=== PATIENT | female | born 1955 | race Caucasian/White ===

== ENCOUNTER 2019-04-28 10:36 | Inpatient (IN) | payer MEDICARE, OTHER, SELFPAY ==
--- NOTE | 2019-04-26 09:24 | ECG_ITS ---
Measurements Intervals [place] Rate: 65 P: 63 CT: 142 QRS: 46 QRSD: 86 T: 62 QT: 387 QTc: 404 SINUS RHYTHM No previous ECG available for comparison Electronically Signed On 04-26-2019 19:32:37 BRANCH SALES MANAGER by Edy Coronel M.D. [email or web address]
--- NOTE | 2019-04-26 10:04 | ANES.PREANES ---
Pre-Anesthetic Assessment Pre-Anesthetic Assessment: Height/Weight: Height 1.52 m Weight 52.617 kg Preop Diagnosis: Righ upper lobe pulmonary nodule Proposed Procedure: Operation Date: 04/28/19 07:00 Proposed Procedures p Lobectomy(Right) - Brendon Iverson MD Social: Packs per day: 5-6 cigs/d for2 weeks Comment: .>40 pack years Airway: Dentition: False and Partials Pulmonary: Pulmonary: COPD CV/HEM: CV/HEM: HTN Comments: rx'd x 10 years stress years 5y negative GI: GI: GERD and PUD Musc/skel: Musc/skel: Lower Back Pain Comments: right >left radiculopathy Anesthetic Plan: ASA status: III Anesthesia: General Other: Epidural for postop pain control PFSH Anesthesia PFSH: Medical History (Updated 04/21/19 @ 09:41 by Meng Coulter MD) Arthropathy of cervical facet joint (Acute) Cellulitis of right anterior lower leg (Acute) Cervical radiculopathy due to degenerative joint disease of spine (Acute) COPD (chronic obstructive pulmonary disease) (Acute) Gout, arthritis (Acute) Inflammatory arthritis (Acute) Intervertebral disc disorder with radiculopathy of lumbar region (Acute) Intervertebral disc disorder with radiculopathy of lumbosacral region (Acute) Low back pain radiating down leg (Acute) Lumbar stenosis with neurogenic claudication (Acute) Lung nodule, solitary (Acute) Mixed stress and urge urinary incontinence (Acute) Neck pain (Acute) Osteoporosis (Acute) Pain and swelling of right knee (Acute) Primary Sjogren's syndrome (Acute) Seronegative rheumatoid arthritis (Acute) Spondylolisthesis at L4-L5 level (Acute) Spondylolisthesis at L5-S1 level (Acute) Spondylolisthesis, cervical region (Acute) Spondylolisthesis, lumbar region (Acute) Thoracic disc disease (Acute) Vaginal atrophy (Acute) Surgical History History of D&C (Acute) 4x History of decompression of ulnar nerve (Acute) Right History of ear surgery (Acute 04/17/17) Right History of hysterectomy (Acute 10/29/16) with Vaginal Repair, Total S/P insertion of spinal cord stimulator (Acute) Social History Smoking and tobacco status: current every day smoker Alcohol intake: never Substance/Drug Use: never Lives independently: Yes Household members: spouse Marital status: Current occupational status: disabled History of recent travel: No Data Anesthesia Cardiac Studies: No Data to Display
[2019-04-26 10:42] LABS: Basophils # 0.1 10^3/uL (0.0-0.1); Basophils % 0.9 %; Eosinophils # 0.6 10^3/uL (0.0-0.8); Hematocrit 42.9 % (37.0-47.0); Hemoglobin 14.2 g/dL (11.5-15.3); Lymphocytes # 2.2 10^3/uL (0.8-4.8); Mean Corpuscular HGB Conc 33.1 g/dL (30.0-36.0); Mean Corpuscular Hemoglobin 31.3 pg (28.0-34.0); Mean Corpuscular Volume 94.7 fL (81-99); Mean Platelet Volume 11.5 fL (7.4-10.4); Monocytes # 0.7 10^3/uL (0.2-0.9); Monocytes % 7.2 %; Neutrophils % 62.7 %; Nucleated Red Blood Cells % 0 %; Platelet Count 267 10^3/cmm (130-400); Red Blood Count 4.53 10^6/uL (4.1-5.3); Red Cell Distribution Width 12.1 % (12.1-15.1); White Blood Count 9.5 10^3/uL (4.0-10.0)
[2019-04-26 10:43] LABS: INR 1.01 (0.8-1.2)
[2019-04-26 11:01] LABS: Anion Gap 14.8 (5-19); Blood Urea Nitrogen 18 mg/dL (8-23); Calcium 9.7 mg/Dl (8.8-10.2); Carbon Dioxide 25 mmol/L (22-29); Chloride 96 mmol/L (98-107); Glucose 90 mg/dL (74-106); Potassium 3.8 mmol/L (3.5-5.1); Sodium 132 mmol/L (136-145)
[2019-04-26 12:36] LABS: Add Urine Microscopic? NO
[2019-04-26 13:35] LABS: Bilirubin Urine Neg (NEGATIVE); Blood Urine Neg (Negative); Glucose Urine UA Norm (Normal); Ketones Urine Negative (Negative); Leukocyte Esterase Urine Negative (Negative); Nitrate Urine Negative (Negative); Protein Urine Neg (Negative); Specific Gravity, Urine 1.005 (1.005-1.030); Urine Appearance Clear (CLEAR); Urine Color Straw (Yellow); Urobilinogen Urine Norm (Negative)
[2019-04-28] VITALS (41 sets, daily range): BP systolic 44–172; BP diastolic 21–98; PULSE 54–84; RESP 11–25; TEMP 36.2–36.9; O2SAT 87–100
[2019-04-28] MEDS: sodium chloride 0.9% 1,000 ML 30 ML IV (06:06)
--- NOTE | 2019-04-28 06:27 | PM.HPUD ---
H&P update H&P Update: DATE OF SURGERY/PROCEDURE: 04/28/19 DATE H&P PERFORMED: 04/28/19 H&P UPDATE INFORMATION: H&P completed within last 30 days and No changes to prior documentation PREOP DIAGNOSIS: PET +2 cm right upper lobe lung lesion PRIMARY INDICATION FOR PROCEDURE: PET positive right upper lobe lung lesion concerning for malignancy PLANNED PROCEDURE: Operation Date: 04/28/19 07:00 Proposed Procedures p Lobectomy(Right) - Brendon Iverson MD Full H&P Medications/Allergies: Current Medications: Current Medications Generic Name Dose Route Start Last Admin Trade Name Freq PRN Reason Stop Dose Admin Sodium Chloride 1,000 mls @ 30 ml s/hr 04/28/19 05:45 04/28/19 06:06 Sodium Chloride 0.9% IV 04/29/19 05:44 30 mls/hr .Q24H YEHUDA Administration Perinent History: Medical/Surgical History: Medical History (Updated 04/21/19 @ 09:41 by Meng Coulter MD) Arthropathy of cervical facet joint (Acute) Cellulitis of right anterior lower leg (Acute) Cervical radiculopathy due to degenerative joint disease of spine (Acute) COPD (chronic obstructive pulmonary disease) (Acute) Gout, arthritis (Acute) Inflammatory arthritis (Acute) Intervertebral disc disorder with radiculopathy of lumbar region (Acute) Intervertebral disc disorder with radiculopathy of lumbosacral region (Acute) Low back pain radiating down leg (Acute) Lumbar stenosis with neurogenic claudication (Acute) Lung nodule, solitary (Acute) Mixed stress and urge urinary incontinence (Acute) Neck pain (Acute) Osteoporosis (Acute) Pain and swelling of right knee (Acute) Primary Sjogren's syndrome (Acute) Seronegative rheumatoid arthritis (Acute) Spondylolisthesis at L4-L5 level (Acute) Spondylolisthesis at L5-S1 level (Acute) Spondylolisthesis, cervical region (Acute) Spondylolisthesis, lumbar region (Acute) Thoracic disc disease (Acute) Vaginal atrophy (Acute) Family History: Family History (Updated 03/19/19 @ 12:26 by YAEL Smith) Mother Hypertension Diabetes Stroke Cancer Uterine Grandmother Diabetes Maternal Heart disease Father Heart disease Grandfather Heart disease Sister Cancer Uterine Social History: Social History Smoking and tobacco status: current every day smoker cigarettes Second hand smoke exposure: No Smoking risk assessment/counseling performed?: Yes Alcohol intake: former Lives independently: Yes Household members: spouse Marital status: Current occupational status: disabled History of recent travel: No Pertinent Exam Findings: OTHER PERTINENT EXAM FINDINGS: Lungs are clear. Cardiovascular labs unremarkable. I have again counseled with the patient and her concerning recommendation for right upper lobectomy and indication for. Details the risk of surgery again carefully reviewed. All questions answered. She and family wish to proceed with plans for surgery. A&P Assessment and plan (1) Lung nodule, solitary: PET positive right upper lobe lung lesion in this 64 year-old female with a 40-year history of tobacco use. We have recommended resection secondary to the concerns for malignancy. Status: Acute Code(s): R91.1 - Solitary pulmonary nodule
[2019-04-28] MEDS: ceFAZolin 1,000 mg SDV 3000 MG IRRIGATION (08:26)
--- NOTE | 2019-04-28 08:27 | ANES.PROC ---
Anesthesia Procedures Procedure/Date: 04/28/19 Procedure Narrative: R&B's of thoracic epidural disc'd. Verbal and written consent obtained. Sedated in the OR. LLD position. Heavily calcified spine. Attempt at T-45 and T67 without success. Placed T78 without difficulty. 10cm at skin Arterial Line: Time Out Performed: Yes Consent: requested by attending/covering physician, risks and benefits reviewed and patient agrees to proceed Size (Gauge): 16 Intubation: Time Out Performed: Yes Epidural: Time Out Performed: Yes Consents Signed: Procedure Consent and NPO Consent Consent: requested by attending/covering physician, from patient, risks and benefits reviewed and patient agrees to proceed Thoracic Level: other Epidural position: laying on side Epidural procedure: sterile prep of area, 1% lidocaine to numb the area, negative for paresthesia passed, neg for paresthesia, test dose given and 1.5% xylocaine 1:200k epi
--- NOTE | 2019-04-28 08:30 | SUR.OPER ---
6856 PT WAS POSITIONED ON HER SIDE FOR THE EPIDURAL PLACEMENT AND IT WAS NOTICED THAT ON HER LOWER BACK THERE WAS SOME SKIN DISCOLORATION, BROWN, MOTTLED MARKINGS ALONG HER LOWER BACK. PT STATED IT WAS NOT PAINFUL AND IT WAS FROM HER USE OF HEATING PADS ON HER LOWER BACK. 0720 FAMILY (EMILIE) NOTIFIED OF SURGERY START AND PT CONDITION.
--- NOTE | 2019-04-28 08:54 | SUR.OPER ---
0854 SURGICEL USED ON PT BY DR SANTOS, REF 1951, LOT [id number], EXP
--- NOTE | 2019-04-28 09:45 | P.OP_ITS ---
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 No evidence for metastatic disease. I recommended surgical resection. Details the risk of the procedure were carefully and frankly discussed. Proper consents have been reviewed and signed. Procedure: Thoracic epidural catheter was placed prior to entering the surgical suite. Patient underwent general endotracheal anesthesia with double-lumen endotracheal tube placed. Appropriate invasive lines were placed. She was placed in the left lateral decubitus position over axillary roll and protective padding. Her entire right chest was sterilely prepped and draped. A muscle- sparing limited right thoracotomy incision was made with cautery used to control bleeding. Latissimus muscle was divided. The anterior serratus muscle was retracted but not divided. The fifth intercostal space was entered. Moist laparotomy pads and the Finochietto retractor were placed. The chest was carefully opened. Right apical upper lobe mass could be easily palpated. There were minimal adhesions which were easily taken down. After careful inspection, due to the most apical location of this lesion and his limited size, and given her 40-year pack history of smoking, I felt that segmentectomy was appropriate. After careful isolation, utilizing endoscopic stapler, multiple firings were obtained, additionally laterally to medially and then superiorly to inferiorly. The resected segment was then removed and sent to pathology, where Dr. Lee has reported that this is a non-small cell carcinoma. I then performed dissection of a mediastinal lymph node and this was sent to pathology for permanent analysis. As there was isolated disease and no evidence for pathology elsewhere through visualization and palpation, we did not feel that further resection was required. The entire chest was then irrigated with large amounts of antibiotic solution. The right lung was then reinflated, without evidence for substantial air leak. No substantial air leaks were identified. 28 Austrian drain was placed over the diaphragm and out to the apex. This was connected to Pleur-evac suction. Retractor and sponges were removed. Sponge and needle count was correct. Chest wall was reapproximated with interrupted #1 Vicryl suture. The fascia was closed with running 0 Vicryl suture. The subcutaneous layer was cl osed with 2-0 Vicryl suture. Skin was reapproximated in a subcuticular manner with 3-0 Monocryl suture. Sterile dressing was applied. Patient was returned to the supine position and awakened from anesthesia. Ms. Barnes was extubated without difficulty. She was then transferred to PACU, awaiting bed availability in the ICU. Family was counseled. Chest x-ray is pending.
--- NOTE | 2019-04-28 09:55 | XR_ITS ---
WS: [id number] PORTABLE CHEST HISTORY: LOBECTOMY COMPARISON: 04/04/2015 Status post RIGHT upper lobectomy. There is an area of increased opacification and consolidation over the medial RIGHT upper lung field measuring 4.1 x 3.7 cm. Probably postoperative changes and a small amount of bleeding. Single right-sided chest tube. Tip of the tube is directed medially and inferiorly. Small amount of s ubcutaneous air over the RIGHT lateral thorax. Cardiac size: Normal. Mediastinum/Aorta: Normal mediastinum. No osseous abnormality seen. XR/XR chest 1V portable [id number] IMPRESSION: 1. Status post RIGHT upper lobectomy. Increased opacification in the medial RI GHT upper lung is probably postsurgical changes in associated bleeding. Recomme nd follow-up chest radiographs to demonstrate stability of the postoperative ch anges in the medial RIGHT upper lung field. 2. Single RIGHT chest tube with tip directed medially and inferiorly. No pneum othorax.
--- NOTE | 2019-04-28 10:02 | SUR.PHASEI ---
0950 PATIENT TO PACU AT THIS TIME FROM OR. PATIENT PLACED ON SIMPLE MASK AT 8L, SPO2 100%. CHEST TUBE IN PLACE, PLACED TO WALL SUCTION. EPIDURAL IN PLACE. DRESSING TO RIGHT BACK, CDI. PATIENT RESPONSIVE TO VERBAL STIMULI.
--- NOTE | 2019-04-28 10:45 | PC.NURSE ---
Hemostats available on the unit in a central location. Several patients with chest tubes.
--- NOTE | 2019-04-28 11:02 | SUR.PHASEI ---
1042 PATIENT TO ICU AT THIS TIME VIA GURNEY. A/OX3. RR EVEN AND UNLABORED. DRESSING TO RIGHT BACK, CDI. CHEST TUBE IN PLACE. SPO2 97% ON RA. YANCEY IN PLACE, DRAINING CLEAR YELLOW URINE. EPIDURAL TO THORACIC BACK, BLOOD NOTED UNDER CLEAR DRESSING. CARE ASSUMED BY JAMAR CORRIGAN ICU.
[2019-04-28] MEDS: phenylephrine inj 25 MG in sodium chloride 0.9% 250 ML 36.4 MG IV (11:40)
[2019-04-28] MEDS: HYDROcodone-acetaminophen 5-325 mg Tablet 1 TAB PO ×3 (11:53→22:07)
[2019-04-28] MEDS: lactated ringers 1,000 ML 100 ML IV ×2 (12:05→22:02)
[2019-04-28] MEDS: morphine 4 mg/mL SDV 1 mL 2 MG IVP ×3 (12:48→19:53)
--- NOTE | 2019-04-28 13:52 | PC.CHAP ---
Pastoral Care Encounter/Spiritual Assessment Type of Contact [] Declined recreation therapist visit [] Patient/Family/Request visit [] Outpatient visit [] Follow-up visit [] Physician referral [] Code/Alert [x] Routine visit [] Staff referral [] Actively dying [] Patient sleeping [] Family support [] [] Out of room [] Palliative care [] [] Receiving care in room [] Pre-surgical visit [] Trauma [] Long length of stay [x] ICU visit [] Other: Relational/Emotional Strength [x] Patient feels connected with others/family/visitors/staff [] Distress [] Loneliness/isolation [] Abandonment Spirituality of Patient [x] Person of Amanda [] Attends Denominational of their Amanda [x] Believes in Prayer [] Reads Bible or Tenriism materials [] There are Spiritual issues to be addressed Instrument Maker And Repairer Interventions [x] Prayer [x] Active listening [x] Non-anxious presence [x] Spiritual/emotional support [] Crisis/trauma care [] Spiritual counseling [] Bereavement support [] Provided bereavement packet [] Provided Bible/devotional materials [] Provided toy/stuffed animal, coloring book to patient or family member [x] Completed spiritual assessment [] Provided Communion [] Anointing/[place] [] Salvation [] Other: Impact on Illness or Injury [] Angry [] Fearful [] Anxious [] Often cries [] Exhaustion [] Unable to work [] Unable to attend buddhist [] Unable to walk/stand [] Unable to read [] Unable to drive [] Unable to eat/drink [] Unable to sleep [] Unable to be with family [x] Other: post surgery pain Summary THE patient and family wre very appreciative of the Instrument Maker And Repairer visit and the Instrument Maker And Repairer praying for the patient. Time spent with patient 12 mins.
[2019-04-28] MEDS: gabapentin 100 mg Capsule PO ×2 (15:27→21:36)
[2019-04-28] MEDS: hydroxychloroquine 200 mg Tablet PO (18:03)
[2019-04-28] MEDS: lamoTRIgine 100 mg Tablet 50 MG PO (18:03)
[2019-04-28] MEDS: phenylephrine inj 25 MG in sodium chloride 0.9% 250 ML 24.2 MG IV (20:08)
--- NOTE | 2019-04-28 22:23 | PC.NURSE ---
Right radial arterial line discontinued at this time. Verbal orders received from Dr. De Leon, catheter intact. Pressure held for 10 minutes with no s/s of hematoma formation.
[2019-04-29] VITALS (85 sets, daily range): BP systolic 74–167; BP diastolic 38–92; PULSE 59–87; RESP 14–34; TEMP 36.9–37.5; O2SAT 76–100
[2019-04-29] MEDS: morphine 4 mg/mL SDV 1 mL 2 MG IVP ×2 (02:03→05:06)
[2019-04-29] MEDS: phenylephrine inj 25 MG in sodium chloride 0.9% 250 ML 48.5 MG IV (03:31)
[2019-04-29 04:57] LABS: Basophils # 0.1 10^3/uL (0.0-0.1); Basophils % 0.6 %; Eosinophils # 0.4 10^3/uL (0.0-0.8); Eosinophils % 3.3 %; Hematocrit 38.5 % (37.0-47.0); Hemoglobin 12.6 g/dL (11.5-15.3); Lymphocytes # 1.6 10^3/uL (0.8-4.8); Lymphocytes % 14.1 %; Mean Corpuscular HGB Conc 32.7 g/dL (30.0-36.0); Mean Corpuscular Hemoglobin 32.8 pg (28.0-34.0); Mean Corpuscular Volume 100.3 fL (81-99); Mean Platelet Volume 11.4 fL (7.4-10.4); Monocytes # 0.8 10^3/uL (0.2-0.9); Monocytes % 7.7 %; Neutrophils # 8.1 10^3/uL (1.8-7.7); Neutrophils % 73.8 %; Nucleated Red Blood Cells % 0 %; Platelet Count 196 10^3/cmm (130-400); Red Blood Count 3.84 10^6/uL (4.1-5.3); Red Cell Distribution Width 12.6 % (12.1-15.1)
[2019-04-29] MEDS: HYDROcodone-acetaminophen 5-325 mg Tablet 1 TAB PO ×2 (05:14→21:00)
--- NOTE | 2019-04-29 05:25 | PC.NURSE ---
NATIONAL SALES MANAGER demand doses given 60/ demand doses attempted 109
--- NOTE | 2019-04-29 06:00 | XR_ITS ---
WS: [id number] Portable AP upright chest, 04/29/2019 Clinical Data: s/p RUL segmentectomy Comparison: Portable chest, 04/28/2019 Findings: The right upper lobe density in the medial aspect remains unchanged The pulmonary vasculari ty is not increased. The right chest tube remains in the same position ending in the superior aspect of the right thoracic space. Left lung is clear. The heart is normal. Monitor leads on the chest wall . No pneumothorax is seen. XR/XR chest 1V portable [id number] Impression: 1. Status post right upper lobectomy with no change in ossification in the medi al aspect of the right upper lung. 2. No change in right chest tube.
[2019-04-29] MEDS: ketorolac 30 mg/mL INJ IVP ×3 (06:28→18:39)
--- NOTE | 2019-04-29 07:15 | NUR.SHIFT ---
Pt alert and oreinted this am. Still on the Louis gtt. Dr Iverson at bedside. Basal rate on Epidural decreased by Dr. Zaman. Adalberto doing attemtps and given cleared to better evaluate new pain meds, Toradol and Ultram effectiveness.
--- NOTE | 2019-04-29 07:24 | ANE.PACU ---
 Inpatient post-anesthesia follow up: Airway intact: Yes Vital signs: Temperature 99.5 F Pulse Rate [Bilate ral Dorsalis 80 Pedis] Pulse Rate [Monito r Apical] 64 Pulse Rate [Bilate ral Radial] 67 Pulse Rate [Left] 68 Pulse Rate 71 Respiratory Rate 18 Blood Pressure [Ri ght Radial 71/55 Artery] Blood Pressure [Le ft Arm] 114/92 Pulse Oximetry 98 Oxygen Delivery Me thod Room Air Oxygen Flow Rate 8 Fraction of Inspir ed Oxygen Hydration adequate: Yes Nausea and vomiting: No Pain level: 3 Pain level: Pain well controlled. Pt sitting up talking to Dr. Iverson & I. Dr. Iverson no Mental status: Baseline Additional Comments: pain well controlled, BP soft. Asked to decrease epidural infustion from 6 to 3 ml/hr
[2019-04-29] MEDS: TRAMadol 50 mg Tablet PO ×2 (09:15→15:13)
[2019-04-29] MEDS: hydroxychloroquine 200 mg Tablet PO ×2 (09:15→20:57)
[2019-04-29] MEDS: allopurinol 100 mg Tablet 200 MG PO (09:16)
[2019-04-29] MEDS: lamoTRIgine 100 mg Tablet 50 MG PO ×2 (09:16→18:39)
[2019-04-29] MEDS: gabapentin 100 mg Capsule PO ×3 (09:16→20:57)
[2019-04-29] MEDS: venlafaxine 75 mg Tablet PO (09:21)
[2019-04-29] MEDS: pantoprazole DR 40 mg Tablet PO (09:21)
--- NOTE | 2019-04-29 09:26 | PM.PN ---
Subjective Subjective: Interval history: Postop day 1 status post apical segmentectomy of the right upper lobe for non-small cell carcinoma. Patient doing well. No air leak. Pain is under better control with the use of tramadol and Toradol. Low chest tube output. Tolerating diet well. Vitals/I&O/Wt Last Vital Signs Temp 99.5 F 04/29/19 04:00 Pulse 67 04/29/19 08:07 Resp 18 04/29/19 08:07 BP 114/92 04/29/19 05:47 Pulse Ox 98 04/29/19 08:07 04/28/19 04/29/19 04/29/19 22:59 06:59 14:59 Intake Total 3180.004 / 4015.870 2967.665 / 6983.535 450 / 450 Output Total 3400 / 4350 4285 / 8635 Balance -219.996 / -334.130 -1317.335 / -1651.465 450 / 450 Physical Exam Resp: COMMON NORMALS: normal respiratory effort, no use of accessory muscles and clear to auscultation bilaterally AUSCULTATION: clear to auscultation bilaterally Urinary Catheter Management^: Briceño Latex: Cath Placed During This Visit: no A&P Assessment and plan (1) Non-small cell carcinoma of right lung: Postop day 1 status post apical segmentectomy right upper lobe for non-small cell carcinoma We will DC Briceño Epidural catheter dosing has been decreased Will Hep-Lock IV Will plan to transfer to [facility] Chest x-ray in a.m. Status: Acute Code(s): C34.91 - Malignant neoplasm of unspecified part of right bronchus or lung Attestations Medical Necessity Statement*: Postop day #1 status post apical segmentectomy of right upper lobe for non-small cell lung carcinoma Procedures Arterial Line Size (Gauge): 16 Coding Level of Care Code Acute Creative Services Manager for [facility] Fwd Diagnoses Non-small cell carcinoma of right lung C34.91
[2019-04-29] MEDS: phenylephrine inj 25 MG in sodium chloride 0.9% 250 ML 24.2 MG IV (14:07)
--- NOTE | 2019-04-29 19:15 | PC.NURSE ---
Bedside report given to Ivet Ricketts. Pt much improved today She is off Louis gtt after 2 attempts. IV fluids stopped by Dr Iverson. There are transfer ordered that where waiting for the Louis gtt to be discontinued. Dressing changed on incision and chest tube today, no air leaks. Basal rate on epidural decreased to 3ml/hr. The Toradol and Ultram are working well for her pain control, she has more epidural demoand doses given per attempts. She has ambulated around the unit two and half times t kathleen. Briceño out this am, She started urinating at 1400.
[2019-04-30] VITALS (10 sets, daily range): BP systolic 106–124; BP diastolic 60–68; PULSE 63–77; RESP 13–23; TEMP 37–37.2; O2SAT 93–100
[2019-04-30] MEDS: HYDROcodone-acetaminophen 5-325 mg Tablet 1 TAB PO ×5 (01:42→20:09)
--- NOTE | 2019-04-30 01:54 | PC.NURSE ---
New bag of Ropivacaine hung. 20 mLwasted from old bag with Otis Vaca RN. Battery almost so pump had to be reprogrammed.
--- NOTE | 2019-04-30 06:00 | XR_ITS ---
WS: [id number] CHEST XRAY TECHNIQUE: Portable chest. CLINICAL INFORMATION: Status post apical segmentectomy of right upper lobe for non-small cell carcino ma COMPARISON: FINDINGS: Heart: Normal cardiac silhouette. Lungs: Right chest tube. Stable postoperative changes right upper lobectomy. This is unchanged since yesterday. Lungs are well aerated. No acute pulmonary infiltrates. Small amount of subcutaneous emphy sema right lateral chest wall Bones: Normal visualized bony structures. XR/XR chest 1V portable [id number] IMPRESSION: 1. Right chest tube in place with tip near the mediastinum. 2. Postoperative right upper lobectomy is unchanged 3. Opacity in the right upper lobe medially has improved.
[2019-04-30] MEDS: TRAMadol 50 mg Tablet PO ×3 (07:39→22:23)
--- NOTE | 2019-04-30 08:14 | ANE.PACU ---
 Inpatient post-anesthesia follow up: Airway intact: Yes Vital signs: Temperature 99 F Pulse Rate [Bilate ral Dorsalis 80 Pedis] Pulse Rate [Monito r Apical] 64 Pulse Rate [Bilate ral Radial] 67 Pulse Rate [Left] 68 Pulse Rate 70 Respiratory Rate 14 Blood Pressure [Ri ght Radial 71/55 Artery] Blood Pressure [Le ft Arm] 114/92 Blood Pressure 112/68 Pulse Oximetry 93 Oxygen Delivery Me thod Room Air Oxygen Flow Rate 8 Fraction of Inspir ed Oxygen Hydration adequate: Yes Nausea and vomiting: No Pain level: 6 Mental status: Baseline Additional Comments: Epidural intact and in place, reinforced dressing. Encouraged use of button, patient states it seems to be working less well this morning. No sign of erythema or infection. no tenderness to palpation.
[2019-04-30] MEDS: ketorolac 30 mg/mL INJ IVP ×3 (08:16→23:29)
[2019-04-30] MEDS: venlafaxine 75 mg Tablet PO (08:20)
[2019-04-30] MEDS: pantoprazole DR 40 mg Tablet PO (08:20)
[2019-04-30] MEDS: allopurinol 100 mg Tablet 200 MG PO (08:20)
[2019-04-30] MEDS: hydroCHLOROthiazide 25 mg Tablet 12.5 MG PO (08:20)
[2019-04-30] MEDS: gabapentin 100 mg Capsule PO ×3 (08:20→20:09)
[2019-04-30] MEDS: lamoTRIgine 100 mg Tablet 50 MG PO ×2 (08:21→17:08)
[2019-04-30] MEDS: hydroxychloroquine 200 mg Tablet PO ×2 (08:21→17:08)
[2019-04-30] MEDS: cyclobenzaprine 10 mg Tablet PO ×2 (12:47→20:09)
--- NOTE | 2019-04-30 12:56 | PM.PN ---
Subjective Subjective: Interval history: Moderate amount of thoracotomy discomfort today, which is actually worsened as compared to yesterday. She has been ambulating the hallways and does remain in good spirits. Pathology is returned consistent with probable adenocarcinoma with clear margins. Lymph nodes were negative. Appears to be a stage I There is noted to still still be a small air leak. I will leave the chest tube to suction for now. It is only being removed from suction when she is ambulating. Vitals/I&O/Wt Last Vital Signs Temp 99.0 F 04/30/19 10:33 Pulse 71 04/30/19 10:33 Resp 17 04/30/19 10:33 BP 124/67 04/30/19 10:33 Pulse Ox 97 04/30/19 10:33 04/29/19 04/30/19 04/30/19 22:59 06:59 14:59 Intake Total 800 / 2402.043 220 / 2622.043 300 / 300 Output Total 560 / 1535 1300 / 2835 1000 / 1000 Balance 240 / 867.043 -1080 / -212.957 -700 / -700 Physical Exam Chest: COMMONS NORMALS: inspection of chest normal OTHER: Thoracotomy incision is clean and dry. Chest tube site is clean. The dressing had been displaced and therefore I replaced it. Resp: COMMON NORMALS: no retractions and clear to auscultation bilaterally AUSCULTATION: clear to auscultation bilaterally Urinary Catheter Management^: Briceño Latex: Cath Placed During This Visit: no Data : 04/29/19 04:10 04/26/19 09:45 A&P Assessment and plan (1) Non-small cell carcinoma of right lung: Postop day #2 status post apical segmentectomy of the right upper lobe for non-small cell carcinoma with clear margins. Small air leak remains. Plan: We will leave chest tube to suction and obtain a chest x-ray in the morning. Status: Acute Code(s): C34.91 - Malignant neoplasm of unspecified part of right bronchus or lung Attestations Medical Necessity Statement*: Status post segmentectomy for non-small cell carcinoma the right upper lobe postop day #2 Time Spent in Patient Care: 16 - 35 minutes Procedures Arterial Line Size (Gauge): 16 Coding Level of Care Code Acute Drop Board Man for [facility] Fwd Diagnoses Non-small cell carcinoma of right lung C34.91
[2019-04-30] MEDS: lactulose oral liq 20 gm/30 mL UDC 30 GM PO (15:46)
[2019-04-30] MEDS: metoprolol tartrate 25 mg Tablet PO (17:08)
[2019-05-01] VITALS (8 sets, daily range): BP systolic 78–140; BP diastolic 50–80; PULSE 65–82; RESP 16–25; TEMP 36.7–37; O2SAT 92–99
--- NOTE | 2019-05-01 06:00 | XRR_ITS ---
PROCEDURE INFORMATION: Exam: XR Chest, 1 View Exam date and time: 05/01/2019 5:20 AM Age: 64 years old Clinical indication: Device placement; Chest tube; Prior surgery; Surgery date: 3-7 days post-operative; Additional info: Pod#3 S/P segmentectomy. . . Small airleak persists. . On suction TECHNIQUE: Imaging protocol: XR of the chest Views: 1 view. COMPARISON: CR XR chest 1V portable [id number] 04/30/2019 5:32 AM FINDINGS: Tubes, catheters and devices: Interval straightening of the right chest tube and more superior positioning of its end with its tip now adjacent to the spine in the right apex. Lungs: Continued focal haziness in the medial right upper lung with small surgical clips in this area. No interval consolidation in the lungs. Continued prominent lung volumes. Pleural space: Only questionable minimal residual right apical pneumothorax. Heart/Mediastinum: Still no cardiomegaly. Bones/joints: Continued subtle evidence of a probable old right rib fracture. Soft tissues: Interval increase in the soft tissue emphysema in the right lateral chest wall. XR/XR chest 1V portable [id number] IMPRESSION: Interval change in positioning of the right chest tube and clearance of all or most of the right apical pneumothorax. Interval increase in the soft tissue emphysema in the right chest wall. No significant change elsewhere.
[2019-05-01] MEDS: hydroxychloroquine 200 mg Tablet PO ×2 (08:23→17:30)
[2019-05-01] MEDS: lisinopril 20 mg Tablet PO (08:23)
[2019-05-01] MEDS: venlafaxine 75 mg Tablet PO (08:23)
[2019-05-01] MEDS: gabapentin 100 mg Capsule PO ×3 (08:24→20:40)
[2019-05-01] MEDS: hydroCHLOROthiazide 25 mg Tablet 12.5 MG PO (08:24)
[2019-05-01] MEDS: allopurinol 100 mg Tablet 200 MG PO (08:24)
[2019-05-01] MEDS: pantoprazole DR 40 mg Tablet PO (08:24)
[2019-05-01] MEDS: lamoTRIgine 100 mg Tablet 50 MG PO ×2 (08:24→17:30)
[2019-05-01] MEDS: metoprolol tartrate 25 mg Tablet PO (08:25)
--- NOTE | 2019-05-01 11:17 | PM.PN ---
Subjective Subjective: Interval history: Postop day #3 status post apical segmentectomy right upper lobe for an adenocarcinoma with clear margins and negative nodes. This morning's chest x-ray reveals that the right upper lobe has now fully expanded with positioning of the right chest tube now up to the apex. Residual pneumothorax has resolved. She was placed back on suction yesterday. On rounds this morning there is no air leak noted. Still with some fairly substantial chest wall discomfort though appears to be slowly improving. Vitals/I&O/Wt Last Vital Signs Temp 98.6 F 05/01/19 08:00 Pulse 80 05/01/19 08:00 Resp 18 05/01/19 08:00 BP 90/54 05/01/19 08:00 Pulse Ox 98 05/01/19 08:00 04/30/19 05/01/19 05/01/19 22:59 06:59 14:59 Intake Total 120 / 520 160 / 680 Output Total 110 / 1110 530 / 1640 100 / 100 Balance 10 / -590 -370 / -960 -100 / -100 Physical Exam Chest: COMMONS NORMALS: inspection of chest normal (Thoracotomy incision clean and dry. Dressings were changed. Minimal subcutaneous emphysema. Chest wall is stable.) Resp: COMMON NORMALS: normal respiratory effort and clear to auscultation bilaterally EFFORT & INSPECTION: Yes able to speak in complete sentences AUSCULTATION: clear to auscultation bilaterally Urinary Catheter Management^: Briceño Latex: Cath Placed During This Visit: no Data : 04/29/19 04:10 04/26/19 09:45 A&P Assessment and plan (1) Non-small cell carcinoma of right lung: Postop day #3 status post right apical segmentectomy for adenocarcinoma. Pneumothorax has resolved. Air leak has resolved. Continue chest tube to suction throughout the day and placed on waterseal tonight with a follow-up chest x-ray in the morning. If there is no air leak tomorrow and lung remains fully expanded will plan to discontinue chest tube at that time. Status: Acute Code(s): C34.91 - Malignant neoplasm of unspecified part of right bronchus or lung Attestations Medical Necessity Statement*: Status post segmentectomy for adenocarcinoma the right upper lobe. Time Spent in Patient Care: 16 - 35 minutes Procedures Arterial Line Size (Gauge): 16 Coding Level of Care Code Acute Music Director for Chg Fwd Diagnoses Non-small cell carcinoma of right lung C34.91
--- NOTE | 2019-05-01 12:13 | PC.SOCIAL ---
Pg 2 IMM Explained to pt & Pg 2 IMM. verbally understands & signed. Provided him a copy. Signed, dated, & timed, then placed in chart.
[2019-05-01] MEDS: ketorolac 30 mg/mL INJ IVP (13:24)
[2019-05-01] MEDS: bisacodyl 5 mg Tablet 10 MG PO ×2 (13:24→19:37)
[2019-05-01] MEDS: HYDROcodone-acetaminophen 5-325 mg Tablet 1 TAB PO ×2 (13:24→19:33)
--- NOTE | 2019-05-01 18:50 | PC.NURSE ---
ENGINEERING ADMINISTRATOR Earlier this afternoon I went into pt room and pts was holding the ENGINEERING ADMINISTRATOR clicker/demand button and he stated he had been giving her some so that she wouldnt be in pain. I explained to him that it was important that the pt push the button that way she would not get over sedated or even drop her vital signs. stated her understood.
--- NOTE | 2019-05-01 20:03 | PC.NURSE ---
Order received to d/c chest tube from pleura-vac suction. pt and family educated on reportable S/S such as SOB, chest tightness, etc. will continue to monitor.
[2019-05-02] VITALS (12 sets, daily range): BP systolic 82–145; BP diastolic 50–74; PULSE 66–84; RESP 16–22; TEMP 36.6–37.1; O2SAT 92–98
[2019-05-02] MEDS: ketorolac 30 mg/mL INJ IVP ×3 (00:22→18:25)
--- NOTE | 2019-05-02 00:39 | PC.NURSE ---
pt is resting in bed, pt states that she is in pain. pt's BP recorded low. attempted to contact Dr. Iverson with no answer. will continue to monitor and hold pain narcotic until further notice
--- NOTE | 2019-05-02 06:00 | XRR_ITS ---
PROCEDURE INFORMATION: Exam: XR Chest, 1 View Exam date and time: 05/02/2019 6:29 AM Age: 64 years old Clinical indication: Device placement; Chest tube; Additional info: Pod #4 status post segmentectomy: Chest tube to waterseal TECHNIQUE: Imaging protocol: XR of the chest Views: 1 view. COMPARISON: CR XR chest 1V portable [id number] 05/01/2019 5:07 AM FINDINGS: Lungs: Emphysematous change and interstitial prominence. Postoperative change in poorly defined density in demonstrated overlying the medial aspect of the right upper lung field. Pleural space: Stable blunting of left costophrenic angle. Stable position a right thoracostomy tube with small residual pneumothorax. Heart/Mediastinum: Normal configuration of the heart. Bones/joints: Osteopenia and degenerative change. Soft tissues: Prominent right-sided subcutaneous emphysema. XR/XR chest 1V portable [id number] IMPRESSION: 1. Stable position of right thoracostomy tube with small residual pneumothorax. 2. Additional findings as described above.
[2019-05-02] MEDS: HYDROcodone-acetaminophen 5-325 mg Tablet 1 TAB PO ×2 (06:05→10:32)
[2019-05-02 06:40] LABS: Glucose Point of Care 94 mg/dL (70-110)
[2019-05-02] MEDS: hydroxychloroquine 200 mg Tablet PO ×2 (09:13→20:22)
[2019-05-02] MEDS: allopurinol 100 mg Tablet 200 MG PO (09:13)
[2019-05-02] MEDS: pantoprazole DR 40 mg Tablet PO (09:13)
[2019-05-02] MEDS: hydroCHLOROthiazide 25 mg Tablet 12.5 MG PO (09:14)
[2019-05-02] MEDS: lisinopril 20 mg Tablet PO (09:14)
[2019-05-02] MEDS: metoprolol tartrate 25 mg Tablet PO ×2 (09:14→18:25)
[2019-05-02] MEDS: gabapentin 100 mg Capsule PO ×3 (09:15→20:59)
[2019-05-02] MEDS: lamoTRIgine 100 mg Tablet 50 MG PO ×2 (09:27→18:25)
[2019-05-02] MEDS: venlafaxine ER (24HR) 75 mg Capsule PO (09:38)
--- NOTE | 2019-05-02 10:36 | P.PN_ITS ---
Subjective Subjective: Interval history: Postop day #4 status post apical segmentectomy. Thoracotomy discomfort is under much better control. She is in very good spirits this morning. No air leak noted on Pleur-evac which is been on waterseal. Chest x-ray reveals a small apical pneumothorax which is stable. Lungs are otherwise clear. Right pleural tube remains in good position at the apex. Vitals/I&O/Wt Last Vital Signs Temp 98.6 F 05/02/19 08:00 Pulse 84 05/02/19 10:17 Resp 16 05/02/19 10:17 BP 101/63 05/02/19 08:00 Pulse Ox 92 05/02/19 10:17 05/01/19 05/02/19 05/02/19 22:59 06:59 14:59 Intake Total 600 / 720 580 / 1300 240 / 240 Output Total 50 / 325 500 / 825 50 / 50 Balance 550 / 395 80 / 475 190 / 190 Physical Exam Chest: COMMONS NORMALS: inspection of chest normal (Thoracotomy incision and chest tube site are clean and intact.) Resp: COMMON NORMALS: normal respiratory effort (Pulling 1500 cc on incentive spirometry.) and clear to auscultation bilaterally AUSCULTATION: clear to auscultation bilaterally Back/Pelvis: OTHER: Epidural catheter removed. Site is clean and dry. Distal tip of the catheter was intact. Sterile dressing was applied. Urinary Catheter Management^: Briceño Latex: Cath Placed During This Visit: no Data : 04/29/19 04:10 04/26/19 09:45 A&P Assessment and plan (1) Non-small cell carcinoma of right lung: Postop day #4 status post segmentectomy for adenocarcinoma right upper lobe Chest tube is been discontinued. We will obtain a chest x-ray in a.m. If status is unchanged, will plan to discharge to home. I also remove the epidural catheter today. Distal tip is intact. Status: Acute Code(s): C34.91 - Malignant neoplasm of unspecified part of right bronchus or lung Attestations Medical Necessity Statement*: Status post apical segmentectomy for adenocarcinoma Time Spent in Patient Care: 16 - 35 minutes Procedures Arterial Line Size (Gauge): 16 Coding Level of Care Code Acute Mri Technologist for [facility] Fwd Diagnoses Non-small cell carcinoma of right lung C34.91
[2019-05-02] MEDS: TRAMadol 50 mg Tablet PO ×2 (13:23→20:59)
[2019-05-02] MEDS: morphine 4 mg/mL SDV 1 mL 2 MG IVP (15:25)
[2019-05-02] MEDS: oxyCODONE-APAP 10-325 mg Tablet PO ×2 (15:29→22:51)
--- NOTE | 2019-05-02 15:37 | PC.NURSE ---
Patient with severe pain right upper chest. Patient is crying. Pain is rated 10. Given IV PRN and oral pain medication for this. Patient states only reaction to oxycodone is nausea.
[2019-05-03] VITALS: BP 104/63; PULSE 69; RESP 18; TEMP 36.9; O2SAT 96
[2019-05-03] MEDS: ketorolac 30 mg/mL INJ IVP (00:28)
[2019-05-03] MEDS: TRAMadol 50 mg Tablet PO (02:59)
[2019-05-03 03:41] VITALS: BP 100/58; PULSE 68; RESP 20; TEMP 36.7; O2SAT 93
--- NOTE | 2019-05-03 06:00 | XR_ITS ---
WS: [id number] CHEST XRAY TECHNIQUE: Portable chest. CLINICAL INFORMATION: Status post segmentectomy. Chest tube removed COMPARISON: FINDINGS: Interval removal of right chest tube. Postoperative changes right upper lobe. Small right upper pneum othorax. Subcutaneous emphysema right upper neck and lateral chest wall. Small right pleural effusion . XR/XR chest 1V portable [id number] IMPRESSION: 1. Interval removal of right chest tube. 2. Postoperative changes right upper lobe with small right apical pneumothorax . 3. Subcutaneous emphysema right lateral chest wall and lower neck. 4. Small right pleural effusion.
--- NOTE | 2019-05-03 06:50 | P.DS_ITS ---
Discharge Providers Date of Admission: 04/28/19 10:36 Date of Discharge: 05/03/19 Attending Provider at Admission: Brendon Iverson Attending Provider at Discharge: Brendon Iverson Primary Care Provider: Dilshad Ng MD Diagnoses at Discharge Discharge Diagnosis (1) Non-small cell carcinoma of right lung: Status: Acute Reason for Visit Reason for Visit: Reason For Visit: Lobectomy Hospital Course Hospital Course: 64-year-old female electively admitted for planned lung resection for a lesion of the right upper lobe with increased activity on PET scan which was radiographically concerning for malignancy. She has a prior history of tobacco use. On the day of admission she underwent elective resection. Discharge Summary: Ms. Barnes underwent a right apical segmentectomy on the day of admission. She initially convalesced in the ICU with a small air leak. Pain was under good control with use of epidural catheter along with oral and IV narcotics. Pathology has returned and adenocarcinoma with clear margins and neg ative nodes. She subsequently was transitioned to the kruger which continued to do well. Her air leak slowly resolved. She had good use of incentive spirometry. With stable chest x-ray anteriorly, chest tube was removed. Chest x-ray this morning reveals we right lung to remain fully inflated. No infiltrates. Pain is under good control. Good use of incentive spirometry up to 1500 cc. Incision is clean and dry. She will be discharged home today in stable condition. Physical Exam Chest: COMMONS NORMALS: inspection of chest normal (Thoracotomy incision and chest tube site are healing well without evidence for infection) Resp: COMMON NORMALS: normal respiratory effort and clear to auscultation bilaterally AUSCULTATION: clear to auscultation bilaterally Urinary Catheter Management^: Briceño Latex: Cath Placed During This Visit: no Discharge Data Data Completed and Pending: Completed Studies During Hospitalization Category Date Time Status XR chest 1V jake ble [id number] Routine Exams 04/29/19 06:00 Completed XR chest 1V jake ble [id number] Routine Exams 04/30/19 06:00 Completed XR chest 1V jake ble [id number] Routine Exams 05/01/19 06:00 Completed XR chest 1V jake ble [id number] Routine Exams 05/02/19 06:00 Completed XR chest 1V jake ble [id number] Stat Exams 04/28/19 09:55 Completed Pathology: Frozen Section [PTH] Sta t Pth 04/28/19 08:47 Completed Pending at discharge Category Date Time Status XR chest 1V jake ble [id number] Routine Exams 05/03/19 06:00 Taken Miscellaneous Concepcion t Routine Lab 04/28/19 10:47 Received Vitals: Last Vital Signs Temp 98.1 F 05/03/19 03:41 Pulse 68 05/03/19 03:41 Resp 20 H 05/03/19 03:41 BP 100/58 05/03/19 03:41 Pulse Ox 93 05/03/19 03:41 Discharge Plan Discharge Patient Disposition: Home Health Service Condition: Stable Prescriptions: New oxycodone-acetaminophen 10-325 mg Tablet 1 tab PO Q6H PRN (Reason: Moderate To Severe Pain) Qty: 21 RF: 0 Continued metoprolol tartrate 25 mg tablet 25 mg PO BID RF: 0 lisinopril-hydrochlorothiazide 20-12.5 mg tablet 1 tab PO DAILY RF: 0 mometasone 50 mcg/actuation spray,non-aerosol 2 spray INTRANASAL DAILY RF: 0 Systane Ultra 0.4-0.3 % drops 1 drop ophthalmic (eye) ONCE PRN (Reason: Dry Eye(S)) RF: 0 Anoro Ellipta 62.5-25 mcg/actuation blister with device 1 inh INHALATION Q24H RF: 0 Actemra ACTPen 162 mg/0.9 mL pen injector 162 mg SUBCUT ONCE RF: 0 allopurinol 100 mg tablet 200 mg PO ONCE RF: 0 Restasis MultiDose 0.05 % drops 1 drop ophthalmic (eye) Q12H RF: 0 gabapentin 100 mg capsule 100 mg PO TID RF: 0 vortioxetine 20 mg tablet 20 mg PO DAILY RF: 0 hyoscyamine sulfate 0.375 mg tablet extended release 12 hr 0.375 mg PO Q12H RF: 0 lamotrigine 100 mg tablet 50 mg PO BID RF: 0 albuterol sulfate 90 mcg/actuation HFA aerosol inhaler 1 inh INHALATION ONCE RF: 0 naproxen 500 mg tablet 500 mg PO BID RF: 0 venlafaxine 75 mg tablet 75 mg PO DAILY RF: 0 cyclobenzaprine 10 mg tablet 10 mg PO ONCE PRN (Reason: MUSCLE SPASMS) RF: 0 hydrocodone-acetaminophen [Council] 5-325 mg tablet 1 tab PO Q6H PRN (Reason: Pain, Moderate) RF: 0 omeprazole 20 mg capsule,delayed release(DR/EC) 20 mg PO BID RF: 0 Plaquenil 200 mg Tablet 200 mg PO BID RF: 0 Discharge Orders: Discharge Order (Routine); Ordered 05/03/19 Ordered By: Brendon Iverson Other Ambulatory Orders: XR chest 1V portable [id number] (Routine) Timeframe: 1 Week Facility: [facility] - Location: [facility] Ordered By: Brendon Iverson Referrals: Brendon Iverson MD [Physician] - 1 week (with single view CXR) Discharge Diet: Usual diet Discharge Activity: Resume usual activity Activity Restrictions/Additional Instructions: No swimming or tub baths x2 weeks May begin showers tomorrow, with drying of incision completely afterwards. No heavy lifting or pulling x2 weeks Report any increased redness, swelling, drainage. Report any increased shortness of breath, fever, chills, or night sweats. Will follow-up in our clinic in 1 week Discharge Attestations Time Spent in Discharge Care*: less than 30 min Specific Discharge Activities: Specific discharge activities: educating patient Status at Discharge: Cognitive status at discharge: cognitively intact , Behavioral status at discharge: cooperative , Functional status at discharge: independent ambulation Quality Metrics Clinical Quality Measures During this hospital stay, did patient experience: None Coding Level of Care Code Acute Rubber Turner for g Fwd Diagnoses Non-small cell carcinoma of right lung C34.91
[2019-05-03 07:11] VITALS: RESP 16
[2019-05-03] MEDS: oxyCODONE-APAP 10-325 mg Tablet PO (07:11)
[2019-05-03 08:00] VITALS: BP 151/77; PULSE 68; RESP 16; TEMP 36.7; O2SAT 97
[2019-05-03 08:34] VITALS: PULSE 70; RESP 16; O2SAT 96
--- NOTE | 2019-05-03 08:48 | PC.SOCIAL ---
IMM Updated Page 2 of IMM updated and given to patient. Initialed, dated, and timed and placed back in chart.
[2019-05-03] MEDS: lisinopril 20 mg Tablet PO (08:56)
[2019-05-03] MEDS: metoprolol tartrate 25 mg Tablet PO (08:56)
[2019-05-03] MEDS: hydroxychloroquine 200 mg Tablet PO (08:56)
[2019-05-03] MEDS: lamoTRIgine 100 mg Tablet 50 MG PO (08:57)
[2019-05-03] MEDS: venlafaxine ER (24HR) 75 mg Capsule PO (08:57)
[2019-05-03] MEDS: gabapentin 100 mg Capsule PO (08:57)
[2019-05-03] MEDS: allopurinol 100 mg Tablet 200 MG PO (08:57)
[2019-05-03] MEDS: hydroCHLOROthiazide 25 mg Tablet 12.5 MG PO (08:57)
[2019-05-03] MEDS: pantoprazole DR 40 mg Tablet PO (09:07)
[2019-05-03 09:28] VITALS: PULSE 70; RESP 16; O2SAT 96
[2019-05-07 10:11] LABS: Miscellaneous Test See Scanned Lab Rpt
== END 2019-05-03 09:29 | disposition home health service (06) | DRG 164 ==
LOC: ICU 10:37 → MEDSURG 04-30 03:12
PROVIDERS: Admitting Provider Thoracic Surgery (Cardiothoracic Vascular Surgery); Family Provider Family Medicine; PCP Family Medicine; Visit Provider Thoracic Surgery (Cardiothoracic Vascular Surgery)
PROC: 0BTC0ZZ Resection of Right Upper Lung Lobe, Open Approach (ICD-10-PCS; CPT 32480; principal; 2019-04-28 07:00)
DX: C34.11 Malignant neoplasm of upper lobe, right bronchus or lung (principal); J95.811 Postprocedural pneumothorax; J44.9 Chronic obstructive pulmonary disease, unspecified; M81.0 Age-related osteoporosis without current pathological fracture; M06.9 Rheumatoid arthritis, unspecified; N39.46 Mixed incontinence; F17.210 Nicotine dependence, cigarettes, uncomplicated; M10.9 Gout, unspecified; Y83.6 Removal of other organ (partial) (total) as the cause of abnormal reaction of the patient, or of later complication, without mention of misadventure at the time of the procedure
CPT/HCPCS: 12345; 36415; 36416; 71045; 80048; 81003; 82962; 85025; 85610; 86850; 86900; 88305; 88307; 88341; 88342; 93005; 96365; 96375; J0131; J0690; J1885; J2250; J2270; J2370; J2405; J2704; J2710; J2795; J3010; J3490; J7030; J7050

== ENCOUNTER 2019-05-06 11:12 | Outpatient (CLI) | payer MEDICARE, OTHER, SELFPAY ==
--- NOTE | 2019-05-06 08:30 | XRR_ITS ---
PROCEDURE INFORMATION: Exam: XR Chest, 1 View Exam date and time: 05/06/2019 11:36 AM Age: 64 years old Clinical indication: Condition or disease; Lung condition and disease; Cancer of the lung; Right; Lobe, upper; Prior surgery; Surgery date: <1 month; Surgery type: Lobectomy; Patient HX: Adenocarconoma; Additional info: S/P right upper lobe segmentectomy TECHNIQUE: Imaging protocol: XR of the chest Views: 1 view. COMPARISON: CR XR chest 1V portable [id number] 05/03/2019 6:14 AM FINDINGS: Lungs: The medial aspect of the right upper lobe shows in the indistinct density with metallic surgical clips present. This finding was present on prior examination and may reflect postoperative deformity No consolidation. The lungs are otherwise clear Pleural space: Unremarkable. No pleural effusion. No pneumothorax. Heart/Mediastinum: Unremarkable. No cardiomegaly. Bones/joints: Unremarkable. Subcutaneous emphysema is seen in the lateral aspect of the right lung this finding was present on prior examination XR/XR chest 1V portable [id number] IMPRESSION: No acute findings. Stable Subcutaneous emphysema right lateral chest wall. Indistinct density medial aspect of the right upper lobe probable postoperative deformity
== END 2019-05-06 11:13 | disposition home or self-care (01) ==
LOC: RAD 11:17
PROVIDERS: Family Provider Family Medicine; PCP Family Medicine; Visit Provider Thoracic Surgery (Cardiothoracic Vascular Surgery)
DX: Z98.890 Other specified postprocedural states (principal); J43.9 Emphysema, unspecified
CPT/HCPCS: 71045

== ENCOUNTER → 2019-05-19 14:14 | Outpatient (BNVA) | payer MEDICARE, OTHER, SELFPAY | PROVIDERS: Family Provider Family Medicine; PCP Family Medicine; Referring Provider Family Medicine; Visit Provider Internal Medicine Rheumatology | DX: M35.00 Sjogren syndrome, unspecified (principal); M10.9 Gout, unspecified; M06.00 Rheumatoid arthritis without rheumatoid factor, unspecified site; Z79.899 Other long term (current) drug therapy; J44.9 Chronic obstructive pulmonary disease, unspecified; F17.210 Nicotine dependence, cigarettes, uncomplicated | CPT/HCPCS: 99214 ==

== ENCOUNTER 2019-06-03 08:05 | Outpatient (CLI) | payer MEDICARE, OTHER, SELFPAY ==
--- NOTE | 2019-06-03 13:59 | ONC CON_ITS ---
Dr. Waterman New Patient Note Patient: Lisa Barnes Unit #: [id number]: [id number] Dicatated By: Maddi Waterman M.D.Date of Visit: Jun 03, 2019 Onc MED New Patient/Consult Referring Physician: Dr. JULIET IVERSON M.D. History of Present Illness: Mrs. Lsia Barnes, is a 64-year-old female with history of abnormal chest x-ray which showed right upper lobe nodule underwent CT PET scan on 03/13/2019 which showed 2.3 x 1.2 cm right lung apex nodule with SUV of 8.4 and no other findings suggestive of metastatic disease. Patient was referred to Dr. 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 Moderately differentiated no visceral pleural invasion seen, lymphovascular invasion present, venous. Surgical margins clear.pT1b One regional lymph node and 1 mediastinal lymph node was examined showed no evidence of metastatic disease. pN0 Patient tolerated procedure very well Patient has history of COPD, gout/arthritis, inflammatory arthritis, 11-[id number]-dygg history of smoking and still active. Next Patient denies any fever or chills, denies any nausea or vomiting denies any shortness of breath denies any headaches blurred vision double vision denies any hemoptysis or hematemesis. Weight is stable. Past Medical History: Ms. Willetts medical history consists of anxiety, cervical radiculopathy, chronic obstructive pulmonary disease, depression, gout, inflammatory arthritis, lumbar radiculopathy, osteoporosis, rheumatoid arthritis, Sjogren's syndrome, and spondylolisthesis. Past Surgical History: Ms. Barnes's surgical/procedural history consists of decompression of ulnar nerve, hysterectomy/bilateral salpingectomy-oophorectomy, insertion of spinal cord stimulator, right ear surgery, and right upper lung segmentectomy. Medications: Albuterol Sulfate 2 Puff(s) (of 108 (90 base) mcg/act) Aerosol Powder, Breath Activated Inhalation four times a day, Allopurinol 1 Tablet (of 300 mg) Oral daily, Anoro Ellipta 1 Puff(s) (of 62.5-25 mcg/inh) Aerosol Powder, Breath Activated Inhalation daily, Gabapentin 1 Capsule (of 300 mg) Oral t.i.d., hctz/lisinopril 1 Tablet (of 20 mg) Oral daily, HYDROcodone-Acetaminophen 1 Tablet (of 5-325 mg) Oral t.i.d., Hydroxychloroquine Sulfate 1 Tablet (of 200 mg) Oral b.i.d., Hyoscyamine Sulfate ER 1 Tablet (of 0.375 mg) Tablet SR 12 HR Oral b.i.d., LaMICtal 0.5 Tablet (of 100 mg) Oral b.i.d., Metoprolol Tartrate 1 Tablet (of 25 mg) Oral b.i.d., Mometasone Furoate 2 Montara(s) (of 50 mcg/act) Suspension Nasal daily, Naproxen 1 Tablet (of 500 mg) Oral b.i.d., Omeprazole 1 Capsule (of 20 mg) Capsule Delayed Release Oral b.i.d., Restasis 1 Drop(s) (of 0.05 %) Emulsion Ophthalmic b.i.d., Systane 1 Solution Ophthalmic PRN, Tocilizumab 1 (162 ) Subcutaneous q 7 days, Venlafaxine HCl ER 1 Capsule (of 75 mg) Capsule SR 24 HR Oral daily, Vortioxetine HBr 1 Capsule (of 20 mg) Tablet Oral daily Allergies: No Known Allergies. Social History: Ms. Barnes is . She is a daily smoker who has smoked 0.5 packs/day for 40 years. She is a former drinker. She has indicated exposure to the following products: cigarettes. Ms. Barnes reports the following support systems: lives with spouse, significant other, family, or friends. Family History: Ms. Barnes's mother at age 86: hypertension, and stroke, and type II diabetes, and uterine cancer. Ms. Barnes's father at age 74: heart disease. Ms. Barnes has 2 brothers: 2 . Ms. Barnes's first brother's suicide. Another brother's suicide. Review Of Symptoms: Constitutional - Appetite is good and weight is stable. No fever, chills, or night sweats. Positive for hot flashes. Energy level is poor, ENMT - Positive for sinus congestion/drainage. No mouth sores. No sore throat or difficulty swallowing, Hematologic/Lymphatic - Positive for easy bruising, Respiratory - Positive for shortness of breath and cough. No pleuritic pain or hemoptysis, Cardiovascular - No angina pain. No palpitations, Gastrointestinal - No nausea or vomiting. Positive for heartburn, no acid reflux. No diarrhea or constipation. No blood in the stool or black stools, Genitourinary (F) - No dysuria or hematuria. Positive for urinary frequency. No urgency or incontinence, Musculoskeletal - Positive for joint pain, Neurologic - No headache. Positive for occasional dizziness. No numbness/paresthesias or other focal neurologic symptoms, Psychiatric - Positive for anxiety and occasional insomnia. Vital Signs: Most recent vitals are not available for this patient. Performance Status: 0 - Fully active, able to carry on all predisease activities without restrictions. (ECOG) Physical Examination: ENMT - No oral exudates, ulcers, masses, thrush or mucositis. Oropharynx clear. Tongue normal, Respiratory - Lungs are clear to auscultation without rhonchi or wheezing, Cardiovascular - Regular rate and rhythm of heart, Abdomen - Non-tender, non-disteted Good bowel sounds. No guarding or rebound tenderness. No pulsatile masses, Extremities - no edema. Lab/Imaging: Most recent lab results are not available for this patient. Impression: Adenocarcinoma involving right upper lobe status post right upper lobe apical segmentectomy on 04/28/2019 next Final pathology report showed adenocarcinoma, Acinar predominant, invasive tumor 1.6 cm, moderately differentiated, no visceropleural invasion, lymphovascular invasion seen, venous Clear surgical margins,pT1b 1 intraparenchymal lymph node and 1 mediastinal lymph node was examined showed no evidence of metastatic disease pN0 Stage IA2 (pT1b,pN0,Mx) 40 pack years history of smoking still active COPD Arthritis Plan: Discussed with patient regarding her disease status and treatment options , patient has early-stage adenocarcinoma involving the right upper lung status post right apical segmentectomy with clear surgical margins, 1.6 cm invasive adenocarcinoma e.g. T1b lesion, with lymphovascular invasion seen, one of regional and 1 mediastinal lymph nodes showed no evidence of metastatic disease, as per N CCN guidelines, in patient with stage IA2, there is no role of adjuvant therapy rather observation alone with 6 monthly follow-up with low contrast CT scan of chest and physical exam is recommended for 2-3 years followed by yearly Patient return to clinic in 6 months with CBC CMP and low contrast CT scan of chest. Signed By: Maddi Waterman M.D. <<Signature on File>>
== END 2019-06-03 08:06 | disposition home or self-care (01) ==
LOC: ONCMED 08:15
PROVIDERS: PCP Family Medicine; Referring Provider Thoracic Surgery (Cardiothoracic Vascular Surgery); Visit Provider Internal Medicine Hematology & Oncology
DX: C34.11 Malignant neoplasm of upper lobe, right bronchus or lung (principal); J44.9 Chronic obstructive pulmonary disease, unspecified; F17.210 Nicotine dependence, cigarettes, uncomplicated; F41.9 Anxiety disorder, unspecified; M54.12 Radiculopathy, cervical region; M81.0 Age-related osteoporosis without current pathological fracture; M06.9 Rheumatoid arthritis, unspecified; M35.00 Sjogren syndrome, unspecified; M43.10 Spondylolisthesis, site unspecified; Z79.51 Long term (current) use of inhaled steroids; Z79.891 Long term (current) use of opiate analgesic; Z79.899 Other long term (current) drug therapy; Z90.2 Acquired absence of lung [part of]
CPT/HCPCS: 99203

== ENCOUNTER 2019-06-17 09:10 | Observation (INO) | payer MEDICARE, OTHER, SELFPAY ==
[2019-06-16 13:54] VITALS: BMI 23.4
--- NOTE | 2019-06-16 14:33 | ANES.PREANE2 ---
Pre-Anesthetic Assessment Pre-Anesthetic Assessment: Height/Weight: Height 1.52 m Weight 54.431 kg Preop Diagnosis: PET positive right upper lobe lung mass Proposed Procedure: Operation Date: 06/17/19 09:20 Proposed Procedures p Dorsal Column Stimulator Insertion [id number] M51.16(Not Applicable) - Meng Coulter MD Familial anesthetic complications: PONV Social: Social History: Tobacco and No alcohol Packs per day: 0.5 ppd Exam: Pre-Anes Outpt Exam: alert, oriented x 3, clear to auscultation bilaterally and regular rate & rhythm Airway: Cervical ROM: WNL (painful) MP: 2 Dentition: False Pulmonary: Comments: R upper lung cancer s/p lobectomy CV/HEM: CV/HEM: HTN : : None reported Hepatic: Hepatic: None reported GI: GI: GERD Comments: severe - takes omeprazole, sleeps in reclining position Metabolic: Metabolic: None reported Musc/skel: Musc/skel: Lower Back Pain, OA/DJD and RA Comments: sjogren's Neuropsych: Neuropsych: None reported Anesthetic Plan: ASA status: 3 Anesthesia: MAC Risk of > 500 ml blood loss (7ml/kg in children): No PFSH Anesthesia PFSH: Social History (System 06/03/19 @ 14:49 by Vicki Bravo) Smoking and tobacco status: current every day smoker cigarettes Years cigarettes smoked: 40 Quit status (tobacco): has tried quititng Smoking risk assessment/counseling performed?: Yes Alcohol intake: former Lives independently: Yes Household members: spouse Marital status: Current occupational status: disabled History of recent travel: No Current gender identity: Female Data Anesthesia Cardiac Studies: No Data to Display
[2019-06-17] VITALS (12 sets, daily range): BP systolic 110–151; BP diastolic 52–83; PULSE 67–77; RESP 12–20; TEMP 36.4–37.2; O2SAT 93–100
--- NOTE | 2019-06-17 | XR_ITS ---
WS: [id number] XR thoracic spine 1Vport [id number] REASON FOR EXAM: DORSAL COLUMN STIMULATOR FINDINGS: 1 image of the thoracic spine with portable to evaluate dorsal column stimulator. The dorsa l column stimulator seen in good position in the mid spine areas. The fluoroscopy time was 14 seconds dose of 5.09 mGy. XR/XR thoracic spine 1Vport [id number] IMPRESSION: Dorsal column stimulator satisfactory place.
--- NOTE | 2019-06-17 | SCC_ITS ---
Procedure Done: 1. Thoracic laminotomy with placement of intraspinal, epidural paddle electrode arrays. 2. Placement of subcutaneous programmable pulse generator. 21.2 seconds of fluoroscopic guidance, for a cumulative dose of 5.09 mGy, was provided to Dr. Coulter by the radiology department. C-arm images of the thoracic spine were saved for the patient's permanent record. [facility]
[2019-06-17] MEDS: sodium chloride 0.9% 500 ML 999 ML IV (06:28)
--- NOTE | 2019-06-17 06:36 | P.ANESUD_ITS ---
Pre-Anesthetic Update Pre-Anesthetic Assessment: Date of Surgery/Procedure: 06/17/19 Preop Janina gnosis: Intervertebral disc disorder with radiculopathy, lumbar region Proposed Procedure: Operation Date: 06/17/19 07:00 Proposed Procedures p Dorsal Column Stimulator Insertion 13581 M51.16(Not Applicable) - Meng Coulter MD Last Intake: Intake Last Liquid Date 06/17/19 Last Liquid Time 03:00 Last Solid Date 06/16/19 Last Solid Time 20:30 Vitals: Temperature 99.0 F 06/17/19 05:58 Temperature Source Temporal Artery S can 06/17/19 05:58 Pulse Rate 72 06/17/19 05:58 Respiratory Rate 16 06/17/19 05:58 Blood Pressure 143/52 06/17/19 05:58 Blood Pressure Arelis n 82 06/17/19 05:58 Pulse Oximetry 98 06/17/19 05:58 Oxygen Delivery Me thod 06/17/19 05:58 Exam: Pre-Anes Outpt Exam: alert, oriented x 3, clear to auscultation bilaterally and No regular rate & rhythm Cardiac Studies: No Data to Display
[2019-06-17] MEDS: vancomycin 1,000 MG in sodium chloride 0.9% 250 ML 250 MG IV (06:51)
--- NOTE | 2019-06-17 06:52 | W.PM.OPSUD ---
Surgery/Procedure H&P Update DATE OF PROCEDURE: June 17, 2019 DATE H&P PERFORMED: 06/02/19 H&P UPDATE INFORMATION: I have reviewed H&P completed within last 30 days, No changes to prior documentation and H&P to be scanned into chart PREOP DIAGNOSIS: Intervertebral disc disorder with radiculopathy, lumbar region PRIMARY INDICATION FOR PROCEDURE: Pain PLANNED PROCEDURE: Operation Date: 06/17/19 07:00 Proposed Procedures Dorsal Column Stimulator placement via laminotomy 77213 M51.16(Not Applicable) - Meng Coulter MD
--- NOTE | 2019-06-17 07:07 | P.OP_ITS ---
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
[2019-06-17] MEDS: thrombin 5,000 unit SDV 5000 UNIT XX (07:46)
--- NOTE | 2019-06-17 07:56 | SUR.OPER ---
Family Notified Of Patient's Status Via Phone.
[2019-06-17] MEDS: docusate sodium 100 mg Capsule PO (10:11)
[2019-06-17] MEDS: hydroxychloroquine 200 mg Tablet PO (10:11)
[2019-06-17] MEDS: lamoTRIgine 100 mg Tablet 50 MG PO (10:11)
[2019-06-17] MEDS: allopurinol 100 mg Tablet 200 MG PO (10:11)
[2019-06-17] MEDS: gabapentin 100 mg Capsule PO ×2 (10:11→14:20)
[2019-06-17] MEDS: venlafaxine 75 mg Tablet PO (10:11)
[2019-06-17] MEDS: lactated ringers 1,000 ML 90 ML IV (10:12)
[2019-06-17] MEDS: HYDROcodone-acetaminophen 5-325 mg Tablet PO ×2 (10:18→14:21)
[2019-06-17] MEDS: ketorolac 30 mg/mL INJ IVP (11:15)
--- NOTE | 2019-06-17 12:27 | PM.OP ---
Operative Report Date of procedure: June 17, 2019 Pre-op Diagnosis: Intervertebral disc disorder with radiculopathy, lumbar region Post-op diagnosis: same Procedure Done: 1. Thoracic laminotomy with placement of intraspinal, epidural paddle electrode arrays. 2. Placement of subcutaneous programmable pulse generator. Implants: [employer] CoverEdge 32 director medical surgical. SunnyBump WaveWriter pulse generator. CLIK anchors. FIXATE suture devices. Pathology: none sent Surgeon: Meng Coulter Anesthesia: MAC Estimated blood loss (mL): 50 IV fluids (mL): 500 Complications: None Condition: stable Disposition: PACU Brief History: The patient is a 64-year-old female with chronic pain. She complained of low back and bilateral lower extremity pain that was not adequately controlled with conservative management. Her workup included thoracic and lumbar spine imaging. She obtained marked relief of chronic low back and lower extremity pain during a percutaneous trial of thoracic spinal cord stimulation. After review of the diagnostic and treatment options with the risks/potential benefits/rationale for each, the patient requested to proceed with placement of epidural paddle electrode arrays and a subcutaneous programmable pulse generator for chronic spinal cord stimulation therapy. Procedure: After routine preoperative evaluation and informed consent were obtained, the patient was taken to the Operating Room and positioned prone on the operating table. Chest and pelvic bolsters were positioned to ensure the abdomen was decompressed. All pressure points were padded. The patient reported the position to be comfortable. She was maintained under varying levels of intravenous sedation by Anesthesia personnel. The planned left flank pulse generator placement incision was marked with a skin marker. A planned midline posterior thoracic incision was likewise marked, after intraoperative localization with fluoroscopy. The patient's lead location during the successful percutaneous trial was utilized to guide placement for the permanent implant. The posterior thorax and flank areas were scrubbed with Betadine and prepped with DuraPrep. Sterile towels and drapes were applied, and an [place] surgical barrier was placed. The proposed midline thoracic incision was infiltrated with 1% Xylocaine with epinephrine. A skin incision was made and carried down into the subcutaneous tissues. The deep fascial plane was identified and divided in the midline. A left-sided subperiosteal dissection was carried down along the lamina at what appeared by intraoperative fluoroscopy to be T9. Deep self-retaining retractors were placed to maximize the operative exposure. A laminotomy was fashioned with Kerrison rongeurs. Ligamentum flavum was resected at the base of the laminotomy site. The hockey-stick dural separator was advanced into the dorsal epidural space without resistance, and then removed. The [employer] CoverEdge 32, 70 cm, 4 x 8 director medical surgical was then advanced into the dorsal epidural space. Intraoperative fluoroscopy suggested a near midline position with the cephalad extent of the lead crossing the T7/T8 interspace. Anesthesia personnel diminished the patient's sedation until she was awake and conversant. The lead tails were connected to extension cables, and intraoperative spinal cord stimulation was performed. The patient reported good paresthesia coverage of her chronic low back and lower extremity pain sites. Lead impedances were good. The patient's sedation was deepened. The wound was copiously irrigated with sterile saline and antibiotic irrigation. The fascia was closed utilizing 2-0 Vicryl Plus in a simple interrupted fashion. CLIK lead anchors were placed over 2 of the 4 lead tails, and secured at the fascial entry point with Fixate suture devices. The lead - anchor - fascial interfaces were manipulated and found to be secure. Intraoperative fluoroscopy suggested a lead position slightly left of midline, with the cephalad extent of the lead crossing the T7-T8 interspace. Strain relief loops of the lead tails were fashioned within the subcutaneous space at the thoracic incision site. The left flank incision site was prepared by infiltration with 1% Xylocaine with epinephrine. An incision was then made, and a subcutaneous pocket was created of adequate size to accommodate the pulse generator. The subcutaneous tunneling tool was utilized to create a subcutaneous passage between the thoracic and left flank incisions. Lead tails were advanced through the subcutaneous tunnel utilizing the tunneling tool. The lead tails were advanced into the appropriate ports on the SunnyBump WaveWriter pulse generator. An impedance check demonstrated no lead faults. The connection sites were secured with set screws and the torque wrench. The connection sites were manipulated and found to be secure. The pulse generator was again interrogated, with acceptable impedances and no evidence of device malfunction. The left flank subcutaneous pocket and the thoracic incision site were again copiously irrigated with antibiotic irrigation. Hemostasis was ensured. The pulse generator was placed within the left flank subcutaneous pocket with excess lead coiled deep/adjacent to the device. The pulse generator was anchored to the superficial fascia with a single Silk suture. The site was again irrigated with antibiotic irrigation. Wound closure was performed in multiple layers with 2-0 Vicryl Plus simple interrupted closure of the dermis. Intraoperative fluoroscopy was again utilized to verify a stable lead position. Final skin closure was performed at both incision sites with 3-0 Vicryl Plus in a running subcuticular pattern. Steri-Strips were applied, and sterile dressings were placed. The patient was then rotated onto the Recovery Room cart in the supine position. She tolerated the procedure well. All sponge, needle and instrument counts were correct at the completion of the procedure.
--- NOTE | 2019-06-17 15:35 | PM.DCS ---
Discharge Providers Date of Admission: 06/17/19 09:10 Date of Discharge: June 17, 2019 Attending Provider at Admission: Meng Coulter MD Attending Provider at Discharge: Meng Coulter MD Primary Care Provider: Dilshad Ng MD Diagnoses at Discharge Discharge Diagnosis (1) Intervertebral disc disorder with radiculopathy of lumbar region: Status: Acute Reason for Visit Reason for Visit: Reason For Visit: Intervertebral Disc Disorder with Radiculopathy of Brief History: The patient is a 64-year-old female with chronic pain. She complained of low back and bilateral lower extremity pain that was not adequately controlled with conservative management. Her workup included thoracic and lumbar spine imaging. She obtained marked relief of chronic low back and lower extremity pain during a percutaneous trial of thoracic spinal cord stimulation. After review of the diagnostic and treatment options with the risks/potential benefits/rationale for each, the patient requested to proceed with placement of epidural paddle electrode arrays and a subcutaneous programmable pulse generator for chronic spinal cord stimulation therapy. Hospital Course Hospital Course: The patient underwent a thoracic laminotomy with placement of intraspinal, epidural paddle electrode arrays and placement of a subcutaneous programmable pulse generator on 06/17/2019. She tolerated procedure well. She completed preoperative and postoperative intravenous antibiotic doses. She was ambulatory, voiding, and tolerating regular diet prior to requested discharge home on the afternoon of the date of surgery. Physical Exam Const: COMMON NORMALS: no apparent distress GENERAL APPEARANCE: cooperative and comfortable NUTRITIONAL APPEARANCE: thin Neck/C-Spine: COMMON NORMALS: supple and no JVD Resp: COMMON NORMALS: normal respiratory effort EFFORT & INSPECTION: Yes able to speak in complete sentences, No tachypneic, No respiratory distress and No stridor Cardio: COMMON NORMALS: no JVD Back/Pelvis: BACK IMAGE (FEMALE): 1. Surgical incision site 2. Surgical incision site Neuro: COMMON NORMALS: moves all extremities GAIT: Yes other (Ambulates unassisted) Psych: COMMON NORMALS: mental status grossly normal, thought process normal and speech normal APPEARANCE: Yes grossly normal ATTITUDE: Yes calm and Yes engaged ACTIVITY/MOTOR BEHAVIOR: Yes appropriate eye contact SPEECH: Yes normal speech MOOD & AFFECT: Yes euthymic mood THOUGHT PROCESS: normal thought process INSIGHT: insight good JUDGEMENT: judgment good Skin: WOUNDS: Yes surgical site (Surgical site dressings clean/dry/intact. Incisions without erythema or active drainage.) Discharge Data Data Completed and Pending: Completed Studies During Hospitalization Category Date Time Status XR thoracic spine 1Vport 60776 Rout ine Exams 06/17/19 Completed Pending at discharge Category Date Time Status C-arm Fluoroscopy 22907 Routine Exams 06/17/19 05:43 Taken Imaging^: Other Imaging: Attestation: I personally reviewed and interpreted this imaging study as follows: (Intraoperative fluoroscopy: Spinal cord stimulation paddle lead crosses the T7-T8 interspace in its cephalad extent in a slightly left of midline position.) Radiologist's impression: IMPRESSION: Dorsal column stimulator satisfactory place. Procedures Performed: Thoracic laminotomy with placement of intraspinal, epidural paddle electrode arrays ([employer] CoverEdge 32 instructor adjunct surgical technician). Placement of subcutaneous programmable pulse generator (bTendo WaveWriter). Intravenous antibiotics. Vitals: Last Vital Signs Temp 98.9 F 06/17/19 15:19 Pulse 68 06/17/19 15:19 Resp 20 H 06/17/19 15:19 BP 151/80 06/17/19 15:19 Pulse Ox 95 06/17/19 15:19 Discharge Plan Discharge Patient Disposition: Home, Self-Care Condition: Stable Prescriptions: New [place] 10-325 mg tablet 1 tab PO Q4H MDD 5 tabs PRN (Reason: pain) Qty: 25 RF: 0 Continued Anoro Ellipta 62.5-25 mcg/actuation blister with device 1 inh INHALATION Q24H 60 Days Qty: 60 RF: 2 metoprolol tartrate 25 mg tablet 25 mg PO BID RF: 0 lisinopril-hydrochlorothiazide 20-12.5 mg tablet 1 tab PO DAILY RF: 0 mometasone 50 mcg/actuation spray,non-aerosol 2 spray INTRANASAL DAILY RF: 0 Systane Ultra 0.4-0.3 % drops 1 drop ophthalmic (eye) ONCE PRN (Reason: Dry Eye(S)) RF: 0 Plaquenil 200 mg tablet 200 mg PO BID Qty: 180 RF: 1 Restasis MultiDose 0.05 % drops 1 drop ophthalmic (eye) Q12H Qty: 16.5 RF: 1 Actemra ACTPen 162 mg/0.9 mL pen injector 162 mg SUBCUT ONCE RF: 0 gabapentin 100 mg capsule 100 mg PO TID RF: 0 vortioxetine 20 mg tablet 20 mg PO DAILY RF: 0 hyoscyamine sulfate 0.375 mg tablet extended release 12 hr 0.375 mg PO Q12H RF: 0 lamotrigine 100 mg tablet 50 mg PO BID RF: 0 albuterol sulfate 90 mcg/actuation HFA aerosol inhaler 1 inh INHALATION BID PRN (Reason: Shortness Of Breath) RF: 0 naproxen 500 mg tablet 500 mg PO BID RF: 0 venlafaxine 75 mg tablet 75 mg PO DAILY RF: 0 cyclobenzaprine 10 mg tablet 10 mg PO ONCE PRN (Reason: MUSCLE SPASMS) RF: 0 omeprazole 20 mg capsule,delayed release(DR/EC) 20 mg PO BID RF: 0 Actemra ACTPen 162 mg/0.9 mL pen injector 162 mg SUBCUT .weekly Qty: 4 RF: 2 allopurinol 100 mg tablet 200 mg PO DAILY RF: 0 Held hydrocodone-acetaminophen [[place]] 5-325 mg tablet 1 tab PO Q6H PRN (Reason: Pain, Moderate) RF: 0 Hold Instructions: Resume on 06/22/19. Hold while taking [place] 10/325 Discharge Orders: Discharge Order (Routine); Ordered 06/17/19 Ordered By: Meng Coulter Referrals: Meng Coulter MD [Physician] - 2 weeks Discharge Diet: Regular Discharge Activity: Limit activity as instructed Patient Instructions: Hydrocodone/Acetaminophen (By mouth), Spinal Cord Stimulator Placement (DC) Activity Restrictions/Additional Instructions: Activity - No driving until office followup visit - No lifting/pushing/pulling over 10 pounds - Avoid twisting or bending - Walking is encouraged - Home exercise per physical therapist - You may engage in sexual intercourse at any time as long as it is comfortable for you - Check with your doctor before returning to work. Notify your doctor if you develop: - temperature of 101.5 degrees F. or higher - redness or swelling of the incision - Foul drainage - increasing pain - increasing numbness or tingling in the arms or legs - New or increasing problems with vision, balance, memory, speaking, nausea or vomiting Hygiene: - Showering is okay - No tub baths or soaking Other: Remove outer bandage 3 days after surgery. If you have paper strips, leave in place until they fall off on their own. If you have stitches, keep your incision dry until the stitches are removed. Your doctor's office is available to answer any questions from 7 AM to 5:00 PM, Friday through at [phone]. After hours, go to the emergency room at [facility] or call 911 for assistance. Discharge Attestations Time Spent in Discharge Care*: other (Postop global) Status at Discharge: Cognitive status at discharge: cognitively intact, Behavioral status at discharge: cooperative, Quality Metrics Clinical Quality Measures During this hospital stay, did patient experience: None Coding Level of Care Code Acute Incinerator Operator for Dimple Fwd Exam Detailed Diagnoses Intervertebral disc disorder with radiculopathy of lumbar region M51.16 Comment Postop global
== END 2019-06-17 15:53 | disposition home or self-care (01) ==
LOC: MEDSURG 09:12
PROVIDERS: Admitting Provider Specialist; Family Provider Family Medicine; PCP Family Medicine; Visit Provider Specialist
PROC: (CPT 63655; principal; 2019-06-17 07:00)
DX: M51.16 Intervertebral disc disorders with radiculopathy, lumbar region (principal); F17.210 Nicotine dependence, cigarettes, uncomplicated; I10 Essential (primary) hypertension; M19.90 Unspecified osteoarthritis, unspecified site
CPT/HCPCS: 63655; 63685; 12345; 72020; 76000; 96360; 96365; 96375; C1778; C1820; C1883; G0378; J0690; J1885; J2001; J2250; J2704; J3010; J3370; J3490; J7040; J7050

== ENCOUNTER → 2019-07-19 09:17 | Outpatient (BNVA) | payer MEDICARE, OTHER, SELFPAY | PROVIDERS: Family Provider Family Medicine; PCP Family Medicine; Visit Provider Internal Medicine Rheumatology | DX: Z79.899 Other long term (current) drug therapy (principal); M35.00 Sjogren syndrome, unspecified; M10.9 Gout, unspecified; M06.00 Rheumatoid arthritis without rheumatoid factor, unspecified site; C34.91 Malignant neoplasm of unspecified part of right bronchus or lung; F17.210 Nicotine dependence, cigarettes, uncomplicated; Z11.59 Encounter for screening for other viral diseases; Z72.89 Other problems related to lifestyle; D89.9 Disorder involving the immune mechanism, unspecified | CPT/HCPCS: 36415; 80076; 82565; 84550; 85025; 85651; 86140; 86704; 86803; 87340; 99214 ==

== ENCOUNTER → 2019-07-19 09:21 | Outpatient (BNVA) | payer MEDICARE, OTHER, SELFPAY | PROVIDERS: Family Provider Family Medicine; PCP Family Medicine; Visit Provider Internal Medicine Rheumatology | DX: Z51.81 Encounter for therapeutic drug level monitoring (principal); M35.00 Sjogren syndrome, unspecified; M10.9 Gout, unspecified; M06.00 Rheumatoid arthritis without rheumatoid factor, unspecified site; D89.9 Disorder involving the immune mechanism, unspecified | CPT/HCPCS: 85025 ==

== ENCOUNTER 2019-08-30 08:02 | Outpatient (CLI) | payer MEDICARE, OTHER, SELFPAY ==
--- NOTE | 2019-08-30 08:07 | MM_ITS ---
WS: [id number] BILATERAL DIGITAL SCREENING MAMMOGRAPHY WITH CAD CLINICAL INFORMATION: SCREEN HISTORY: Screening mammogram. Soreness behind right breast ribs COMPARISON: 05/25 2018 TECHNIQUE: Bilateral CC and MLO views. FINDINGS: Scattered fibroglandular densities bilaterally. No suspicious focal mass, asymmetry, calcifications, or architectural distortion. No evidence of malignancy. MM/[place] [id number] IMPRESSION: BI-RADS: 2-Benign FOLLOW UP: 1 Year Follow-up Recommend return to annual screening mammography.
== END 2019-08-30 08:03 | disposition home or self-care (01) ==
LOC: RADSHAW 08:03
PROVIDERS: PCP Family Medicine; Visit Provider Family Medicine
DX: Z12.31 Encounter for screening mammogram for malignant neoplasm of breast (principal)
CPT/HCPCS: 77067

== ENCOUNTER 2019-09-27 10:28 | Outpatient (RCR) | payer MEDICARE, OTHER, SELFPAY | END 2019-10-12 23:59 | disposition home or self-care (01) | LOC: SPT 10:28 | PROVIDERS: PCP Family Medicine; Visit Provider Family Medicine | DX: M62.838 Other muscle spasm (principal) | CPT/HCPCS: 97110; 97140; 97162 ==

== ENCOUNTER 2019-10-13 06:00 | Outpatient (RCR) | payer MEDICARE, OTHER, SELFPAY | END 2019-11-12 23:59 | disposition home or self-care (01) | LOC: SPT 06:00 | PROVIDERS: PCP Family Medicine; Visit Provider Family Medicine | DX: M62.838 Other muscle spasm (principal) | CPT/HCPCS: 97110; 97140 ==

== ENCOUNTER 2019-11-12 09:42 | Outpatient (CLI) | payer MEDICARE, OTHER, SELFPAY ==
--- NOTE | 2019-11-12 09:45 | CT_ITS ---
WS: [id number] CT CHEST TECHNIQUE: Contrast enhanced CT of the chest with coronal and sagittal reformatted images. CLINICAL INFORMATION: LUNG CANCER COMPARISON: CT and PET/CT DLP: 321.[address] scans at [facility] use at least one of these dose optimization techniques: automat ed exposure control; mA and/or kV adjustment per patient size (includes targeted exams where dose is matched to clinical indication); or iterative reconstruction. FINDINGS: Postoperative changes right upper lobe with resection of the previously described spiculated nodule. Associated Parenchymal fibrosis. No evidence of residual or recurrent disease. Moderate chronic emphy sematous changes. No suspicious intraparenchymal pulmonary opacities. Normal thyroid gland. No medias tinal or hilar lymphadenopathy. Aortic calcification. Coronary calcification. No axillary lymphadenop athy. Adrenal glands are normal. Fatty atrophy of the pancreas. CT/CT chest w con* [id number] IMPRESSION: 1. Postoperative changes right upper lobe resection the previously described s piculated nodule. 2. No evidence of residual or recurrent disease. Parenchymal fibrosis upper lo be. 3. No mediastinal or hilar lymphadenopathy. 4. No suspicious pulmonary opacities. 5. Dorsal spinal stimulator.
[2019-11-12 10:18] LABS: Basophils # 0.1 10^3/uL (0.0-0.1); Basophils % 1.1 %; Eosinophils # 0.5 10^3/uL (0.0-0.8); Eosinophils % 7.3 %; Hematocrit 40.1 % (37.0-47.0); Hemoglobin 12.9 g/dL (11.5-15.3); Lymphocytes % 31.1 %; Mean Corpuscular HGB Conc 32.2 g/dL (30.0-36.0); Mean Corpuscular Hemoglobin 31.6 pg (28.0-34.0); Mean Corpuscular Volume 98.3 fL (81-99); Mean Platelet Volume 9.5 fL (7.4-10.4); Monocytes # 0.7 10^3/uL (0.2-0.9); Monocytes % 10.4 %; Neutrophils # 3.27 10^3/uL (1.8-7.7); Neutrophils % 49.9 %; Nucleated Red Blood Cells % 0 %; Platelet Count 285 10^3/cmm (130-400); Red Blood Count 4.08 10^6/uL (4.1-5.3); Red Cell Distribution Width 12.8 % (12.1-15.1); White Blood Count 6.6 10^3/uL (4.0-10.0)
[2019-11-12 10:31] LABS: Alanine Aminotransferase 19 U/L (0-33); Albumin Level 4.2 g/dL (3.5-5.2); Alkaline Phosphatase 49 IU/L (35-105); Anion Gap 12.4 (5-19); Aspartate Amino Transferase 29 U/L (0-32); Blood Urea Nitrogen 21 mg/dL (8-23); Calcium 8.7 mg/dL (8.5-10.5); Carbon Dioxide 26 mmol/L (22-29); Chloride 94 mmol/L (98-107); Glucose 86 mg/dL (65-115); Osmolality Calculated 262 mOsm/kg (285-295); Potassium 4.4 mmol/L (3.5-5.1); Sodium 128 mmol/L (136-145); Total Bilirubin 0.2 mg/dL (0.15-1.2); Total Protein 6.2 g/dL (6.6-8.7)
[2019-11-12] MEDS: iohexol 300 mg/mL 100 mL Btl IV (11:02)
== END 2019-11-12 09:43 | disposition home or self-care (01) ==
LOC: CT 09:43
PROVIDERS: PCP Family Medicine; Visit Provider Internal Medicine Hematology & Oncology
DX: C34.11 Malignant neoplasm of upper lobe, right bronchus or lung (principal)
CPT/HCPCS: 36415; 71260; 80053; 85025

== ENCOUNTER 2019-11-16 15:41 | Outpatient (CLI) | payer MEDICARE, OTHER, SELFPAY ==
--- NOTE | 2019-11-16 16:02 | ONC FU_ITS ---
Dr. Waterman follow up note Patient: Lisa Barnes Unit #: [id number]: [id number] Dicatated By: Maddi Waterman M.D.Date of Visit:Nov 16, 2019 Onc Med Follow-up/Prog Note History of Present Illness: Mrs. Lisa Barnes, is a 64-year-old female with history of abnormal chest x-ray which showed right upper lobe nodule underwent CT PET scan on 03/13/2019 which showed 2.3 x 1.2 cm right lung apex nodule with SUV of 8.4 and no other findings suggestive of metastatic disease. Patient was referred to Dr. 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 Moderately differentiated no visceral pleural invasion seen, lymphovascular invasion present, venous. Surgical margins clear.pT1b One regional lymph node and 1 mediastinal lymph node was examined showed no evidence of metastatic disease. pN0 Patient tolerated procedure very well Patient has history of COPD, gout/arthritis, inflammatory arthritis,Dry mouth due to Sjogren's disease, [id number] history of smoking and still active. Follow-up CT scan of chest done on November 12, 2019 shows postoperative changes right upper lobe resection. No evidence of residual or recurrence of disease. Parenchymal fibrosis upper lobe. No mediastinal or hilar lymphadenopathy. Dorsal spinal stimulator. Came for follow-up, denies any specific complaints except dry mouth because of connective tissue disorder/Sjogren's disease as per patient she has to drink water all the time. Otherwise no hemoptysis or hematemesis, no headaches no nausea or vomiting, no new bony pains, appetite is good. No fever or chills, no nausea or vomiting, no diarrhea or constipation.Still smoking about pack a day. Medications: Actemra ACTPen (162 ) Subcutaneous q 7 days, Albuterol Sulfate 2 Puff(s) (of 108 (90 base) mcg/act) Aerosol Powder, Breath Activated Inhalation four times a day, Allopurinol 1 Tablet (of 300 mg) Oral daily, Anoro Ellipta 1 Puff(s) (of 62.5-25 mcg/inh) Aerosol Powder, Breath Activated Inhalation daily, Gabapentin 1 Capsule (of 300 mg) Oral t.i.d., hctz/lisinopril 1 Tablet (of 20 mg) Oral daily, HYDROcodone-Acetaminophen 1 Tablet (of 5-325 mg) Oral t.i.d., Hydroxychloroquine Sulfate 1 Tablet (of 200 mg) Oral b.i.d., Hyoscyamine Sulfate ER 1 Tablet (of 0.375 mg) Tablet SR 12 HR Oral b.i.d., LaMICtal 0.5 Tablet (of 100 mg) Oral b.i.d., Metoprolol Tartrate 1 Tablet (of 25 mg) Oral b.i.d., Mometasone Furoate 2 [place](s) (of 50 mcg/act) Suspension Nasal daily, Naproxen 1 Tablet (of 500 mg) Oral b.i.d., Omeprazole 1 Capsule (of 20 mg) Capsule Delayed Release Oral b.i.d., Restasis 1 Drop(s) (of 0.05 %) Emulsion Ophthalmic b.i.d., Systane 1 Solution Ophthalmic PRN, tiZANidine HCl 1 Tablet (of 2 mg) Oral four times a day, Tocilizumab 1 (162 ) Subcutaneous q 7 days, Venlafaxine HCl ER 1 Capsule (of 75 mg) Capsule SR 24 HR Oral daily, Vortioxetine HBr 1 Capsule (of 20 mg) Tablet Oral daily Allergies: No Known Allergies. Review of Systems: Review of Systems is not available for this patient. Vital Signs: Performed on Nov 16, 2019 13:41 Height - 60.00 in Weight - 114.0 lbs (HIGH) BSA - 1.47 sq.m BMI - 22.26 Temperature - 98.6 F Pulse - 80 /min Respiration - 20 /min BP - 119/63 mm(hg) O2 Sat - 96 % Pain - 0 Performance Status: 0 - Fully active, able to carry on all predisease activities without restrictions. (ECOG) Physical Examination: ENMT - No mouth sores, no thrush, no jaundice, Respiratory - Lungs are clear, Cardiovascular - Regular rate and rhythm of heart, Abdomen - Soft, bowel sounds present, Extremities - No visible edema or rash. Lab/Imaging: Test performed on Nov 12, 2019 10:13 Glucose 86 mg/dL BUN 21 mg/dL Creatinine 0.7 mg/dL Cr Clearance (Est) 65.4100 mL/min (Preliminary) Sodium 128 mmol/L Potassium 4.4 mmol/L Chloride 94 mmol/L CO2 26 mmol/L Calcium 8.7 mg/dL Protein, Total 6.2 g/dL Albumin 4.2 g/dL Globulin 2.0 g/dL Bilirubin, Total 0.2 mg/dL Alkaline Phosphatase 49 IU/L AST (SGOT) 29 IU/L ALT (SGPT) 19 IU/L WBC 6.6 10^9/L RBC 4.08 10^12/L HGB 12.9 g/dL HCT 40.1 % MCV 98.3 fl MCH 31.6 pg MCHC 32.2 g/dL RDW 12.8 % Platelet Count 285 10^9/L MPV 9.5 fL Neutrophils (Gran) 3.27 10^9/L Lymphocytes 2.0 10^9/L Monocytes 0.7 10^9/L Eosinophils 0.5 10^9/L Basophils 0.1 10^9/L Manual Lymphocytes 31.1 % Manual Monocytes 10.4 % Manual Eosinophils 7.3 % Manual Basophils 1.1 % Impression: Adenocarcinoma involving right upper lobe status post right upper lobe apical segmentectomy on 04/28/2019 next Final pathology report showed adenocarcinoma, Acinar predominant, invasive tumor 1.6 cm, moderately differentiated, no visceropleural invasion, lymphovascular invasion seen, venous Clear surgical margins,pT1b 1 intraparenchymal lymph node and 1 mediastinal lymph node was examined showed no evidence of metastatic disease pN0 Stage IA2 (pT1b,pN0,Mx) 40 pack years history of smoking still active COPD Arthritis Plan: Discussed with patient regarding her labs white blood count 6.6 hemoglobin 12.9 hematocrit 40.1 platelets 285,000 CMP within normal limit except sodium [address] scan of chest done on November 12, 2019 Clinically, patient is doing well with no signs symptom suggestive of recurrence of disease and follow-up CT scan of chest done recently showed postoperative changes but no evidence of recurrence or residual disease. Her lab work-up is also within normal limit except mild/moderate hyponatremia probably due to excessive free water intake for chronic xerostomia. Patient was advised to reduce free water intake and for dry mouth, she can talk to her lining brusher and can try artificial saliva, may be helpful. She will return to clinic in 6 months with CMP and follow-up CT scan of the chest. Patient was advised to quit smoking, she was offered any assistance she may need. Signed By: Maddi Waterman M.D. <<Signature on File>>
== END 2019-11-16 15:42 | disposition home or self-care (01) ==
LOC: ONCMED 15:45
PROVIDERS: PCP Family Medicine; Visit Provider Internal Medicine Hematology & Oncology
DX: Z08 Encounter for follow-up examination after completed treatment for malignant neoplasm (principal); Z85.118 Personal history of other malignant neoplasm of bronchus and lung; E87.1 Hypo-osmolality and hyponatremia; K11.7 Disturbances of salivary secretion; M35.00 Sjogren syndrome, unspecified; Z90.2 Acquired absence of lung [part of]; J44.9 Chronic obstructive pulmonary disease, unspecified; F17.210 Nicotine dependence, cigarettes, uncomplicated; M19.90 Unspecified osteoarthritis, unspecified site
CPT/HCPCS: G0463

== ENCOUNTER → 2019-11-23 12:49 | Outpatient (BNVA) | payer MEDICARE, OTHER, SELFPAY | PROVIDERS: PCP Family Medicine; Visit Provider Internal Medicine Rheumatology | DX: M35.00 Sjogren syndrome, unspecified (principal); M06.00 Rheumatoid arthritis without rheumatoid factor, unspecified site; Z79.899 Other long term (current) drug therapy; C34.91 Malignant neoplasm of unspecified part of right bronchus or lung; F17.210 Nicotine dependence, cigarettes, uncomplicated; M10.9 Gout, unspecified; M47.812 Spondylosis without myelopathy or radiculopathy, cervical region | CPT/HCPCS: 99214 ==

== ENCOUNTER → 2019-12-28 08:50 | Outpatient (BNVA) | payer MEDICARE, OTHER, SELFPAY | PROVIDERS: PCP Family Medicine; Visit Provider Internal Medicine Rheumatology | DX: Z79.899 Other long term (current) drug therapy (principal) | CPT/HCPCS: 36415; 80076; 82565; 84550; 85025; 85651; 86140 ==

== ENCOUNTER → 2020-03-06 10:17 | Outpatient (BNVA) | payer MEDICARE, OTHER, SELFPAY | PROVIDERS: PCP Family Medicine; Visit Provider Internal Medicine Rheumatology | DX: Z79.899 Other long term (current) drug therapy (principal) | CPT/HCPCS: 36415; 80076; 82565; 85025; 85651; 86140 ==

== ENCOUNTER → 2020-03-29 09:11 | Outpatient (BNVA) | payer MEDICARE, OTHER, SELFPAY | PROVIDERS: PCP Family Medicine; Visit Provider Internal Medicine Rheumatology | DX: M06.00 Rheumatoid arthritis without rheumatoid factor, unspecified site (principal); M35.00 Sjogren syndrome, unspecified; M10.9 Gout, unspecified; M19.90 Unspecified osteoarthritis, unspecified site; M65.88 Other synovitis and tenosynovitis, other site; Z90.2 Acquired absence of lung [part of]; F17.210 Nicotine dependence, cigarettes, uncomplicated; Z79.899 Other long term (current) drug therapy | CPT/HCPCS: 99214 ==

== ENCOUNTER 2020-05-01 12:57 | Outpatient (CLI) | payer MEDICARE, OTHER, SELFPAY ==
--- NOTE | 2020-05-01 13:08 | XR_ITS ---
WS: [id number] HIP WITH PELVIS LEFT TECHNIQUE: 3 views of the left hip with pelvis CLINICAL INFORMATION: PAIN IN LEFT HIP COMPARISON: None. FINDINGS: Osteopenia. Moderate degenerative arthritis. No acute fractures. Normal pubic rami. Vascular calcific ation. XR/XR hip LT 2-3V wo/w pel* [id number] IMPRESSION: Moderate degenerative arthritis left hip. No acute fractures.
== END 2020-05-01 12:58 | disposition home or self-care (01) ==
PROVIDERS: PCP Family Medicine; Visit Provider Anesthesiology Pain Medicine
DX: M16.12 Unilateral primary osteoarthritis, left hip (principal)
CPT/HCPCS: 73502

== ENCOUNTER 2020-05-17 12:03 | Outpatient (CLI) | payer MEDICARE, OTHER, SELFPAY ==
--- NOTE | 2020-05-17 12:56 | CT_ITS ---
WS: [id number] CT CHEST WITH INTRAVENOUS CONTRAST HISTORY: LUNG CANCER TECHNIQUE: Contiguous 5 mm axial imaging performed on the thorax. Coronal and sagittal reformats are submitted. All CT scans at [facility] use at least one of these dose optimization techniq ues: automated exposure control; mA and/or kV adjustment per patient size (includes targeted exams wh ere dose is matched to clinical indication); or iterative reconstruction. CONTRAST: Omnipaque 300; 95 mL IV. DLP: 340.75 mGy.cm COMPARISON: 11/12/2019 and 03/04/2019. PET CT 03/13/2019 Lungs and central airway: Status post partial resection RIGHT apex. Postsurgical changes are noted at the RIGHT apex with tethering. The soft tissue component in the stranding in the medial RIGHT upper lung have improved. There is no new or increasing soft tissue nodule or mass. Chronic emphysema. No p neumonia. Pleura: Normal. No pleural effusion. Heart and pericardium: Normal size heart with no pericardial effusion. Mediastinum and aruna: No mediastinum or hilar adenopathy. Vessels: Mild atherosclerosis aorta. Scattered coronary artery calcifications. Normal size pulmonary artery. Chest wall and lower neck: No soft tissue masses. Upper abdomen: Visualized liver is negative. No adrenal mass. Osseous structures: Dorsal column stimulator electrodes are noted over the mid thoracic region. CT/CT chest w con* [id number] IMPRESSION: 1. Status post partial resection of the RIGHT upper lobe with no recurrent mas s at the resection site. 2. No mediastinal or hilar adenopathy. 3. Chronic emphysema.
[2020-05-17 13:17] LABS: Alanine Aminotransferase 17 U/L (0-33); Albumin Level 4.3 g/dL (3.5-5.2); Alkaline Phosphatase 52 IU/L (35-105); Anion Gap 12.6 (5-19); Aspartate Amino Transferase 25 U/L (0-32); Blood Urea Nitrogen 12 mg/dL (8-23); Calcium 9.6 mg/dL (8.5-10.5); Carbon Dioxide 29 mmol/L (22-29); Chloride 97 mmol/L (98-107); Globulin 2.5 g/dL (1.3-4.6); Glomerular Filtration Rate 123.4 mL/min (90-130); Glucose 70 mg/dL (65-115); Osmolality Calculated 278 mOsm/kg (285-295); Potassium 3.6 mmol/L (3.5-5.1); Sodium 135 mmol/L (136-145); Total Bilirubin 0.2 mg/dL (0.15-1.2); Total Protein 6.8 g/dL (6.6-8.7)
== END 2020-05-17 12:04 | disposition home or self-care (01) ==
PROVIDERS: PCP Family Medicine; Visit Provider Internal Medicine Hematology & Oncology
DX: C34.11 Malignant neoplasm of upper lobe, right bronchus or lung (principal)
CPT/HCPCS: 71260; 80053; Q9967

== ENCOUNTER 2020-05-19 05:44 | Outpatient (CLI) | payer MEDICARE, OTHER, SELFPAY ==
--- NOTE | 2020-05-19 11:42 | ONC FU_ITS ---
Dr. Waterman follow up note Patient: Lisa Barnes Unit #: [id number]: 1955 Dicatated By: Maddi Waterman M.D.Date of Visit:May 19, 2020 Onc Med Follow-up/Prog Note History of Present Illness: Mrs. Lisa Barnes, is a 65-year-old female with history of abnormal chest x-ray which showed right upper lobe nodule underwent CT PET scan on 03/13/2019 which showed 2.3 x 1.2 cm right lung apex nodule with SUV of 8.4 and no other findings suggestive of metastatic disease. Patient was referred to Dr. 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 Moderately differentiated no visceral pleural invasion seen, lymphovascular invasion present, venous. Surgical margins clear.pT1b One regional lymph node and 1 mediastinal lymph node was examined showed no evidence of metastatic disease. pN0 Patient tolerated procedure very well Patient has history of COPD, gout/arthritis, inflammatory arthritis,Dry mouth due to Sjogren's disease, [id number] history of smoking and still active. Follow-up CT scan of chest done on November 12, 2019 shows postoperative changes right upper lobe resection. No evidence of residual or recurrence of disease. Parenchymal fibrosis upper lobe. No mediastinal or hilar lymphadenopathy. Dorsal spinal stimulator. Follow-up CT scan of chest done on May 17, 2020 showed status post partial resection of right upper lobe with no recurrent mass at the resection site, no mediastinal or hilar lymphadenopathy, chronic emphysema Came for follow-up, denies any specific complaints, no fever chills, no nausea or vomiting, no diarrhea constipation, no hemoptysis or hematemesis, no new bony pains, appetite is good. Still smoking about half pack a day Medications: Actemra ACTPen (162 ) Subcutaneous q 7 days, Albuterol Sulfate 2 Puff(s) (of 108 (90 base) mcg/act) Aerosol Powder, Breath Activated Inhalation four times a day, Allopurinol 1 Tablet (of 300 mg) Oral daily, Anoro Ellipta 1 Puff(s) (of 62.5-25 mcg/inh) Aerosol Powder, Breath Activated Inhalation daily, Gabapentin 1 Capsule (of 300 mg) Oral t.i.d., hctz/lisinopril 1 Tablet (of 20 mg) Oral daily, HYDROcodone-Acetaminophen 1 Tablet (of 5-325 mg) Oral t.i.d., Hydroxychloroquine Sulfate 1 Tablet (of 200 mg) Oral b.i.d., Hyoscyamine Sulfate ER 1 Tablet (of 0.375 mg) Tablet SR 12 HR Oral b.i.d., LaMICtal 0.5 Tablet (of 100 mg) Oral b.i.d., Metoprolol Tartrate 1 Tablet (of 25 mg) Oral b.i.d., Mometasone Furoate 2 [place](s) (of 50 mcg/act) Suspension Nasal daily, Naproxen 1 Tablet (of 500 mg) Oral b.i.d., Omeprazole 1 Capsule (of 20 mg) Capsule Delayed Release Oral b.i.d., Restasis 1 Drop(s) (of 0.05 %) Emulsion Ophthalmic b.i.d., Systane 1 Solution Ophthalmic PRN, tiZANidine HCl 1 Tablet (of 2 mg) Oral four times a day, Tocilizumab 1 (162 ) Subcutaneous q 7 days, Venlafaxine HCl ER 1 Capsule (of 75 mg) Capsule SR 24 HR Oral daily, Vortioxetine HBr 1 Capsule (of 20 mg) Tablet Oral daily Allergies: No Known Allergies. Review of Systems: Review of Systems is not available for this patient. Vital Signs: Performed on May 19, 2020 10:02 Height - 60.00 in Weight - 113.2 lbs (LOW) BSA - 1.47 sq.m BMI - 22.11 Temperature - 97.8 F (LOW) Pulse - 81 /min Respiration - 16 /min BP - 141/67 mm(hg) (HIGH) O2 Sat - 98 % Pain - 6 Performance Status: 0 - Fully active, able to carry on all predisease activities without restrictions. (ECOG) Physical Examination: ENMT - No mouth sores, no thrush, no jaundice, Respiratory - Poor air entry otherwise clear, Cardiovascular - Regular rate and rhythm of heart, Abdomen - Soft, bowel sounds present, Extremities - No visible edema. Lab/Imaging: Most recent lab results are not available for this patient. Impression: Adenocarcinoma involving right upper lobe status post right upper lobe apical segmentectomy on 04/28/2019 next Final pathology report showed adenocarcinoma, Acinar predominant, invasive tumor 1.6 cm, moderately differentiated, no visceropleural invasion, lymphovascular invasion seen, venous Clear surgical margins,pT1b 1 intraparenchymal lymph node and 1 mediastinal lymph node was examined showed no evidence of metastatic disease pN0 Stage IA2 (pT1b,pN0,Mx) 40 pack years history of smoking still active COPD Arthritis Plan: Discussed with patient regarding her labs CMP within normal limit except sodium 135 compared to 128 on November 12, 2019, rest of CMP within normal limits and CT scan of chest done on May 17, 2020 which showed no evidence of recurrence of disease Clinically, patient is doing well with no signs symptoms history of recurrence of disease and her follow-up CT scan of chest showed no evidence of recurrence and her lab work-up shows near resolution of mild hyponatremia. We will continue to monitor and she will return to clinic in 6 months with follow-up CT scan of chest and CBC CMP Patient was advised to quit smoking and was offered any assistance she may need Signed By: Maddi Waterman M.D. <<Signature on File>>
== END 2020-05-19 05:45 | disposition home or self-care (01) ==
LOC: ONCMED 05:47
PROVIDERS: PCP Family Medicine; Visit Provider Internal Medicine Hematology & Oncology
DX: C34.11 Malignant neoplasm of upper lobe, right bronchus or lung (principal); J44.9 Chronic obstructive pulmonary disease, unspecified; F17.210 Nicotine dependence, cigarettes, uncomplicated
CPT/HCPCS: G0463

== ENCOUNTER → 2020-05-26 08:38 | Outpatient (BNVA) | payer MEDICARE, OTHER, SELFPAY | PROVIDERS: PCP Family Medicine; Visit Provider Internal Medicine Critical Care Medicine | DX: Z01.812 Encounter for preprocedural laboratory examination (principal) | CPT/HCPCS: 87635 ==

== ENCOUNTER 2020-05-30 09:18 | Outpatient (CLI) | payer MEDICARE, OTHER, SELFPAY ==
--- NOTE | 2020-05-30 10:09 | PFTS_ITS ---
Date of Study:05/30/20 Date of Dictation: 05/31/2020 MECHANICS: Forced vital capacity (FVC) is normal. Forced expiratory volume in one second (FEV1) is normal. FEV1/FVC is reduced. No significant response to bronchodilators. FLOW VOLUME LOOP: Scooping of end expiratory limb suggestive of obstructive airways . LUNG VOLUMES: Total lung capacity (TLC) is mildly increased. Residual volume (RV) is mildly increased suggestive of air trapping. DIFFUSING CAPACITY FOR CARBON MONOXIDE: Normal . INTERPRETATION: The pulmonary function tests are consistent with obstructive ventilatory defect. Normal gas transfer. Lung volumes showing mild air trapping. Please correlate clinically MTDD
== END 2020-05-30 09:19 | disposition home or self-care (01) ==
LOC: RT 09:22
PROVIDERS: PCP Family Medicine; Visit Provider Internal Medicine Critical Care Medicine
DX: F17.200 Nicotine dependence, unspecified, uncomplicated (principal)
CPT/HCPCS: 94060; 94726; 94729; J7611

== ENCOUNTER → 2020-07-26 09:42 | Outpatient (BNVA) | payer MEDICARE, OTHER, SELFPAY | PROVIDERS: PCP Family Medicine; Visit Provider Internal Medicine Rheumatology | DX: M06.00 Rheumatoid arthritis without rheumatoid factor, unspecified site (principal); Z79.899 Other long term (current) drug therapy | CPT/HCPCS: 36415; 80076; 82565; 85025; 86140 ==

== ENCOUNTER → 2020-08-01 11:11 | Outpatient (BNVA) | payer MEDICARE, OTHER, SELFPAY | PROVIDERS: PCP Family Medicine; Visit Provider Internal Medicine Rheumatology | DX: M06.00 Rheumatoid arthritis without rheumatoid factor, unspecified site (principal); M35.00 Sjogren syndrome, unspecified; Z79.899 Other long term (current) drug therapy; M10.9 Gout, unspecified; M17.11 Unilateral primary osteoarthritis, right knee; M47.892 Other spondylosis, cervical region; C34.91 Malignant neoplasm of unspecified part of right bronchus or lung; Z90.2 Acquired absence of lung [part of]; F17.210 Nicotine dependence, cigarettes, uncomplicated | CPT/HCPCS: 99214 ==

== ENCOUNTER 2020-08-31 14:51 | Outpatient (CLI) | payer MEDICARE, OTHER, SELFPAY ==
--- NOTE | 2020-08-31 14:54 | MM_ITS ---
WS: [id number] BILATERAL DIGITAL SCREENING MAMMOGRAPHY WITH CAD CLINICAL INFORMATION: SCREENING HISTORY: Screening mammogram. Right breast soreness COMPARISON: August 30, 2019 TECHNIQUE: Bilateral CC and MLO views. FINDINGS: Scattered fibroglandular densities bilaterally. No suspicious focal mass, asymmetry, calcifications, or architectural distortion. No evidence of malignancy. Vascular calcification. MM/[place] [id number] IMPRESSION: BI-RADS: 2-Benign FOLLOW UP: 1 Year Follow-up Recommend return to annual screening mammography.
== END 2020-08-31 14:52 | disposition home or self-care (01) ==
LOC: RADSHAW 14:53
PROVIDERS: PCP Family Medicine; Visit Provider Family Medicine
DX: Z12.31 Encounter for screening mammogram for malignant neoplasm of breast (principal)
CPT/HCPCS: 77067

== ENCOUNTER → 2020-11-06 09:01 | Outpatient (BNVA) | payer MEDICARE, OTHER, SELFPAY | PROVIDERS: PCP Family Medicine; Visit Provider Internal Medicine Rheumatology | DX: M06.00 Rheumatoid arthritis without rheumatoid factor, unspecified site (principal); M35.00 Sjogren syndrome, unspecified; Z51.81 Encounter for therapeutic drug level monitoring; Z71.89 Other specified counseling; Z79.899 Other long term (current) drug therapy | CPT/HCPCS: 36415; 80076; 82565; 85025; 86140 ==

== ENCOUNTER 2020-12-05 09:22 | Outpatient (CLI) | payer MEDICARE, OTHER, SELFPAY ==
--- NOTE | 2020-12-05 10:23 | CT_ITS ---
WS: [id number] CT CHEST TECHNIQUE: Contrast enhanced CT of the chest with coronal and sagittal reformatted images. CLINICAL INFORMATION: RESTAGING EVAL/LUNG CANCER COMPARISON: CT May 17, 2020 and November 12, 2019 DLP: 328.[address] scans at [facility] use at least one of these dose optimization techniques: automat ed exposure control; mA and/or kV adjustment per patient size (includes targeted exams where dose is matched to clinical indication); or iterative reconstruction. FINDINGS: Postoperative changes right upper lobe with resection of the previously described spiculated lesion. Postoperative parenchymal fibrosis unchanged from previous. No evidence of residual or recurrent dise ase. Moderate chronic emphysematous changes. Normal caliber thoracic aorta. Mild aortic calcification. Normal GE junction. No acute pulmonary infi ltrates. No suspicious intraparenchymal pulmonary opacities. Normal thyroid gland. No mediastinal or hilar lymphadenopathy. Aortic calcification. Coronary calcification. No axillary lymphadenopathy. Adr enal glands are normal. Fatty atrophy of the pancreas. Dorsal spinal stimulator. CT/CT chest w con* [id number] IMPRESSION: 1. Postoperative changes right upper lobe resection of the previously described spiculated lesion. 2. No evidence of residual or recurrent disease. 3. Stable parenchymal fibrosis right upper lobe. 4. No mediastinal or hilar lymphadenopathy
[2020-12-05 10:40] LABS: Alanine Aminotransferase 29 U/L (0-33); Albumin Level 4.7 g/dL (3.5-5.2); Alkaline Phosphatase 44 IU/L (35-105); Aspartate Amino Transferase 49 U/L (0-32); Blood Urea Nitrogen 7 mg/dL (8-23); Calcium 9.1 mg/dL (8.5-10.5); Carbon Dioxide 27 mmol/L (22-29); Chloride 95 mmol/L (98-107); Globulin 2.5 g/dL (1.3-4.6); Glomerular Filtration Rate 159.7 mL/min (90-130); Glucose 80 mg/dL (65-115); Osmolality Calculated 273 mOsm/kg (285-295); Sodium 133 mmol/L (136-145); Total Bilirubin 0.5 mg/dL (0.15-1.2); Total Protein 7.2 g/dL (6.6-8.7)
[2020-12-05 10:47] LABS: Anion Gap 14.7 (5-19); Potassium 3.7 mmol/L (3.5-5.1)
[2020-12-05] MEDS: iohexol 300 mg/mL 100 mL Btl IV (11:14)
== END 2020-12-05 09:23 | disposition home or self-care (01) ==
PROVIDERS: PCP Family Medicine; Visit Provider Internal Medicine Hematology & Oncology
DX: C34.11 Malignant neoplasm of upper lobe, right bronchus or lung (principal); J84.10 Pulmonary fibrosis, unspecified; Z79.899 Other long term (current) drug therapy
CPT/HCPCS: 36415; 71260; 80053; Q9967

== ENCOUNTER 2020-12-07 05:48 | Outpatient (CLI) | payer MEDICARE, OTHER, SELFPAY ==
--- NOTE | 2020-12-10 19:15 | ONC FU_ITS ---
Dr. Waterman follow up note Patient: Lisa Barnes Unit #: [id number]: 1955 Dicatated By: aMddi Waterman M.D.Date of Visit:Dec 07, 2020 Onc Med Follow-up/Prog Note History of Present Illness: Mrs. Lisa Barnes, is a 65-year-old female with history of abnormal chest x-ray which showed right upper lobe nodule underwent CT PET scan on 03/13/2019 which showed 2.3 x 1.2 cm right lung apex nodule with SUV of 8.4 and no other findings suggestive of metastatic disease. Patient was referred to Dr. 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 Moderately differentiated no visceral pleural invasion seen, lymphovascular invasion present, venous. Surgical margins clear.pT1b One regional lymph node and 1 mediastinal lymph node was examined showed no evidence of metastatic disease. pN0 Patient tolerated procedure very well Patient has history of COPD, gout/arthritis, inflammatory arthritis,Dry mouth due to Sjogren's disease, [id number] history of smoking and still active. Follow-up CT scan of chest done on November 12, 2019 shows postoperative changes right upper lobe resection. No evidence of residual or recurrence of disease. Parenchymal fibrosis upper lobe. No mediastinal or hilar lymphadenopathy. Dorsal spinal stimulator. Follow-up CT scan of chest done on May 17, 2020 showed status post partial resection of right upper lobe with no recurrent mass at the resection site, no mediastinal or hilar lymphadenopathy, chronic emphysema Follow-up CT scan done on December 05, 2020 shows postoperative changes right upper lobe resection of previously described spiculated lesion, no evidence of residual or recurrent disease Came for follow-up, denies any specific complaints, no fever chills, no nausea or vomiting, no diarrhea constipation,, no hemoptysis or hematemesis, no jaundice Medications: Actemra ACTPen (162 ) Subcutaneous q 7 days, Albuterol Sulfate 2 Puff(s) (of 108 (90 base) mcg/act) Aerosol Powder, Breath Activated Inhalation four times a day, Allopurinol 1 Tablet (of 300 mg) Oral daily, Anoro Ellipta 1 Puff(s) (of 62.5-25 mcg/inh) Aerosol Powder, Breath Activated Inhalation daily, Gabapentin 1 Capsule (of 300 mg) Oral t.i.d., hctz/lisinopril 1 Tablet (of 20 mg) Oral daily, HYDROcodone-Acetaminophen 1 Tablet (of 5-325 mg) Oral t.i.d., Hydroxychloroquine Sulfate 1 Tablet (of 200 mg) Oral b.i.d., Hyoscyamine Sulfate ER 1 Tablet (of 0.375 mg) Tablet SR 12 HR Oral b.i.d., LaMICtal 0.5 Tablet (of 100 mg) Oral b.i.d., Metoprolol Tartrate 1 Tablet (of 25 mg) Oral b.i.d., Mometasone Furoate 2 [place](s) (of 50 mcg/act) Suspension Nasal daily, Naproxen 1 Tablet (of 500 mg) Oral b.i.d., Omeprazole 1 Capsule (of 20 mg) Capsule Delayed Release Oral b.i.d., Restasis 1 Drop(s) (of 0.05 %) Emulsion Ophthalmic b.i.d., Systane 1 Solution Ophthalmic PRN, tiZANidine HCl 1 Tablet (of 2 mg) Oral four times a day, Tocilizumab 1 (162 ) Subcutaneous q 7 days, Upadacitinib ER 15 (15 mg) Tablet SR 24 HR Oral daily, Venlafaxine HCl ER 1 Capsule (of 75 mg) Capsule SR 24 HR Oral daily, Vortioxetine HBr 1 Capsule (of 20 mg) Tablet Oral daily Allergies: No Known Allergies. Review of Systems: Review of Systems is not available for this patient. Vital Signs: Performed on Dec 07, 2020 15:29 Height - 60.00 in Weight - 110.2 lbs (LOW) BSA - 1.45 sq.m BMI - 21.52 Temperature - 97.6 F (LOW) Pulse - 90 /min Respiration - 18 /min BP - 138/74 mm(hg) O2 Sat - 95 % (LOW) Pain - 6 Fatigue - 6 Performance Status: 0 - Fully active, able to carry on all predisease activities without restrictions. (ECOG) Physical Examination: ENMT - No mouth sores, no thrush, no jaundice, Respiratory - Lungs are clear to auscultation, Cardiovascular - Regular rate and rhythm of heart, Abdomen - Soft, bowel sounds present, Extremities - No visible edema. Lab/Imaging: Most recent lab results are not available for this patient. Impression: Adenocarcinoma involving right upper lobe status post right upper lobe apical segmentectomy on 04/28/2019 next Final pathology report showed adenocarcinoma, Acinar predominant, invasive tumor 1.6 cm, moderately differentiated, no visceropleural invasion, lymphovascular invasion seen, venous Clear surgical margins,pT1b 1 intraparenchymal lymph node and 1 mediastinal lymph node was examined showed no evidence of metastatic disease pN0 Stage IA2 (pT1b,pN0,Mx) 40 pack years history of smoking still active COPD Arthritis Follow-up CT scan of chest done on December 05, 2020 shows postoperative changes right upper lobe resection, no evidence of residual or recurrent disease Plan: Discussed with patient regarding her labs CMP is within normal range except ALT 29 AST 49 otherwise unremarkable and follow-up CT scan of the chest shows no evidence of residual or recurrence of disease postoperative changes status post right upper lobe resection Clinically, patient is doing well with no new signs symptoms history of recurrence of disease her follow-up CT scan chest shows no evidence of recurrence of disease her lab work-up is within normal range except mildly elevated transaminases etiology unclear, will monitor, she will return to clinic in 6 months with CBC CMP and follow-up CT scan of chest Signed By: Maddi Waterman M.D. <<Signature on File>>
== END 2020-12-07 05:49 | disposition home or self-care (01) ==
LOC: ONCMED 05:48
PROVIDERS: PCP Family Medicine; Visit Provider Internal Medicine Hematology & Oncology
DX: Z08 Encounter for follow-up examination after completed treatment for malignant neoplasm (principal); Z85.118 Personal history of other malignant neoplasm of bronchus and lung; J44.9 Chronic obstructive pulmonary disease, unspecified; F17.210 Nicotine dependence, cigarettes, uncomplicated
CPT/HCPCS: 99214

== ENCOUNTER → 2020-12-14 10:05 | Outpatient (BNVA) | payer MEDICARE, OTHER, SELFPAY | PROVIDERS: PCP Family Medicine; Visit Provider Internal Medicine Rheumatology | DX: M06.00 Rheumatoid arthritis without rheumatoid factor, unspecified site (principal); R79.89 Other specified abnormal findings of blood chemistry; Z79.899 Other long term (current) drug therapy | CPT/HCPCS: 36415; 80076 ==

== ENCOUNTER → 2021-03-05 11:10 | Outpatient (BNVA) | payer MEDICARE, OTHER, SELFPAY | PROVIDERS: PCP Family Medicine; Visit Provider Internal Medicine Rheumatology | DX: D89.9 Disorder involving the immune mechanism, unspecified (principal); M06.00 Rheumatoid arthritis without rheumatoid factor, unspecified site; M10.9 Gout, unspecified; M35.00 Sjogren syndrome, unspecified; Z51.81 Encounter for therapeutic drug level monitoring; Z79.899 Other long term (current) drug therapy; Z71.89 Other specified counseling | CPT/HCPCS: 36415; 80076; 82565; 84550; 85025; 86140 ==

== ENCOUNTER → 2021-06-05 10:09 | Outpatient (BNVA) | payer MEDICARE, OTHER, SELFPAY | PROVIDERS: PCP Family Medicine; Visit Provider Internal Medicine Rheumatology | DX: M06.00 Rheumatoid arthritis without rheumatoid factor, unspecified site (principal); M35.00 Sjogren syndrome, unspecified; Z79.899 Other long term (current) drug therapy; M17.11 Unilateral primary osteoarthritis, right knee; M47.892 Other spondylosis, cervical region; Z71.89 Other specified counseling; M10.9 Gout, unspecified | CPT/HCPCS: 36415; 80076; 82565; 84550; 85025; 86140; 99214 ==

== ENCOUNTER 2021-06-05 11:34 | Outpatient (CLI) | payer MEDICARE, OTHER, SELFPAY ==
[2021-06-05 12:01] LABS: Basophils % 0.7 %; Eosinophils % 0.4 %; Hematocrit 45.7 % (37.0-47.0); Hemoglobin 15.2 g/dL (11.5-15.3); Lymphocytes # 1.3 10^3/uL (0.8-4.8); Lymphocytes % 27.6 %; Mean Corpuscular HGB Conc 33.3 g/dL (30.0-36.0); Mean Corpuscular Hemoglobin 33.9 pg (28.0-34.0); Mean Platelet Volume 8.6 fL (7.4-10.4); Monocytes # 0.6 10^3/uL (0.2-0.9); Monocytes % 12.3 %; Neutrophils # 2.66 10^3/uL (1.8-7.7); Neutrophils % 58.3 %; Nucleated Red Blood Cells % 0 %; Platelet Count 298 10^3/cmm (130-400); Red Blood Count 4.48 10^6/uL (4.1-5.3); Red Cell Distribution Width 12.4 % (12.1-15.1); White Blood Count 4.6 10^3/uL (4.0-10.0)
[2021-06-05 12:21] LABS: Alanine Aminotransferase 129 U/L (0-33); Albumin Level 4.8 g/dL (3.5-5.2); Alkaline Phosphatase 63 IU/L (35-105); Aspartate Amino Transferase 104 U/L (0-32); Globulin 3.1 g/dL (1.3-4.6); Glomerular Filtration Rate 159.2 mL/min (90-130); Total Bilirubin 0.3 mg/dL (0.15-1.2); Total Protein 7.9 g/dL (6.6-8.7)
== END 2021-06-05 11:35 | disposition home or self-care (01) ==
LOC: LAB 11:40
PROVIDERS: PCP Family Medicine; Visit Provider Internal Medicine Rheumatology
DX: M06.00 Rheumatoid arthritis without rheumatoid factor, unspecified site (principal); M10.9 Gout, unspecified; Z79.899 Other long term (current) drug therapy
CPT/HCPCS: 36415; 80076; 82565; 84550; 85025; 86140

== ENCOUNTER 2021-06-20 14:58 | Outpatient (CLI) | payer MEDICARE, OTHER, SELFPAY ==
--- NOTE | 2021-06-20 15:02 | CT_ITS ---
WS: [id number] CT CHEST WITH INTRAVENOUS CONTRAST HISTORY: MALIGNANT NEOPLASM OF UPPER LOBE; R BRONCHUS OR LUNG TECHNIQUE: Contiguous 5 mm axial imaging performed on the thorax. Coronal and sagittal reformats are submitted. All CT scans at [facility] use at least one of these dose optimization techniques: automated exposure control; mA and/or kV adjustment per patient size (includes targeted exams where dose is matched to clinical indication); or iterative reconstruction. CONTRAST: Omnipaque 300; 95 mL IV. DLP: 520.38 mGy.cm COMPARISON: 12/05/2020 and 05/17/2020 Lungs and central airway: Partial lobectomy RIGHT upper lobe. Postoperative changes towards the RIGHT apex. Very slight volume loss in the RIGHT upper lobe. Postoperative scarring and fibrosis at the ap ex. No recurrent mass or nodule at the resection site. Small amount of pleural thickening adjacent to the superior LEFT major fissure. New mild pleural thickening along the RIGHT minor and major fissure . New pleural-based 4 mm nodule RIGHT lower lobe. Pleura: No pleural effusions. Heart and pericardium: Mild enlargement the RIGHT heart chambers similar to prior studies. No effusio n. Mediastinum and aruna: No adenopathy. Vessels: Mild atherosclerosis aorta. No aneurysm. Normal size pulmonary artery. Chest wall and lower neck: No soft tissue masses. Upper abdomen: No significant hiatal hernia. Diffuse low attenuation throughout the liver from hepati c steatosis. Normal visualized portal vein. No adrenal mass. Suprarenal mild atherosclerotic plaque. Osseous structures: No osteoblastic or osteolytic bone disease. There is a dorsal column stimulator a t the midthoracic level. Partial rib resection with postoperative changes in the lateral mid RIGHT th orax. CT/CT chest w con* [id number] IMPRESSION: 1. Status post partial resection RIGHT upper lobe with no recurrent mass or ne oplasm. 2. New 4 mm pleural nodule in the RIGHT lower lobe. Differential includes foca l area of minimal atelectasis or early metastatic site. Recommend follow-up [facility] CT in 3-4 months with IV contrast to evaluate for progression. 3. No adenopathy. 4. Diffuse hepatic steatosis.
[2021-06-20] MEDS: iohexol 300 mg/mL 100 mL Btl IV (15:08)
== END 2021-06-20 14:59 | disposition home or self-care (01) ==
LOC: RAD 14:58
PROVIDERS: PCP Family Medicine; Visit Provider Internal Medicine Hematology & Oncology
DX: C34.11 Malignant neoplasm of upper lobe, right bronchus or lung (principal); Z98.890 Other specified postprocedural states; R91.1 Solitary pulmonary nodule; K76.0 Fatty (change of) liver, not elsewhere classified
CPT/HCPCS: 71260

== ENCOUNTER 2021-06-22 08:53 | Outpatient (CLI) | payer MEDICARE, OTHER, SELFPAY ==
[2021-06-22 09:42] LABS: Alanine Aminotransferase 141 U/L (0-33); Albumin Level 4.7 g/dL (3.5-5.2); Alkaline Phosphatase 55 IU/L (35-105); Anion Gap 17.8 (5-19); Aspartate Amino Transferase 151 U/L (0-32); Blood Urea Nitrogen 14 mg/dL (8-23); Calcium 9.7 mg/dL (8.5-10.5); Carbon Dioxide 27 mmol/L (22-29); Chloride 93 mmol/L (98-107); Globulin 2.9 g/dL (1.3-4.6); Glomerular Filtration Rate 123.1 mL/min (90-130); Glucose 91 mg/dL (65-115); Osmolality Calculated 278 mOsm/kg (285-295); Potassium 3.8 mmol/L (3.5-5.1); Sodium 134 mmol/L (136-145); Total Bilirubin 0.5 mg/dL (0.15-1.2); Total Protein 7.6 g/dL (6.6-8.7)
[2021-06-22 10:08] LABS: Basophils % 0.7 %; Eosinophils # 0.1 10^3/uL (0.0-0.8); Eosinophils % 1.3 %; Hematocrit 45.9 % (37.0-47.0); Hemoglobin 15.6 g/dL (11.5-15.3); Lymphocytes # 1.9 10^3/uL (0.8-4.8); Lymphocytes % 34.7 %; Mean Corpuscular Hemoglobin 34.4 pg (28.0-34.0); Mean Corpuscular Volume 101.3 fl (81-99); Mean Platelet Volume 9.4 fL (7.4-10.4); Monocytes # 0.5 10^3/uL (0.2-0.9); Monocytes % 8.4 %; Neutrophils # 2.99 10^3/uL (1.8-7.7); Neutrophils % 54.5 %; Nucleated Red Blood Cells % 0 %; Platelet Count 356 10^3/cmm (130-400); Red Blood Count 4.53 10^6/uL (4.1-5.3); Red Cell Distribution Width 12.7 % (12.1-15.1); White Blood Count 5.5 10^3/uL (4.0-10.0)
--- NOTE | 2021-06-22 10:51 | ONC FU_ITS ---
Dr. Waterman follow up note Patient: Lisa Barnes Unit #: [id number]: 1955 Dicatated By: Maddi Waterman M.D.Date of Visit:Jun 22, 2021 Onc Med Follow-up/Prog Note History of Present Illness: Mrs. Lisa Barnes, is a 65-year-old female with history of abnormal chest x-ray which showed right upper lobe nodule underwent CT PET scan on 03/13/2019 which showed 2.3 x 1.2 cm right lung apex nodule with SUV of 8.4 and no other findings suggestive of metastatic disease. Patient was referred to Dr. 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 Moderately differentiated no visceral pleural invasion seen, lymphovascular invasion present, venous. Surgical margins clear.pT1b One regional lymph node and 1 mediastinal lymph node was examined showed no evidence of metastatic disease. pN0 Patient tolerated procedure very well Patient has history of COPD, gout/arthritis, inflammatory arthritis,Dry mouth due to Sjogren's disease, [id number] history of smoking and still active. Follow-up CT scan of chest done on November 12, 2019 shows postoperative changes right upper lobe resection. No evidence of residual or recurrence of disease. Parenchymal fibrosis upper lobe. No mediastinal or hilar lymphadenopathy. Dorsal spinal stimulator. Follow-up CT scan of chest done on May 17, 2020 showed status post partial resection of right upper lobe with no recurrent mass at the resection site, no mediastinal or hilar lymphadenopathy, chronic emphysema Follow-up CT scan done on December 05, 2020 shows postoperative changes right upper lobe resection of previously described spiculated lesion, no evidence of residual or recurrent disease Follow-up CT scan of chest done on June 20, 2021 showed status post right partial dissection right upper lobe with no recurrent mass or neoplasm. New 4 mm pleural nodule in the right lower lobe. Differential could be minimal atelectasis or early metastatic disease. No lymphadenopathy. Diffuse hepatic steatosis Came for follow-up, denies any specific complaints, no fever chills, no nausea or vomiting, no diarrhea or constipation, no hemoptysis or hematemesis, appetite is good, no weight loss, patient still smoke about a pack a day Medications: Actemra ACTPen (162 ) Subcutaneous q 7 days, Albuterol Sulfate 2 Puff(s) (of 108 (90 base) mcg/act) Aerosol Powder, Breath Activated Inhalation four times a day, Allopurinol 1 Tablet (of 300 mg) Oral daily, Anoro Ellipta 1 Puff(s) (of 62.5-25 mcg/inh) Aerosol Powder, Breath Activated Inhalation daily, Gabapentin 1 Capsule (of 300 mg) Oral t.i.d., hctz/lisinopril 1 Tablet (of 20 mg) Oral daily, HYDROcodone-Acetaminophen 1 Tablet (of 5-325 mg) Oral t.i.d., Hydroxychloroquine Sulfate 1 Tablet (of 200 mg) Oral b.i.d., Hyoscyamine Sulfate ER 1 Tablet (of 0.375 mg) Tablet SR 12 HR Oral b.i.d., LaMICtal 0.5 Tablet (of 100 mg) Oral b.i.d., Metoprolol Tartrate 1 Tablet (of 25 mg) Oral b.i.d., Mometasone Furoate 2 [place](s) (of 50 mcg/act) Suspension Nasal daily, Naproxen 1 Tablet (of 500 mg) Oral b.i.d., Omeprazole 1 Capsule (of 20 mg) Capsule Delayed Release Oral b.i.d., Restasis 1 Drop(s) (of 0.05 %) Emulsion Ophthalmic b.i.d., Systane 1 Solution Ophthalmic PRN, tiZANidine HCl 1 Tablet (of 2 mg) Oral four times a day, Tocilizumab 1 (162 ) Subcutaneous q 7 days, Upadacitinib ER 15 (15 mg) Tablet SR 24 HR Oral daily, Venlafaxine HCl ER 1 Capsule (of 75 mg) Capsule SR 24 HR Oral daily, Vortioxetine HBr 1 Capsule (of 20 mg) Tablet Oral daily Allergies: No Known Allergies. Review of Systems: Review of Systems is not available for this patient. Vital Signs: Performed on Jun 22, 2021 10:06 Height - 60.00 in Weight - 111.8 lbs (HIGH) BSA - 1.46 sq.m BMI - 21.83 Temperature - 97.4 F (LOW) Pulse - 90 /min Respiration - 16 /min BP - 168/77 mm(hg) (HIGH) O2 Sat - 96 % Pain - 6 Fatigue - 4 Performance Status: 0 - Fully active, able to carry on all predisease activities without restrictions. (ECOG) Physical Examination: ENMT - No mouth sores, no thrush, no jaundice, Respiratory - Poor air entry, mild wheezing otherwise clear, Cardiovascular - Regular rate and rhythm of heart, Abdomen - Soft, bowel sounds present, Extremities - No visible edema. Lab/Imaging: Most recent lab results are not available for this patient. Impression: Adenocarcinoma involving right upper lobe status post right upper lobe apical segmentectomy on 04/28/2019 next Final pathology report showed adenocarcinoma, Acinar predominant, invasive tumor 1.6 cm, moderately differentiated, no visceropleural invasion, lymphovascular invasion seen, venous Clear surgical margins,pT1b 1 intraparenchymal lymph node and 1 mediastinal lymph node was examined showed no evidence of metastatic disease pN0 Stage IA2 (pT1b,pN0,Mx) 40 pack years history of smoking still active COPD Arthritis Follow-up CT scan of chest done on December 05, 2020 shows postoperative changes right upper lobe resection, no evidence of residual or recurrent disease follow-up CT scan of chest done on June 20, 2021 showed no evidence of recurrence of disease no lymphadenopathy, a new 4 mm pleural nodule in the right lower lobe could be focal area of minimal atelectasis or early metastatic disease. Plan: Discussed with patient regarding her labs white blood count 5.5 hemoglobin 15.6 hematocrit 45.9 platelets 356,000 CMP within normal limits except ALT 141 compared to 129 in November 2020 and AST 151 compared to 49 in November 2020 and follow-up CT scan of chest done on June 20, 2021 showed no evidence of recurrence of disease no lymphadenopathy, a new 4 mm pleural nodule in the right lower lobe could be focal area of minimal atelectasis or early metastatic disease. Clinically, patient doing well with no new signs symptom suggestive of recurrence of disease her follow-up CT scan shows post surgical changes in the right upper lobe, no recurrence of disease, new 4 mm pleural nodule in the right lower lobe, could be minimal atelectasis or early metastatic disease, follow-up CT scan with contrast was recommended in 3 to 4 months, Patient will return to clinic in 3 months with CMP and follow-up CT scan of chest with special attention to right lower lobe nodule. As far as elevated transaminases is concerned could be due to hepatic steatosis or medication or inflammation, patient is scheduled to see her PMD, Dr. Ng in 2 weeks, we will request Dr. Ng to follow-up and consider further work-up if needed. Patient was given copy of her labs as well as CT scan of chest report. Patient was advised to quit smoking and was offered any assistance she may need. As mentioned above, return to clinic in 3 months with CMP and follow-up CT scan of chest with and without contrast Signed By: Maddi Waterman M.D. <<Signature on File>>
== END 2021-06-22 08:54 | disposition home or self-care (01) ==
PROVIDERS: PCP Family Medicine; Visit Provider Internal Medicine Hematology & Oncology
DX: C34.11 Malignant neoplasm of upper lobe, right bronchus or lung (principal); J44.9 Chronic obstructive pulmonary disease, unspecified; R91.1 Solitary pulmonary nodule; M19.90 Unspecified osteoarthritis, unspecified site; R74.01 Elevation of levels of liver transaminase levels; Z79.899 Other long term (current) drug therapy; F17.200 Nicotine dependence, unspecified, uncomplicated
CPT/HCPCS: 36415; 80053; 85025; 99213; 99214

== ENCOUNTER → 2021-09-12 08:00 | Outpatient (BNVA) | payer MEDICARE, OTHER, SELFPAY | PROVIDERS: PCP Family Medicine; Referring Provider Family Medicine; Visit Provider Orthopaedic Surgery | DX: M25.551 Pain in right hip (principal); M25.552 Pain in left hip | CPT/HCPCS: 73522; 99203 ==

== ENCOUNTER → 2021-09-20 13:51 | Outpatient (BNVA) | payer MEDICARE, OTHER, SELFPAY | PROVIDERS: PCP Family Medicine; Visit Provider Orthopaedic Surgery | DX: M99.11 Subluxation complex (vertebral) of cervical region (principal); M47.812 Spondylosis without myelopathy or radiculopathy, cervical region | CPT/HCPCS: 72050; 72110; 99204 ==

== ENCOUNTER 2021-09-21 06:52 | Outpatient (CLI) | payer MEDICARE, OTHER, SELFPAY ==
--- NOTE | 2021-09-21 07:16 | MM_ITS ---
WS: [id number] VIEWS: MLO and CC views both breasts. 3D digital tomosynthesis is also included in this exam. Comparison made with prior exam of 04/24/2015, 04/25/2016, 05/14/2017, 05/25/2018, 08/31/2020,. Findings: There was no sign of mass, architectural distortion or suspicious calcification in either breast. Sc attered fibroglandular densities MM/[place] [id number] Impression: BI-RADS: 2-Benign FOLLOW-UP: 1 Year Follow-up This mammogram was also analyzed by the Computer Aided Detection System R2 [employer].
== END 2021-09-21 06:53 | disposition home or self-care (01) ==
PROVIDERS: PCP Family Medicine; Visit Provider Family Medicine
DX: Z12.31 Encounter for screening mammogram for malignant neoplasm of breast (principal)
CPT/HCPCS: 77063; 77067

== ENCOUNTER 2021-10-05 07:47 | Outpatient (CLI) | payer MEDICARE, OTHER, SELFPAY ==
--- NOTE | 2021-10-05 08:30 | CT_ITS ---
WS: [id number] CT CERVICAL MYELOGRAM HISTORY: pain Technique: All CT scans at [facility] use at least one of these dose optimization techniques: automated exposure control; mA and/or kV adjustment per patient size (includes targeted exams where dose is matched to clinical indication); or iterative reconstruction. DLP: 149.87 mGy.cm COMPARISON: 07/17/2016 Good opacification of the central cervical canal with contrast. C4 anterolisthesis by 5 mm. Less than 2 mm anterolisthesis of C3. Reversal of the mass effect and deviation of the cervical cord at the C4 -5 level. Normal cervical lordosis centered at C5-6. No fractures are identified. The craniocervical junction is normally aligned. C1-C2: Normal alignment. C2-C3: No stenosis. Mild facet arthritis. C3-C4: Mild annular disc bulge. Small central disc protrusion. Marked bilateral facet joint arthritis . No significant stenosis. C4-C5: Marked deformity the ventral thecal sac due to the retrolisthesis of C5 in the anterolisthesis of C4. Near complete effacement of CSF. Marked facet joint arthritis. Moderate to severe central wit h moderate foraminal stenosis. C5-C6: Mild annular disc bulge with a small bilateral disc protrusions, RIGHT greater than LEFT. Effa cement of ventral CSF with mild central and bilateral foraminal stenosis. C6-C7: Diffuse osteophytic ridging. Facet joint arthritis resulting in mild bilateral foraminal steno sis. Mild widening of the facet joints. C7-T1: Increased soft tissue in the RIGHT foramen. Suspicious for disc protrusion or broad-based asym metric disc bulging. This would likely be contacting the CT nerve root. CT/CT cervical spine wo/w [id number] IMPRESSION: 1. Moderate to severe central with moderate bilateral foraminal stenosis at C4 -5. Marked anterolisthesis of C4 by 5 mm. Cervical cord is being deformed by th e anterolisthesis and degenerative changes. 2. Small bilateral paracentral disc protrusions at C5-6, RIGHT greater than LE FT. Mild central and bilateral foraminal stenosis. 3. Increased soft tissue in the RIGHT foramen of C7-T1. Suspect asymmetric dis c bulge or focal disc protrusion. This would likely be contacting the C8 nerve root. 4. Mild foraminal stenosis at C6-7.
== END 2021-10-05 07:48 | disposition home or self-care (01) ==
LOC: RAD 07:47
PROVIDERS: PCP Family Medicine; Visit Provider Orthopaedic Surgery
DX: M48.02 Spinal stenosis, cervical region (principal); M50.222 Other cervical disc displacement at C5-C6 level; R52 Pain, unspecified; M50.30 Other cervical disc degeneration, unspecified cervical region; M99.11 Subluxation complex (vertebral) of cervical region; M43.12 Spondylolisthesis, cervical region
CPT/HCPCS: 62302; 72040; 72125; 72127

== ENCOUNTER 2021-10-05 07:47 | Outpatient (CLI) | payer MEDICARE, OTHER, SELFPAY ==
--- NOTE | 2021-10-05 08:30 | IR_ITS ---
WS: [id number] CERVICAL MYELOGRAM HISTORY: pain COMPARISON: None available. FLUOROSCOPY TIME: 2min [id number] # of spot films: 1 Procedure, risks and complications were explained to the patient. Risks including bleeding, infection , headaches, allergic reaction and seizures. Consent has been obtained. With the patient in prone position the skin over the lumbar region is cleansed with ChloraPrep and an esthetized with lidocaine. 22-gauge spinal needle is inserted into the thecal sac at the appropriate level determined by fluoroscopy. Omnipaque 240; 12 ml is injected slowly under fluoroscopy with no co mplications. Needle bevel is perpendicular to the longitudinal fibers of the dura. Stylet is reinsert ed prior to removal of the needle. Patient tolerated the procedure well. Patient will proceed to CT f or further evaluation. Good injection of the thecal sac with the contrast. Bones are osteopenic. C4 anterolisthesis by 8.6 m m on neutral positioning. During flexion 8.2 mm and extension 7.4 mm. 3 mm anterolisthesis of C3 with out significant change during flexion or extension. Minimal anterolisthesis of C5 without significant change during flexion or extension. Marked increase in the upper cervical lordosis with straightening of the lower cervical spine. Mild L EFT curvature cervical spine. Severe disc space narrowing and osteophytic ridging at C6-7. No prevert ebral soft tissue swelling. After injection of contrast there is an abrupt change in coarse of the co ntrast at the superior C5 vertebral body level. This will be better seen on the following CT examinat ion. IR/IR myelogram sp cervical [id number] IMPRESSION: 1. Uncomplicated cervical myelogram. 2. Tutu anterolisthesis of C4 without significant instability during flexion o r extension. 3. Marked disc space narrowing at C4-5 with the C4 vertebral body contacting t he mid C5 endplate. 4. Slight anterolisthesis of C3 and C5 with no instability. 5. Deviation of the contrast column at the C5 level due to the C4 anterolisthe sis.
[2021-10-05] MEDS: iohexol 240 mg/mL 50 mL Btl INTRATHECA (09:42)
== END 2021-10-05 07:48 | disposition home or self-care (01) ==
LOC: RAD 07:47
PROVIDERS: PCP Family Medicine; Visit Provider Orthopaedic Surgery
DX: M99.11 Subluxation complex (vertebral) of cervical region (principal); R52 Pain, unspecified; M43.12 Spondylolisthesis, cervical region; M48.02 Spinal stenosis, cervical region
CPT/HCPCS: 62302; 72040

== ENCOUNTER → 2021-10-09 07:59 | Outpatient (BNVA) | payer MEDICARE, OTHER, SELFPAY | PROVIDERS: PCP Family Medicine; Visit Provider Orthopaedic Surgery | DX: M47.12 Other spondylosis with myelopathy, cervical region (principal) | CPT/HCPCS: 99214 ==

== ENCOUNTER 2021-10-22 13:00 | Oncology outpatient (recurring) (ONCR) | payer MEDICARE, OTHER, SELFPAY ==
--- NOTE | 2021-10-19 12:40 | CT_ITS ---
WS: [id number] CT CHEST WITH INTRAVENOUS CONTRAST HISTORY: LUNG CANCER TECHNIQUE: Contiguous 5 mm axial imaging performed on the thorax. Coronal and sagittal reformats are submitted. All CT scans at [facility] use at least one of these dose optimization techniques: automated exposure control; mA and/or kV adjustment per patient size (includes targeted exams where dose is matched to clinical indication); or iterative reconstruction. CONTRAST: Omnipaque 350; 50 mL IV. DLP: 543.83 mGy.cm COMPARISON: 06/20/2021, 12/05/2020 Lungs and central airway: Partial resection RIGHT upper lobe. Postsurgical sutures and postoperative changes with scarring and fibrosis in the RIGHT upper lobe and the pleura. Recently described pleural -based 4 mm nodule in the RIGHT lower lobe has not changed. On today's examination this appears more scarlike than nodular. Pleura: Normal. No pleural effusion. Heart and pericardium: Normal size heart with no pericardial effusion. Mediastinum and aruna: No new or enlarging mediastinal or hilar lymph nodes. Vessels: Very mild atherosclerosis aorta. Normal size pulmonary artery. Chest wall and lower neck: No soft tissue masses. Upper abdomen: Hepatic steatosis. Visualized portal vein is normally enhancing. No adrenal mass. Osseous structures: No osteoblastic or osteolytic lesions. Deformity along the RIGHT lateral chest wa ll from prior surgery. CT/CT chest w con* [id number] IMPRESSION: 1. No increase in size of the 4 mm pleural-based nodule RIGHT lower lobe as se en on 06/20/2021. 2. Partial resection RIGHT upper lobe. No recurrent neoplasm. 3. No mediastinal or hilar adenopathy. 4. No adrenal mass. 5. Hepatic steatosis.
[2021-10-19 13:23] LABS: Blood Urea Nitrogen 9 mg/dL (8-23); Glomerular Filtration Rate 221.9 mL/min (90-130)
[2021-10-19] MEDS: iohexol 350 mg/mL 100 mL Btl IV (13:27)
[2021-10-22 14:21] LABS: Alanine Aminotransferase 118 U/L (0-33); Albumin Level 4.3 g/dL (3.5-5.2); Alkaline Phosphatase 58 IU/L (35-105); Blood Urea Nitrogen 12 mg/dL (8-23); Calcium 9.5 mg/dL (8.5-10.5); Carbon Dioxide 26 mmol/L (22-29); Chloride 97 mmol/L (98-107); Globulin 2.9 g/dL (1.3-4.6); Glomerular Filtration Rate 159.2 mL/min (90-130); Glucose 97 mg/dL (65-115); Osmolality Calculated 282 mOsm/kg (285-295); Sodium 136 mmol/L (136-145); Total Bilirubin 0.2 mg/dL (0.15-1.2); Total Protein 7.2 g/dL (6.6-8.7)
[2021-10-22 14:22] LABS: Anion Gap 16.6 (5-19); Potassium 3.6 mmol/L (3.5-5.1)
[2021-10-22 14:23] LABS: Aspartate Amino Transferase 154 U/L (0-32)
== END 2021-11-11 23:59 | disposition home or self-care (01) ==
LOC: ONCMED 13:11
PROVIDERS: Internal Medicine Gastroenterology; PCP Family Medicine; Visit Provider Internal Medicine Hematology & Oncology
DX: Z53.9 Procedure and treatment not carried out, unspecified reason (principal); C34.11 Malignant neoplasm of upper lobe, right bronchus or lung; F17.210 Nicotine dependence, cigarettes, uncomplicated
CPT/HCPCS: 71260; 80053; 82565; 84520; 99214

== ENCOUNTER 2021-10-29 09:11 | Inpatient (IN) | payer MEDICARE, OTHER, SELFPAY ==
[2021-10-26 08:05] VITALS: BMI 21.9
--- NOTE | 2021-10-26 08:11 | ECG_ITS ---
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 Measurements Intervals [place] Rate: 67 P: 0 W[place]: 339 QRS: 36 QRSD: 86 T: 55 QT: 365 QTc: 386 Interpretive Statements Possible sinus rhythm. Heavy electrical artifact. Defective EKG. Needs to repeat Electronically Signed On 10-26-2021 17:17:40 CDT by Edy Coronel M.D. [id number]
[2021-10-26 09:07] LABS: Basophils % 0.6 %; Eosinophils % 0.8 %; Hematocrit 43.2 % (37.0-47.0); Hemoglobin 14.7 g/dL (11.5-15.3); Lymphocytes # 0.8 10^3/uL (0.8-4.8); Lymphocytes % 22.6 %; Mean Corpuscular Hemoglobin 34.7 pg (28.0-34.0); Mean Corpuscular Volume 101.9 fl (81-99); Mean Platelet Volume 9.1 fL (7.4-10.4); Monocytes # 0.5 10^3/uL (0.2-0.9); Monocytes % 13.3 %; Neutrophils # 2.21 10^3/uL (1.8-7.7); Neutrophils % 62.4 %; Nucleated Red Blood Cells % 0 %; Platelet Count 238 10^3/cmm (130-400); Red Blood Count 4.24 10^6/uL (4.1-5.3); Red Cell Distribution Width 13.2 % (12.1-15.1); White Blood Count 3.5 10^3/uL (4.0-10.0)
[2021-10-26 09:24] LABS: Anion Gap 13.6 (5-19); Blood Urea Nitrogen 9 mg/dL (8-23); Calcium 9.3 mg/dL (8.5-10.5); Carbon Dioxide 32 mmol/L (22-29); Chloride 90 mmol/L (98-107); Glomerular Filtration Rate 159.2 mL/min (90-130); Glucose 90 mg/dL (65-115); Osmolality Calculated 272 mOsm/kg (285-295); Potassium 3.6 mmol/L (3.5-5.1); Sodium 132 mmol/L (136-145)
--- NOTE | 2021-10-26 15:46 | P.ANESASSM_ITS ---
Pre-Anesthetic Assessment Height/Weight: Height 1.52 m Weight 50.802 kg Preop Diagnosis: Intervertebral disc disorder with radiculopathy, lumbar region Operation Date: 10/29/21 07:00 Proposed Procedures p Anterior Cervical Discectomy & Fusion C4-5 C5-6 [id number]/[id number]/36579/ M47.12(Not Applicable) - Edmond Peacock DO s Spinal Fusion Posterior Spinal Fusion C2-T2 [id number]/[id number]/[id number] 2610X2/M47.12(Not Applicable) - Edmond Peacock DO s Cervical Decompression C3-C6 45666X2/M47.12(Not Applicable) - Edmond Pecaock DO Familial anesthetic complications: PONV Was Beta Leda taken within 24 hours: Yes Was Clonidine taken within 24 hours: N/A Social Tobacco and No alcohol Exam alert, oriented x 3, clear to auscultation bilaterally and regular rate & rhythm Airway Submandibular: within normal limits Cervical ROM: Other (Limited extension and flexion ) Mallampati: Class II Dentition: false Comments: Comments: Missing teeth Pulmonary Chronic Obstructive Pulmonary Disease (Recurrent bronchitis ), Cough and Sleep Apnea (Does not use CPAP) Right lung adenocarcinoma CV/HEM Hypertension Able to go up 3 floors of stairs w/ CP. No SOB w/ 1 floor of stairs vaginal atrophy Hepatic None reported GI Gastroesophageal Reflux Disease (with reflux, poorly controlled ) Metabolic Denies use of steroids currently including prednisone Musc/skel Lower Back Pain, Osteoarthritis/DJD and Rheumatoid Arthritis Sjogrens syndrome Cervical radiculopathy Facet arthritis Osteoporosis Denies steroid use Neuropsych Neuropathy Anesthetic Plan ASA status: 3 Anesthesia: Anesthesia Evaluation and General Other: We discussed risk and benefits of general anesthesia including PONV, sore throat (sometimes severe), corneal abrasion, positioning and peripheral nerve injuries, life threatening allergic reaction, post operative ICU admission requiring prolonged intubation, aspiration, stroke, heart attack, , and rare incidences of recall. Patient consents to proceed with general anesthesia. Plan GETA, 2 PIV, arterial line Risk of > 500 ml blood loss (7ml/kg in children): Yes, adequate IV access and fluids planned Medications/Allergies Home Medications Medication Instructions Recorded Confirmed Last Taken Type albuterol sulfate 90 mcg/actuation 1 inh INHALATION BID PRN 04/12/19 10/26/2104/27/20 History aerosol inhaler hydrocodone 5 mg-acetaminophen 325 1 tab PO Q6H PRN 04/12/19 10/26/21 06/17/19 02:00 History mg tablet ([place]) lamotrigine 100 mg tablet 50 mg PO BID tab 04/12/19 10/26/21 04/27/19 History naproxen 500 mg tablet 500 mg PO BID 04/12/19 10/26/21 06/16/19 08:00 History venlafaxine 75 mg tablet 75 mg PO DAILY tab 04/12/19 10/26/21 04/27/19 History vortioxetine 20 mg tablet 20 mg PO DAILY 04/12/19 10/26/21 04/27/19 History lisinopril 20 1 tab PO DAILY tab 04/16/19 10/26/21 06/17/19 03:00 History mg-hydrochlorothiazide 12.5 mg tablet metoprolol tartrate 25 mg tablet 25 mg PO BID 04/16/19 10/26/21 06/17/19 03:00 History mometasone 50 mcg/actuation nasal 2 spray INTRANASAL DAILY gm 04/16/19 10/26/21 04/27/19 History spray peg 400-propylene glycol 0.4 %-0.3 1 drop OPHTHALMIC (EYE) ONCE PRN 04/16/19 10/26/21 04/27/19 History % eye drops (Systane Ultra) tizanidine 4 mg capsule 4 mg PO TID PRN 11/23/19 10/26/21 Unknown History gabapentin 100 mg capsule 100 mg PO QID cap 05/15/20 10/26/21 Unknown History umeclidinium 62.5 mcg-vilanterol 1 inh INHALATION Q24H 60 Days #60 05/15/20 10/26/21 Unknown Rx 25 mcg/actuation powdr for each inhalation (Anoro Ellipta) prednisone 10 mg tablet See Rx Instructions PO .COMPLEX 03/29/21 10/26/21 Unknown Rx #60 tab cyclosporine 0.05 % eye drops 1 drp OPHTHALMIC (EYE) Q12H #16.5 06/05/21 10/26/21 Unknown Rx (Restasis MultiDose) ml upadacitinib 15 mg tablet,extended 15 mg PO DAILY #90 tab 06/05/21 10/26/21 Unknown Rx release 24 hr (Rinvoq) allopurinol 100 mg tablet 200 mg PO DAILY #180 tab 07/10/21 10/26/21 Unknown Rx omeprazole 40 mg capsule,delayed 40 mg PO DAILY #90 cap 07/10/21 10/26/21 Unknown Rx release Allergies Allergy/AdvReac Type Severity Reaction Status Date / Time No Known Drug Allergies Allergy Unknown Verified 10/22/21 14:37 [facility] Anesthesia Medical History Adenocarcinoma of right lung, stage 1 Arthropathy of cervical facet joint Cellulitis of right anterior lower leg Cervical radiculopathy due to degenerative joint disease of spine COPD (chronic obstructive pulmonary disease) Gout, arthritis High risk medication use Immunization counseling Immunosuppression Inflammatory arthritis Intervertebral disc disorder with radiculopathy of lumbar region Intervertebral disc disorder with radiculopathy of lumbosacral region Low back pain radiating down leg Lumbar stenosis with neurogenic claudication Lung nodule, solitary Mixed stress and urge urinary incontinence Neck pain Osteoporosis Pain and swelling of right knee Primary Sjogren's syndrome Seronegative rheumatoid arthritis Seronegative rheumatoid arthritis Sjogrens syndrome Spondylolisthesis at L4-L5 level Spondylolisthesis at L5-S1 level Spondylolisthesis, cervical region Spondylolisthesis, lumbar region Thoracic disc disease Vaginal atrophy Surgical History History of D&C 4x History of decompression of ulnar nerve Right History of ear surgery (04/17/17) Right History of hysterectomy (10/29/16) with Vaginal Repair, Total S/P insertion of spinal cord stimulator Thoracic spinal cord stimulator implantation via laminotomy (E[employer]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/[employer] WaveWriter pulse generator), 06/17/2019, [facility] [place] Family History Mother Hypertension Diabetes Stroke Cancer Uterine Grandmother Diabetes Maternal Heart disease Father Heart disease Grandfather Heart disease Sister Cancer Uterine Social History Smoking and tobacco status: current every day smoker (1/2 ppd) cigarettes Packs smoked per day: 1 Years cigarettes smoked: 41 [ Other cigarette details: Hx of of 1PPD x 41 Years] Quit status (tobacco): considering quitting Second hand smoke exposure: Yes Smoking risk assessment/counseling performed?: Yes Alcohol intake: former Counseling given: No Counseling given: No Lives independently: Yes Household members: spouse Marital status: Current occupational status: disabled History of recent travel: No Current gender identity: Female Data Anesthesia : 10/26/21 08:50 10/26/21 08:50 Short CBC 10/26/21 Range/Units 08:50 WBC 3.5 L (4.0-10.0) 10^3/uL Hgb 14.7 (11.5-15.3) g/dL Hct 43.2 (37.0-47.0) % MCV 101.9 H (81-99) fl Plt Count 238 (130-400) 10^3/cmm Neut % (Auto) 62.4 % Neut # (Auto) 2.21 (1.8-7.7) 10^3/uL BMP 10/26/21 08:50 Sodium 132 L Potassium 3.6 Chloride 90 L Carbon Dioxide 32 H BUN 9 Creatinine 0.4 L Glucose 90 Calcium 9.3 Blood Bank 10/26/21 08:50 Blood Type A Positive Rho(D) Type Positive Antibody Screen Negative Cardiac Studies: No Data to Display
[2021-10-29] VITALS (21 sets, daily range): BP systolic 149–187; BP diastolic 79–111; PULSE 63–102; RESP 13–20; TEMP 36.1–36.8; O2SAT 94–100
--- NOTE | 2021-10-29 | XR_ITS ---
WS: [id number] XR cervical spine 3V* [id number] REASON FOR EXAM: acdf/psf decompression FINDINGS: Posterior pedicle screws and rods with fixation of the cervical spine from C2 to T2. Anterior plate and screw fixation with interbody fusion devices at C4-C6. Surgical appliances appear in proper position and alignment. XR/XR cervical spine 3V* [id number] IMPRESSION: Postoperative cervical spine with no abnormality as above.
--- NOTE | 2021-10-29 | SCC_ITS ---
Procedure done: 1. Anterior diskectomy C4/5 2. Anterior discectomy C5/6 3. Insertion of cage C4/5 4. Insertion of Cage C5/6 5. Instrumentation with anterior plate from C4-C6 6. Use of allograft anterior 7. C2- T2 PSF 8. C2-T2 instrumentation 9. C3/4 laminectomy with partial facetectomies 10. C4/5 laminectomies with partial facetectomies 11. C5/6 laminectomies with partial facetectomies 12. Reduction of C4/5 spondylolisthesis 13. use of autograft posterior 14. Use of allograft posterior 90.0 seconds of fluoroscopic guidance, for a cumulative dose of 10.44 mGy, was provided to Dr. Peacock by the radiology department. C-arm images of the cervical spine were saved for the patient's permanent record. [facility]
[2021-10-29] MEDS: scopolamine 1.5 Patch 1 PATCH TRANSDERMA (06:12)
[2021-10-29] MEDS: famotidine 20 mg/2 mL INJ IVP (06:12)
[2021-10-29] MEDS: sodium chloride 0.9% 1,000 ML 30 ML IV (06:29)
--- NOTE | 2021-10-29 06:33 | P.ANESUD_ITS ---
Pre-Anesthetic Update Pre-Anesthetic Assessment: Date of Surgery/Procedure: 10/29/21 Preop Janina gnosis: Cervical spondylolisthesis C3-4, C4-5, cervical spondylosis with myelopathy Proposed Procedure: Operation Date: 10/29/21 07:00 Proposed Procedures p Anterior Cervical Discectomy & Fusion C4-5 C5-6 [id number]/84845/ M47.12(Not Applicable) - Edmond Peacock, DO s Spinal Fusion Posterior Spinal Fusion C2-T2 77233/[id number]/[id number]/M47.12(Not Applicable) - Edmond Peacock, DO s Cervical Decompression C3-C6 43198A3/M47.12(Not Applicable) - Edmond Peacock, DO Any changes to Pre-Anesthetic Assessment?: No Last Intake: Intake Last Liquid Date 10/28/21 Last Liquid Time 22:00 Last Solid Date 10/28/21 Last Solid Time 22:00 Vitals: Temperature 98.2 F 10/29/21 06:15 Temperature Source Temporal Artery S can 10/29/21 06:15 Pulse Rate 74 10/29/21 06:15 Respiratory Rate 18 10/29/21 06:15 Blood Pressure 158/105 10/29/21 06:15 Blood Pressure Arelis n 122 10/29/21 06:15 Pulse Oximetry 94 10/29/21 06:15 Oxygen Delivery Me thod 10/29/21 06:17 Exam: Pre-Anes Outpt Exam: alert, oriented x 3, clear to auscultation bilaterally and regular rate & rhythm Additional Exam Findings (including area of procedure): diminished throughout Cardiac Studies: No Data to Display
--- NOTE | 2021-10-29 06:52 | W.PM.OPSUD ---
Surgery/Procedure H&P Update DATE OF PROCEDURE: October 29, 2021 DATE H&P PERFORMED: 10/09/21 H&P UPDATE INFORMATION: I have reviewed H&P completed within last 30 days, I have examined patient prior to procedure and No changes to prior documentation PREOP DIAGNOSIS: Cervical spondylolisthesis C3-4, C4-5, cervical spondylosis with myelopathy PLANNED PROCEDURE: Operation Date: 10/29/21 07:00 Proposed Procedures p Anterior Cervical Discectomy & Fusion C4-5 C5-6 23209/[id number]/[id number]/45583/83712/27818/ M47.12(Not Applicable) - Edmond Peacock, s Spinal Fusion Posterior Spinal Fusion C2-T2 69508/34435/[id number]/43942C1/M47.12(Not Applicable) - Edmond Peacock DO s Cervical Decompression C3-C6 86004R9/M47.12(Not Applicable) - Edmond Peacock DO
[2021-10-29] MEDS: ceFAZolin 2,000 MG in sodium chloride 0.9% (plus) 50 ML 100 MG IV ×3 (07:05→22:27)
--- NOTE | 2021-10-29 08:00 | PC.NURSE ---
CALLED AND NOTIFIED OF PROCEDURE START TIME. STATED THAT HER VS WERE STABLE. RECONFIRMED THAT I WOULD BE CALLING EVERY HOUR TO GIVE HIM AN UPDATE ON PROCEDURE PROGRESS.
--- NOTE | 2021-10-29 09:25 | PC.NURSE ---
CALLED AND UPDATED ON PROCEDURE PROGRESS.
--- NOTE | 2021-10-29 10:30 | PC.NURSE ---
CALLED AND UPDATED ON PROCEDURE PROGRESS.
[2021-10-29] MEDS: vancomycin 1,000 MG SDV 1000 MG XX (11:29)
--- NOTE | 2021-10-29 11:34 | PC.NURSE ---
CALLED AND UPDATED ON PROCEDURE PROGRESS.
--- NOTE | 2021-10-29 12:24 | PC.NURSE ---
CALLED TO UPDATE ON PROCEDURE STATUS.
--- NOTE | 2021-10-29 12:38 | PC.NURSE ---
CALLED TO UPDATE THAT WE WERE CLOSING ON THE PROCEDURE AND THAT THE SURGEON WOULD BE OUT TO SPEAK WITH HIM SHORTLY.
--- NOTE | 2021-10-29 13:14 | P.OP_ITS ---
Operative Report Date of procedure: October 29, 2021 Pre-op diagnosis: Preop Diagnosis Cervical spondylolisthesis C3-4, C4-5, cervical spondylosis with myelopathy Post-op diagnosis: same Procedure done: 1. Anterior diskectomy C4/5 2. Anterior discectomy C5/6 3. Insertion of cage C4/5 4. Insertion of Cage C5/6 5. Instrumentation with anterior plate from C4-C6 6. Use of allograft anterior 7. C2- T2 PSF 8. C2-T2 instrumentation 9. C3/4 laminectomy with partial facetectomies 10. C4/5 laminectomies with partial facetectomies 11. C5/6 laminectomies with partial facetectomies 12. Reduction of C4/5 spondylolisthesis 13. use of autograft posterior 14. Use of allograft posterior This procedure has 3 phases. Phase 1: The patient was taken to the operating room, where he underwent general en dotracheal anesthesia without complications. He was then positioned supine on the operating table, and all areas of impingement were well padded. The arms were carefully padded and tucked at his sides. A roll was placed between the shoulder blades.. An x-ray was done to determine the appropriate level for the skin incision. The entire neck was then sterilely prepped and draped in the usual fashion. Neuromonitoring was attached prior to prepping. A transverse skin incision was made and carried down to the platysma muscle. This was then split in line with its fibers. Blunt dissection was carried down medial to the carotid sheath and lateral to the trachea and esophagus until the anterior cervical spine was visualized. A needle was placed into a disc and an x-ray was done to determine its location. The longus colli muscles were then elevated bilaterally with the electrocautery unit. Self-retaining retractors were placed deep to the longus colli muscle. Attention was brought to the C4/5 level that was confirmed on x-ray. A caspar pin was placed into the C4 vertebrae and the C5 vertebrae. The disk space was then distracted. The microscope was then brought in. A radical anterior dis cectomies were performed at C4/5. This included complete removal of the anterior annulus, nucleus, and posterior annulus. The posterior longitudinal ligament was removed as were the posterior osteophytes. Foraminotomies were then accomplished bilaterally. This was done using a high speed leanne, kerrison rongeurs and curretes Once all of this was accomplished, the curved currette was used to check for any residual compression. The central canal was wide open as were the foramen. A high-speed bur was used to remove the cartilaginous endplates above and below the interspace. Bleeding cancellous bone was exposed. Attention was brought to the C5/6 level that was confirmed on x-ray. A caspar pin was placed into the C5 vertebrae and the C6 vertebrae. The disk space was then distracted. The microscope was then brought in. A radical anterior discectomies were performed at C5/6. This included complete removal of the anterior annulus, nucleus, and posterior annulus. The posterior longitudinal ligament was removed as were the posterior osteophytes. Foraminotomies were then accomplished bilaterally. This was done using a high speed leanne, kerrison rongeurs and curretes Once all of this was accomplished, the curved currette was used to check for any residual compression. The central canal was wide open as were the foramen. A high-speed bur was used to remove the cartilaginous endplates above and below the interspace. Bleeding cancellous bone was exposed. Syringe was brought in to see with a reduction in the C4-5 disc base had a did have some however I felt like I would get better going posteriorly. Wounds were then irrigated and the platysma's and skin were whipstitched closed with the plans of going back to the front after going posteriorly. Sterile dressing was applied. Phase 2: Patient was then flipped prone on the [place] table. Attention was brought to the posterior cervical spine. The posterior cervical spine was prepped and draped in normal sterile fashion. All areas impingement were well-padded. A skin incision was made from C2 down to T2. Subperiosteal dissection was made from the lamina out to the lateral masses of C2 down to T2. Retractors were placed. Next attention was brought to placing the pedicle screws into C2. This was done using a high-speed bur followed by the pedicle probe followed by placing the screw. This was done bilaterally. Next attention was brought to the C3 level. Screws placed at C3 bilaterally. Using the same technique. This was done using the high-speed bur followed by the drill followed by pedicle probe followed by placing the screw. I was unable to get screws in C4 bilaterally. And is unable to get screws and at C5 on the right side. I did place lateral mass screws at C6 bilaterally. He is in the same technique. And then I placed pedicle screws at T1 and T2 bilaterally high-speed bur was used followed by pedicle probe followed by tap followed by the screw. Once all the screws were placed attention was then brought to doing the laminectomies. Attention was first brought to doing the laminectomy of C6. With partial facetectomy of C5-6. This was done using high-speed bur curettes and Kerrison rongeurs. The ligamentum flavum was taken down and then the lamina was lifted off. This process was repeated at C5. The again partial facetectomies at C4-5 were taken down along with the ligamentum flavum. Because the displacement anteriorly at C4 I then placed rods from C2-T2. Attaching the rods from C6 down to T2 on the right side. Locking in the caps. The reduction tool was then placed onto the C3 and C2 screws. The rods were distracted and locked down pulling the C2-3-4 vertebrae back reducing the spondylolisthesis. And distracting. These caps were then locked into position. Rods were then placed on the left side from C2-T2. The caps are again locked distally from C5 down to T2. With the end caps. And then distraction was performed on the left side and the C3 and C2 caps were locked into position. AP lateral fluoroscopy ensured that the reduction did occur and that everything was in good position. Attention was then brought to the laminectomy at C4 with partial facetectomies C4-5. A total of 3 laminectomies were performed with partial facetectomies. Again using the high-speed bur curved curette and Kerrison rongeurs. Next attention was brought to decorticating the lamina from C2 and lateral masses C3-C4 C5-C6-C7 and lamina of C7 and T1 this was all bilaterally. The bone from the laminectomies along with ostial amp allograft were packed into the gutters. This was done bilaterally. Next vancomycin powder was placed in the wound deep drain was placed and wound was closed in a layered fashion with 0 Vicryl 2-0 Vicryl and Monocryl suture. Sterile dressings were applied. Patient was then flipped back over into the supine position. Phase 3: The previous dressing was taken off. The wound was then prepped and draped in normal sterile fashion. The nylon suture was removed. The platysmas was identified and the whipstitch in the platysmas was removed. Then blunt dissection was done back down to where the previous discectomies were performed. Attention was brought to the C4-5 level first. The [place] pins were placed in C4 and C5 levels and the disc space was distracted. The disc space were measured and appropriate size cage were placed sterilely onto the field. Allograft graft was packed into the cages. The cage was then placed and there was good juxtaposition against the bleeding decorticated surfaces and good distraction of each interspace. Attention was brought to the next interspace. The [place] pins were removed. Bone wax was used to prevent any bleeding from occurring at the pin sites. Attention was brought to the C5/6 level . The [place] pins were placed in C5 and C6 levels and the disc space was distracted. The disc space were measured and appropriate size cage were placed sterilely onto the field. Allograft graft was packed into the cages. The cage was then placed and there was good juxtaposition against the bleeding decorticated surfaces and good distraction of each interspace. Attention was brought to the next interspace. The [place] pins were removed. Bone wax was used to prevent any bleeding from occurring at the pin sites. The appropriate size anterior cervical locking plate was chosen and bent into gentle lordosis. Two screws were then placed into each of the vertebral bodies at C4, C5 and C6. There was excellent purchase. A final x-ray was done confirming good position of the hardware and Cages. The locking screws were then applied, also with excellent purchase. Following a final copious irrigation, there was good hemostasis and no dural leaks. The carotid pulse was strong. The wounds were then closed in layers using 2-0 Vicryl suture for the platysma muscle, 2-0 Vicryl suture for the subcutaneous tissue, and 4-0 monocryl suture in a subcuticular skin closure. Glue was placed followed by application of a sterile dressing. The drain was hooked to bulb suction. A soft collar was applied. The patient was then carefully returned to the supine position on his hospital bed where he was reversed and extubated and taken to the recovery room having tolerated the procedure well. Surgeon: Edmond Peacock Casing Finisher And Stuffer: Michael Mccallum Estimated blood loss (mL): 400 Procedure: 1. Anterior diskectomy C4/5 2. Anterior discectomy C5/6 3. Insertion of cage C4/5 4. Insertion of Cage C5/6 5. Instrumentation with anterior plate from C4-C6 6. Use of allograft anterior 7. C2- T2 PSF 8. C2-T2 instrumentation 9. C3/4 laminectomy with partial facetectomies 10. C4/5 laminectomies with partial facetectomies 11. C5/6 laminectomies with partial facetectomies 12. Reduction of C4/5 spondylolisthesis 13. use of autograft posterior 14. Use of allograft posterior This procedure has 3 phases. Phase 1: The patient was taken to the operating room, where he underwent general endotracheal anesthesia without complications. He was then positioned supine on the operating table, and all areas of impingement were well padded. The arms were carefully padded and tucked at his sides. A roll was placed between the shoulder blades.. An x-ray was done to determine the appropriate level for the skin incision. The entire neck was then sterilely prepped and draped in the usual fashion. Neuromonitoring was attached prior to prepping. A transverse skin incision was made and carried down to the platysma muscle. This was then split in line with its fibers. Blunt dissection was carried down medial to the carotid sheath and lateral to the trachea and esophagus until the anterior cervical spine was visualized. A needle was placed into a disc and an x-ray was done to determine its location. The longus colli muscles were then elevated bilaterally with the electrocautery unit. Self-retaining retractors were placed deep to the longus colli muscle. Attention was brought to the C4/5 level that was confirmed on x-ray. A caspar pin was placed into the C4 vertebrae and the C5 vertebrae. The disk space was then distracted. The microscope was then brought in. A radical anterior discectomies were performed at C4/5. This included complete removal of the anterior annulus, nucleus, and posterior annulus. The posterior longitudinal ligament was removed as were the posterior osteophytes. Foraminotomies were then accomplished bilaterally. This was done using a high speed leanne, kerrison rongeurs and curretes Once all of this was accomplished, the curved currette was used to check for any residual compression. The central canal was wide open as were the foramen. A high-speed bur was used to remove the cartilaginous endplates above and below the interspace. Bleeding cancellous bone was exposed. Attention was brought to the C5/6 level that was confirmed on x-ray. A caspar pin was placed into the C5 vertebrae and the C6 vertebrae. The disk space was then distracted. The microscope was then brought in. A radical anterior discectomies were performed at C5/6. This included complete removal of the anterior annulus, nucleus, and posterior annulus. The posterior longitudinal ligament was removed as were the posterior osteophytes. Foraminotomies were then accomplished bilaterally. This was done using a high speed leanne, kerrison rongeurs and curretes Once all of this was accomplished, the curved currette was used to check for any residual compression. The central canal was wide open as were the foramen. A high-speed bur was used to remove the cartilaginous endplates above and below the interspace. Bleeding cancellous bone was exposed. Syringe was brought in to see with a reduction in the C4-5 disc base had a did have some however I felt like I would get better going posteriorly. Wounds were then irrigated and the platysma's and skin were whipstitched closed with the plans of going back to the front after going posteriorly. Sterile dressing was applied. Phase 2: Patient was then flipped prone on the [place] table. Attention was brought to the posterior cervical spine. The posterior cervical spine was prepped and draped in normal sterile fashion. All areas impingement were well-padded. A skin incision was made from C2 down to T2. Subperiosteal dissection was made from the lamina out to the lateral masses of C2 down to T2. Retractors were placed. Next attention was brought to placing the pedicle screws into C2. This was done using a high-speed bur followed by the pedicle probe followed by placing the screw. This was done bilaterally. Next attention was brought to the C3 level. Screws placed at C3 bilaterally. Using the same technique. This was done using the high-speed bur followed by the drill followed by pedicle pro be followed by placing the screw. I was unable to get screws in C4 bilaterally. And is unable to get screws and at C5 on the right side. I did place lateral mass screws at C6 bilaterally. He is in the same technique. And then I placed pedicle screws at T1 and T2 bilaterally high-speed bur was used followed by pedicle probe followed by tap followed by the screw. Once all the screws were placed attention was then brought to doing the laminectomies. Attention was first brought to doing the laminectomy of C6. With partial facetectomy of C5-6. This was done using high-speed bur curettes and Kerrison rongeurs. The ligamentum flavum was taken down and then the lamina was lifted off. This process was repeated at C5. The again partial facetectomies at C4-5 were taken down along with the ligamentum flavum. Because the displacement anteriorly at C4 I then placed rods from C2-T2. Attaching the rods from C6 down to T2 on the right side. Locking in the caps. The reduction tool was then placed onto the C3 and C2 screws. The rods were distracted and locked down pulling the C2-3-4 vertebrae back reducing the spondylolisthesis. And distracting. These caps were then locked into position. Rods were then placed on the left side from C2-T2. The caps are again locked distally from C5 down to T2. With the end caps. And then distraction was performed on the left side and the C3 and C2 caps were locked into position. AP lateral fluoroscopy ensured that the reduction did occur and that everything was in good position. Attention was then brought to the laminectomy at C4 with partial facetectomies C4-5. A total of 3 laminectomies were performed with partial facetectomies. Again using the high-speed bur curved curette and Kerrison rongeurs. Next attention was brought to decorticating the lamina from C2 and lateral masses C3-C4 C5-C6-C7 and lamina of C7 and T1 this was all bilaterally. The bone from the laminectomies along with ostial amp allograft were packed into the gutters. This was done bilaterally. Next vancomycin powder was placed in the wound deep drain was placed and wound was closed in a layered fashion with 0 Vicryl 2-0 Vicryl and Monocryl suture. Sterile dressings were applied. Patient was then flipped back over into the supine position. Phase 3: The previous dressing was taken off. The wound was then prepped and draped in normal sterile fashion. The nylon suture was removed. The platysmas was identified and the whipstitch in the platysmas was removed. Then blunt dissection was done back down to where the previous discectomies were performed. Attention was brought to the C4-5 level first. The [place] pins were placed in C4 and C5 levels and the disc space was distracted. The disc space were measured and appropriate size cage were placed sterilely onto the field. Allograft graft was packed into the cages. The cage was then placed and there was good juxtaposition against the bleeding decorticated s urfaces and good distraction of each interspace. Attention was brought to the next interspace. The [place] pins were removed. Bone wax was used to prevent any bleeding from occurring at the pin sites. Attention was brought to the C5/6 level . The [place] pins were placed in C5 and C6 levels and the disc space was distracted. The disc space were measured and appropriate size cage were placed sterilely onto the field. Allograft graft was packed into the cages. The cage was then placed and there was good juxtaposition against the bleeding decorticated surfaces and good distraction of each interspace. Attention was brought to the next interspace. The [place] pins were removed. Bone wax was used to prevent any bleeding from occurring at the pin sites. The appropriate size anterior cervical locking plate was chosen and bent into gentle lordosis. Two screws were then placed into each of the vertebral bodies at C4, C5 and C6. There was excellent purchase. A final x-ray was done co nfirming good position of the hardware and Cages. The locking screws were then applied, also with excellent purchase. Following a final copious irrigation, there was good hemostasis and no dural leaks. The carotid pulse was strong. The wounds were then closed in layers using 2-0 Vicryl suture for the platysma muscle, 2-0 Vicryl suture for the subcutaneous tissue, and 4-0 monocryl suture in a subcuticular skin closure. Glue was placed followed by application of a sterile dressing. The drain was hooked to bulb suction. A soft collar was applied. The patient was then carefully returned to the supine position on his hospital bed where he was reversed and extubated and taken to the recovery room having tolerated the procedure well.
[2021-10-29] MEDS: fentaNYL 50 mcg/mL INJ 2mL IVP (13:22)
[2021-10-29] MEDS: HYDROmorphone 1 mg/mL INJ 1 mL 0.5 MG IVP (13:45)
[2021-10-29] MEDS: oxyCODONE-APAP 10-325 mg Tablet PO ×2 (14:50→20:25)
[2021-10-29] MEDS: tizanidine 4 mg Tablet PO (14:52)
[2021-10-29] MEDS: lactated ringers 1,000 ML 90 ML IV (15:06)
--- NOTE | 2021-10-29 15:30 | ANE.PACU2 ---
Inpatient post-anesthesia follow up: Airway intact: Yes Vital signs: Temperature 98.2 F Pulse Rate 92 Respiratory Rate 18 Blood Pressure 151/79 Pulse Oximetry 90 Oxygen Delivery Me thod Room Air Oxygen Flow Rate 2 Fraction of Inspir ed Oxygen Hydration adequate: Yes Nausea and vomiting: No Pain level: 3 Mental status: Baseline
[2021-10-29] MEDS: metoprolol tartrate 25 mg Tablet PO (17:59)
[2021-10-29] MEDS: gabapentin 100 mg Capsule PO ×2 (17:59→20:25)
[2021-10-29] MEDS: lamoTRIgine 100 mg Tablet 50 MG PO (17:59)
[2021-10-29] MEDS: HYDROcodone-acetaminophen 5-325 mg Tablet PO (17:59)
[2021-10-29] MEDS: ketorolac 30 mg/mL INJ IVP (18:00)
[2021-10-29] MEDS: docusate sodium 100 mg Capsule PO (18:19)
[2021-10-30] VITALS (17 sets, daily range): BP systolic 130–177; BP diastolic 66–88; PULSE 71–98; RESP 13–20; TEMP 36.6–36.9; O2SAT 90–97
[2021-10-30] MEDS: lactated ringers 1,000 ML 90 ML IV ×2 (01:27→13:02)
[2021-10-30] MEDS: HYDROcodone-acetaminophen 5-325 mg Tablet PO ×3 (01:35→11:14)
[2021-10-30] MEDS: tizanidine 4 mg Tablet PO ×2 (01:36→20:04)
[2021-10-30] MEDS: oxyCODONE-APAP 10-325 mg Tablet PO ×3 (04:16→13:03)
[2021-10-30] MEDS: ceFAZolin 2,000 MG in sodium chloride 0.9% (plus) 50 ML 100 MG IV (06:10)
[2021-10-30] MEDS: ipratropium-albuterol 3 mL Neb 1 ML INHALATION ×4 (07:35→22:12)
--- NOTE | 2021-10-30 07:46 | PM.PN ---
Subjective Subjective: POD 1 Patient resting comfortably. Family is present. She reports improvement with sensation to her left upper extremity. She has some mild swallowing discomfort. Denies any chest pain, shortness of breath. Vitals/I&O/Wt Last Vital Signs Temp 98.1 F 10/30/21 04:00 Pulse 79 10/30/21 04:00 Resp 18 10/30/21 04:16 BP 166/78 10/30/21 04:00 Pulse Ox 93 10/30/21 04:16 10/29/21 10/30/21 10/30/21 22:59 06:59 14:59 Intake Total 1250 / 5400 1391.5 / 6791.5 Output Total 200 / 1300 1020 / 2320 Balance 1050 / 4100 371.5 / 4471.5 Physical Exam Narrative: Patient is alert and oriented x3 with a good general appearance normal mood and affect. Moderately tender with palpation about the incisional site. Anterior/posterior incision appears to be clean and dry. No signs of infection. Good motor strength throughout both upper extremities. Appears to fire in all motor groups with 4/5 strength. Hands are warm good cap refill in all digits. Normal sensation to light touch in all dermatomal areas. Urinary Catheter Management: Briceño: Cath Placed During This Visit: yes Reason for Continuing Indwelling Catheter: Acute Urinary Retention or Obstruction Urinary Catheter Date of Insertion: 10/29/21 Urinary Catheter Time of Insertion: 07:30 Data : 10/26/21 08:50 10/26/21 08:50 A&P Assessment and plan (1) Cervical spondylosis with myelopathy: We will have physical therapy work with mobilization. We will discontinue Briceño catheter. Encourage incentive spirometry for pulmonary toilet. Work with pain control and possible discharge home tomorrow. Status: Acute (2) Status post cervical spinal fusion: Status: Acute Attestations Medical Necessity Statement*: DC home tomorrow Coding Level of Care Code Acute Safety Belt Installer for Dimple Mcgrath Diagnoses Cervical spondylosis with myelopathy M47.12 Status post cervical spinal fusion Z98.1
[2021-10-30] MEDS: ondansetron 2 mg/ML SDV 2 mL 4 MG IVP (08:47)
[2021-10-30] MEDS: metoprolol tartrate 25 mg Tablet PO ×2 (08:53→17:51)
[2021-10-30] MEDS: venlafaxine 75 mg Tablet PO (08:54)
[2021-10-30] MEDS: gabapentin 100 mg Capsule PO ×4 (08:54→20:05)
[2021-10-30] MEDS: lisinopril 20 mg Tablet PO (08:54)
[2021-10-30] MEDS: pantoprazole DR 40 mg Tablet PO (08:54)
[2021-10-30] MEDS: morphine 4 mg/mL SDV 1 mL 2 MG IVP (09:02)
[2021-10-30] MEDS: ketorolac 30 mg/mL INJ IVP ×2 (11:15)
--- NOTE | 2021-10-30 15:00 | PC.NURSE ---
Spoke to Michael Peacock electrician assistant and patient's pain medications were changed. Notified Michael that patient was unable to get up and tolerate walking so she is requesting her Briceño Catheter stay in until tomorrow morning.
[2021-10-30] MEDS: oxyCODONE 5 mg IR Tab/Cap PO ×2 (16:43→21:08)
[2021-10-30] MEDS: HYDROcodone-acetaminophen 10-325 mg Tablet 1 TAB PO (17:51)
[2021-10-30] MEDS: docusate sodium 100 mg Capsule PO (17:52)
[2021-10-30] MEDS: lamoTRIgine 100 mg Tablet 50 MG PO (17:52)
--- NOTE | 2021-10-30 19:02 | PC.NURSE ---
Patient ambulated in the paiz. Patient did well. Patient then assisted back to bed at this time.
[2021-10-31] VITALS (11 sets, daily range): BP systolic 123–156; BP diastolic 75–79; PULSE 69–100; RESP 16–18; TEMP 36.7–36.8; O2SAT 90–96
[2021-10-31] MEDS: HYDROmorphone 1 mg/mL INJ 1 mL 0.5 MG IVP ×2 (00:01→05:35)
[2021-10-31] MEDS: lactated ringers 1,000 ML 90 ML IV ×2 (00:08→09:34)
[2021-10-31] MEDS: oxyCODONE 5 mg IR Tab/Cap PO ×2 (03:04→11:29)
--- NOTE | 2021-10-31 06:40 | PM.PN ---
Subjective Subjective: POD 2 Patient resting comfortably currently. States she had a rough night with pain. States her left arm is much improved has some residual discomfort in the right upper extremity. Denies any swallowing problems denies any voice changes. Denies any chest pain or shortness of breath. Vitals/I&O/Wt Last Vital Signs Temp 98.2 F 10/31/21 04:00 Pulse 92 10/31/21 04:00 Resp 18 10/31/21 04:00 BP 151/79 10/31/21 04:00 Pulse Ox 90 10/31/21 04:00 10/30/21 10/30/21 10/31/21 14:59 22:59 06:59 Intake Total 1680 / 1680 240 / 1920 1000 / 2920 Output Total 1450 / 1450 885 / 2335 1880 / 4215 Balance 230 / 230 -645 / -415 -880 / -1295 Physical Exam Narrative: Patient is alert and oriented x3 with a good general appearance normal mood and affect.? Moderately tender with palpation about the incisional site.? Anterior/posterior incision appears to be clean and dry.? No signs of infection.? Good motor strength throughout both upper extremities.? Appears to fire in all motor groups with 4/5 strength.? Hands are warm good cap refill in all digits.? Normal sensation to light touch in all dermatomal areas. Urinary Catheter Management: Briceño: Cath Placed During This Visit: yes Reason for Continuing Indwelling Catheter: Chronic Indwelling Urinary Catheter on Admission Urinary Catheter Date of Insertion: 10/29/21 Urinary Catheter Time of Insertion: 07:30 Data : 10/26/21 08:50 10/26/21 08:50 A&P Assessment and plan (1) Status post cervical spinal fusion: Patient has had difficult time with pain control. She was switched from hydrocodone to oxycodone fives. She was switched from morphine for severe pain to 0.5 of Dilaudid which is given her better relief. We will discontinue the Briceño catheter this morning and discontinue Hemovac drain. We will encourage mobilization spending more time up in the chair. Continue incentive spirometry. If we can gain better pain control consider discharging home. Status: Acute (2) Cervical spondylosis with myelopathy: Status: Acute Attestations Medical Necessity Statement*: If her pain is controlled we can discharge home later today. Coding Level of Care Code Acute [employer] Director for [employer] Fwd Diagnoses Status post cervical spinal fusion Z98.1 Cervical spondylosis with myelopathy M47.12
[2021-10-31] MEDS: ipratropium-albuterol 3 mL Neb 1 ML INHALATION ×2 (08:37→11:28)
[2021-10-31] MEDS: ketorolac 30 mg/mL INJ IVP (09:26)
[2021-10-31] MEDS: lamoTRIgine 100 mg Tablet 50 MG PO (09:28)
[2021-10-31] MEDS: metoprolol tartrate 25 mg Tablet PO (09:29)
[2021-10-31] MEDS: gabapentin 100 mg Capsule PO ×2 (09:30→13:34)
[2021-10-31] MEDS: pantoprazole DR 40 mg Tablet PO (09:30)
[2021-10-31] MEDS: allopurinol 100 mg Tablet 200 MG PO (09:30)
[2021-10-31] MEDS: HYDROcodone-acetaminophen 10-325 mg Tablet 1 TAB PO ×2 (09:30→13:34)
[2021-10-31] MEDS: lisinopril 20 mg Tablet PO (09:31)
[2021-10-31] MEDS: venlafaxine 75 mg Tablet PO (09:31)
[2021-10-31] MEDS: docusate sodium 100 mg Capsule PO (09:31)
[2021-10-31] MEDS: hydroCHLOROthiazide 25 mg Tablet 12.5 MG PO (09:32)
--- NOTE | 2021-10-31 14:50 | P.PN_ITS ---
Subjective Subjective: POD 2 Patient sitting up at the bedside feeling much better she is ready for discharge home. Hemovac drain was discontinued. Vitals/I&O/Wt Last Vital Signs Temp 98.1 F 10/31/21 11:52 Pulse 87 10/31/21 11:52 Resp 16 10/31/21 11:52 BP 137/76 10/31/21 11:52 Pulse Ox 95 10/31/21 11:52 10/30/21 10/31/21 10/31/21 22:59 06:59 14:59 Intake Total 240 / 1920 1000 / 2920 1089 / 1089 Output Total 885 / 2335 3030 / 5365 Balance -645 / -415 -2030 / -2445 1089 / 1089 Physical Exam Narrative: Patient is alert and oriented x3 with a good general appearance normal mood and affect.? Moderately tender with palpation about the incisional site.? Anterior/posterior incision appears to be clean and dry.? No signs of infection.? Good motor strength throughout both upper extremities.? Appears to fire in all motor groups with 4/5 strength.? Hands are warm good cap refill in all digits.? Normal sensation to light touch in all dermatomal areas. Urinary Catheter Management: Briceño: Cath Placed During This Visit: yes Reason for Continuing Indwelling Catheter: Chronic Indwelling Urinary Catheter on Admission Urinary Catheter Date of Insertion: 10/29/21 Urinary Catheter Time of Insertion: 07:30 Data : 10/26/21 08:50 10/26/21 08:50 A&P Assessment and plan (1) Status post cervical spinal fusion: Hemovac drain was discontinued. She is wanting to go home as she states her pain is controlled with the oxycodone. She will continue to wear the [place] J collar home with incentive spirometry for pulmonary toilet. Continue to ice her cervical spine. We will see her back in the office in 1 week's time for a wound check. She will call if she is having problems or questions in the meantime. Status: Acute (2) Cervical spondylosis with myelopathy: Status: Acute Attestations Medical Necessity Statement*: Discharge home today Coding Level of Care Code Acute [employer] for Dimple Mcgrath Diagnoses Status post cervical spinal fusion Z98.1 Cervical spondylosis with myelopathy M47.12
--- NOTE | 2021-11-01 15:48 | P.DS_ITS ---
Discharge Providers Date of Admission: 10/29/21 09:11 Date of Discharge: October 31, 2021 Attending Provider at Admission: Edmond Peacock DO Attending Provider at Discharge: Edmond Peacock DO Primary Care Provider: Dilshad Ng MD Diagnoses at Discharge Discharge Diagnosis (1) Status post cervical spinal fusion: Status: Acute (2) Cervical spondylosis with myelopathy: Status: Acute Reason for Visit Reason for Visit: ACDF/PSF W/ DECOMPRESSION Hospital Course Hospital Course uneventful Physical Exam Urinary Catheter Management: Briceño: Cath Placed During This Visit: yes Reason for Continuing Indwelling Catheter: Chronic Indwelling Urinary Catheter on Admission Urinary Catheter Date of Insertion: 10/29/21 Urinary Catheter Time of Insertion: 07:30 Discharge Data Studies Completed and Pending Completed Studies During Hospitalization Category Date Time Status XR cervical spine 3V* 14009 Routine Exams 10/29/21 Completed Radiology Impressions Cervical Spine X-Ray 10/29/21 00:00 IMPRESSION: Postoperative cervical spine with no abnormality as above. Laboratory Results WBC 3.5 10^3/uL (4.0-10.0) L 10/26/21 08:50 RBC 4.24 10^6/uL (4.1-5.3) 10/26/21 08:50 Hgb 14.7 g/dL (11.5-15.3) 10/26/21 08:50 Hct 43.2 % (37.0-47.0) 10/26/21 08:50 MCV 101.9 fl (81-99) H 10/26/21 08:50 MCH 34.7 pg (28.0-34.0) H 10/26/21 08:50 MCHC 34.0 g/dL (30.0-36.0) 10/26/21 08:50 RDW 13.2 % (12.1-15.1) 10/26/21 08:50 Plt Count 238 10^3/cmm (130-400) 10/26/21 08:50 MPV 9.1 fL (7.4-10.4) 10/26/21 08:50 Neut % (Auto) 62.4 % 10/26/21 08:50 Lymph % (Auto) 22.6 % 10/26/21 08:50 Ashley % (Auto) 13.3 % 10/26/21 08:50 Eos % (Auto) 0.8 % 10/26/21 08:50 Baso % (Auto) 0.6 % 10/26/21 08:50 Neut # (Auto) 2.21 10^3/uL (1.8-7.7) 10/26/21 08:50 Lymph # (Auto) 0.8 10^3/uL (0.8-4.8) 10/26/21 08:50 Ashley # (Auto) 0.5 10^3/uL (0.2-0.9) 10/26/21 08:50 Eos # (Auto) 0.0 10^3/uL (0.0-0.8) 10/26/21 08:50 Baso # (Auto) 0.0 10^3/uL (0.0-0.1) 10/26/21 08:50 Nucleated RBC % (auto) 0 % 10/26/21 08:50 Nucleated RBCs # 0.0 /100WBC 10/26/21 08:50 Sodium 132 mmol/L (136-145) L 10/26/21 08:50 Potassium 3.6 mmol/L (3.5-5.1) 10/26/21 08:50 Chloride 90 mmol/L (98-107) L 10/26/21 08:50 Carbon Dioxide 32 mmol/L (22-29) H 10/26/21 08:50 Anion Gap 13.6 (5-19) 10/26/21 08:50 BUN 9 mg/dL (8-23) 10/26/21 08:50 Creatinine 0.4 mg/dL (0.5-0.9) L 10/26/21 08:50 GFR Calculation 159.2 mL/min (90-130) H 10/26/21 08:50 Glucose 90 mg/dL (65-115) 10/26/21 08:50 Calculated Osmolality 272 mOsm/kg (285-295) L 10/26/21 08:50 Calcium 9.3 mg/dL (8.5-10.5) 10/26/21 08:50 Blood Type A Positive 10/26/21 08:50 Rho(D) Type Positive 10/26/21 08:50 Antibody Screen Negative 10/26/21 08:50 Vitals Last Vital Signs Temp 98.2 F 07/20/22 15:25 Pulse 69 10/31/21 15:25 Resp 18 10/31/21 15:25 BP 123/75 10/31/21 15:25 Pulse Ox 96 10/31/21 15:25 Discharge Plan Discharge Patient Disposition: Home Condition: Stable Prescriptions: New oxycodone 5 mg tablet 5 - 10 mg PO Q4H PRN (Reason: pain) 7 Days Qty: 40 0RF Continued metoprolol tartrate 25 mg tablet 25 mg PO BID 0RF lisinopril-hydrochlorothiazide 20-12.5 mg tablet 1 tab PO DAILY 0RF mometasone 50 mcg/actuation spray,non-aerosol 2 spray INTRANASAL DAILY 0RF Systane Ultra 0.4-0.3 % drops 1 drop ophthalmic (eye) ONCE PRN (Reason: Dry Eye(S)) 0RF vortioxetine 20 mg tablet 20 mg PO DAILY 0RF lamotrigine 100 mg tablet 50 mg PO BID 0RF albuterol sulfate 90 mcg/actuation HFA aerosol inhaler 1 inh INHALATION BID PRN (Reason: Shortness Of Breath) 0RF naproxen 500 mg tablet 500 mg PO BID 0RF venlafaxine 75 mg tablet 75 mg PO DAILY 0RF gabapentin 100 mg capsule 100 mg PO QID 0RF tizanidine 4 mg capsule 4 mg PO TID PRN (Reason: Pain) 0RF Restasis MultiDose 0.05 % drops 1 drp ophthalmic (eye) Q12H Qty: 16.5 2RF Rinvoq 15 mg tablet extended release 24 hr 15 mg PO DAILY Qty: 90 1RF Anoro Ellipta 62.5-25 mcg/actuation blister with device 1 inh INHALATION Q24H 60 Days Qty: 60 2RF prednisone 10 mg tablet See Rx Instructions PO .COMPLEX Qty: 60 0RF Rx Instructions: take 1 tab daily for 5 days prn flares PO; omeprazole 40 mg capsule,delayed release(DR/EC) 40 mg PO DAILY Qty: 90 1RF allopurinol 100 mg tablet 200 mg PO DAILY Qty: 180 1RF Hold Instructions: elevated LFT's Discontinued hydrocodone-acetaminophen [[place]] 5-325 mg tablet 1 tab PO Q6H PRN (Reason: Pain, Moderate) 0RF Hold Instructions: Resume on 06/22/19. Hold while taking [place] 10/325 Discharge Orders: Discharge Order (Routine); Ordered 10/31/21 Ordered By: Michael Mccallum Referrals: Edmond Peacock DO [Physician] - 11/08/21 10:15 am (Patient will be seeing BHUMIKA Frederick) Dilshad Ng MD [Primary Care Provider] - 11/05/21 10:15 am Discharge Diet: Advance as tolerated Discharge Activity: Limit activity as instructed Patient Instructions: Oxycodone/Acetaminophen (By mouth), Anterior Posterior Spinal Fusion (DC), Opioid Safety Activity Restrictions/Additional Instructions: Thank you for choosing [facility] for your care! The following is a list of instructions, from your provider, to follow upon your discharge to ensure you have the optimal recovery from your recent injury or surgery. Anterior Cervical Discectomy and Fusion and Posterior Cervical Fusion/Decompression: Return to the office in 1 week for wound check. What to Expect at Home Your Recovery Follow-up care is a bailey part of your treatment and safety. Be sure to make and go to all appointments, and call your doctor if you are having problems. If you do not already have a follow-up appointment made, call office in the next 1-3 days to make follow up appointment for 1 weeks at [phone]. It is also a good idea to know your test results and keep a list of the medicines you take. You can expect your neck to feel stiff or sore after surgery. This should improve in the weeks after surgery. But it may take 4 to 6 months for you to get better completely. You may have trouble sitting or standing in one position for very long and may need pain medicine in the weeks after your surgery. It may take 4 to 6 weeks to get back to your usual activities, but it may depend on what kind of surgery you had. Your throat will feel sore and it may be difficult to swallow for the first 3 days after your surgery. As long as you can get liquids down without difficulty, this should slowly improve, otherwise call our office or seek medical attention if it becomes increasingly difficult to get anything down including liquids. Avoid hot liquids for first 3-5 days. Soothing foods/liquids such as jello, pudding, and luke warm soups are rec ommended until swallowing improves. Staying elevated will also help, it's advised you keep propped up at while sleeping to help reduce the swelling. You may use an ice pack directly on your incision or around it on the front of your neck, using a cloth to protect your skin; and a heating pad to the back of your neck as needed. Do not use over the counter anti-inflammatory medications (Ibuprofen, Motrin, Aleve, Advil, etc) Taking these meds after having a fusion can delay fusion rates, we recommend you avoid them for the first 3 months after your surgery[address] Dr. Peacock may advise you to work with a physical therapist to strengthen the muscles around your neck and back - this will be discussed at your follow - up appointments. The pain or numbness you were having in your arms before surgery s hould get better or go away completely. This care sheet gives you a general idea about how long it will take for you to recover. But each person recovers at a different pace. Follow the steps below to get better as quickly as possible. How can you care for yourself at home? Activity ? Rest when you feel tired. Getting enough sleep will help you recover. ? Try to walk each day. Start by walking a little more than you did the day before. Bit by bit, increase the amount you walk. Walking boosts blood flow and helps prevent pneumonia and constipation. Walking may also decrease your muscle soreness after surgery. ? No lifting anything that is more that 5 pounds. This may include heavy grocery bags and milk containers, a heavy briefcase or backpack, cat litter or dog food bags, a child, or a vacuum mainspring barrel assembly cleaner. ? Avoid strenuous activities, such as bicycle riding, jogging, weightlifting, or aerobic exercise, until your doctor says it is okay. ? Do not drive until your follow-up visit after your surgery, or until your doctor says it isokay. ? Avoid taking long car trips for 2 to 4 weeks after surgery. Your neck may become tired and painful from sitting too long in one position. ? You will probably need to take 4 to 6 weeks off from work. It depends on the type of work you do and how you feel. ? You may have sex as soon as you feel able, but avoid positions that put stress on your neck or cause pain. Diet ? You can eat your normal diet. If your stomach is upset, try bland, low-fat foods like plain rice, broiled chicken, toast, and yogurt ? Drink plenty of fluids. If you have kidney, heart, or liver disease and have to limit fluids, talk with your doctor before you increase the amount of fluids you drink. ? You may notice that your bowel movements are not regular right after your surgery. This is common. Try to avoid constipation and straining with bowel movements. You may want to take a fiber supplement every day. If you have not had a bowel movement after a couple of days, ask your doctor about taking a mild laxative. Medicines ? Take pain medicines exactly as directed. 1. If Dr. Peacock gave you a prescription medicine for pain, take lt as prescribed. 2. Do not take two or more pain medicines at the same time unless the doctor told you to. Many pain medicines have acetaminophen, which is Tylenol. Too much acetaminophen {Tylenol) can be harmful. 3. If you think your pain pill is making you sick to your stomach: 4. Take your pills after meals (unless your doctor has told you not to). 5. Ask your Dr. for a different pain pill. Incisioncare ? Remove your dressing 48 hours after your surgery. Ok to shower and get the incision wet. Do not overtly wash your incision. When done, pad dry, leave open to air thereafter. Avoid creams and ointments directly on your incision. ? Your sutures in the incision will dissolve and fall out on their own. ? Keep the area clean and dry. You may cover it with a gauze bandage if it weeps or rubs against clothing; if you choose to do this, change the dressing everyday. Other instructions ? Use a heating pad, hot water bottle, or gentle massage on your back to reduce stiffness. Avoid putting heat on your incision When should you call for help? ? Call 911 anytime you think you may need emergency care. For example, call if: ? You pass out (lose consciousness). ? You have sudden chest pain and shortness of breath, or you cough upblood. ? You cannot swallow. ? You have severe pain in your neck or back. ? Call your Dr. or seek immediate medical care if: ? You have pain that does not get better after you take pain pills. ? You have loose stitches, or your incision comes open. ? You have blood or fluid draining from the incision. ? You have signs of infection, such as: 1. Increased pain, swelling, warmth, or redness. 2. Red streaks leading from the site. 3. Pus draining from the site. 4. Swollen lymph nodes in your neck or armpits. 5. A fever. ? You have severe pain in your arms. ? You have new or increased weakness or numbness in your arms. ? Watch closely for any changes in your health, and be sure to contact your doctor if: ? You do not have a bowel movement after taking a laxative. Discharge Attestations Time Spent in Discharge Care*: less than 30 min Status at Discharge: Cognitive status at discharge: cognitively intact , Behavioral status at discharge: cooperative , Quality Metrics Clinical Quality Measures [ No reported AMI, CVA or VTE this stay] Coding Level of Care Code Acute [facility] note Diagnoses Status post cervical spinal fusion Z98.1 Cervical spondylosis with myelopathy M47.12
== END 2021-10-31 16:24 | disposition home or self-care (01) | DRG 455 ==
LOC: MEDSURG 09:16
PROVIDERS: Anesthesiology; Admitting Provider Orthopaedic Surgery; PCP Family Medicine; Visit Provider Orthopaedic Surgery
PROC: 0RB30ZZ Excision of Cervical Vertebral Disc, Open Approach (ICD-10-PCS; CPT 22551; principal; 2021-10-29 07:00)
PROC: 0RG20A0 Fusion of 2 or more Cervical Vertebral Joints with Interbody Fusion Device, Anterior Approach, Anterior Column, Open Approach (ICD-10-PCS; 2021-10-29 07:00)
PROC: 0RG20A0 Fusion of 2 or more Cervical Vertebral Joints with Interbody Fusion Device, Anterior Approach, Anterior Column, Open Approach (ICD-10-PCS; CPT 63001; 2021-10-29 07:00)
DX: M47.12 Other spondylosis with myelopathy, cervical region (principal); M43.12 Spondylolisthesis, cervical region; Z85.118 Personal history of other malignant neoplasm of bronchus and lung; M10.9 Gout, unspecified; M81.0 Age-related osteoporosis without current pathological fracture; M35.00 Sjogren syndrome, unspecified; Z79.51 Long term (current) use of inhaled steroids; Z79.891 Long term (current) use of opiate analgesic; M06.00 Rheumatoid arthritis without rheumatoid factor, unspecified site; F17.210 Nicotine dependence, cigarettes, uncomplicated
CPT/HCPCS: 51702; 72040; 76000; 80048; 85025; 86850; 86900; 93005; 94640; 97116; 97161; 97530; 97760; C1713; C9359; J0690; J1100; J1170; J1885; J2270; J2370; J2405; J2704; J3010; J3370; J3490; J7030; L0174; P9041

== ENCOUNTER → 2021-11-06 09:29 | Outpatient (BNVA) | payer MEDICARE, OTHER, SELFPAY | PROVIDERS: PCP Family Medicine; Visit Provider Physician Assistant | DX: Z47.89 Encounter for other orthopedic aftercare (principal); Z98.890 Other specified postprocedural states; Z98.1 Arthrodesis status | CPT/HCPCS: 72040; 99024 ==

== ENCOUNTER → 2021-11-13 09:36 | Outpatient (BNVA) | payer MEDICARE, OTHER, SELFPAY | PROVIDERS: PCP Family Medicine; Visit Provider Physician Assistant | DX: Z98.1 Arthrodesis status (principal) | CPT/HCPCS: 72040; 99024 ==

== ENCOUNTER → 2021-11-20 09:12 | Outpatient (BNVA) | payer MEDICARE, OTHER, SELFPAY | PROVIDERS: PCP Family Medicine; Visit Provider Physician Assistant | DX: Z47.89 Encounter for other orthopedic aftercare (principal); Z98.1 Arthrodesis status | CPT/HCPCS: 99024 ==

== ENCOUNTER → 2021-12-11 08:09 | Outpatient (BNVA) | payer MEDICARE, OTHER, SELFPAY | PROVIDERS: PCP Family Medicine; Visit Provider Orthopaedic Surgery | DX: T81.32XA Disruption of internal operation (surgical) wound, not elsewhere classified, initial encounter (principal); Z98.1 Arthrodesis status; Z47.89 Encounter for other orthopedic aftercare | CPT/HCPCS: 72040; 99024 ==

== ENCOUNTER 2021-12-12 07:09 | Inpatient (IN) | payer MEDICARE, OTHER, SELFPAY ==
[2021-12-12] VITALS (8 sets, daily range): BP systolic 149–172; BP diastolic 78–97; PULSE 78–94; RESP 16–20; TEMP 36.1–36.9; O2SAT 94–98
[2021-12-12] MEDS: sodium chloride 0.9% 1,000 ML 30 ML IV (07:41)
--- NOTE | 2021-12-12 08:01 | ANES.PREANE2 ---
Pre-Anesthetic Assessment Height/Weight: Height 1.52 m Weight 49.895 kg Temp Pulse Resp BP Pulse Ox O2 Del Method 98.4 F 83 18 172/86 96 12/12/21 07:32 12/12/21 07:32 12/12/21 07:32 12/12/21 07:32 12/12/21 07:32 12/12/21 07:32 Preop Diagnosis: wound dehisence Operation Date: 12/12/21 08:40 Proposed Procedures p Incision and Drainage AND WOUND ENCLOSURE 57065/t81.30xA(Not Applicable) - Edmond Peacock, Familial anesthetic complications: None Was Beta Leda taken within 24 hours: Yes Was Clonidine taken within 24 hours: N/A Last intake: Intake Last Liquid Date 12/11/21 Last Liquid Time 22:00 Last Solid Date 12/11/21 Last Solid Time 18:30 Social Tobacco and No alcohol Exam alert, oriented x 3, clear to auscultation bilaterally and regular rate & rhythm Airway Mallampati: Class II Dentition: false Pulmonary Chronic Obstructive Pulmonary Disease hx lung cancer CV/HEM Hypertension GI Gastroesophageal Reflux Disease [facility] Rheumatoid Arthritis sjogren's Anesthetic Plan ASA status: 3 Anesthesia: General Risk of > 500 ml blood loss (7ml/kg in children): No Medications/Allergies Home Medications Medication Instructions Recorded Confirmed Last Taken Type albuterol sulfate 90 mcg/actuation 1 inh inhalation BID PRN Shortness 04/12/19 12/12/21 12/12/21 History aerosol inhaler Of Breath lamotrigine 100 mg tablet 50 mg PO BID 04/12/19 12/12/21 12/11/21 History (Lamictal) naproxen 500 mg tablet 500 mg PO BID PRN Pain 04/12/19 12/11/21 12/06/21 History venlafaxine 75 mg tablet 75 mg PO DAILY 04/12/19 12/12/21 12/11/21 History vortioxetine 20 mg tablet 20 mg PO DAILY 04/12/19 12/12/21 12/11/21 History (Trintellix) lisinopril 20 1 tab PO DAILY 04/16/19 12/12/21 12/11/21 History mg-hydrochlorothiazide 12.5 mg tablet metoprolol tartrate 25 mg tablet 25 mg PO BID 04/16/19 12/12/2112/12/22 04:30 History mometasone 50 mcg/actuation nasal 2 spray intranasal DAILY 04/16/19 12/12/21 10/28/21 History spray peg 400-propylene glycol 0.4 %-0.3 1 drop ophthalmic (eye) ONCE PRN 04/16/19 12/11/21 10/28/21 History % eye drops (Systane Ultra) Dry Eye(S) tizanidine 4 mg capsule 4 mg PO TID PRN Pain 11/23/19 12/11/21 11/27/21 History gabapentin 100 mg capsule 100 mg PO QID 05/15/20 12/12/21 12/11/21 History umeclidinium 62.5 mcg-vilanterol 1 inh inhalation Q24H 60 days #60 05/15/20 12/12/21 12/11/21 Rx 25 mcg/actuation powdr for ea inhalation (Anoro Ellipta) cyclosporine 0.05 % eye drops 1 drp ophthalmic (eye) Q12H #16.5 06/05/21 12/12/21 12/11/21 Rx (Restasis MultiDose) mL allopurinol 100 mg tablet 200 mg PO DAILY #180 tabs 07/10/21 12/12/21 12/11/21 Rx omeprazole 40 mg capsule,delayed 40 mg PO DAILY #90 caps 07/10/21 12/12/21 12/12/21 Rx release oxycodone 10 mg tablet,crush 10 mg PO Q12H 7 days #14 tabs 12/04/21 12/12/21 12/12/21 Rx resistant,extended release 12 hr (OxyContin) sulfamethoxazole 400 1 tab PO BID #14 tabs 12/07/21 12/12/21 12/11/21 Rx mg-trimethoprim 80 mg tablet (Bactrim) prednisone 10 mg tablet 10 mg PO DIRECTED PRN Pain 12/11/21 12/11/21 Unknown History Allergies Allergy/AdvReac Type Severity Reaction Status Date / Time No Known Drug Allergies Allergy Unknown Verified 12/11/21 08:13 Current Medications Generic Name Dose Route Start Last Admin Trade Name Freq PRN Reason Stop Dose Admin Sodium Chloride 1,000 mls @ 30 mls/hr 12/12/21 07:15 12/12/21 07:41 Sodium Chloride 0.9% IV 12/13/21 07:14 30 mls/hr .Q24H YEHUDA Administration PFSH Anesthesia Medical History Adenocarcinoma of right lung, stage 1 Arthropathy of cervical facet joint Cellulitis of right anterior lower leg Cervical radiculopathy due to degenerative joint disease of spine COPD (chronic obstructive pulmonary disease) Gout, arthritis High risk medication use Immunization counseling Immunosuppression Inflammatory arthritis Intervertebral disc disorder with radiculopathy of lumbar region Intervertebral disc disorder with radiculopathy of lumbosacral region Low back pain radiating down leg Lumbar stenosis with neurogenic claudication Lung nodule, solitary Mixed stress and urge urinary incontinence Neck pain Osteoporosis Pain and swelling of right knee Primary Sjogren's syndrome Seronegative rheumatoid arthritis Seronegative rheumatoid arthritis Sjogrens syndrome Spondylolisthesis at L4-L5 level Spondylolisthesis at L5-S1 level Spondylolisthesis, cervical region Spondylolisthesis, lumbar region Thoracic disc disease Vaginal atrophy Surgical History History of D&C 4x History of decompression of ulnar nerve Right History of ear surgery (04/17/17) Right History of hysterectomy (10/29/16) with Vaginal Repair, Total S/P insertion of spinal cord stimulator Thoracic spinal cord stimulator implantation via laminotomy ([employer]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), 06[place]17/2019[place] [facility] Family History Mother Hypertension Diabetes Stroke Cancer Uterine Grandmother Diabetes Maternal Heart disease Father Heart disease Grandfather Heart disease Sister Cancer Uterine Social History Smoking and tobacco status: current every day smoker cigarettes Packs smoked per day: 1 Years cigarettes smoked: 41 [ Other cigarette details: Hx of of 1PPD x 41 Years] Quit status (tobacco): considering quitting Second hand smoke exposure: Yes Smoking risk assessment/counseling performed?: Yes Alcohol intake: former Counseling given: No Counseling given: No Lives independently: Yes Household members: spouse Marital status: Current occupational status: disabled History of recent travel: No Current gender identity: Female Data Anesthesia Cardiac Studies: No Data to Display
--- NOTE | 2021-12-12 08:11 | W.PM.OPSUD ---
Surgery/Procedure H&P Update DATE OF PROCEDURE: December 12, 2021 DATE H&P PERFORMED: 12/11/21 H&P UPDATE INFORMATION: I have reviewed H&P completed within last 30 days, I have examined patient prior to procedure and No changes to prior documentation PREOP DIAGNOSIS: wound dehisence PLANNED PROCEDURE: Operation Date: 12/12/21 08:40 Proposed Procedures p Incision and Drainage AND WOUND ENCLOSURE 93628/t81.30xA(Not Applicable) - Edmond Peacock DO
[2021-12-12] MEDS: ceFAZolin 2,000 MG in sodium chloride 0.9% (plus) 50 ML 100 MG IV (08:30)
[2021-12-12] MEDS: vancomycin 1,000 MG SDV 1000 MG XX (09:11)
--- NOTE | 2021-12-12 09:25 | PM.OP ---
Operative Report Date of procedure: December 12, 2021 Pre-op diagnosis: Preop Diagnosis wound dehisence Post-op diagnosis: same Procedure done: 1. I+D down to bone 2. Complex closureof wound 4 inches by 3 inches by 3 inches Surgeon: Edmond Peacock Computer Hardware Technician: Michael Mccallum Estimated blood loss (mL): 5 Procedure: 1. I+D down to bone 2. Complex closureof wound 4 inches by 3 inches by 3 inches Patient is patient was brought to the operative suite after undergoing anesthesia was placed in the prone position. Patient wound had a small area of drainage. This was opened had a area where it went down deep approximately 3 inches to the cervical fascia. Once the wound was completely opened up the wound was ellipsed as skin rongeur was used to take down the spinous process at C7-T1. The curette was used to debride the tissue to bleeding tissue. Wound was then irrigated vancomycin powder was placed and wound was closed in layered fashion with Prolene suture. The wound was approximately 4 inches x 3 inches x 3 inches. THe dressing was applied and patient was transferred to the PACU in stable condition.
--- NOTE | 2021-12-12 09:50 | P.PCN_ITS ---
PACU note Narrative: VSS, Good respiratory effort, report to EXTENSION PROFESSOR Exam: awake
--- NOTE | 2021-12-12 09:50 | PM.PACU ---
PACU note Narrative: VSS, Good respiratory effort, report to VETERINARY SURGERY TECHNOLOGIST Exam: awake
[2021-12-12] MEDS: oxyCODONE 5 mg IR Tab/Cap PO (10:34)
--- NOTE | 2021-12-12 12:16 | ANE.PACU2 ---
Inpatient post-anesthesia follow up: Airway intact: Yes Vital signs: Temperature 97.0 F Pulse Rate 80 Respiratory Rate 18 Blood Pressure 158/81 Pulse Oximetry 96 Oxygen Delivery Me thod Room Air Oxygen Flow Rate 6 Fraction of Inspir ed Oxygen Hydration adequate: Yes Nausea and vomiting: No Pain level: 1 Mental status: Baseline
== END 2021-12-12 11:07 | disposition home or self-care (01) | DRG 909 ==
LOC: OR 10:57 → MEDSURG 05-16 15:53
PROVIDERS: Admitting Provider Orthopaedic Surgery; PCP Family Medicine; Visit Provider Orthopaedic Surgery
PROC: 0JQ70ZZ Repair Back Subcutaneous Tissue and Fascia, Open Approach (ICD-10-PCS; CPT 22010; principal; 2021-12-12 08:30)
DX: T81.30XA Disruption of wound, unspecified, initial encounter (principal); J44.9 Chronic obstructive pulmonary disease, unspecified; F17.210 Nicotine dependence, cigarettes, uncomplicated; Z98.1 Arthrodesis status; Y83.8 Other surgical procedures as the cause of abnormal reaction of the patient, or of later complication, without mention of misadventure at the time of the procedure; Z79.891 Long term (current) use of opiate analgesic; Z79.51 Long term (current) use of inhaled steroids; Z79.52 Long term (current) use of systemic steroids; M06.00 Rheumatoid arthritis without rheumatoid factor, unspecified site
CPT/HCPCS: 22010; 72040; 87070; 87075; 87077; 87176; 87186; 87205; 99024; J1100; J2405; J2704; J2710; J3010; J3370; J3490; J7030

== ENCOUNTER → 2021-12-20 09:51 | Outpatient (BNVA) | payer MEDICARE, OTHER, SELFPAY | PROVIDERS: PCP Family Medicine; Visit Provider Physician Assistant | DX: T81.30XA Disruption of wound, unspecified, initial encounter (principal); Z98.1 Arthrodesis status | CPT/HCPCS: 72040; 99024 ==

== ENCOUNTER → 2021-12-24 09:44 | Outpatient (BNVA) | payer MEDICARE, OTHER, SELFPAY | PROVIDERS: PCP Family Medicine; Visit Provider Internal Medicine Critical Care Medicine | DX: J44.9 Chronic obstructive pulmonary disease, unspecified (principal); F17.210 Nicotine dependence, cigarettes, uncomplicated; Z90.2 Acquired absence of lung [part of]; Z85.118 Personal history of other malignant neoplasm of bronchus and lung | CPT/HCPCS: 99214 ==

== ENCOUNTER → 2021-12-27 10:32 | Outpatient (BNVA) | payer MEDICARE, OTHER, SELFPAY | PROVIDERS: PCP Family Medicine; Visit Provider Physician Assistant | DX: T81.30XA Disruption of wound, unspecified, initial encounter (principal); Z47.89 Encounter for other orthopedic aftercare; Z98.1 Arthrodesis status; F17.210 Nicotine dependence, cigarettes, uncomplicated | CPT/HCPCS: 99024 ==

== ENCOUNTER → 2022-01-01 13:18 | Outpatient (BNVA) | payer MEDICARE, OTHER, SELFPAY | PROVIDERS: PCP Family Medicine; Visit Provider Nurse Practitioner Family | DX: I96 Gangrene, not elsewhere classified (principal); L98.492 Non-pressure chronic ulcer of skin of other sites with fat layer exposed | CPT/HCPCS: 11042; 87070; 87176; 87205; 99213 ==

== ENCOUNTER → 2022-01-08 10:12 | Outpatient (BNVA) | payer MEDICARE, OTHER, SELFPAY | PROVIDERS: PCP Family Medicine; Visit Provider Nurse Practitioner Family | DX: I96 Gangrene, not elsewhere classified (principal); L98.492 Non-pressure chronic ulcer of skin of other sites with fat layer exposed | CPT/HCPCS: 11042; 97605 ==

== ENCOUNTER → 2022-01-15 08:26 | Outpatient (BNVA) | payer MEDICARE, OTHER, SELFPAY | PROVIDERS: PCP Family Medicine; Visit Provider Nurse Practitioner Family | DX: T81.31XA Disruption of external operation (surgical) wound, not elsewhere classified, initial encounter (principal); Y83.8 Other surgical procedures as the cause of abnormal reaction of the patient, or of later complication, without mention of misadventure at the time of the procedure; I96 Gangrene, not elsewhere classified | CPT/HCPCS: 11042; 97605; A6237; A6250 ==

== ENCOUNTER → 2022-01-21 14:44 | Outpatient (BNVA) | payer MEDICARE, OTHER, SELFPAY | PROVIDERS: PCP Family Medicine; Visit Provider Thoracic Surgery (Cardiothoracic Vascular Surgery) | DX: I96 Gangrene, not elsewhere classified (principal); T81.31XA Disruption of external operation (surgical) wound, not elsewhere classified, initial encounter; Y83.8 Other surgical procedures as the cause of abnormal reaction of the patient, or of later complication, without mention of misadventure at the time of the procedure | CPT/HCPCS: 11042; 87070; 87077; 87176; 87186; 87205; A6446 ==

== ENCOUNTER → 2022-01-24 08:06 | Outpatient (BNVA) | payer MEDICARE, OTHER, SELFPAY | PROVIDERS: PCP Family Medicine; Visit Provider Orthopaedic Surgery | DX: T81.32XA Disruption of internal operation (surgical) wound, not elsewhere classified, initial encounter (principal); Z47.89 Encounter for other orthopedic aftercare; Z98.1 Arthrodesis status | CPT/HCPCS: 72040; 99024 ==

== ENCOUNTER 2022-01-26 09:20 | Inpatient (IN) | payer MEDICARE, OTHER, SELFPAY ==
[2022-01-24 14:50] VITALS: BMI 20.5
[2022-01-25] VITALS (7 sets, daily range): BP systolic 127–153; BP diastolic 71–110; PULSE 72–107; RESP 16–18; TEMP 36.4–36.8; O2SAT 93–96; BMI 21.7
[2022-01-25] MEDS: sodium chloride 0.9% 1,000 ML 30 ML IV (12:25)
[2022-01-25 12:52] LABS: Blood Urea Nitrogen 10 mg/dL (8-23); Calcium 9.8 mg/dL (8.5-10.5); Carbon Dioxide 28 mmol/L (22-29); Chloride 87 mmol/L (98-107); Glomerular Filtration Rate 123.1 mL/min (90-130); Glucose 79 mg/dL (65-115); Osmolality Calculated 258 mOsm/kg (285-295); Sodium 125 mmol/L (136-145)
--- NOTE | 2022-01-25 12:52 | P.ANESASSM_ITS ---
Pre-Anesthetic Assessment Height/Weight: Height 1.52 m Weight 47.627 kg Temp Pulse Resp BP Pulse Ox O2 Del Method 97.6 F 107 H 18 149/110 96 01/25/22 12:12 01/25/22 12:12 01/25/22 12:12 01/25/22 12:12 01/25/22 12:12 01/25/22 12:31 Preop Diagnosis: wound dehisence Operation Date: 01/25/22 13:40 Proposed Procedures p Incision and Drainage WITH WOUND ENCLOSURE 12068(Not Applicable) - Edmond Peacock, DO Familial anesthetic complications: None Was Beta Leda taken within 24 hours: N/A Was Clonidine taken within 24 hours: N/A Last intake: Intake Last Liquid Date 01/25/22 Last Liquid Time 08:00 Last Solid Date 01/24/22 Last Solid Time 22:30 Social Tobacco and No alcohol Exam alert, oriented x 3, clear to auscultation bilaterally and regular rate & rhythm Airway Mallampati: Class III Dentition: false Pulmonary Chronic Obstructive Pulmonary Disease R lung adenocarcinoma CV/HEM Hypertension [facility] [place] Rheumatoid Arthritis sjogren's syndrome Anesthetic Plan ASA status: 3 Anesthesia: General Risk of > 500 ml blood loss (7ml/kg in children): No Medications/Allergies Home Medications Medication Instructions Recorded Confirmed Last Taken Type albuterol sulfate 90 mcg/actuation 1 inh inhalation BID PRN Shortness 04/12/19 01/25/22 01/24/22 History aerosol inhaler Of Breath lamotrigine 100 mg tablet 50 mg PO BID 04/12/19 01/25/22 01/24/22 History (Lamictal) naproxen 500 mg tablet 500 mg PO BID PRN Pain 04/12/19 01/25/22 12/06/21 History venlafaxine 75 mg tablet 75 mg PO DAILY 04/12/19 01/25/22 12/11/21 History vortioxetine 20 mg tablet 20 mg PO DAILY 04/12/19 01/25/22 01/25/22 04:30 History (Trintellix) lisinopril 20 1 tab PO DAILY 04/16/19 01/25/22 01/24/22 History mg-hydrochlorothiazide 12.5 mg tablet metoprolol tartrate 25 mg tablet 25 mg PO BID 04/16/19 01/25/22 01/25/22 04:30 History mometasone 50 mcg/actuation nasal 2 spray intranasal DAILY 04/16/19 01/25/22 01/24/22 History spray peg 400-propylene glycol 0.4 %-0.3 1 drop ophthalmic (eye) ONCE PRN 04/16/19 01/24/22 10/28/21 History % eye drops (Systane Ultra) Dry Eye(S) tizanidine 4 mg capsule 4 mg PO TID PRN Pain 11/23/19 01/24/22 11/27/21 History gabapentin 100 mg capsule 100 mg PO QID 05/15/20 01/25/22 01/24/22 History cyclosporine 0.05 % eye drops 1 drp ophthalmic (eye) Q12H #16.5 06/05/21 01/25/22 01/24/22 Rx (Restasis MultiDose) mL allopurinol 100 mg tablet 200 mg PO DAILY #180 tabs 07/10/21 01/25/22 01/24/22 Rx omeprazole 40 mg capsule,delayed 40 mg PO DAILY #90 caps 07/10/21 01/25/22 01/25/22 04:30 Rx release oxycodone 10 mg tablet,crush 10 mg PO Q12H 7 days #14 tabs 12/04/21 01/24/22 12/12/21 Rx resistant,extended release 12 hr (OxyContin) prednisone 10 mg tablet 10 mg PO DIRECTED PRN Pain 12/11/21 01/24/22 Unknown History Bone Growth Stimulator E0748 #1 ea 12/28/21 01/24/22 Unknown Rx umeclidinium 62.5 mcg-vilanterol 1 inh inhalation Q24H 60 days #60 01/22/22 01/25/22 01/24/22 Rx 25 mcg/actuation powdr for ea inhalation (Anoro Ellipta) Allergies Allergy/AdvReac Type Severity Reaction Status Date / Time No Known Drug Allergies Allergy Unknown Verified 01/24/22 08:08 Current Medications Generic Name Dose Route Start Last Admin Trade Name Freq PRN Reason Stop Dose Admin Sodium Chloride 1,000 mls @ 30 mls/hr 01/25/22 12:15 01/25/22 12:25 Sodium Chloride 0.9% IV 01/26/22 12:14 30 mls/hr .Q24H YEHUDA Administration PFSH Anesthesia Medical History Adenocarcinoma of right lung, stage 1 Arthropathy of cervical facet joint Cellulitis of right anterior lower leg Cervical radiculopathy due to degenerative joint disease of spine COPD (chronic obstructive pulmonary disease) Gout, arthritis High risk medication use Immunization counseling Immunosuppression Inflammatory arthritis Intervertebral disc disorder with radiculopathy of lumbar region Intervertebral disc disorder with radiculopathy of lumbosacral region Low back pain radiating down leg Lumbar stenosis with neurogenic claudication Lung nodule, solitary Mixed stress and urge urinary incontinence Neck pain Osteoporosis Pain and swelling of right knee Primary Sjogren's syndrome Seronegative rheumatoid arthritis Seronegative rheumatoid arthritis Sjogrens syndrome Spondylolisthesis at L4-L5 level Spondylolisthesis at L5-S1 level Spondylolisthesis, cervical region Spondylolisthesis, lumbar region Thoracic disc disease Vaginal atrophy Surgical History History of D&C 4x History of decompression of ulnar nerve Right History of ear surgery (04/17/17) Right History of hysterectomy (10/29/16) with Vaginal Repair, Total S/P insertion of spinal cord stimulator Thoracic spinal cord stimulator implantation via laminotomy ([employer]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), 06/17/2019, [facility] [place] Family History Mother Hypertension Diabetes Stroke Cancer Uterine Grandmother Diabetes Maternal Heart disease Father Heart disease Grandfather Heart disease Sister Cancer Uterine Social History Smoking and tobacco status: current every day smoker cigarettes Packs smoked per day: 1 Years cigarettes smoked: 41 [ Other cigarette details: Hx of of 1PPD x 41 Years] Quit status (tobacco): considering quitting Second hand smoke exposure: Yes Smoking risk assessment/counseling performed?: Yes Alcohol intake: former Counseling given: No Counseling given: No Lives independently: Yes Household members: spouse Marital status: Current occupational status: disabled History of recent travel: No Current gender identity: Female Data Anesthesia : 01/25/22 12:20 BMP 01/25/22 12:20 Carbon Dioxide 28 BUN 10 Creatinine 0.5 Glucose 79 Calcium 9.8 Cardiac Studies: No Data to Display
--- NOTE | 2022-01-25 12:54 | W.PM.OPSUD ---
Surgery/Procedure H&P Update DATE OF PROCEDURE: January 25, 2022 DATE H&P PERFORMED: 01/24/22 H&P UPDATE INFORMATION: I have reviewed H&P completed within last 30 days, I have examined patient prior to procedure and No changes to prior documentation PREOP DIAGNOSIS: wound dehisence PLANNED PROCEDURE: Operation Date: 01/25/22 13:40 Proposed Procedures p Incision and Drainage WITH WOUND ENCLOSURE 73765(Not Applicable) - Edmond Peacock DO
[2022-01-25] MEDS: vancomycin 750 MG in sodium chloride 0.9% 250 ML 250 MG IV (16:15)
[2022-01-25] MEDS: lactated ringers 1,000 ML 90 ML IV (16:16)
[2022-01-25] MEDS: gabapentin 100 mg Capsule PO ×2 (16:16→20:58)
[2022-01-25] MEDS: oxyCODONE 10 mg ER (12 HR) Tablet PO (16:20)
--- NOTE | 2022-01-25 17:45 | PM.CONSULT ---
Providers/Reason For Consult Consulting Physician/Specialty*: hospitalist Reason for Consult*: [id number] Attending Physician: Edmond Peacock DO Primary Care Provider: Dilshad Ng MD History of Present Illness History of Present Illness Lisa Barnes is a 66 year old female Patient with history of stage I adenocarcinoma of lung status post right upper lobe segmentectomy, follows up with Dr. Lebron, has previous surgery with Dr. Coulter neurosurgeon, patient also has chronic cough, he has COPD class B, mild airflow obstruction, she has had I&D down to bone complex closure of wound 4 x 3 x 3 on 12/12/2021 she followed up with Dr. Culver because of open wound around the surgical site which were looking infected, warm and tender to touch on 01/24, she has been scheduled for another surgical intervention by orthopedics hospital service has requested for medical management, her sodium is 125. We have requested CBC, CMP, uric acid, cortisol TSH urine sodium hyponatremia work-up Previous sodium level has been between 134 -136 And examined the patient she was not complain of active pain She did tell me that she is excruciating nerve pain in her right arm is at the bedside whose questions were answered to his satisfaction Patient is stating that at home she drinks a lot of unsweetened ice tea with fluids and she tries to avoid salty food because she does not like the taste of the salt Stating that because of her Sjogren's syndrome she tries to drink a lot of water to avoid dryness Review of Systems Const: Denies: fever(s) Eyes: Denies: change in vision ENMT: Denies: throat pain Card: Denies: chest pain Resp: Denies: dyspnea GI: Denies: abdominal pain : Denies: flank pain Musc: Reports: neck pain Skin/Breast: Reports: rash Neuro: Denies: headache(s) Psych: Reports: anxiety Endo: Denies: polyuria Yosef/Lymph: Denies: easy bruising All/Imm: Denies: urticaria Medications/Allergies Home Medications Medication Instructions Recorded Confirmed Last Taken Type albuterol sulfate 90 mcg/actuation 1 inh inhalation BID PRN Shortness 04/12/19 01/25/22 01/24/22 History aerosol inhaler Of Breath lamotrigine 100 mg tablet 50 mg PO BID 04/12/19 01/25/22 01/24/22 History (Lamictal) naproxen 500 mg tablet 500 mg PO BID PRN Pain 04/12/19 01/25/22 12/06/21 History venlafaxine 75 mg tablet 75 mg PO DAILY 04/12/19 01/25/22 12/11/21 History vortioxetine 20 mg tablet 20 mg PO DAILY 04/12/19 01/25/22 01/25/22 04:30 History (Trintellix) lisinopril 20 1 tab PO DAILY 04/16/19 01/25/22 01/24/22 History mg-hydrochlorothiazide 12.5 mg tablet metoprolol tartrate 25 mg tablet 25 mg PO BID 04/16/19 01/25/22 01/25/22 04:30 History mometasone 50 mcg/actuation nasal 2 spray intranasal DAILY 04/16/19 01/25/22 01/24/22 History spray peg 400-propylene glycol 0.4 %-0.3 1 drop ophthalmic (eye) ONCE PRN 04/16/19 01/24/22 10/28/21 History % eye drops (Systane Ultra) Dry Eye(S) tizanidine 4 mg capsule 4 mg PO TID PRN Pain 11/23/19 01/24/22 11/27/21 History gabapentin 100 mg capsule 100 mg PO QID 05/15/20 01/25/22 01/24/22 History cyclosporine 0.05 % eye drops 1 drp ophthalmic (eye) Q12H #16.5 06/05/21 01/25/22 01/24/22 Rx (Restasis MultiDose) mL allopurinol 100 mg tablet 200 mg PO DAILY #180 tabs 07/10/21 01/25/22 01/24/22 Rx omeprazole 40 mg capsule,delayed 40 mg PO DAILY #90 caps 07/10/21 01/25/22 01/25/22 04:30 Rx release oxycodone 10 mg tablet,crush 10 mg PO Q12H 7 days #14 tabs 12/04/21 01/24/22 12/12/21 Rx resistant,extended release 12 hr (OxyContin) prednisone 10 mg tablet 10 mg PO DIRECTED PRN Pain 12/11/21 01/24/22 Unknown History Bone Growth Stimulator E0748 #1 ea 12/28/21 01/24/22 Unknown Rx umeclidinium 62.5 mcg-vilanterol 1 inh inhalation Q24H 60 days #60 01/22/22 01/25/22 01/24/22 Rx 25 mcg/actuation powdr for ea inhalation (Anoro Ellipta) Allergies Allergy/AdvReac Type Severity Reaction Status Date / Time No Known Drug Allergies Allergy Unknown Verified 01/24/22 08:08 Current Medications Generic Name Dose Route Start Last Admin Trade Name Freq PRN Reason Stop Dose Admin Gabapentin 100 mg 01/25/22 17:00 01/25/22 16:16 Gabapentin 100 Mg Capsule PO 100 mg QID YEHUDA Administration Lactated Ringer's 1,000 mls @ 90 mls/hr 01/25/22 13:45 01/25/22 16:16 Lactated Ringers IV 90 mls/hr .Q11H7M YEHUDA Administration Vancomycin HCl 750 mg/ Sodium 250 mls @ 250 mls/hr 01/25/22 15:30 01/25/22 16:15 Chloride IV 250 mls/hr Q12H YEHUDA Administration Protocol Non-Formulary Medication 1 drop 01/25/22 13:45 01/25/22 16:03 Cyclosporine [Restasis Multidose] EYEAFF Not Given Q12H YEHUDA Non-Formulary Medication 1 inh 01/25/22 13:45 01/25/22 16:02 Umeclidinium-Vilanterol [Anoro Ellipta] INHALATION Not Given Q24H YEHUDA Oxycodone HCl 10 mg 01/25/22 18:00 01/25/22 16:20 Oxycodone 10 Mg Er (12 Hr) Tablet PO 10 mg Q12H YEHUDA Administration PFSH Acute PFSH: Medical History Adenocarcinoma of right lung, stage 1 Arthropathy of cervical facet joint Cellulitis of right anterior lower leg Cervical radiculopathy due to degenerative joint disease of spine COPD (chronic obstructive pulmonary disease) Gout, arthritis High risk medication use Immunization counseling Immunosuppression Inflammatory arthritis Intervertebral disc disorder with radiculopathy of lumbar region Intervertebral disc disorder with radiculopathy of lumbosacral region Low back pain radiating down leg Lumbar stenosis with neurogenic claudication Lung nodule, solitary Mixed stress and urge urinary incontinence Neck pain Osteoporosis Pain and swelling of right knee Primary Sjogren's syndrome Seronegative rheumatoid arthritis Seronegative rheumatoid arthritis Sjogrens syndrome Spondylolisthesis at L4-L5 level Spondylolisthesis at L5-S1 level Spondylolisthesis, cervical region Spondylolisthesis, lumbar region Thoracic disc disease Vaginal atrophy Surgical History History of D&C 4x History of decompression of ulnar nerve Right History of ear surgery (04/17/17) Right History of hysterectomy (10/29/16) with Vaginal Repair, Total S/P insertion of spinal cord stimulator Thoracic spinal cord stimulator implantation via laminotomy ([employer]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), 06[place]17/2019[place] [facility] [place] Family History Mother Hypertension Diabetes Stroke Cancer Uterine Grandmother Diabetes Maternal Heart disease Father Heart disease Grandfather Heart disease Sister Cancer Uterine Social History Smoking and tobacco status: current every day smoker cigarettes Packs smoked per day: 1 Years cigarettes smoked: 41 [ Other cigarette details: Hx of of 1PPD x 41 Years] Quit status (tobacco): considering quitting Second hand smoke exposure: Yes Smoking risk assessment/counseling performed?: Yes Alcohol intake: former Counseling given: No Counseling given: No Lives independently: Yes Household members: spouse Marital status: Current occupational status: disabled History of recent travel: No Current gender identity: Female Vitals/I&O/Wt Last Vital Signs Temp 98.2 F 01/25/22 13:32 Pulse 102 H 01/25/22 15:55 Resp 18 01/25/22 16:20 BP 153/84 01/25/22 13:32 Pulse Ox 95 01/25/22 15:55 O2 Del Method 01/25/22 16:03 Weight last 48 hrs Weight 50.439 kg Weight 47.627 kg Physical Exam Narrative: Clinically patient looks dehydrated Currently awake and alert Currently on room air Very pleasant cooperative Muscle mass loss Posterior side of neck is covered with dressing soaked with purulent drainage No active pain S1, S2 sinus tachycardia Abdomen soft Lower extremity without edema Data : 01/26/22 04:25 01/26/22 04:25 A&P Assessment and plan (1) Wound dehiscence: (2) Status post cervical spinal fusion: (3) Cervical spondylosis with myelopathy: (4) Hyponatremia: (5) Gout, arthritis: (6) Nicotine addiction: (7) Seronegative rheumatoid arthritis: (8) High risk medication use: (9) Immunosuppression: (10) Sjogrens syndrome: (11) Adenocarcinoma of right lung, stage 1: Plan Chronic hyponatremia, hypovolemic Patient drinks ice tea and a lot of fluid and avoid eating salt She does not like the taste of the salt She carries history of viewpoint syndrome She is also on a lot of opioids and anxiolytics At this point my differential would include SIADH considering history of lung cancer however clinically she does look dehydrated to me I would go ahead and continue her IV fluid hydration for now I would like to increase her sodium by 6 mEq in 24 hours This should be no contraindication to go for the surgical intervention on Friday she does have chronic neuropathic pain For which she takes venlafaxine I have requested TSH, cortisol, serum and urine osmolality, urine studies Continue IV fluidsat lower rate decresaed from 90ml/h to 50ml/h Consult Attestations Medical Necessity Statement: As per the orthopedic team Time Spent in Patient Care: 40 Coding Level of Care Code Acute Wireless Sales Representative for g Fwd Diagnoses Wound dehiscence T81.30XA Status post cervical spinal fusion Z98.1 Cervical spondylosis with myelopathy M47.12 Hyponatremia E87.1 Gout, arthritis M10.9 Nicotine addiction F17.200 Seronegative rheumatoid arthritis M06.00 High risk medication use Z79.899 Immunosuppression D89.9 Sjogrens syndrome M35.00 Adenocarcinoma of right lung, stage 1 C34.91
[2022-01-25 17:51] LABS: Basophils % 0.9 %; Eosinophils # 0.1 10^3/uL (0.0-0.8); Eosinophils % 1.8 %; Hematocrit 38.6 % (37.0-47.0); Hemoglobin 12.4 g/dL (11.5-15.3); Lymphocytes % 22.5 %; Mean Corpuscular HGB Conc 32.1 g/dL (30.0-36.0); Mean Corpuscular Hemoglobin 26.8 pg (28.0-34.0); Mean Corpuscular Volume 83.5 fl (81-99); Mean Platelet Volume 9.4 fL (7.4-10.4); Monocytes # 0.6 10^3/uL (0.2-0.9); Monocytes % 12.9 %; Neutrophils # 2.67 10^3/uL (1.8-7.7); Neutrophils % 61.4 %; Nucleated Red Blood Cells % 0 %; Platelet Count 427 10^3/cmm (130-400); Red Blood Count 4.62 10^6/uL (4.1-5.3); Red Cell Distribution Width 17.6 % (12.1-15.1); White Blood Count 4.4 10^3/uL (4.0-10.0)
[2022-01-25] MEDS: docusate sodium 100 mg Capsule PO (18:21)
[2022-01-25] MEDS: lamoTRIgine 100 mg Tablet 50 MG PO (18:21)
[2022-01-25] MEDS: metoprolol tartrate 25 mg Tablet PO (18:21)
[2022-01-25 18:25] LABS: Alanine Aminotransferase 51 U/L (0-33); Albumin Level 3.8 g/dL (3.5-5.2); Alkaline Phosphatase 100 U/L (35-105); Anion Gap 10.7 (5-19); Aspartate Amino Transferase 55 U/L (0-32); Blood Urea Nitrogen 10 mg/dL (8-23); Calcium 9.3 mg/dL (8.5-10.5); Carbon Dioxide 29 mmol/L (22-29); Chloride 90 mmol/L (98-107); Globulin 3.5 g/dL (1.3-4.6); Glomerular Filtration Rate 159.2 mL/min (90-130); Glucose 95 mg/dL (65-115); Osmolality Calculated 261 mOsm/kg (285-295); Potassium 3.7 mmol/L (3.5-5.1); Sodium 126 mmol/L (136-145); Thyroid Stimulating Hormone 1.03 uIU/mL (0.27-4.20); Total Bilirubin 0.3 mg/dL (0.15-1.2); Total Protein 7.3 g/dL (6.6-8.7); Uric Acid 2.9 mg/dL (2.4-5.7)
[2022-01-25 18:59] LABS: Alcohol Level < 10 mg/dL (0-10)
[2022-01-25] MEDS: HYDROcodone-acetaminophen 5-325 mg Tablet PO (21:00)
[2022-01-25 21:03] LABS: Sodium 124 mmol/L (136-145)
[2022-01-26] VITALS (9 sets, daily range): BP systolic 134–163; BP diastolic 67–81; PULSE 56–80; RESP 16–18; TEMP 36.4–36.7; O2SAT 91–95
[2022-01-26] MEDS: HYDROcodone-acetaminophen 5-325 mg Tablet PO ×2 (02:17→13:17)
[2022-01-26] MEDS: ondansetron 2 mg/ML SDV 2 mL 4 MG IVP ×3 (02:24→15:20)
[2022-01-26] MEDS: ketorolac 30 mg/mL INJ IVP ×2 (03:03→20:43)
[2022-01-26] MEDS: tizanidine 4 mg Tablet PO ×2 (03:40→21:51)
[2022-01-26] MEDS: lactated ringers 1,000 ML 90 ML IV (03:43)
[2022-01-26] MEDS: vancomycin 750 MG in sodium chloride 0.9% 250 ML 250 MG IV ×2 (03:43→16:18)
[2022-01-26 04:55] LABS: Basophils % 1.2 %; Eosinophils # 0.1 10^3/uL (0.0-0.8); Eosinophils % 3.8 %; Hematocrit 36.6 % (37.0-47.0); Hemoglobin 11.5 g/dL (11.5-15.3); Lymphocytes # 0.9 10^3/uL (0.8-4.8); Lymphocytes % 25.6 %; Mean Corpuscular HGB Conc 31.4 g/dL (30.0-36.0); Mean Corpuscular Hemoglobin 26.3 pg (28.0-34.0); Mean Corpuscular Volume 83.8 fl (81-99); Mean Platelet Volume 9.7 fL (7.4-10.4); Monocytes # 0.5 10^3/uL (0.2-0.9); Monocytes % 14.8 %; Neutrophils # 1.87 10^3/uL (1.8-7.7); Neutrophils % 54.3 %; Nucleated Red Blood Cells % 0 %; Platelet Count 392 10^3/cmm (130-400); Red Blood Count 4.37 10^6/uL (4.1-5.3); Red Cell Distribution Width 17.3 % (12.1-15.1); White Blood Count 3.4 10^3/uL (4.0-10.0)
[2022-01-26 05:21] LABS: Anion Gap 12.5 (5-19); Blood Urea Nitrogen 9 mg/dL (8-23); Calcium 8.9 mg/dL (8.5-10.5); Carbon Dioxide 30 mmol/L (22-29); Chloride 96 mmol/L (98-107); Glomerular Filtration Rate 159.2 mL/min (90-130); Glucose 92 mg/dL (65-115); Osmolality Calculated 276 mOsm/kg (285-295); Potassium 4.5 mmol/L (3.5-5.1); Sodium 134 mmol/L (136-145)
[2022-01-26] MEDS: oxyCODONE 10 mg ER (12 HR) Tablet PO ×2 (06:34→17:43)
[2022-01-26] MEDS: metoprolol tartrate 25 mg Tablet PO ×2 (08:08→17:43)
[2022-01-26] MEDS: pantoprazole DR 40 mg Tablet PO (08:08)
[2022-01-26] MEDS: lisinopril 20 mg Tablet PO (08:09)
[2022-01-26] MEDS: gabapentin 100 mg Capsule PO ×4 (08:09→20:13)
[2022-01-26] MEDS: lamoTRIgine 100 mg Tablet 50 MG PO ×2 (08:09→17:43)
[2022-01-26] MEDS: docusate sodium 100 mg Capsule PO ×2 (08:09→17:43)
[2022-01-26] MEDS: allopurinol 100 mg Tablet 200 MG PO (08:09)
[2022-01-26] MEDS: dextrose 5% 1,000 ML 40 ML IV (08:10)
[2022-01-26 08:57] LABS: Blood Urea Nitrogen 11 mg/dL (8-23); Calcium 9.7 mg/dL (8.5-10.5); Carbon Dioxide 30 mmol/L (22-29); Chloride 95 mmol/L (98-107); Glomerular Filtration Rate 123.1 mL/min (90-130); Glucose 92 mg/dL (65-115); Osmolality Calculated 275 mOsm/kg (285-295); Sodium 133 mmol/L (136-145)
[2022-01-26 08:58] LABS: Anion Gap 12.3 (5-19); Potassium 4.3 mmol/L (3.5-5.1)
--- NOTE | 2022-01-26 09:52 | PM.PN ---
Subjective Subjective: Patient was resting comfortably when I saw her. This point she is getting vancomycin IV getting dressing changes twice a day. Discussed with her that likely would take her to surgery on Friday and again on Friday or to close the wound she would likely need a PICC line. Patient understood Vitals/I&O/Wt Last Vital Signs Temp 98.1 F 01/26/22 08:24 Pulse 71 01/26/22 08:24 Resp 16 01/26/22 08:24 BP 163/76 01/26/22 08:24 Pulse Ox 92 01/26/22 08:24 O2 Del Method 01/26/22 08:24 01/25/22 01/26/22 01/26/22 22:59 06:59 14:59 Intake Total 250 / 250 1729 Balance 250 / 250 1729 Weight last 48 hrs Weight 111 lb 3.2 oz Weight 105 lb Physical Exam Narrative: Patient is resting company in bed moving all extremities. Pain is controlled. Data : 01/26/22 04:25 01/26/22 08:10 Micro: Microbiology 01/25/22 17:34 Blood Culture - Preliminary Blood SPECIMEN COLLECTED 01/25/22 17:30 Blood Culture - Preliminary Blood SPECIMEN COLLECTED A&P Assessment and plan (1) Status post cervical spinal fusion: Patient has wound infection at this point plan is to go back to surgery on Friday. Get cultures and likely get her set up for PICC line. And likely another washout on Friday or . Patient sodium is up to 134. Much improvement from her preop status. Attestations Medical Necessity Statement*: Hyponatremia and wound infection Coding Level of Care Code Acute Safety And Occupational Health Manager for Dimple Mcgrath Diagnoses Status post cervical spinal fusion Z98.1
--- NOTE | 2022-01-26 10:41 | PM.CONSULT ---
Providers/Reason For Consult Consulting Physician/Specialty*: Lilly Rodriguez DO, telenephrology Reason for Consult*: Hyponatremia Attending Physician: Edmond Peacock DO Primary Care Provider: Dilshad Ng MD History of Present Illness History of Present Illness Lisa Barnes is a 66 year old female admitted for poor wound healing requiring additional surgery, found to have hyponatremia. Surgery scheduled for FridayJanuary 28. Treated with NSS. Hctz discontinued. Serum sodium in October normal Reports prior history of hyponatremia a few years ago. Drinks a gallon of water and unsweetened ice tea daily. Review of Systems Card: Denies: edema : Reports: other (no urinary complaints) Musc: Reports: neck pain (moderate at incision) Medications/Allergies Home Medications Medication Instructions Recorded Confirmed Last Taken Type albuterol sulfate 90 mcg/actuation 1 inh inhalation BID PRN Shortness 04/12/19 01/26/22 01/24/22 History aerosol inhaler Of Breath lamotrigine 100 mg tablet 50 mg PO BID 04/12/19 01/26/22 01/24/22 History (Lamictal) naproxen 500 mg tablet 500 mg PO BID PRN Pain 04/12/19 01/26/22 12/06/21 History vortioxetine 20 mg tablet 20 mg PO DAILY 04/12/19 01/25/22 01/25/22 04:30 History (Trintellix) lisinopril 20 1 tab PO DAILY 04/16/19 01/26/22 01/24/22 History mg-hydrochlorothiazide 12.5 mg tablet metoprolol tartrate 25 mg tablet 25 mg PO BID 04/16/19 01/26/22 01/25/22 04:30 History mometasone 50 mcg/actuation nasal 2 spray intranasal DAILY 04/16/19 01/26/22 01/24/22 History spray peg 400-propylene glycol 0.4 %-0.3 1 drop ophthalmic (eye) ONCE PRN 04/16/19 01/24/22 10/28/21 History % eye drops (Systane Ultra) Dry Eye(S) tizanidine 4 mg capsule 4 mg PO TID PRN Pain 11/23/19 01/24/22 11/27/21 History gabapentin 100 mg capsule 100 mg PO QID 05/15/20 01/26/22 01/24/22 History cyclosporine 0.05 % eye drops 1 drp ophthalmic (eye) Q12H #16.5 06/05/21 01/26/22 01/24/22 Rx (Restasis MultiDose) mL allopurinol 100 mg tablet 200 mg PO DAILY #180 tabs 07/10/21 01/26/22 01/24/22 Rx omeprazole 40 mg capsule,delayed 40 mg PO DAILY #90 caps 07/10/21 01/26/22 01/25/22 04:30 Rx release oxycodone 10 mg tablet,crush 10 mg PO Q12H 7 days #14 tabs 12/04/21 01/26/22 12/12/21 Rx resistant,extended release 12 hr (OxyContin) prednisone 10 mg tablet 10 mg PO DIRECTED PRN Pain 12/11/21 01/24/22 Unknown History Bone Growth Stimulator E0748 #1 ea 12/28/21 01/26/22 Unknown Rx umeclidinium 62.5 mcg-vilanterol 1 inh inhalation Q24H 60 days #60 01/22/22 01/25/22 01/24/22 Rx 25 mcg/actuation powdr for ea inhalation (Anoro Ellipta) oxycodone 10 mg tablet 10 mg PO Q4H PRN Pain 01/26/22 01/26/22 Unknown History suvorexant 10 mg tablet (Belsomra) 10 mg PO BEDTIME 01/26/22 01/26/22 Unknown History Allergies Allergy/AdvReac Type Severity Reaction Status Date / Time No Known Drug Allergies Allergy Unknown Verified 01/24/22 08:08 Current Medications Generic Name Dose Route Start Last Admin Trade Name Freq PRN Reason Stop Dose Admin Hydrocodone Bitart/Acetaminophen 1 - 2 tab 01/25/22 13:32 01/26/22 02:17 Hydrocodone-Acetaminophen 5-325 Mg Tablet PO 1 tab Q4H PRN Administration MODERATE TO SEVERE PAIN Allopurinol 200 mg 01/26/22 09:00 01/26/22 08:09 Allopurinol 100 Mg Tablet PO 200 mg DAILY YEHUDA Administration Docusate Sodium 100 mg 01/25/22 18:00 01/26/22 08:09 Docusate Sodium 100 Mg Capsule PO 100 mg BID YEHUDA Administration Gabapentin 100 mg 01/25/22 17:00 01/26/22 08:09 Gabapentin 100 Mg Capsule PO 100 mg QID YEHUDA Administration Vancomycin HCl 750 mg/ Sodium 250 mls @ 250 mls/hr 01/25/22 15:30 01/26/22 04:43 Chloride IV Infused Q12H [facility] Infusion Protocol Dextrose 1,000 mls @ 40 mls/hr 01/26/22 07:45 01/26/22 08:10 D5w IV 40 mls/hr .Q24H YEHUDA Administration Ketorolac Tromethamine 30 mg 01/25/22 13:32 01/26/22 03:03 Ketorolac 30 Mg/Ml Inj IVP 30 mg Q6H PRN Administration BREAKTHROUGH PAIN Lamotrigine 50 mg 01/25/22 18:00 01/26/22 08:09 Lamotrigine 100 Mg Tablet PO 50 mg BID YEHUDA Administration Lisinopril 20 mg 01/26/22 09:00 01/26/22 08:09 Lisinopril 20 Mg Tablet PO 20 mg DAILY YEHUDA Administration Metoprolol Tartrate 25 mg 01/25/22 18:00 01/26/22 08:08 Metoprolol Tartrate 25 Mg Tablet PO 25 mg BID [facility] Administration Non-Formulary Medication 1 drop 01/25/22 13:45 01/25/22 22:13 Cyclosporine [Restasis Multidose] EYEAFF Not Given Q12H [facility] Non-Formulary Medication 2 spray 01/26/22 09:00 01/26/22 08:10 Mometasone INTRANASAL Not Given DAILY [facility] Non-Formulary Medication 1 inh 01/25/22 13:45 01/25/22 16:02 Umeclidinium-Vilanterol [Anoro Ellipta] INHALATION Not Given Q24H [facility] Non-Formulary Medication 20 mg 01/26/22 09:00 01/26/22 08:10 Vortioxetine [Trintellix] PO Not Given DAILY [facility] Ondansetron HCl 4 mg 01/25/22 13:32 01/26/22 09:56 Ondansetron 2 Mg/Ml Sdv 2 Ml IVP 4 mg Q6H PRN Administration NAUSEA AND VOMITING Oxycodone HCl 10 mg 01/25/22 18:00 01/26/22 06:34 Oxycodone 10 Mg Er (12 Hr) Tablet PO 10 mg Q12H [facility] Administration Pantoprazole Sodium 40 mg 01/26/22 09:00 01/26/22 08:[address] 40 Mg Tablet PO 40 mg DAILY YEHUDA Administration Tizanidine HCl 4 mg 01/25/22 14:34 01/26/22 03:40 Tizanidine 4 Mg Tablet PO 4 mg TID PRN Administration Pain Venlafaxine HCl 75 mg 01/26/22 09:00 01/26/22 09:58 Venlafaxine 75 Mg Tablet PO Not Given DAILY YEHUDA PFSH Acute PFSH: Medical History Adenocarcinoma of right lung, stage 1 Arthropathy of cervical facet joint Cellulitis of right anterior lower leg Cervical radiculopathy due to degenerative joint disease of spine COPD (chronic obstructive pulmonary disease) Gout, arthritis High risk medication use Immunization counseling Immunosuppression Inflammatory arthritis Intervertebral disc disorder with radiculopathy of lumbar region Intervertebral disc disorder with radiculopathy of lumbosacral region Low back pain radiating down leg Lumbar stenosis with neurogenic claudication Lung nodule, solitary Mixed stress and urge urinary incontinence Neck pain Osteoporosis Pain and swelling of right knee Primary Sjogren's syndrome Seronegative rheumatoid arthritis Seronegative rheumatoid arthritis Sjogrens syndrome Spondylolisthesis at L4-L5 level Spondylolisthesis at L5-S1 level Spondylolisthesis, cervical region Spondylolisthesis, lumbar region Thoracic disc disease Vaginal atrophy Surgical History History of D&C 4x History of decompression of ulnar nerve Right History of ear surgery (04/17/17) Right History of hysterectomy (10/29/16) with Vaginal Repair, Total S/P insertion of spinal cord stimulator Thoracic spinal cord stimulator implantation via laminotomy (TRIBAX [employer] surgical services manager/[employer] pulse generator), 06/17/2019, [facility] [place] Family History Mother Hypertension Diabetes Stroke Cancer Uterine Grandmother Diabetes Maternal Heart disease Father Heart disease Grandfather Heart disease Sister Cancer Uterine Social History Smoking and tobacco status: current every day smoker cigarettes Packs smoked per day: 1 Years cigarettes smoked: 41 [ Other cigarette details: Hx of of 1PPD x 41 Years] Quit status (tobacco): considering quitting Second hand smoke exposure: Yes Smoking risk assessment/counseling performed?: Yes Alcohol intake: former Counseling given: No Counseling given: No Lives independently: Yes Household members: spouse Marital status: Current occupational status: disabled History of recent travel: No Current gender identity: Female Vitals/I&O/Wt Last Vital Signs Temp 98.1 F 01/26/22 08:24 Pulse 71 01/26/22 08:24 Resp 16 01/26/22 08:24 BP 163/76 01/26/22 08:24 Pulse Ox 92 01/26/22 08:24 O2 Del Method 01/26/22 08:24 01/25/22 01/26/22 01/26/22 22:59 06:59 14:59 Intake Total 250 / 250 1730 / 1979 360 / 360 Balance 250 / 250 1731979 360 / 360 Weight last 48 hrs Weight 50.439 kg Weight 47.627 kg Physical Exam Const: COMMON NORMALS: no acute distress and alert Extremity: NARRATIVE EXTREMITY EXAM: no edema Neuro: SENSORIUM/ORIENTATION: Yes alert Data : 01/26/22 04:25 01/26/22 08:10 Micro: Microbiology 01/25/22 17:34 Blood Culture - Preliminary Blood SPECIMEN COLLECTED 01/25/22 17:30 Blood Culture - Preliminary Blood SPECIMEN COLLECTED A&P Assessment and plan (1) Hyponatremia: Seen and examined via telemedicine with assistance of RN at bedside. Plan 1. Hyponatremia, asymptomatic, euvolemic. Rapid correction with NSS. Possible SIADH and/or excess water intake 2. Hypertension Recommend: agree with discontinue Hctz, fluid restrict < 2L daily. 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
--- NOTE | 2022-01-26 12:19 | PM.PN ---
Subjective Subjective: seen this am. at bedside pt quite frustrated with her surgical infection. also states that they have followed all instructions and just not sure why this infection is not clearing up. They are really forwarding to surgical washout with Dr. Peacock on Friday. Sodium 134 this AM. She got salt tablet yesterday Vitals/I&O/Wt Last Vital Signs Temp 98.1 F 01/26/22 08:24 Pulse 71 01/26/22 08:24 Resp 16 01/26/22 08:24 BP 163/76 01/26/22 08:24 Pulse Ox 92 01/26/22 08:24 O2 Del Method 01/26/22 08:24 01/25/22 01/26/22 01/26/22 22:59 06:59 14:59 Intake Total 250 / 250 1730 / 1979 360 / 360 Balance 250 / 250 1729 360 / 360 Weight last 48 hrs Weight 50.439 kg Weight 47.627 kg Physical Exam Narrative: Appears euvolemic, frail appearing female Currently awake and alert Currently on room air Very pleasant cooperative Muscle mass loss Posterior side of neck is covered with dressing soaked with purulent drainage No active pain S1, S2 sinus tachycardia Abdomen soft Lower extremity without edema Data : 01/26/22 04:25 01/26/22 08:10 Micro: Microbiology 01/25/22 17:34 Blood Culture - Preliminary Blood SPECIMEN COLLECTED 01/25/22 17:30 Blood Culture - Preliminary Blood SPECIMEN COLLECTED A&P Assessment and plan (1) Wound dehiscence: (2) Status post cervical spinal fusion: (3) Cervical spondylosis with myelopathy: (4) Hyponatremia: (5) Gout, arthritis: (6) Nicotine addiction: (7) Seronegative rheumatoid arthritis: (8) High risk medication use: (9) Immunosuppression: (10) Sjogrens syndrome: (11) Adenocarcinoma of right lung, stage 1: Plan #Acute on Chronic hyponatremia, hypovolemic, possible SIADH #Cervical Surgical wound infection #Sjogren syndrome #Hypertension #Depression #Hx of lung cancer - Patient drinks ice tea and a lot of fluid and avoid eating salt - She is also on a lot of opioids and anxiolytics - Sodium corrected too quickly. Will stop fluids and salt tablet and start D5W. Will consult nephrology for input. - This should be no contraindication to go for the surgical intervention on Friday she does have chronic neuropathic pain for which she takes venlafaxine - Studies pending TSH, cortisol, serum and urine osmolality, urine studies - Continue on vancomycin and zosyn at this time. - Check blood cultures - CUltures to be obtained intraoperatively as well - Plan for washout on Friday - I recommend ID consult once ID available to assist with management of antibiotics given her hx of sjogrens.She has been on Rinvoq in past. - Pt may require a PICC line with a longer abx course at discharge. Await cultures. - Urine studies pending Full Code DVT PPLX: Lovenox Attestations Medical Necessity Statement*: Patient requires inpatient stay for management of cervical wound infection and hyponatremia. Expect her stay to be > 72 hours at this point. 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
[2022-01-26 12:40] LABS: Blood Urea Nitrogen 11 mg/dL (8-23); Calcium 9.3 mg/dL (8.5-10.5); Carbon Dioxide 31 mmol/L (22-29); Chloride 94 mmol/L (98-107); Glomerular Filtration Rate 123.1 mL/min (90-130); Glucose 96 mg/dL (65-115); Osmolality Calculated 275 mOsm/kg (285-295); Sodium 133 mmol/L (136-145)
[2022-01-26] MEDS: piperacillin-tazobactam 3.375 GM in sodium chloride 0.9% (plus) 50 ML IV ×2 (13:17→17:44)
[2022-01-26 15:07] LABS: Vancomycin Trough 7.1 ug/mL (10-15)
[2022-01-26 15:09] LABS: Blood Urea Nitrogen 12 mg/dL (8-23); Carbon Dioxide 29 mmol/L (22-29); Chloride 90 mmol/L (98-107); Glomerular Filtration Rate 123.1 mL/min (90-130); Glucose 108 mg/dL (65-115); Osmolality Calculated 262 mOsm/kg (285-295); Sodium 126 mmol/L (136-145)
[2022-01-26 20:18] LABS: Anion Gap 7.8 (5-19); Blood Urea Nitrogen 11 mg/dL (8-23); Carbon Dioxide 31 mmol/L (22-29); Chloride 89 mmol/L (98-107); Glomerular Filtration Rate 123.1 mL/min (90-130); Glucose 166 mg/dL (65-115); Osmolality Calculated 261 mOsm/kg (285-295); Potassium 3.8 mmol/L (3.5-5.1); Sodium 124 mmol/L (136-145)
[2022-01-26 23:47] LABS: Anion Gap 12.4 (5-19); Blood Urea Nitrogen 12 mg/dL (8-23); Calcium 8.5 mg/dL (8.5-10.5); Carbon Dioxide 28 mmol/L (22-29); Chloride 98 mmol/L (98-107); Glomerular Filtration Rate 159.2 mL/min (90-130); Glucose 119 mg/dL (65-115); Osmolality Calculated 279 mOsm/kg (285-295); Potassium 4.4 mmol/L (3.5-5.1); Sodium 134 mmol/L (136-145)
[2022-01-27] VITALS (10 sets, daily range): BP systolic 124–162; BP diastolic 69–96; PULSE 57–82; RESP 16–18; TEMP 36.4–36.9; O2SAT 91–97
[2022-01-27] MEDS: vancomycin 750 MG in sodium chloride 0.9% 250 ML 250 MG IV ×2 (02:34→14:46)
[2022-01-27] MEDS: piperacillin-tazobactam 3.375 GM in sodium chloride 0.9% (plus) 50 ML IV ×3 (04:00→17:40)
[2022-01-27 05:16] LABS: Anion Gap 11.4 (5-19); Blood Urea Nitrogen 10 mg/dL (8-23); Calcium 8.9 mg/dL (8.5-10.5); Carbon Dioxide 27 mmol/L (22-29); Chloride 98 mmol/L (98-107); Glomerular Filtration Rate 159.2 mL/min (90-130); Glucose 83 mg/dL (65-115); Osmolality Calculated 272 mOsm/kg (285-295); Potassium 4.4 mmol/L (3.5-5.1); Sodium 132 mmol/L (136-145)
[2022-01-27] MEDS: oxyCODONE 10 mg ER (12 HR) Tablet PO ×2 (06:22→17:39)
--- NOTE | 2022-01-27 07:09 | PM.PN ---
Subjective Subjective: continues to have neck pain + severe nausea she feels due to pain medications Vitals/I&O/Wt Last Vital Signs Temp 98.0 F 01/27/22 04:18 Pulse 68 01/27/22 04:18 Resp 16 01/27/22 06:22 BP 150/69 01/27/22 04:18 Pulse Ox 93 01/27/22 04:18 O2 Del Method 01/26/22 20:00 01/26/22 01/27/22 01/27/22 22:59 06:59 14:59 Intake Total 1590 / 2190 490 / 2680 Output Total 100 / 100 Balance 1490 / 2090 490 / 2580 Weight last 48 hrs Weight 50.439 kg Physical Exam Const: COMMON NORMALS: alert Extremity: COMMON NORMALS: no pedal edema Neuro: SENSORIUM/ORIENTATION: Yes alert Data : 01/26/22 04:25 01/27/22 04:03 Other Labs: urine osmolality pending Micro: Microbiology 01/25/22 17:34 Blood Culture - Preliminary Blood NEGATIVE TO DATE 01/25/22 17:30 Blood Culture - Preliminary Blood NEGATIVE TO DATE A&P Assessment and plan (1) Hyponatremia: Seen and examined via telemedicine with assistance of RN at bedside. Plan 1. Hyponatremia, asymptomatic, euvolemic. Possible SIADH and/or excess water intake 2. Hypertension Recommend: continue fluid restriction < 2L daily. 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
[2022-01-27] MEDS: ondansetron 2 mg/ML SDV 2 mL 4 MG IVP ×2 (07:18→13:42)
[2022-01-27] MEDS: lisinopril 20 mg Tablet PO (07:45)
[2022-01-27] MEDS: venlafaxine 75 mg Tablet PO (07:45)
[2022-01-27] MEDS: lamoTRIgine 100 mg Tablet 50 MG PO ×2 (07:46→17:40)
[2022-01-27] MEDS: docusate sodium 100 mg Capsule PO ×2 (07:46→17:39)
[2022-01-27] MEDS: gabapentin 100 mg Capsule PO ×4 (07:46→20:53)
[2022-01-27] MEDS: allopurinol 100 mg Tablet 200 MG PO (07:46)
[2022-01-27] MEDS: HYDROcodone-acetaminophen 5-325 mg Tablet PO ×3 (07:46→17:39)
[2022-01-27] MEDS: pantoprazole DR 40 mg Tablet PO (07:47)
[2022-01-27] MEDS: metoprolol tartrate 25 mg Tablet PO ×2 (07:47→17:39)
--- NOTE | 2022-01-27 10:20 | P.PN_ITS ---
Subjective Subjective: Seen this morning. Sodium 132 today. She says pain is well controlled. Plan for surgery tomorrow. Vitals/I&O/Wt Last Vital Signs Temp 98.1 F 01/27/22 08:32 Pulse 57 L 01/27/22 08:32 Resp 16 01/27/22 08:32 BP 159/96 01/27/22 08:32 Pulse Ox 97 01/27/22 08:32 O2 Del Method 01/27/22 08:32 01/26/22 01/27/22 01/27/22 22:59 06:59 14:59 Intake Total 1590 / 2190 490 / 2680 120 / 120 Output Total 100 / 100 Balance 1490 / 2090 490 / 2580 120 / 120 Weight last 48 hrs Weight 50.439 kg Physical Exam Narrative: Appears euvolemic, frail appearing female Currently awake and alert Currently on room air Very pleasant cooperative Muscle mass loss Posterior side of neck is covered with dressing soaked with purulent drainage No active pain S1, S2 sinus tachycardia Abdomen soft Lower extremity without edema Data : 01/26/22 04:25 01/27/22 04:03 Micro: Microbiology 01/25/22 17:34 Blood Culture - Preliminary Blood NEGATIVE TO DATE 01/25/22 17:30 Blood Culture - Preliminary Blood NEGATIVE TO DATE A&P Assessment and plan (1) Wound dehiscence: (2) Status post cervical spinal fusion: (3) Cervical spondylosis with myelopathy: (4) Hyponatremia: (5) Gout, arthritis: (6) Nicotine addiction: (7) Seronegative rheumatoid arthritis: (8) High risk medication use: (9) Immunosuppression: (10) Sjogrens syndrome: (11) Adenocarcinoma of right lung, stage 1: Plan #Acute on Chronic hyponatremia, hypovolemic, possible SIADH #Cervical Surgical wound infection #Sjogren syndrome #Hypertension #Depression #Hx of lung cancer - Patient drinks ice tea and a lot of fluid and avoid eating salt - She is also on a lot of opioids and anxiolytics - This should be no contraindication to go for the surgical intervention on Friday she does have chronic neuropathic pain for which she takes venlafaxine - Studies pending TSH, cortisol, serum and urine osmolality, urine studies - Continue on vancomycin and zosyn at this time. - Check blood cultures - CUltures to be obtained intraoperatively as well - Plan for washout on Friday - I recommend ID consult once ID available to assist with management of antibiotics given her hx of sjogrens.She has been on Rinvoq in past. - Pt may require a PICC line with a longer abx course at discharge. Await cultures. - Urine studies pending -N.p.o. at midnight today. Plan for surgery in a.m. Full Code DVT PPLX: Lovenox Attestations Medical Necessity Statement*: Patient requires inpatient stay for management of cervical wound infection and hyponatremia. Expect her stay to be > 72 hours at this point. 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
--- NOTE | 2022-01-27 12:05 | PM.PN ---
Subjective Subjective: Patient is awaiting her surgery tomorrow. She has her pain controlled starting to drop back down to 132 however still will operate with this. Continue to monitor the sodium. Vitals/I&O/Wt Last Vital Signs Temp 98.1 F 01/27/22 08:32 Pulse 57 L 01/27/22 08:32 Resp 16 01/27/22 08:32 BP 159/96 01/27/22 08:32 Pulse Ox 97 01/27/22 08:32 O2 Del Method 01/27/22 08:32 01/26/22 01/27/22 01/27/22 22:59 06:59 14:59 Intake Total 1590 / 2190 490 / 2680 170 / 170 Output Total 100 / 100 Balance 1490 / 2090 490 / 2580 170 / 170 Weight last 48 hrs Weight 111 lb 3.2 oz Physical Exam Narrative: Up walking around pain controlled. Data : 01/26/22 04:25 01/27/22 04:03 Micro: Microbiology 01/25/22 17:34 Blood Culture - Preliminary Blood NEGATIVE TO DATE 01/25/22 17:30 Blood Culture - Preliminary Blood NEGATIVE TO DATE A&P Assessment and plan (1) Wound dehiscence: Plan to take her to surgery tomorrow. She is n.p.o. after midnight. 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
--- NOTE | 2022-01-27 15:44 | PC.PT ---
Patient remains safely independent with transfers and ambulation and activities in room, per nursing staff, no further PT needs identified at this time, discharge physical therapy.
[2022-01-27 16:02] LABS: Vancomycin Trough 23.7 ug/mL (10-15)
[2022-01-27] MEDS: ketorolac 30 mg/mL INJ IVP (20:53)
[2022-01-28] VITALS (23 sets, daily range): BP systolic 122–165; BP diastolic 58–93; PULSE 56–96; RESP 16–20; TEMP 36.4–36.8; O2SAT 90–99
[2022-01-28] MEDS: HYDROcodone-acetaminophen 5-325 mg Tablet PO ×3 (00:12→09:32)
[2022-01-28] MEDS: piperacillin-tazobactam 3.375 GM in sodium chloride 0.9% (plus) 50 ML IV ×3 (02:22→23:59)
[2022-01-28 02:30] LABS: Basophils % 1.2 %; Eosinophils # 0.3 10^3/uL (0.0-0.8); Eosinophils % 8.3 %; Hematocrit 34.5 % (37.0-47.0); Hemoglobin 10.7 g/dL (11.5-15.3); Lymphocytes # 1.1 10^3/uL (0.8-4.8); Lymphocytes % 31.8 %; Mean Corpuscular Hemoglobin 26.4 pg (28.0-34.0); Mean Platelet Volume 8.6 fL (7.4-10.4); Monocytes # 0.5 10^3/uL (0.2-0.9); Monocytes % 14.6 %; Neutrophils # 1.47 10^3/uL (1.8-7.7); Neutrophils % 43.8 %; Nucleated Red Blood Cells % 0 %; Platelet Count 325 10^3/cmm (130-400); Red Blood Count 4.06 10^6/uL (4.1-5.3); Red Cell Distribution Width 17.2 % (12.1-15.1); White Blood Count 3.4 10^3/uL (4.0-10.0)
[2022-01-28 02:54] LABS: Anion Gap 11.7 (5-19); Blood Urea Nitrogen 13 mg/dL (8-23); Calcium 8.6 mg/dL (8.5-10.5); Carbon Dioxide 29 mmol/L (22-29); Chloride 97 mmol/L (98-107); Glomerular Filtration Rate 123.1 mL/min (90-130); Glucose 73 mg/dL (65-115); Osmolality Calculated 275 mOsm/kg (285-295); Potassium 4.7 mmol/L (3.5-5.1); Sodium 133 mmol/L (136-145)
[2022-01-28] MEDS: ketorolac 30 mg/mL INJ IVP (02:54)
[2022-01-28 02:56] LABS: Vancomycin Trough 8.1 ug/mL (10-15)
--- NOTE | 2022-01-28 03:43 | PC.PHAR ---
Vancomycin trorugh on dosage of 750mg IVPB every 12 hours is 8.1. Dosage is increased to 1gm IVPB every 12 hours with another trough level to be obtained before the fourth one gram dose.
[2022-01-28] MEDS: oxyCODONE 10 mg ER (12 HR) Tablet PO (05:25)
[2022-01-28] MEDS: vancomycin 1,000 MG in sodium chloride 0.9% 250 ML 250 MG IV ×2 (05:27→17:59)
[2022-01-28] MEDS: docusate sodium 100 mg Capsule PO (09:32)
[2022-01-28] MEDS: pantoprazole DR 40 mg Tablet PO (09:32)
[2022-01-28] MEDS: allopurinol 100 mg Tablet 200 MG PO (09:32)
[2022-01-28] MEDS: gabapentin 100 mg Capsule PO ×2 (09:32→20:47)
[2022-01-28] MEDS: tizanidine 4 mg Tablet PO (09:33)
[2022-01-28] MEDS: lamoTRIgine 100 mg Tablet 50 MG PO (09:33)
[2022-01-28] MEDS: metoprolol tartrate 25 mg Tablet PO (09:33)
[2022-01-28] MEDS: lisinopril 20 mg Tablet PO (09:33)
[2022-01-28] MEDS: naproxen 500 mg Tablet PO (10:44)
[2022-01-28] MEDS: ondansetron 2 mg/ML SDV 2 mL 4 MG IVP ×3 (10:44→21:30)
--- NOTE | 2022-01-28 11:44 | PM.PN ---
Subjective Subjective: OR today no new complaints Vitals/I&O/Wt Last Vital Signs Temp 98.1 F 01/28/22 07:43 Pulse 59 L 01/28/22 08:20 Resp 18 01/28/22 08:20 BP 152/87 01/28/22 07:43 Pulse Ox 93 01/28/22 08:20 O2 Del Method 01/28/22 08:20 01/27/22 01/28/22 01/28/22 22:59 06:59 14:59 Intake Total 540 / 1000 410 / 1410 250 / 250 Balance 540 / 1000 410 / 1410 250 / 250 Data : 01/28/22 02:22 01/28/22 02:22 A&P Assessment and plan (1) Hyponatremia: Seen and examined via telemedicine with assistance of RN at bedside. Plan 1. Hyponatremia, asymptomatic, euvolemic. Possible SIADH and/or excess water intake. Sodium now near normal 2. Hypertension, exacerbated by pain Recommend: continue fluid restriction < 2L daily. Will sign off, please call if needed. 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
--- NOTE | 2022-01-28 12:51 | PM.PN ---
Subjective Subjective: Patient was seen this morning, she sitting up in a chair, at bedside, complaining of neck pain no fevers, no nausea, no vomiting, she has been n.p.o. since midnight Vitals/I&O/Wt Last Vital Signs Temp 98.1 F 01/28/22 12:49 Pulse 58 L 01/28/22 12:49 Resp 16 01/28/22 12:49 BP 136/80 01/28/22 12:49 Pulse Ox 95 01/28/22 12:49 O2 Del Method 01/28/22 12:49 01/27/22 01/28/22 01/28/22 22:59 06:59 14:59 Intake Total 540 / 1000 410 / 1410 250 / 250 Balance 540 / 1000 410 / 1410 250 / 250 Physical Exam Const: COMMON NORMALS: no acute distress and patient oriented x3 Neck/C-Spine: OTHER: Cervical spine, bandage applied over wound site Resp: COMMON NORMALS: normal respiratory effort, No retractions, No use of accessory muscles and clear to auscultation bilaterally AUSCULTATION: clear to auscultation bilaterally Cardio: COMMON NORMALS: regular rate, regular rhythm, S1 normal heart sound present and S2 normal heart sound present RATE: regular rate RHYTHM: regular rhythm HEART SOUNDS: S1 normal heart sound present and S2 normal heart sound present GI: COMMON NORMALS: Normal to inspection, nondistended, normoactive bowel sounds present, non-tender and no masses Extremity: COMMON NORMALS: no pedal edema Neuro: COMMON NORMALS: patient oriented x3 Psych: COMMON NORMALS: mental status grossly normal Data : 01/28/22 02:22 01/28/22 02:22 A&P Assessment and plan (1) Wound dehiscence: (2) Status post cervical spinal fusion: (3) Cervical spondylosis with myelopathy: (4) Hyponatremia: (5) Gout, arthritis: (6) Nicotine addiction: (7) Seronegative rheumatoid arthritis: (8) High risk medication use: (9) Immunosuppression: (10) Sjogrens syndrome: (11) Adenocarcinoma of right lung, stage 1: Plan #Acute on Chronic hyponatremia, hypovolemic, possible SIADH #Cervical Surgical wound infection #Sjogren syndrome #Hypertension #Depression #Hx of lung cancer - Patient drinks ice tea and a lot of fluid and avoid eating salt - She is also on a lot of opioids and anxiolytics - This should be no contraindication to go for the surgical intervention on Friday she does have chronic neuropathic pain for which she takes venlafaxine - Continue on vancomycin and zosyn at this time. - Check blood cultures - CUltures to be obtained intraoperatively as well - Plan for washout on Friday - I recommend ID consult once ID available to assist with management of antibiotics given her hx of sjogrens.She has been on Rinvoq in past. - Pt may require a PICC line with a longer abx course at discharge. Await cultures. 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
[2022-01-28] MEDS: sodium chloride 0.9% 1,000 ML 30 ML IV (12:55)
--- NOTE | 2022-01-28 14:05 | P.ANESUD_ITS ---
Pre-Anesthetic Update Pre-Anesthetic Assessment: Date of Surgery/Procedure: 01/28/22 Preop Janina gnosis: wound dehisence Proposed Procedure: Operation Date: 01/25/22 13:40 Proposed Procedures p Incision and Drainage WITH WOUND ENCLOSURE 32334(Not Applicable) - Edmond H Madonna, DO Operation Date: 01/28/22 13:15 Proposed Procedures p Incision and Drainage with wound closure(Not Applicable) - Edmond H Madonna, DO Any changes to Pre-Anesthetic Assessment?: Yes Changes from Pre-Anesthetic Assessment: Sodium improved Last Intake: Intake Last Liquid Date 01/25/22 Last Liquid Time 08:00 Last Solid Date 01/24/22 Last Solid Time 22:30 Labs Last 48hrs: Short CBC 01/28/22 Range/Units 02:22 WBC 3.4 L (4.0-10.0) 10^3/ uL Hgb 10.7 L (11.5-15.3) g/dL Hct 34.5 L (37.0-47.0) % MCV 85.0 (81-99) fl Plt Count 325 (130-400) 10^3/c mm Neut % (Auto) 43.8 % Neut # (Auto) 1.47 L (1.8-7.7) 10^3/u L BMP 01/26/22 01/26/22 01/26/22 14:14 19:44 23:18 Sodium 126 L 124 L 134 L Potassium 4.0 3.8 4.4 Chloride 90 L 89 L 98 Carbon Dioxide 29 31 H 28 BUN 12 11 12 Creatinine 0.5 0.5 0.4 L Glucose 108 166 H 119 H Calcium 9.0 9.0 8.5 01/27/22 01/28/22 04:03 02:22 Sodium 132 L 133 L Potassium 4.4 4.7 Chloride 98 97 L Carbon Dioxide 27 29 BUN 10 13 Creatinine 0.4 L 0.5 Glucose 83 73 Calcium 8.9 8.6 Vitals: Temperature 98.1 F 01/28/22 12:49 Temperature Source Oral 01/28/22 12:00 Pulse Rate 58 L 01/28/22 12:49 Pulse Rhythm 01/26/22 20:00 Pulse Strength 3+ Normal 01/26/22 20:00 Respiratory Rate 16 01/28/22 12:49 Respiratory Effort Non-Labored 01/28/22 05:25 Respiratory Depth Normal 01/28/22 05:25 Respiratory Patter n 01/28/22 05:25 Blood Pressure 136/80 01/28/22 12:49 Blood Pressure Arelis n 98 01/28/22 12:49 Blood Pressure Pos ition Semi Fowlers 01/27/22 23:31 Pulse Oximetry 95 01/28/22 12:49 Oxygen Delivery Me thod 01/28/22 12:49 Exam: Pre-Anes Outpt Exam: alert, oriented x 3, clear to auscultation bilaterally and regular rate & rhythm Cardiac Studies: No Data to Display
[2022-01-28] MEDS: fentaNYL 50 mcg/mL INJ 2mL IVP (14:12)
--- NOTE | 2022-01-28 14:13 | SUR.PREOP ---
SEEN BY DOCTOR CHOWDARY. MEDICATED FOR NECK PAIN.
--- NOTE | 2022-01-28 14:25 | SUR.PREOP ---
MEDICATED FOR NAUSEA.
--- NOTE | 2022-01-28 15:14 | SUR.PREOP ---
15:10 PATIENT CRYING.STATES TIRED OF WAITING. Anna INFORMED. 15:16 MEDICATED PER DOCTOR Fernando.
[2022-01-28] MEDS: midazolam 1 mg/mL INJ 2 mL IVP (15:18)
--- NOTE | 2022-01-28 16:39 | W.PM.OPSUD ---
Surgery/Procedure H&P Update DATE OF PROCEDURE: January 28, 2022 DATE H&P PERFORMED: 01/24/22 H&P UPDATE INFORMATION: I have reviewed H&P completed within last 30 days, I have examined patient prior to procedure and No changes to prior documentation PREOP DIAGNOSIS: wound dehisence PLANNED PROCEDURE: Operation Date: 01/25/22 13:40 Proposed Procedures p Incision and Drainage WITH WOUND ENCLOSURE 13370(Not Applicable) - Edmond Peacock DO Operation Date: 01/28/22 13:15 Proposed Procedures p Incision and Drainage with wound closure(Not Applicable) - Edmond Peacock DO
[2022-01-28] MEDS: vancomycin 1,000 MG SDV 1000 MG XX (18:23)
--- NOTE | 2022-01-28 19:00 | P.OP_ITS ---
Operative Report Date of procedure: January 28, 2022 Pre-op diagnosis: Preop Diagnosis wound dehisence Post-op diagnosis: same Procedure done: 1. Irrigation and debridement of wound down to bone (8in x 4in x 1 inch) of posterior cervical spine 2. Application of wound VAC less than 50 cm squared 3. Application of tissue marketing outreach coordinator to posterior cervical spine Surgeon: Edmond Peacock Furnace Combustion Tester: Michael Mccallum Estimated blood loss (mL): 20 Estimated blood loss: The surgical aide, Michael Mccallum, PAC was needed for his exptise with wound care. He was important and necessary throughout the procedure to complete in a safe and timely manner. He assisted with patient positioning prepping and draping tissue retraction suctioning of the operative field protection of the dural sac and tissue closure Procedure: 1. Irrigation and debridement of wound down to bone (8in x 4in x 1 inch) of posterior cervical spine 2. Application of wound VAC less than 50 cm squared 3. Application of tissue marketing outreach coordinator to posterior cervical spine Patient was brought to the operative suite after undergoing anesthesia patient was placed in the prone position with all areas impingement well-padded. Patient was then prepped and draped normal sterile fashion. The wound which was 8 x 4 x 1 inch measurement. The wound was ellipsed in the deep tissue layer. Bovie was used to coagulate bleeding. The ellipse piece was removed. 1 drill was used to take down the spinous process down to bleeding bone. This tissue was sent for culture. Culture swabs were also used. Next attention was brought to the deep layer. The tissue around the spinous process was taken down rongeur was used to take down the bone. The skin was undermined approximately half a centimeter to a centimeter deep. This undermine the muscle underneath. This tissue was then closed with a Prolene suture. This point suture was then used to close the deep layer. All bony tissue was covered with soft tissue. A wound VAC was applied and placed and had good suction. There was no air leaks. Next the tissue marketing outreach coordinator was attached. This was done by placing 6 hooks around the wound. And the socks were stable in place. The attention device was then weaved around the hooks and around the wound VAC. Intentioned and locked into position. In order to apply constant tension to expand the tissue. Dressing was placed over this. Is padding. Patient was then positioned back into the supine position extubated and transferred to the PACU in stable condition.
--- NOTE | 2022-01-28 20:26 | ANE.PACU2 ---
Inpatient post-anesthesia follow up: Airway intact: Yes Vital signs: Temperature 97.7 F Pulse Rate 63 Respiratory Rate 18 Blood Pressure 155/74 Pulse Oximetry 92 Oxygen Delivery Me thod Room Air Oxygen Flow Rate 6 Fraction of Inspir ed Oxygen Hydration adequate: Yes Nausea and vomiting: No Pain level: 1 Mental status: Baseline
[2022-01-28] MEDS: ipratropium-albuterol 3 mL Neb INHALATION (21:02)
[2022-01-28] MEDS: ceFAZolin 2,000 MG in sodium chloride 0.9% (plus) 50 ML 100 MG IV (21:09)
[2022-01-28] MEDS: oxyCODONE 5 mg IR Tab/Cap 10 MG PO (21:33)
--- NOTE | 2022-01-28 22:33 | PC.NURSE ---
O2 SAT O2 sat had been staying around 91% until now sleeping and had pain med. Was staying 86-88%. Placed on 2l NC and up to 91%
[2022-01-29] VITALS (17 sets, daily range): BP systolic 120–152; BP diastolic 62–83; PULSE 66–90; RESP 12–22; TEMP 36.5–36.9; O2SAT 91–99
[2022-01-29] MEDS: oxyCODONE 5 mg IR Tab/Cap 10 MG PO ×4 (01:39→20:42)
[2022-01-29 02:09] LABS: Basophils % 0.2 %; Eosinophils % 0.2 %; Hematocrit 34.3 % (37.0-47.0); Hemoglobin 10.7 g/dL (11.5-15.3); Lymphocytes # 0.4 10^3/uL (0.8-4.8); Lymphocytes % 9.8 %; Mean Corpuscular HGB Conc 31.2 g/dL (30.0-36.0); Mean Corpuscular Hemoglobin 26.6 pg (28.0-34.0); Mean Corpuscular Volume 85.1 fl (81-99); Mean Platelet Volume 9.1 fL (7.4-10.4); Monocytes # 0.1 10^3/uL (0.2-0.9); Monocytes % 2.1 %; Neutrophils # 3.67 10^3/uL (1.8-7.7); Neutrophils % 87.5 %; Nucleated Red Blood Cells % 0 %; Platelet Count 358 10^3/cmm (130-400); Red Blood Count 4.03 10^6/uL (4.1-5.3); Red Cell Distribution Width 17.5 % (12.1-15.1); White Blood Count 4.2 10^3/uL (4.0-10.0)
[2022-01-29 02:43] LABS: Procalcitonin 0.02 ng/mL (0-0.5)
[2022-01-29 02:54] LABS: Alanine Aminotransferase 45 U/L (0-33); Albumin Level 3.4 g/dL (3.5-5.2); Alkaline Phosphatase 75 U/L (35-105); Aspartate Amino Transferase 39 U/L (0-32); Blood Urea Nitrogen 9 mg/dL (8-23); C Reactive Protein 5.1 mg/L (0.0-4.9); Calcium 8.7 mg/dL (8.5-10.5); Carbon Dioxide 26 mmol/L (22-29); Chloride 98 mmol/L (98-107); Globulin 3.1 g/dL (1.3-4.6); Glomerular Filtration Rate 123.1 mL/min (90-130); Glucose 153 mg/dL (65-115); Magnesium 1.9 mg/dL (1.7-2.3); Osmolality Calculated 278 mOsm/kg (285-295); Sodium 133 mmol/L (136-145); Total Bilirubin 0.2 mg/dL (0.15-1.2); Total Protein 6.5 g/dL (6.6-8.7)
[2022-01-29 02:55] LABS: Anion Gap 13.5 (5-19); Potassium 4.5 mmol/L (3.5-5.1)
[2022-01-29] MEDS: ondansetron 2 mg/ML SDV 2 mL 4 MG IVP ×4 (03:15→21:08)
[2022-01-29] MEDS: ketorolac 30 mg/mL INJ IVP ×3 (03:15→14:36)
[2022-01-29] MEDS: ceFAZolin 2,000 MG in sodium chloride 0.9% (plus) 50 ML 100 MG IV ×2 (04:09→12:27)
[2022-01-29] MEDS: vancomycin 1,000 MG in sodium chloride 0.9% 250 ML 250 MG IV ×2 (04:46→17:10)
[2022-01-29] MEDS: oxyCODONE 10 mg ER (12 HR) Tablet PO ×2 (05:50→17:18)
--- NOTE | 2022-01-29 07:14 | PM.PN ---
Subjective Subjective: POD 1 Patient sitting up in bed no apparent distress. Wound VAC intact. Vitals/I&O/Wt Last Vital Signs Temp 97.7 F 01/29/22 03:10 Pulse 82 01/29/22 03:10 Resp 18 01/29/22 03:10 BP 144/75 01/29/22 03:10 Pulse Ox 97 01/29/22 03:10 O2 Del Method 01/29/22 03:10 O2 Flow Rate 2 01/29/22 03:10 01/28/22 01/29/22 01/29/22 22:59 06:59 14:59 Intake Total 1709 950 / 2960 Output Total 310 / 310 300 / 610 Balance 1400 / 1700 650 / 2350 Physical Exam Narrative: She is alert and orient x3 has good general appearance normal mood and affect. Wound VAC is functioning. [place] close present. Patient moving both upper extremities with good strength hands warm good cap refill. Wiggles both lower extremities calves are supple no medial thigh tenderness Data : 01/29/22 02:02 01/29/22 02:02 A&P Assessment and plan (1) Wound dehiscence: Continue wound VAC today. Encourage mobilization. We will have infectious disease consult. We will keep her n.p.o. after midnight for hopeful closure on 01/30/2022. 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
[2022-01-29] MEDS: ipratropium-albuterol 3 mL Neb INHALATION ×4 (07:36→20:17)
[2022-01-29] MEDS: gabapentin 100 mg Capsule PO ×4 (08:39→21:22)
[2022-01-29] MEDS: lamoTRIgine 100 mg Tablet 50 MG PO ×2 (08:39→17:12)
[2022-01-29] MEDS: metoprolol tartrate 25 mg Tablet PO ×2 (08:39→17:12)
[2022-01-29] MEDS: allopurinol 100 mg Tablet 200 MG PO (08:39)
[2022-01-29] MEDS: pantoprazole DR 40 mg Tablet PO (08:39)
[2022-01-29] MEDS: docusate sodium 100 mg Capsule PO ×2 (08:40→17:12)
[2022-01-29] MEDS: piperacillin-tazobactam 3.375 GM in sodium chloride 0.9% (plus) 50 ML IV ×2 (08:40→17:10)
[2022-01-29] MEDS: tizanidine 4 mg Tablet PO ×2 (08:40→14:38)
[2022-01-29] MEDS: lisinopril 20 mg Tablet PO (08:40)
--- NOTE | 2022-01-29 13:15 | P.PN_ITS ---
Subjective Subjective: Patient was seen this morning, she sitting up in bed, no fevers, no chills Vitals/I&O/Wt Last Vital Signs Temp 98.2 F 01/29/22 12:00 Pulse 71 01/29/22 12:00 Resp 12 01/29/22 12:27 BP 131/71 01/29/22 12:00 Pulse Ox 96 01/29/22 12:00 O2 Del Method 01/29/22 12:00 O2 Flow Rate 2 01/29/22 03:10 01/28/22 01/29/22 01/29/22 22:59 06:59 14:59 Intake Total 1709 950 / 2960 Output Total 310 / 310 300 / 610 Balance 1400 / 1700 650 / 2350 Physical Exam Const: COMMON NORMALS: no acute distress and patient oriented x3 Resp: COMMON NORMALS: normal respiratory effort, No retractions, No use of accessory muscles and clear to auscultation bilaterally AUSCULTATION: clear to auscultation bilaterally Cardio: COMMON NORMALS: regular rate, regular rhythm, S1 normal heart sound present and S2 normal heart sound present RATE: regular rate RHYTHM: reg ular rhythm HEART SOUNDS: S1 normal heart sound present and S2 normal heart sound present GI: COMMON NORMALS: Normal to inspection, nondistended, normoactive bowel sounds present and non-tender Extremity: COMMON NORMALS: no pedal edema Neuro: COMMON NORMALS: patient oriented x3 Psych: COMMON NORMALS: mental status grossly normal Data : 01/29/22 02:02 01/29/22 02:02 Micro: Microbiology 01/28/22 18:05 Gram Stain - Final Neck A&P Assessment and plan (1) Wound dehiscence: (2) Status post cervical spinal fusion: (3) Cervical spondylosis with myelopathy: (4) Hyponatremia: (5) Gout, arthritis: (6) Nicotine addiction: (7) Seronegative rheumatoid arthritis: (8) High risk medication use: (9) Immunosuppression: (10) Sjogrens syndrome: (11) Adenocarcinoma of right lung, stage 1: Plan #Acute on Chronic hyponatremia, hypovolemic, possible SIADH #Cervical Surgical wound infection #Sjogren syndrome #Hypertension #Depression #Hx of lung cancer - Continue on vancomycin and zosyn at this time. -Follow blood cultures, so far negative -Follow intraoperative blood cultures -Patient is status post 1.? Irrigation and debridement of wound down to bone? (8in x 4in x 1 inch) of posterior cervical spine 2.? Application of wound VAC less than 50 cm squared 3.? Application of tissue helper maintenance cleaning to posterior cervical spine -Infectious disease to see today -Has positive MRSA cultures on 01/21/2022, from the neck -Orders placed for PICC line, to be placed tomorrow, likely will require at least 6 weeks of IV antibiotics -Every 6 weeks of vancomycin, further antibiotics determined based on cultures -N.p.o. tomorrow midnight Full Code DVT PPLX: Lovenox Attestations Medical Necessity Statement*: Patient requires hospitalization for surgical site infection Coding Level of Care Code Acute Clinical Tech for [facility] Fwd Diagnoses Wound dehiscence T81.30XA Status post cervical spinal fusion Z98.1 Cervical spondylosis with myelopathy M47.12 Hyponatremia E87.1 Gout, arthritis M10.9 Nicotine addiction F17.200 Seronegative rheumatoid arthritis M06.00 High risk medication use Z79.899 Immunosuppression D89.9 Sjogrens syndrome M35.00 Adenocarcinoma of right lung, stage 1 C34.91
[2022-01-29] MEDS: naproxen 500 mg Tablet PO (13:54)
[2022-01-29 14:56] LABS: Vancomycin Trough 14.8 ug/mL (10-15)
--- NOTE | 2022-01-29 16:35 | P.CONIM_ITS ---
Providers/Reason For Consult Consulting Physician/Specialty*: Mikaela Miller MD/infectious disease Reason for Consult*: Postoperative infection Requesting Physician: Billy Veliz MD/internal medicine Attending Physician: Edmond Peacock DO Primary Care Provider: Dilshad Ng MD History of Present Illness History of Present Illness Lisa Barnes is a 66 year old female with a past medical history of COPD, gout, Sjogren's syndrome, adenocarcinoma of the lung, status post wedge resection, no other evidence of disease, chronic back pain for which she has a nerve stimulator in place. In September 2021 she was noted to have C4-C5 subluxation, right severe arm and neck pain along with upper extremity weakness. There was concern for spinal cord compression for which she underwent discectomy, laminectomy, partial facetectomies and instrumentation at levels C4- t2 on October 29, 2021. Overall procedure was uneventful without perioperative complications. She discharged home on November 01, 2021. On December 11, 2021 she was noted to have a small wound dehiscence with drainage for which she underwent I&D down to bone and wound closure on December 12, 2021. Per op note wound was 3 inches deep down to cervical fascia. Vancomycin powder was placed. She was discharged with Bactrim 1 tab p.o. twice daily and Augmentin was later added. For 1 week. Wound culture from that time had showed staph lugdunensis. Follow- up on December 27, 2021 still with findings of dime sized wound dehiscence. Antibiotics at this time were switched to levofloxacin 500 mg p.o. daily. Thereafter established follow-up with wound care and wound VAC was placed on January 08, 2022. On January 21, 2022 there was noted to be palpable bone at the most inferior opening at wound care clinic. Wound VAC was placed on hold with recommendations for wound exploration and I&D. Deep outpatient cultures taken at the wound care clinic showed growth of MRSA. She is now admitted for and is status post I&D of an 8 x 4 x 1 inch posterior cervical spine wound on January 28, 2022. Wound VAC was additionally applied along with tissue certified orthoptist. I&D performed down to level of bone, multiple cultures were sent which remain pending at this current time. Blood culture is negative from January 25 to date. Patient has been afebrile since admission. No le ukocytosis. CRP 5.1. Hospital course has otherwise been notable for hyponatremia which is being managed by the hospitalist service. Review of Systems General: Reports: 10 or more systems reviewed and unremarkable except in HPI and below Const: Denies: fever(s), chills or body aches Eyes: Denies: change in vision, blurry vision or photophobia ENMT: Reports: hoarseness; Denies: throat pain, enlarged tonsils, odynophagia or nasal congestion Card: Denies: chest pain, palpitations, irregular heart rhythm, edema, swelling of feet/ankles, lightheadedness, pre-syncope, dyspnea on exertion or orthopnea Resp: Denies: dyspnea, productive cough, non-productive cough, wheezing, stridor, pain on inspiration, change in phlegm color, hemoptysis or chest congestion GI: Denies: abdominal pain, nausea, vomiting, hematemesis, coffee ground emesi s, dysphagia, heartburn, diarrhea, constipation, GI cramping, change in stool character, hematochezia or melena : Denies: flank pain, difficulty voiding, dysuria, urinary frequency, urinary urgency, urinary hesitancy or hematuria Musc: Denies: neck pain, back pain, extremity pain, joint swelling, joint warmth or deformity Neuro: Denies: headache(s), numbness in extremities, weakness in extremities, sensory changes, difficulty walking, frequent falls, dizziness, vertigo, behavioral changes, Slurred speech present or seizure-like activity Psych: Denies: anxiety, depression, suicidal ideation or homicidal ideation Endo: Denies: polyuria, polydipsia, tired all the time, cold intolerance or hot flashes Yosef/Lymph: Denies: easy bruising or easy bleeding Medications/Allergies Home Medications Medication Instructions Recorded Confirmed Last Taken Type albuterol sulfate 90 mcg/actuation 1 inh inhalation BID PRN Shortness 04/12/19 01/26/22 01/24/22 History aerosol inhaler Of Breath lamotrigine 100 mg tablet 50 mg PO BID 04/12/19 01/26/22 01/24/22 History (Lamictal) naproxen 500 mg tablet 500 mg PO BID PRN Pain 04/12/19 01/26/22 12/06/21 History vortioxetine 20 mg tablet 20 mg PO DAILY 04/12/19 01/25/22 01/25/22 04:30 Histor y (Trintellix) lisinopril 20 1 tab PO DAILY 04/16/19 01/26/22 01/24/22 History mg-hydrochlorothiazide 12.5 mg tablet metoprolol tartrate 25 mg tablet 25 mg PO BID 04/16/19 01/26/22 01/25/22 04:30 History mometasone 50 mcg/actuation nasal 2 spray intranasal DAILY 04/16/19 01/26/22 01/24/22 History spray peg 400-propylene glycol 0.4 %-0.3 1 drop ophthalmic (eye) ONCE PRN 04/16/19 01/24/22 10/28/21 History % eye drops (Systane Ultra) Dry Eye(S) tizanidine 4 mg capsule 4 mg PO TID PRN Pain 11/23/19 01/24/22 11/27/21 History gabapentin 100 mg capsule 100 mg PO QID 05/15/20 01/26/22 01/24/22 History cyclosporine 0.05 % eye drops 1 drp ophthalmic (eye) Q12H #16.5 06/05/21 01/26/22 01/24/22 Rx (Restasis MultiDose) mL allopurinol 100 mg tablet 200 mg PO DAILY #180 tabs 07/10/21 01/26/22 01/24/22 Rx omeprazole 40 mg capsule,delayed 40 mg PO DAILY #90 caps 07/10/21 01/26/22 01/25/22 04:30 Rx release oxycodone 10 mg tablet,crush 10 mg PO Q12H 7 days #14 tabs 12/04/21 01/26/22 12/12/21 Rx resistant,extended release 12 hr (OxyContin) prednisone 10 mg tablet 10 mg PO DIRECTED PRN Pain 12/11/21 01/24/22 Unknown History Bone Growth Stimulator E0748 #1 ea 12/28/21 01/26/22 Unknown Rx umeclidinium 62.5 mcg-vilanterol 1 inh inhalation Q24H 60 days #60 01/22/22 01/25/22 01/24/22 Rx 25 mcg/actuation powdr for ea inhalation (Anoro Ellipta) oxycodone 10 mg tablet 10 mg PO Q4H PRN Pain 01/26/22 01/26/22 Unknown History suvorexant 10 mg tablet (Belsomra) 10 mg PO BEDTIME 01/26/22 01/26/22 Unknown History Allergies Allergy/AdvReac Type Severity Reaction Status Date / Time No Known Drug Allergies Allergy Unknown Verified 01/24/22 08:08 Current Medications Generic Name Dose Route Start Last Admin Trade Name Julianq PRN Reason Stop Dose Admin Albuterol/Ipratropium 3 ml 01/28/22 21:00 01/29/22 16:07 Ipratropium-Albuterol 3 Ml Neb INHALATION 3 ml QID.RESPIRATORY YEHUDA Administration Allopurinol 200 mg 01/26/22 09:00 01/29/22 08:39 Allopurinol 100 Mg Tablet PO 200 mg DAILY YEHUDA Administration Docusate Sodium 100 mg 01/29/22 09:00 01/29/22 08:40 Docusate Sodium 100 Mg Capsule PO 100 mg BID YEHUDA Administration Gabapentin 100 mg 01/25/22 17:00 01/29/22 12:27 Gabapentin 100 Mg Capsule PO 100 mg QID YEHUDA Administration Vancomycin HCl 1,000 mg/ 250 mls @ 250 mls/hr 01/28/22 04:00 01/29/22 05:51 Sodium Chloride IV Infused Q12H YEHUDA Infusion Piperacillin Sod/Tazobactam 50 mls @ 12.5 mls/hr 01/29/22 00:30 01/29/22 08:40 Sod 3.375 gm/ Sodium Chloride IV 12.5 mls/hr Q8H YEHUDA Administration Protocol Ketorolac Tromethamine 30 mg 01/28/22 18:51 01/29/22 14:36 Ketorolac 30 Mg/Ml Inj IVP 30 mg Q6H PRN Administration BREAKTHROUGH PAIN Lamotrigine 50 mg 01/25/22 18:00 01/29/22 08:39 Lamotrigine 100 Mg Tablet PO 50 mg BID YEHUDA Administration Lisinopril 20 mg 01/26/22 09:00 01/29/22 08:40 Lisinopril 20 Mg Tablet PO 20 mg DAILY YEHUDA Administration Metoprolol Tartrate 25 mg 01/25/22 18:00 01/29/22 08:39 Metoprolol Tartrate 25 Mg Tablet PO 25 mg BID YEHUDA Administration Naproxen 500 mg 01/25/22 13:37 01/29/22 13:54 Naproxen 500 Mg Tablet PO 500 mg BID PRN Administration Pain Non-Formulary Medication 1 drop 01/25/22 13:45 01/29/22 12:25 Cyclosporine [Restasis Multidose] EYEAFF Not Given Q12H YEHUDA Non-Formulary Medication 2 spray 01/26/22 09:00 01/29/22 08:41 Mometasone INTRANASAL Not Given DAILY YEHUDA Non-Formulary Medication 20 mg 01/26/22 09:00 01/29/22 08:41 Vortioxetine [Trintellix] PO Not Given DAILY YEHUDA Non-Formulary Medication 10 mg 01/28/22 21:00 01/28/22 20:47 Suvorexant [Belsomra] PO Not Given BEDTIME YEHUDA Ondansetron HCl 4 mg 01/25/22 13:32 01/29/22 14:37 Ondansetron 2 Mg/Ml Sdv 2 Ml IVP 4 mg Q6H PRN Administration NAUSEA AND VOMITING Oxycodone HCl 10 mg 01/25/22 18:00 01/29/22 05:50 Oxycodone 10 Mg Er (12 Hr) Tablet PO 10 mg Q12H YEHUDA Administration Oxycodone HCl 10 mg 01/28/22 19:27 01/29/22 12:27 Oxycodone 5 Mg Ir Tab/Cap PO 10 mg Q4H PRN Administration Pain Pantoprazole Sodium 40 mg 01/26/22 09:00 01/29/22 08:[address] 40 Mg Tablet PO 40 mg DAILY YEHUDA Administration Tizanidine HCl 4 mg 01/25/22 14:34 01/29/22 14:38 Tizanidine 4 Mg Tablet PO 4 mg TID PRN Administration Pain Venlafaxine HCl 75 mg 01/26/22 09:00 01/29/22 07:41 Venlafaxine 75 Mg Tablet PO Not Given DAILY YEHUDA PFSH Acute PFSH: Medical History Adenocarcinoma of right lung, stage 1 Arthropathy of cervical facet joint Cellulitis of right anterior lower leg Cervical radiculopathy due to degenerative joint disease of spine COPD (chronic obstructive pulmonary disease) Gout, arthritis High risk medication use Immunization counseling Immunosuppression Inflammatory arthritis Intervertebral disc disorder with radiculopathy of lumbar region Intervertebral disc disorder with radiculopathy of lumbosacral region Low back pain radiating down leg Lumbar stenosis with neurogenic claudication Lung nodule, solitary Mixed stress and urge urinary incontinence Neck pain Osteoporosis Pain and swelling of right knee Primary Sjogren's syndrome Seronegative rheumatoid arthritis Seronegative rheumatoid arthritis Sjogrens syndrome Spondylolisthesis at L4-L5 level Spondylolisthesis at L5-S1 level Spondylolisthesis, cervical region Spondylolisthesis, lumbar region Thoracic disc disease Vaginal atrophy Surgical History History of D&C 4x History of decompression of ulnar nerve Right History of ear surgery (04/17/17) Right History of hysterectomy (10/29/16) with Vaginal Repair, Total S/P insertion of spinal cord stimulator Thoracic spinal cord stimulator implantation via laminotomy ([employer] 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 surgical 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/[employer] Wave[employer] pulse generator), 06/17/2019, [facility] [place] History Mother Hypertension Diabetes Stroke Cancer Uterine Grandmother Diabetes Maternal Heart disease Father Heart disease Grandfather Heart disease Sister Cancer Uterine Social History Smoking and tobacco status: current every day smoker cigarettes Packs smoked per day: 1 Years cigarettes smoked: 41 [ Other cigarette details: Hx of of 1PPD x 41 Years] Quit status (tobacco): considering quitting Second hand smoke exposure: Yes Smoking risk assessment/counseling performed?: Yes Alcohol intake: former Counseling given: No Counseling given: No Lives independently: Yes Household members: spouse Marital status: Current occupational status: disabled History of recent travel: No Current gender identity: Female Vitals/I&O/Wt Last Vital Signs Temp 98.2 F 01/29/22 16:07 Pulse 81 01/29/22 16:08 Resp 18 01/29/22 16:08 BP 132/66 01/29/22 16:07 Pulse Ox 92 01/29/22 16:08 O2 Del Method 01/29/22 16:08 O2 Flow Rate 2 01/29/22 03:10 01/29/22 01/29/22 01/29/22 06:59 14:59 22:59 Intake Total 950 / 2960 Output Total 300 / 610 Balance 650 / 2350 Physical Exam Narrative: General: No acute distress, AO x3 HEENT: PERRLA, pupils bilaterally equal and reactive, pallors not present Chest: Normal vesicular breath sounds, no added sounds, equal good air entry bilaterally CVS: S1-S2 regular, no murmurs, no tachycardia, no gallops, no rubs Abdomen: Soft, nontender, no organomegaly, bowel sounds present Neuro: No focal deficits, no facial deformity, AO x3, power 5/5 in all limbs Data : 01/29/22 02:02 01/29/22 02:02 Micro: Microbiology 01/28/22 18:05 Gram Stain - Final Neck Culture data: January 28, 2022: Deep posterior cervical spine culture: Rare white blood cells, no organisms seen. (Patient on extended outpatient course of levofloxacin, Augmentin, Bactrim) January 25, 2022: Peripheral blood culture: Negative to date. January 21, 2022: Outpatient tissue culture and gram stain from wound care clinic: Gram-positive cocci, identified as MRSA. MRSA M.I.C. RX --------- ------ * Ampicillin >8 R * Ciprofloxacin >2 R * Clindamycin <=0.5 S * Erythromycin >4 R * Gentamicin <=4 S * Levofloxacin >4 R * Linezolid 4 S * Oxacillin >2 R * Penicillin >8 R * Rifampin <=1 S * Tetracycline <=4 S * Trimethoprim/Sulfamethoxazole <=0.5/9.5 S Vancomycin 1 S Daptomycin 1 S 12/12: OR Wound cx: Organism 1 Staphylococcus lugdunensis Growth FEW DAY 3 Sheng rodriguezun M.I.C. RX --------- ------ * Amoxicillin/Clavulanate <=4/2 S * Ampicillin >8 R * Ampicillin/Sulbactam <=8/4 S * Ceftriaxone <=8 S * Ciprofloxacin 2 I * Clindamycin <=0.5 S * Erythromycin <=0.5 S * Gentamicin <=4 S * Levofloxacin 2 S * Linezolid 2 S * Oxacillin 1 S * Penicillin >8 R * Rifampin <=1 S * Tetracycline <=4 S * Trimethoprim/Sulfamethoxazole <=0.5/9.5 S Vancomycin 2 S Daptomycin <=0.5 S A&P Assessment and plan (1) Sjogrens syndrome: (2) Wound dehiscence: Plan 66F with PMH as above, cervical myelopathy s/p laminectomy and instrumentation 10/2021 with post op course notable marked by wound dehiscence, s/p I&D on 12/12 with wound cx showing staph lugdenensis at that time. Then established care with [facility], outpatient deep wound cx with MRSA on 01/21. Now most recently s/p I&D with wound vac placement on 01/28/22. Outpatient treated has included Bactrim, Augmentin and Levofloxacin without improvement in wound. Crp not elevated during course Will discuss with orthopedics regarding depth of involvement , concern for hardware involvement At a minimum for deep SSTI with MRSA and failure of outpatient abx, recommend extended course of iv vancomycin for 6 weeks. Picc line expected to be placed tomorrow Will follow Coding Level of Care Code Acute Flavoring Maker for Dimple Mcgrath Diagnoses Sjogrens syndrome M35.00 Wound dehiscence T81.30XA
[2022-01-29] MEDS: magnesium hydroxide 30 mL UDC PO (17:10)
--- NOTE | 2022-01-29 18:35 | PC.NURSE ---
pts 4th piv infiltrated at the end of the vanco dose. Dr. Veliz notified that pt is refusing a new piv. She is scheduled for a picc first thing in the morning. He would like to see if she will agree to a new piv later in the evening, I told him I would let shift boss try.
[2022-01-30] VITALS (27 sets, daily range): BP systolic 137–185; BP diastolic 69–112; PULSE 62–99; RESP 15–22; TEMP 36.2–37.4; O2SAT 91–100
[2022-01-30] MEDS: ketorolac 30 mg/mL INJ IVP (00:20)
[2022-01-30] MEDS: oxyCODONE 5 mg IR Tab/Cap 10 MG PO ×2 (01:53→15:41)
[2022-01-30 04:10] LABS: Basophils % 0.5 %; Eosinophils # 0.2 10^3/uL (0.0-0.8); Eosinophils % 3.8 %; Hematocrit 31.1 % (37.0-47.0); Hemoglobin 9.5 g/dL (11.5-15.3); Lymphocytes % 23.5 %; Mean Corpuscular HGB Conc 30.5 g/dL (30.0-36.0); Mean Corpuscular Hemoglobin 26.2 pg (28.0-34.0); Mean Corpuscular Volume 85.7 fl (81-99); Monocytes # 0.5 10^3/uL (0.2-0.9); Monocytes % 11.6 %; Neutrophils # 2.54 10^3/uL (1.8-7.7); Neutrophils % 60.4 %; Nucleated Red Blood Cells % 0 %; Platelet Count 307 10^3/cmm (130-400); Red Blood Count 3.63 10^6/uL (4.1-5.3); Red Cell Distribution Width 17.7 % (12.1-15.1); White Blood Count 4.2 10^3/uL (4.0-10.0)
[2022-01-30 04:31] LABS: Alanine Aminotransferase 44 U/L (0-33); Albumin Level 3.2 g/dL (3.5-5.2); Alkaline Phosphatase 81 U/L (35-105); Anion Gap 11.4 (5-19); Aspartate Amino Transferase 54 U/L (0-32); Blood Urea Nitrogen 9 mg/dL (8-23); C Reactive Protein 4.5 mg/L (0.0-4.9); Calcium 8.6 mg/dL (8.5-10.5); Carbon Dioxide 28 mmol/L (22-29); Chloride 101 mmol/L (98-107); Glomerular Filtration Rate 123.1 mL/min (90-130); Glucose 85 mg/dL (65-115); Magnesium 2.1 mg/dL (1.7-2.3); Osmolality Calculated 280 mOsm/kg (285-295); Potassium 4.4 mmol/L (3.5-5.1); Sodium 136 mmol/L (136-145); Total Bilirubin 0.2 mg/dL (0.15-1.2); Total Protein 6.2 g/dL (6.6-8.7)
[2022-01-30 04:35] LABS: Procalcitonin 0.03 ng/mL (0-0.5)
[2022-01-30] MEDS: oxyCODONE 10 mg ER (12 HR) Tablet PO ×2 (05:00→21:27)
--- NOTE | 2022-01-30 05:03 | PC.NURSE ---
CHG bath completed at this time.
--- NOTE | 2022-01-30 07:01 | W.PM.OPSUD ---
Surgery/Procedure H&P Update DATE OF PROCEDURE: January 30, 2022 DATE H&P PERFORMED: 01/24/22 H&P UPDATE INFORMATION: I have reviewed H&P completed within last 30 days, I have examined patient prior to procedure and No changes to prior documentation PREOP DIAGNOSIS: wound dehisence PLANNED PROCEDURE: Operation Date: 01/25/22 13:40 Proposed Procedures p Incision and Drainage WITH WOUND ENCLOSURE [id number](Not Applicable) - Edmond Peacock DO Operation Date: 01/28/22 13:15 Proposed Procedures p Incision and Drainage with wound closure(Not Applicable) - Edmond Peacock DO Operation Date: 01/30/22 07:30 Proposed Procedures p closure of posterior neck wound(Not Applicable) - Edmond Peacock DO
--- NOTE | 2022-01-30 07:15 | P.ANESUD_ITS ---
Pre-Anesthetic Update Pre-Anesthetic Assessment: Date of Surgery/Procedure: 01/30/22 Preop Janina gnosis: wound dehisence Proposed Procedure: Operation Date: 01/25/22 13:40 Proposed Procedures p Incision and Drainage WITH WOUND ENCLOSURE 35729(Not Applicable) - Edmondcammy Peacock, DO Operation Date: 01/28/22 13:15 Proposed Procedures p Incision and Drainage with wound closure(Not Applicable) - Edmond H Madonna, DO Operation Date: 01/30/22 07:30 Proposed Procedures p closure of posterior neck wound(Not Applicable) - Edmondcammy Carlos Caron, DO Any changes to Pre-Anesthetic Assessment?: No Last Intake: Intake Last Liquid Date 01/25/22 Last Liquid Time 08:00 Last Solid Date 01/24/22 Last Solid Time 22:30 Labs Last 48hrs: Short CBC 01/29/22 01/30/22 Range/Units 02:02 03:48 WBC 4.2 4.2 (4.0-10.0) 10^3/ uL Hgb 10.7 L 9.5 L (11.5-15.3) g/dL Hct 34.3 L 31.1 L (37.0-47.0) % MCV 85.1 85.7 (81-99) fl Plt Count 358 307 (130-400) 10^3/c mm Neut % (Auto) 87.5 60.4 % Neut # (Auto) 3.67 2.54 (1.8-7.7) 10^3/u L BMP 01/29/22 01/30/22 02:02 03:48 Sodium 133 L 136 Potassium 4.5 4.4 Chloride 98 101 Carbon Dioxide 26 28 BUN 9 9 Creatinine 0.5 0.5 Glucose 153 H 85 Calcium 8.7 8.6 Liver Function 01/29/22 01/30/22 Range/Units 02:02 03:48 Total Bilirubin 0.2 0.2 (0.15-1.2) mg/dL AST 39 H 54 H (0-32) U/L ALT 45 H 44 H (0-33) U/L Alkaline Phosphata se 75 81 (35-105) U/L Albumin 3.4 L 3.2 L (3.5-5.2) g/dL Coags 01/29/22 01/30/22 02:02 03:48 C-Reactive Protein 5.1 H 4.5 Vitals: Temperature 97.8 F 01/30/22 04:33 Temperature Source Temporal Artery S can 01/30/22 04:33 Pulse Rate 82 01/30/22 04:33 Pulse Rhythm 01/29/22 20:00 Pulse Strength 3+ Normal 01/29/22 20:00 Respiratory Rate 20 H 01/30/22 05:00 Respiratory Effort Non-Labored 01/30/22 05:00 Respiratory Depth Normal 01/30/22 05:00 Respiratory Patter n 01/30/22 01:53 Blood Pressure 147/79 01/30/22 04:33 Blood Pressure Arelis n 101 01/30/22 04:33 Blood Pressure Pos ition Sitting 01/29/22 03:10 Pulse Oximetry 98 01/30/22 04:33 Oxygen Delivery Me thod 01/29/22 20:17 Oxygen Flow Rate 2 01/29/22 20:00 Exam: Pre-Anes Outpt Exam: alert, oriented x 3, clear to auscultation bilaterally and regular rate & rhythm Cardiac Studies: No Data to Display
[2022-01-30] MEDS: dexamethasone 4 mg/mL INJ IVP (07:36)
[2022-01-30] MEDS: scopolamine 1.5 Patch 1 PATCH TRANSDERMA (07:38)
[2022-01-30] MEDS: ceFAZolin 2,000 MG in sodium chloride 0.9% (plus) 50 ML 100 MG IV (07:43)
[2022-01-30] MEDS: vancomycin 1,000 MG SDV 1000 MG XX (08:13)
--- NOTE | 2022-01-30 08:25 | PC.NURSE ---
PT LEFT M/S FLOOR AT APPROX. 0730 FOR PROCEDURE
--- NOTE | 2022-01-30 08:26 | XR_ITS ---
WS: [id number] Portable AP upright chest, 01/30/2022 Clinical Data: Post PICC insertion Comparison: Portable chest, 05/06/2019 Findings: The right PICC line enters the superior vena cava and ends in the distal superior vena cava . No pneumothorax is seen. The surgical changes with clips in the medial aspect of the right upper lo be and a surgical absence of the right sixth rib are seen. There are epidural stimulator wires ending in the mid epidural space. The patient has had a posterior cervical thoracic fusion. XR/XR chest 1V portable [id number] Impression: Satisfactory insertion of right PICC line.
--- NOTE | 2022-01-30 09:03 | PM.OP ---
Operative Report Date of procedure: January 30, 2022 Pre-op diagnosis: Preop Diagnosis Wound dehiscence Preop Diagnosis wound dehisence Post-op diagnosis: same Procedure done: 1. Removal of tissue postmaster 2. Complex layered closure of 8 in x 4 in x 1 in wound Surgeon: Edmond Peacock Specimen Accessioner: Michael Mccallum Specimen Accessioner: The surgical dressing maker, Michael Mccallum, HAYLEY was needed for his expertise with wounds. He was important and necessary throughout the procedure to complete in a safe and timely manner. He assisted with patient positioning prepping and draping tissue retraction suctioning of the operative field protection of the dural sac and tissue closure Estimated blood loss (mL): 5 Procedure: 1. Removal of tissue postmaster 2. Complex layered closure of 8 in x 4 in x 1 in wound Patient is brought to the operative suite after undergoing anesthesia was placed in the prone position. All areas impingement well-padded. The tissue postmaster that was applied on Friday was removed using scissors to remove stitches in the wiring and a stepper over with tiff. The hooks from the tissue postmaster were removed. The wound VAC was then removed. And then the patient's wound was prepped and draped in normal sterile fashion. The wound was irrigated out and then the wound which was 8 x 4 x 1inch was closed in a layered fashion using Prolene suture. Starting deep to close the space the wound was closed with Prolene and then nylon using a trauma type tension stitch to take tension off the skin edges. Sterile dressing was applied and patient was transferred to the PACU in stable condition.
[2022-01-30] MEDS: fentaNYL 50 mcg/mL INJ 2mL IVP (09:08)
[2022-01-30] MEDS: ipratropium-albuterol 3 mL Neb INHALATION ×3 (11:01→20:22)
[2022-01-30] MEDS: piperacillin-tazobactam 3.375 GM in sodium chloride 0.9% (plus) 50 ML IV ×2 (11:05→21:27)
[2022-01-30] MEDS: allopurinol 100 mg Tablet 200 MG PO (11:06)
[2022-01-30] MEDS: venlafaxine 75 mg Tablet PO (11:06)
[2022-01-30] MEDS: metoprolol tartrate 25 mg Tablet PO ×2 (11:06→18:09)
[2022-01-30] MEDS: lisinopril 20 mg Tablet PO (11:07)
[2022-01-30] MEDS: pantoprazole DR 40 mg Tablet PO (11:07)
[2022-01-30] MEDS: gabapentin 100 mg Capsule PO ×4 (11:07→21:27)
[2022-01-30] MEDS: docusate sodium 100 mg Capsule PO ×2 (11:08→18:08)
[2022-01-30] MEDS: lamoTRIgine 100 mg Tablet 50 MG PO ×2 (11:08→18:09)
--- NOTE | 2022-01-30 12:57 | PM.PN ---
Subjective Subjective: Patient was seen in postop recovery, she is in a bit of pain, no fevers overnight, no chest pain Vitals/I&O/Wt Last Vital Signs Temp 98.4 F 01/30/22 11:02 Pulse 80 01/30/22 11:04 Resp 16 01/30/22 11:04 BP 162/81 01/30/22 11:02 Pulse Ox 91 01/30/22 11:04 O2 Del Method 01/30/22 11:04 O2 Flow Rate 2 01/30/22 09:35 01/29/22 01/30/22 01/30/22 22:59 06:59 14:59 Intake Total 610 / 950 360 / 1310 650 / 650 Output Total 325 / 325 Balance 610 / 950 360 / 1310 325 / 325 Physical Exam Const: COMMON NORMALS: no acute distress and patient oriented x3 Resp: COMMON NORMALS: normal respiratory effort, No retractions, No use of accessory muscles and clear to auscultation bilaterally AUSCULTATION: clear to auscultation bilaterally Cardio: COMMON NORMALS: regular rate, regular rhythm, S1 normal heart sound present and S2 normal heart sound present RATE: regular rate RHYTHM: regular rhythm HEART SOUNDS: S1 normal heart sound present and S2 normal heart sound present GI: COMMON NORMALS: Normal to inspection, nondistended, normoactive bowel sounds present and non-tender Extremity: COMMON NORMALS: no pedal edema Neuro: COMMON NORMALS: patient oriented x3 Psych: COMMON NORMALS: mental status grossly normal Data : 01/30/22 03:48 01/30/22 03:48 Micro: Microbiology 01/28/22 18:05 Gram Stain - Final Neck A&P Assessment and plan (1) Wound dehiscence: (2) Status post cervical spinal fusion: (3) Cervical spondylosis with myelopathy: (4) Hyponatremia: (5) Gout, arthritis: (6) Nicotine addiction: (7) Seronegative rheumatoid arthritis: (8) High risk medication use: (9) Immunosuppression: (10) Sjogrens syndrome: (11) Adenocarcinoma of right lung, stage 1: Plan #Acute on Chronic hyponatremia, hypovolemic, possible SIADH #Cervical Surgical wound infection #Sjogren syndrome #Hypertension #Depression #Hx of lung cancer - Continue on vancomycin and zosyn at this time. -Follow blood cultures, so far negative -Follow intraoperative cultures -Patient is status post 1.? Irrigation and debridement of wound down to bone? (8in x 4in x 1 inch) of posterior cervical spine 2.? Application of wound VAC less than 50 cm squared 3.? Application of tissue special delivery clerk to posterior cervical spine -S/p complex layered closure, removal of tissue special delivery clerk -Infectious disease consulted -Has positive MRSA cultures on 01/21/2022, from the neck -Orders placed for PICC line, to be placed , likely will require at least 6 weeks of IV antibiotics, vancomycin -further antibiotics determined based on cultures Full Code DVT PPLX: Lovenox Attestations Medical Necessity Statement*: Patient requires hospitalization for cervical wound infection currently on IV antibiotic therapy, status post surgical invention Coding Level of Care Code Acute Charge Operator for [facility] Fwd Diagnoses Wound dehiscence T81.30XA Status post cervical spinal fusion Z98.1 Cervical spondylosis with myelopathy M47.12 Hyponatremia E87.1 Gout, arthritis M10.9 Nicotine addiction F17.200 Seronegative rheumatoid arthritis M06.00 High risk medication use Z79.899 Immunosuppression D89.9 Sjogrens syndrome M35.00 Adenocarcinoma of right lung, stage 1 C34.91
--- NOTE | 2022-01-30 13:54 | ANE.PACU2 ---
Inpatient post-anesthesia follow up: Airway intact: Yes Vital signs: Temperature 98.4 F Pulse Rate 80 Respiratory Rate 16 Blood Pressure 162/81 Pulse Oximetry 91 Oxygen Delivery Me thod Room Air Oxygen Flow Rate 2 Fraction of Inspir ed Oxygen Hydration adequate: Yes Nausea and vomiting: No Pain level: 1 Mental status: Baseline
[2022-01-30] MEDS: vancomycin 1,000 MG in sodium chloride 0.9% 250 ML 250 MG IV (17:02)
[2022-01-30] MEDS: lactated ringers 1,000 ML 90 ML IV (18:19)
[2022-01-31] VITALS (8 sets, daily range): BP systolic 115–158; BP diastolic 71–76; PULSE 66–75; RESP 15–19; TEMP 36.3–36.8; O2SAT 71–96
[2022-01-31] MEDS: vancomycin 1,000 MG in sodium chloride 0.9% 250 ML 250 MG IV (04:16)
[2022-01-31] MEDS: oxyCODONE 5 mg IR Tab/Cap 10 MG PO (04:21)
[2022-01-31 04:34] LABS: Basophils % 0.7 %; Eosinophils # 0.1 10^3/uL (0.0-0.8); Eosinophils % 1.4 %; Hematocrit 32.6 % (37.0-47.0); Hemoglobin 9.9 g/dL (11.5-15.3); Lymphocytes % 16.7 %; Mean Corpuscular HGB Conc 30.4 g/dL (30.0-36.0); Mean Corpuscular Hemoglobin 26.2 pg (28.0-34.0); Mean Corpuscular Volume 86.2 fl (81-99); Mean Platelet Volume 10.1 fL (7.4-10.4); Monocytes # 0.7 10^3/uL (0.2-0.9); Monocytes % 11.5 %; Neutrophils # 4.04 10^3/uL (1.8-7.7); Neutrophils % 69.5 %; Nucleated Red Blood Cells % 0 %; Platelet Count 357 10^3/cmm (130-400); Red Blood Count 3.78 10^6/uL (4.1-5.3); Red Cell Distribution Width 18.2 % (12.1-15.1); White Blood Count 5.8 10^3/uL (4.0-10.0)
[2022-01-31 04:53] LABS: Procalcitonin 0.02 ng/mL (0-0.5)
[2022-01-31 04:59] LABS: Alanine Aminotransferase 45 U/L (0-33); Albumin Level 3.6 g/dL (3.5-5.2); Alkaline Phosphatase 87 U/L (35-105); Anion Gap 14.3 (5-19); Aspartate Amino Transferase 44 U/L (0-32); Blood Urea Nitrogen 10 mg/dL (8-23); C Reactive Protein 4.4 mg/L (0.0-4.9); Calcium 9.1 mg/dL (8.5-10.5); Carbon Dioxide 28 mmol/L (22-29); Chloride 99 mmol/L (98-107); Globulin 3.1 g/dL (1.3-4.6); Glomerular Filtration Rate 123.1 mL/min (90-130); Glucose 71 mg/dL (65-115); Osmolality Calculated 282 mOsm/kg (285-295); Potassium 4.3 mmol/L (3.5-5.1); Sodium 137 mmol/L (136-145); Total Bilirubin 0.2 mg/dL (0.15-1.2); Total Protein 6.7 g/dL (6.6-8.7)
[2022-01-31] MEDS: lactated ringers 1,000 ML 90 ML IV (05:28)
[2022-01-31] MEDS: oxyCODONE 10 mg ER (12 HR) Tablet PO (05:29)
--- NOTE | 2022-01-31 07:03 | PM.PN ---
Subjective Subjective: Patient sitting up at the bedside. In good spirits. Denies chest pain, shortness of breath, headaches. She is ready for discharge home. Vitals/I&O/Wt Last Vital Signs Temp 98 F 01/31/22 04:00 Pulse 71 01/31/22 04:00 Resp 18 01/31/22 05:29 BP 115/71 01/31/22 04:00 Pulse Ox 96 01/31/22 04:21 O2 Del Method 01/31/22 04:00 O2 Flow Rate 2 01/30/22 09:35 01/30/22 01/31/22 01/31/22 22:59 06:59 14:59 Intake Total 540 / 1190 1370 / 2560 Balance 540 / 865 1370 / 2235 Physical Exam Narrative: She is alert and orient x3 she has good general appearance normal mood and affect. Wound with mild bloody drainage. Moving both upper extremities with 5/5 strength. Good sensation light touch in both hands radial pulses are palpable. Moving both lower extremities with 5 or 5 strength. Good sensation light touch 2+ dorsalis pedis posterior pulses. Data : 01/31/22 03:42 01/31/22 03:42 Micro: Microbiology 01/28/22 18:05 Gram Stain - Final Neck Anaerobic Culture - Preliminary Wound Culture - Preliminary Coag positive Staphylococcus 01/25/22 17:34 Blood Culture - Final Blood NO GROWTH AFTER 5 DAYS 01/25/22 17:30 Blood Culture - Final Blood NO GROWTH AFTER 5 DAYS A&P Assessment and plan (1) Wound dehiscence: Discussed with the nursing staff we will change her dressing apply Xeroform dressing followed by Silverlon island dressing. If we can coordinate home health care with antibiotics we can get her home today. See her back in the office in 1 week's time for wound check. Attestations Medical Necessity Statement*: Ready for discharge once antibiotic treatments are arranged. 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
--- NOTE | 2022-01-31 08:05 | PM.PN ---
Subjective Subjective: Infectious disease progress note. Since last being seen patient has now undergone removal of tissue ice cream maker and wound closure on January 30, 2022. Tolerated the procedure well. OR cultures now updated to also reflect MRSA, consistent with outpatient cultures obtained at the wound care clinic. She remains afebrile, hemodynamically stable no leukocytosis. PICC line placed. Anticipated discharge home. Medications: Reviewed: Yes Vitals/I&O/Wt Last Vital Signs Temp 98.3 F 01/31/22 07:10 Pulse 70 01/31/22 07:10 Resp 19 H 01/31/22 07:10 BP 158/76 01/31/22 07:10 Pulse Ox 95 01/31/22 07:10 O2 Del Method 01/31/22 04:00 O2 Flow Rate 2 01/30/22 09:35 01/30/22 01/31/22 01/31/22 22:59 06:59 14:59 Intake Total 540 / 1190 1370 / 2560 Balance 540 / 865 1370 / 2235 Physical Exam Narrative: General: No acute distress, AO x3 HEENT: PERRLA, pupils bilaterally equal and reactive, pallors not present Chest: Normal vesicular breath sounds, no added sounds, equal good air entry bilaterally CVS: S1-S2 regular, no murmurs, no tachycardia, no gallops, no rubs Abdomen: Soft, nontender, no organomegaly, bowel sounds present Neuro: No focal deficits, no facial deformity, AO x3, power 5/5 in all limbs Data : 01/31/22 03:42 01/31/22 03:42 Micro: Microbiology 01/28/22 18:05 Gram Stain - Final Neck Anaerobic Culture - Preliminary Wound Culture - Preliminary Coag positive Staphylococcus 01/25/22 17:34 Blood Culture - Final Blood NO GROWTH AFTER 5 DAYS 01/25/22 17:30 Blood Culture - Final Blood NO GROWTH AFTER 5 DAYS Gram Stain Final 01/29/22-1044 Result RARE WHITE BLOOD CELLS NO ORGANISMS SEEN Anaerobic Culture Preliminary 01/31/22-1543 NO ANAEROBES ISOLATED ON DAY 2 Anaerobic Culture Preliminary (changed) 01/30/22-1923 NO ANAEROBES ISOLATED ON DAY 1 Wound Culture Final 02/01/22-943 Organism 1 Methicillin Resis Staph Aureus Growth MODERATE DAY 3 CRITICAL RESULT YES/NO: YES CRITICAL CALLED BY: RT TO AND READ BACK BY: ALYX DATE: 02/01/22 TIME: 943 CRITICAL RES YES/NO: NO MRSA M.I.C. RX --------- ------ * Ampicillin >8 R * Ciprofloxacin >2 R * Clindamycin <=0.5 S * Erythromycin >4 R * Gentamicin <=4 S * Levofloxacin 4 I * Linezolid 2 S * Oxacillin >2 R * Penicillin >8 R * Rifampin <=1 S * Tetracycline <=4 S * Trimethoprim/Sulfamethoxazole <=0.5/9.5 S Vancomycin 1 S Daptomycin <=0.5 S A&P Assessment and plan (1) Sjogrens syndrome: (2) Wound dehiscence: (3) Wound infection complicating hardware: Plan 66F with PMH as above, cervical myelopathy s/p laminectomy and instrumentation 10/2021 with post op course notable marked by wound dehiscence, s/p I&D on 12/12 with wound cx showing staph lugdenensis at that time. Then established care with [facility], outpatient deep wound cx with MRSA on 01/21. Now most recently s/p I&D with wound vac placement on 01/28/22 and wound closure on 01/30/2022. OR cultures from January 28 also with growth of MRSA. This is consistent also with outpatient cultures showing MRSA. Discussed with orthopedic surgeon Dr. Peacock, no omer pus was encountered intraoperatively. No gross noted osteomyelitis or hardware involvement. Debridement was performed down to level of bone. CRP is not elevated, however this is a little tough to interpret at this point in time given that patient has been on an extended course of outpatient antibiotics. At a minimum given complicated deep seated MRSA infection with underlying hardware, will recommend at least 6 weeks of IV antibiotics with vancomycin with a goal trough of 15-20. Thereafter based on clinical course and inflammatory markers, will decide further course and outpatient follow-up. PICC line has been placed to facilitate above. While on vancomycin, recommend to obtain twice a week vancomycin trough and creatinine, to be faxed over to the infectious disease clinic for review. Follow-up in infectious disease clinic on February 21, 2022. Stable for discharge from an ID perspective. 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
[2022-01-31] MEDS: ipratropium-albuterol 3 mL Neb INHALATION (08:18)
[2022-01-31] MEDS: gabapentin 100 mg Capsule PO (09:27)
[2022-01-31] MEDS: metoprolol tartrate 25 mg Tablet PO (09:27)
[2022-01-31] MEDS: docusate sodium 100 mg Capsule PO (09:27)
[2022-01-31] MEDS: pantoprazole DR 40 mg Tablet PO (09:27)
[2022-01-31] MEDS: lamoTRIgine 100 mg Tablet 50 MG PO (09:28)
[2022-01-31] MEDS: lisinopril 20 mg Tablet PO (09:28)
[2022-01-31] MEDS: allopurinol 100 mg Tablet 200 MG PO (09:28)
--- NOTE | 2022-01-31 09:42 | PM.PN ---
Subjective Subjective: Patient was seen this morning, at bedside, she is doing well, she is ready to go home Vitals/I&O/Wt Last Vital Signs Temp 98.3 F 01/31/22 07:10 Pulse 66 01/31/22 09:18 Resp 18 01/31/22 09:18 BP 158/76 01/31/22 07:10 Pulse Ox 96 01/31/22 09:18 O2 Del Method 01/31/22 08:18 O2 Flow Rate 2 01/30/22 09:35 01/30/22 01/31/22 01/31/22 22:59 06:59 14:59 Intake Total 540 / 1190 1370 / 2560 50 / 50 Balance 540 / 865 1370 / 2235 50 / 50 Physical Exam Const: COMMON NORMALS: no acute distress and patient oriented x3 Resp: COMMON NORMALS: normal respiratory effort, No retractions, No use of accessory muscles and clear to auscultation bilaterally AUSCULTATION: clear to auscultation bilaterally Cardio: COMMON NORMALS: regular rate, regular rhythm, S1 normal heart sound present and S2 normal heart sound present RATE: regular rate RHYTHM: regular rhythm HEART SOUNDS: S1 normal heart sound present and S2 normal heart sound present GI: COMMON NORMALS: Normal to inspection, nondistended, normoactive bowel sounds present and non-tender Extremity: COMMON NORMALS: no pedal edema Neuro: COMMON NORMALS: patient oriented x3 Psych: COMMON NORMALS: mental status grossly normal Data : 01/31/22 03:42 01/31/22 03:42 Micro: Microbiology 01/28/22 18:05 Gram Stain - Final Neck Anaerobic Culture - Preliminary Wound Culture - Preliminary Coag positive Staphylococcus 01/25/22 17:34 Blood Culture - Final Blood NO GROWTH AFTER 5 DAYS 01/25/22 17:30 Blood Culture - Final Blood NO GROWTH AFTER 5 DAYS A&P Assessment and plan (1) Wound dehiscence: (2) Status post cervical spinal fusion: (3) Cervical spondylosis with myelopathy: (4) Hyponatremia: (5) Gout, arthritis: (6) Nicotine addiction: (7) Seronegative rheumatoid arthritis: (8) High risk medication use: (9) Immunosuppression: (10) Sjogrens syndrome: (11) Adenocarcinoma of right lung, stage 1: Plan #Acute on Chronic hyponatremia, hypovolemic, possible SIADH #Cervical Surgical wound infection #Sjogren syndrome #Hypertension #Depression #Hx of lung cancer -Follow blood cultures, so far negative -Follow intraoperative cultures, staph species -Patient is status post 1.? Irrigation and debridement of wound down to bone? (8in x 4in x 1 inch) of posterior cervical spine 2.? Application of wound VAC less than 50 cm squared 3.? Application of tissue mica laminating machine feeder to posterior cervical spine -S/p complex layered closure, removal of tissue mica laminating machine feeder -Infectious disease consulted -Has positive MRSA cultures on 01/21/2022, from the neck -For your vancomycin, 1 g IV every 12 hours, for 6 weeks -Through home health infusion [facility] -Please check CBC, CMP weekly -Next vancomycin trough tomorrow 02/01/2022, keep vancomycin trough between 15-20, recheck then February 08 -Have your primary care provider see you tomorrow, for vancomycin trough check, then again on the -Monitor for hypercoagulable and, if any calf pain, calf swelling go to emergency room Full Code DVT PPLX: Lovenox Attestations Medical Necessity Statement*: Patient will be discharged today Coding Level of Care Code 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
--- NOTE | 2022-01-31 11:39 | PC.SOCIAL ---
IMM Update pg 2 of IMM updated and reviewed w/ patient. Copy provided and Copy in chart dated and initialed.
[2022-01-31 16:59] LABS: Osmolality Serum 284 mOsm/kg (278-305)
--- NOTE | 2022-02-04 07:11 | P.DS_ITS ---
Discharge Providers Date of Admission: 01/26/22 09:20 Date of Discharge: January 31, 2022 Attending Provider at Admission: Edmond Peacock DO Attending Provider at Discharge: Edmond Peacock DO Primary Care Provider: Dilshad Ng MD Diagnoses at Discharge Discharge Diagnosis (1) Sjogrens syndrome: Status: Acute (2) Wound dehiscence: Status: Acute (3) Wound infection complicating hardware: Status: Acute Reason for Visit Reason for Visit: I&D W/ WOUND ENCLOSURE 18612/T81.30XA Hospital Course Hospital Course uneventful Discharge Data Studies Completed and Pending Completed Studies During Hospitalization Category Date Time Status XR chest 1V portable [id number] Routine Exams 01/30/22 08:26 Completed Pending at discharge Category Date Time Status Anaerobic Culture Routine Lab 01/28/22 18:05 Results Wound Culture and Gram Stain Routine Lab 01/28/22 18:05 Results Radiology Impressions Chest X-Ray 01/30/22 08:26 Impression: Satisfactory insertion of right PICC line. Laboratory Results WBC 5.8 10^3/uL (4.0-10.0) 01/31/22 03:42 RBC 3.78 10^6/uL (4.1-5.3) L 01/31/22 03:42 Hgb 9.9 g/dL (11.5-15.3) L 01/31/22 03:42 Hct 32.6 % (37.0-47.0) L 01/31/22 03:42 MCV 86.2 fl (81-99) 01/31/22 03:42 MCH 26.2 pg (28.0-34.0) L 01/31/22 03:42 MCHC 30.4 g/dL (30.0-36.0) 01/31/22 03:42 RDW 18.2 % (12.1-15.1) H 01/31/22 03:42 Plt Count 357 10^3/cmm (130-400) 01/31/22 03:42 MPV 10.1 fL (7.4-10.4) 01/31/22 03:42 Neut % (Auto) 69.5 % 01/31/22 03:42 Lymph % (Auto) 16.7 % 01/31/22 03:42 [place] % (Auto) 11.5 % 01/31/22 03:42 Eos % (Auto) 1.4 % 01/31/22 03:42 Baso % (Auto) 0.7 % 01/31/22 03:42 Neut # (Auto) 4.04 10^3/uL (1.8-7.7) 01/31/22 03:42 Lymph # (Auto) 1.0 10^3/uL (0.8-4.8) 01/31/22 03:42 [place] # (Auto) 0.7 10^3/uL (0.2-0.9) 01/31/22 03:42 Eos # (Auto) 0.1 10^3/uL (0.0-0.8) 01/31/22 03:42 Baso # (Auto) 0.0 10^3/uL (0.0-0.1) 01/31/22 03:42 Nucleated RBC % (auto) 0 % 01/31/22 03:42 Nucleated RBCs # 0.0 /100WBC 01/31/22 03:42 Sodium 137 mmol/L (136-145) 01/31/22 03:42 Potassium 4.3 mmol/L (3.5-5.1) 01/31/22 03:42 Chloride 99 mmol/L (98-107) 01/31/22 03:42 Carbon Dioxide 28 mmol/L (22-29) 01/31/22 03:42 Anion Gap 14.3 (5-19) 01/31/22 03:42 BUN 10 mg/dL (8-23) 01/31/22 03:42 Creatinine 0.5 mg/dL (0.5-0.9) 01/31/22 03:42 GFR Calculation 123.1 mL/min (90-130) 01/31/22 03:42 Glucose 71 mg/dL (65-115) 01/31/22 03:42 Serum Osmolality 284 mOsm/kg (278-305) 01/25/22 17:30 Calculated Osmolality 282 mOsm/kg (285-295) L 01/31/22 03:42 Uric Acid 2.9 mg/dL (2.4-5.7) 01/25/22 17:30 Calcium 9.1 mg/dL (8.5-10.5) 01/31/22 03:42 Magnesium 2.0 mg/dL (1.7-2.3) 01/31/22 03:42 Total Bilirubin 0.2 mg/dL (0.15-1.2) 01/31/22 03:42 AST 44 U/L (0-32) H 01/31/22 03:42 ALT 45 U/L (0-33) H 01/31/22 03:42 Alkaline Phosphatase 87 U/L (35-105) 01/31/22 03:42 C-Reactive Protein 4.4 mg/L (0.0-4.9) 01/31/22 03:42 Total Protein 6.7 g/dL (6.6-8.7) 01/31/22 03:42 Albumin 3.6 g/dL (3.5-5.2) 01/31/22 03:42 Globulin 3.1 g/dL (1.3-4.6) 01/31/22 03:42 Procalcitonin 0.02 ng/mL (0-0.5) 01/31/22 03:42 TSH 1.03 uIU/mL (0.27-4.20) 01/25/22 17:30 Random Cortisol 9.10 ug/dL (2.47-19.5) 01/25/22 17:30 Vancomycin Trough 14.8 ug/mL (10-15) 01/29/22 14:28 Ethyl Alcohol < 10 mg/dL (0-10) 01/25/22 17:30 Vitals Last Vital Signs Temp 98.3 F 01/31/22 07:10 Pulse 66 01/31/22 10:45 Resp 18 01/31/22 10:45 BP 158/76 01/31/22 07:10 Pulse Ox 96 01/31/22 10:45 O2 Del Method 01/31/22 08:18 O2 Flow Rate 2 01/30/22 09:35 Discharge Plan Discharge Patient Disposition: Home Condition: Stable Prescriptions: New oxycodone 10 mg tablet 10 mg PO Q4H PRN (Reason: pain) 7 Days Qty: 42 0RF vancomycin 1.5 gram recon soln 1 g IV Q12H 42 Days Qty: 10 0RF Continued metoprolol tartrate 25 mg tablet 25 mg PO BID lisinopril-hydrochlorothiazide 20-12.5 mg tablet 1 tab PO DAILY mometasone 50 mcg/actuation spray,non-aerosol 2 spray INTRANASAL DAILY Systane Ultra 0.4-0.3 % drops 1 drop ophthalmic (eye) ONCE PRN (Reason: Dry Eye(S)) Trintellix 20 mg tablet 20 mg PO DAILY lamotrigine [Lamictal] 100 mg tablet 50 mg PO BID albuterol sulfate 90 mcg/actuation HFA aerosol inhaler 1 inh INHALATION BID PRN (Reason: Shortness Of Breath) naproxen 500 mg tablet 500 mg PO BID PRN (Reason: Pain) gabapentin 100 mg capsule 100 mg PO QID tizanidine 4 mg capsule 4 mg PO TID PRN (Reason: Pain) Restasis MultiDose 0.05 % drops 1 drp ophthalmic (eye) Q12H Qty: 16.5 2RF (DME) Bone Growth Stimulator E0748 See Rx Instructions .Route .MEDSUPPLY Qty: 1 0RF Rx Instructions: As directed omeprazole 40 mg capsule,delayed release(DR/EC) 40 mg PO DAILY Qty: 90 1RF allopurinol 100 mg tablet 200 mg PO DAILY Qty: 180 1RF Hold Instructions: elevated LFT's Anoro Ellipta 62.5-25 mcg/actuation blister with device 1 inh INHALATION Q24H 60 Days Qty: 60 6RF prednisone 10 mg tablet 10 mg PO DIRECTED PRN (Reason: Pain) Rx Instructions: take 1 tab daily for 5 days prn flares PO; Belsomra 10 mg Tablet 10 mg PO BEDTIME Discontinued oxycodone [OxyContin] 10 mg tablet,oral only,ext.rel.12 hr 10 mg PO Q12H 7 Days Qty: 14 0RF oxycodone 10 mg Tablet 10 mg PO Q4H PRN (Reason: Pain) Discharge Orders: Discharge Order (Routine); Ordered 01/30/22 Ordered By: Edmond Peacock Referrals: [facility] [Provider Group] - 02/21/22 2:30 pm [facility] [Outside] [facility] ([facility]) [Outside] Edmond Peacock DO [Physician] - 02/07/22 8:15 am Dilshad Ng MD [Primary Care Provider] - 02/08/22 8:45 am Discharge Diet: Advance as tolerated Discharge Activity: Limit activity as instructed Patient Instructions: Oxycodone/Acetaminophen (By mouth), Debridement (GEN), PICC (Peripherally Inserted Central Catheter) (GEN), Opioid Safety Activity Restrictions/Additional Instructions: Thank you for choosing [facility] for your care! The following is a list of instructions, from your provider, to follow upon your discharge to ensure you have the optimal recovery from your recent injury or surgery. Anterior Cervical Discectomy and Fusion: What to Expect at Home Your Recovery Follow-up care is a bailey part of your treatment and safety. Be sure to make and go to all appointments, and call your doctor if you are having problems. If you do not already have a follow-up appointment made, call office in the next 1-3 days to make follow up appointment for 1 weeks at [phone]. It is also a good idea to know your test results and keep a list of the medicines you take. You can expect your neck to feel stiff or sore after surgery. This should improve in the weeks after surgery. But it may take 4 to 6 months for you to get better completely. You may have trouble sitting or standing in one position for very long and may need pain medicine in the weeks after your surgery. It may take 4 to 6 weeks to get back to your usual activities, but it may depend on what kind of surgery you had. Your throat will feel sore and it may be difficult to swallow for the first 3 days after your surgery. As long as you can get liquids down without difficulty, this should slowly improve, otherwise call our office or seek medical attention if it becomes increasingly difficult to get anything down including liquids. Avoid hot liquids for first 3-5 days. Soothing foods/liquids such as jello, pudding, and luke warm soups are recommended until swallowing improves. Staying elevated will also help, it's advised you keep propped up at while sleeping to help reduce the swelling. You may use an ice pack directly on your incision or around it on the front of your neck, using a cloth to protect your skin; and a heating pad to the back of your neck as needed. Do not use over the counter anti-inflammatory medications (Ibuprofen, Motrin, Aleve, Advil, etc) Taking these meds after having a fusion can delay fusion rates, we recommend you avoid them for the first 3 [address] after your surgery[address] Dr. Madonna may advise you to work with a physical therapist to strengthen the muscles around your neck and back - this will be discussed at your follow - up appointments. The pain or numbness you were having in your arms before surgery should get better or go away completely. This care sheet gives you a general idea about how long it will take for you to recover. But each person recovers at a different pace. Follow the steps below to get better as quickly as possible. How can you care for yourself at home? Activity ? Rest when you feel tired. Getting enough sleep will help you recover. ? Try to walk each day. Start by walking a little more than you did the day before. Bit by bit, increase the amount you walk. Walking boosts blood flow and helps prevent pneumonia and constipation. Walking may also decrease your muscle soreness after surgery. ? No lifting anything that is more that 5 pounds. This may include heavy grocery bags and milk containers, a heavy briefcase or backpack, cat litter or dog food bags, a child, or a vacuum core cleaner. ? Avoid strenuous activities, such as bicycle riding, jogging, weightlifting, or aerobic exercise, until your doctor says it is okay. ? Do not drive until your follow-up visit after your surgery, or until your doctor says it isokay. ? Avoid taking long car trips for 2 to 4 weeks after surgery. Your neck may become tired and painful from sitting too long in one position. ? You will probably need to take 4 to 6 weeks off from work. It depends on the type of work you do and how you feel. ? You may have sex as soon as you feel able, but avoid positions that put stress on your neck or cause pain. Diet ? You can eat your normal diet. If your stomach is upset, try bland, low-fat foods like plain rice, broiled chicken, toast, and yogurt ? Drink plenty of fluids. If you have kidney, heart, or liver disease and have to limit fluids, talk with your doctor before you increase the amount of fluids you drink. ? You may notice that your bowel movements are not regular right after your surgery. This is common. Try to avoid constipation and straining with bowel movements. You may want to take a fiber supplement every day. If you have not had a bowel movement after a couple of days, ask your doctor about taking a mild laxative. Medicines ? Take pain medicines exactly as directed. 1. If Dr. Peacock gave you a prescription medicine for pain, take lt as prescribed. 2. Do not take two or more pain medicines at the same time unless the doctor told you to. Many pain medicines have acetaminophen, which is Tylenol. Too much acetaminophen {Tylenol) can be harmful. 3. If you think your pain pill is making you sick to your stomach: 4. Take your pills after meals (unless your doctor has told you not to). 5. Ask your Dr. for a different pain pill. Incisioncare ? ? Keep dressing on at all times. We will change dressing for you if there is any drainage please let us know. ? Use a heating pad, hot water bottle, or gentle massage on your back to reduce stiffness. Avoid putting heat on your incision When should you call for help? ? Call 911 anytime you think you may need emergency care. For example, call if: ? You pass out (lose consciousness). ? You have sudden chest pain and shortness of breath, or you cough upblood. ? You cannot swallow. ? You have severe pain in your neck or back. ? Call your Dr. or seek immediate medical care if: ? You have pain that does not get better after you take pain pills. ? You have loose stitches, or your incision comes open. ? You have blood or fluid draining from the incision. ? You have signs of infection, such as: 1. Increased pain, swelling, warmth, or redness. 2. Red streaks leading from the site. 3. Pus draining from the site. 4. Swollen lymph nodes in your neck or armpits. 5. A fever. ? You have severe pain in your arms. ? You have new or increased weakness or numbness in your arms. ? Watch closely for any changes in your health, and be sure to contact your doctor if: ? You do not have a bowel movement after taking a laxative. -For your vancomycin, 1 g IV every 12 hours, for 6 weeks -Through [facility] infusion LOC[facility] -Please check CBC, CMP weekly -Next vancomycin trough tomorrow 02/01/2022, keep vancomycin trough between 15- 20, recheck then February 08 -Have your primary care provider see you tomorrow, for vancomycin trough check, then again on the 28th -Monitor for hypercoagulable and, if any calf pain, calf swelling go to emergency room -Please hold all rheumatoid arthritis medications, for at least 6 weeks, follow- up with rheumatology Discharge Attestations Time Spent in Discharge Care*: less than 30 min Status at Discharge: Cognitive status at discharge: cognitively intact , Behavioral status at discharge: cooperative , Quality Metrics Clinical Quality Measures [ No reported AMI, CVA or VTE this stay] Coding Level of Care Code Acute g DC note Diagnoses Sjogrens syndrome M35.00 Wound dehiscence T81.30XA Wound infection complicating hardware T84.7XXA
== END 2022-01-31 12:00 | disposition home or self-care (01) | DRG 857 ==
LOC: OR 01-28 06:36 → MEDSURG 01-28 06:36
PROVIDERS: Anesthesiology; Family Medicine; Internal Medicine; Admitting Provider Orthopaedic Surgery; PCP Family Medicine; Visit Provider Orthopaedic Surgery
PROC: 0PB30ZZ Excision of Cervical Vertebra, Open Approach (ICD-10-PCS; principal; 2022-01-28 13:05)
PROC: 0WQ Anatomical Regions, General, Repair (ICD-10-PCS; principal; 2022-01-30 07:30)
DX: T81.43XA Infection following a procedure, organ and space surgical site, initial encounter (principal); D84.821 Immunodeficiency due to drugs; E22.2 Syndrome of inappropriate secretion of antidiuretic hormone; T81.32XA Disruption of internal operation (surgical) wound, not elsewhere classified, initial encounter; Y79.8 Miscellaneous orthopedic devices associated with adverse incidents, not elsewhere classified; Z85.118 Personal history of other malignant neoplasm of bronchus and lung; Z98.1 Arthrodesis status; B95.62 Methicillin resistant Staphylococcus aureus infection as the cause of diseases classified elsewhere; Z90.2 Acquired absence of lung [part of]; J44.9 Chronic obstructive pulmonary disease, unspecified; M35.00 Sjogren syndrome, unspecified; M06.00 Rheumatoid arthritis without rheumatoid factor, unspecified site; Z96.82 Presence of neurostimulator; F17.210 Nicotine dependence, cigarettes, uncomplicated; M10.9 Gout, unspecified; Z79.52 Long term (current) use of systemic steroids; I10 Essential (primary) hypertension
CPT/HCPCS: 36415; 36569; 71045; 72040; 80048; 80053; 80202; 80307; 82533; 83735; 83930; 84145; 84295; 84443; 84550; 85025; 86140; 87040; 87070; 87075; 87077; 87176; 87186; 87205; 94640; 97530; C1763; J1100; J1200; J1885; J2250; J2370; J2405; J2543; J2704; J2710; J3010; J3370; J3490; J7030; J7050; J7070; J7120; Q3014

== ENCOUNTER 2022-02-01 09:44 | Outpatient (CLI) | payer MEDICARE, OTHER, SELFPAY ==
[2022-02-01 10:34] LABS: Vancomycin Trough 10.9 ug/mL (10-15)
== END 2022-02-01 09:45 | disposition home or self-care (01) ==
LOC: RAD 09:46
PROVIDERS: PCP Family Medicine; Visit Provider Student in an Organized Health Care Education/Training Program
DX: T81.31XA Disruption of external operation (surgical) wound, not elsewhere classified, initial encounter (principal)
CPT/HCPCS: 80202

== ENCOUNTER 2022-02-04 07:22 | Outpatient (CLI) | payer MEDICARE, OTHER, SELFPAY ==
[2022-02-04 07:35] LABS: Basophils # 0.1 10^3/uL (0.0-0.1); Basophils % 1.6 %; Eosinophils # 0.2 10^3/uL (0.0-0.8); Eosinophils % 4.9 %; Hematocrit 35.3 % (37.0-47.0); Hemoglobin 11.3 g/dL (11.5-15.3); Lymphocytes % 20.8 %; Mean Corpuscular Hemoglobin 26.2 pg (28.0-34.0); Mean Corpuscular Volume 81.9 fl (81-99); Mean Platelet Volume 9.7 fL (7.4-10.4); Monocytes # 0.9 10^3/uL (0.2-0.9); Monocytes % 18.1 %; Neutrophils % 53.8 %; Nucleated Red Blood Cells % 0 %; Platelet Count 454 10^3/cmm (130-400); Red Blood Count 4.31 10^6/uL (4.1-5.3); Red Cell Distribution Width 18.4 % (12.1-15.1); White Blood Count 4.9 10^3/uL (4.0-10.0)
[2022-02-04 08:02] LABS: Alanine Aminotransferase 42 U/L (0-33); Albumin Level 3.6 g/dL (3.5-5.2); Alkaline Phosphatase 88 U/L (35-105); Blood Urea Nitrogen 8 mg/dL (8-23); C Reactive Protein 6.7 mg/L (0.0-4.9); Globulin 3.5 g/dL (1.3-4.6); Glomerular Filtration Rate 221.9 mL/min (90-130); Total Bilirubin 0.3 mg/dL (0.15-1.2); Total Protein 7.1 g/dL (6.6-8.7)
[2022-02-04 08:04] LABS: Aspartate Amino Transferase 53 U/L (0-32)
== END 2022-02-04 07:23 | disposition home or self-care (01) ==
LOC: LAB 07:25
PROVIDERS: PCP Family Medicine; Visit Provider Student in an Organized Health Care Education/Training Program
DX: T81.31XA Disruption of external operation (surgical) wound, not elsewhere classified, initial encounter (principal)
CPT/HCPCS: 80076; 80202; 82565; 84520; 85025; 86140

== ENCOUNTER 2022-02-07 10:03 | Outpatient (CLI) | payer MEDICARE, OTHER, SELFPAY ==
[2022-02-07 18:15] LABS: Basophils # 0.1 10^3/uL (0.0-0.1); Basophils % 1.4 %; Eosinophils # 0.3 10^3/uL (0.0-0.8); Hematocrit 32.7 % (37.0-47.0); Hemoglobin 10.3 g/dL (11.5-15.3); Lymphocytes # 1.5 10^3/uL (0.8-4.8); Lymphocytes % 23.8 %; Mean Corpuscular HGB Conc 31.5 g/dL (30.0-36.0); Mean Corpuscular Volume 82.6 fl (81-99); Mean Platelet Volume 10.5 fL (7.4-10.4); Monocytes # 0.8 10^3/uL (0.2-0.9); Monocytes % 12.2 %; Neutrophils # 3.65 10^3/uL (1.8-7.7); Neutrophils % 57.1 %; Nucleated Red Blood Cells % 0 %; Platelet Count 469 10^3/cmm (130-400); Red Blood Count 3.96 10^6/uL (4.1-5.3); Red Cell Distribution Width 18.5 % (12.1-15.1); White Blood Count 6.4 10^3/uL (4.0-10.0)
[2022-02-07 18:40] LABS: Alanine Aminotransferase 34 U/L (0-33); Albumin Level 3.5 g/dL (3.5-5.2); Alkaline Phosphatase 83 U/L (35-105); Blood Urea Nitrogen 7 mg/dL (8-23); C Reactive Protein 4.1 mg/L (0.0-4.9); Globulin 3.4 g/dL (1.3-4.6); Glomerular Filtration Rate 221.9 mL/min (90-130); Total Bilirubin 0.2 mg/dL (0.15-1.2); Total Protein 6.9 g/dL (6.6-8.7)
[2022-02-07 18:41] LABS: Vancomycin Trough 13.1 ug/mL (10-15)
[2022-02-07 18:46] LABS: Aspartate Amino Transferase 41 U/L (0-32)
== END 2022-02-07 10:04 | disposition home or self-care (01) ==
LOC: LAB 02-11 10:04
PROVIDERS: PCP Family Medicine; Visit Provider Student in an Organized Health Care Education/Training Program
DX: T81.31XA Disruption of external operation (surgical) wound, not elsewhere classified, initial encounter (principal); Y83.8 Other surgical procedures as the cause of abnormal reaction of the patient, or of later complication, without mention of misadventure at the time of the procedure; Z48.89 Encounter for other specified surgical aftercare
CPT/HCPCS: 80076; 80202; 82565; 84520; 85025; 86140; 99024

== ENCOUNTER 2022-02-11 | Outpatient (CLI) | payer MEDICARE, OTHER, SELFPAY ==
[2022-02-11 19:22] LABS: Basophils # 0.1 10^3/uL (0.0-0.1); Basophils % 1.2 %; Eosinophils # 0.4 10^3/uL (0.0-0.8); Eosinophils % 5.3 %; Hematocrit 30.9 % (37.0-47.0); Hemoglobin 9.9 g/dL (11.5-15.3); Lymphocytes # 1.5 10^3/uL (0.8-4.8); Lymphocytes % 21.3 %; Mean Corpuscular Hemoglobin 26.1 pg (28.0-34.0); Mean Corpuscular Volume 81.5 fl (81-99); Mean Platelet Volume 10.1 fL (7.4-10.4); Monocytes # 0.8 10^3/uL (0.2-0.9); Monocytes % 12.2 %; Neutrophils # 4.06 10^3/uL (1.8-7.7); Neutrophils % 59.4 %; Nucleated Red Blood Cells % 0 %; Platelet Count 483 10^3/cmm (130-400); Red Blood Count 3.79 10^6/uL (4.1-5.3); Red Cell Distribution Width 18.6 % (12.1-15.1); White Blood Count 6.8 10^3/uL (4.0-10.0)
[2022-02-11 20:08] LABS: Alanine Aminotransferase 48 U/L (0-33); Albumin Level 3.4 g/dL (3.5-5.2); Alkaline Phosphatase 83 U/L (35-105); Anion Gap 13.8 (5-19); Aspartate Amino Transferase 69 U/L (0-32); Blood Urea Nitrogen 12 mg/dL (8-23); Calcium 8.9 mg/dL (8.5-10.5); Carbon Dioxide 26 mmol/L (22-29); Chloride 96 mmol/L (98-107); Globulin 3.3 g/dL (1.3-4.6); Glomerular Filtration Rate 83.5 mL/min (90-130); Glucose 73 mg/dL (65-115); Osmolality Calculated 272 mOsm/kg (285-295); Potassium 3.8 mmol/L (3.5-5.1); Sodium 132 mmol/L (136-145); Total Bilirubin 0.2 mg/dL (0.15-1.2); Total Protein 6.7 g/dL (6.6-8.7)
[2022-02-11 23:52] LABS: Vancomycin Trough 26.2 ug/mL (10-15)
== END 2022-02-11 23:00 | disposition home or self-care (01) ==
LOC: LAB 02-18 22:31
PROVIDERS: Nurse Practitioner Family; PCP Family Medicine; Visit Provider Student in an Organized Health Care Education/Training Program
DX: T81.31XA Disruption of external operation (surgical) wound, not elsewhere classified, initial encounter (principal)
CPT/HCPCS: 80053; 80202; 85025

== ENCOUNTER → 2022-02-12 08:16 | Outpatient (BNVA) | payer MEDICARE, OTHER, SELFPAY | PROVIDERS: PCP Family Medicine; Visit Provider Orthopaedic Surgery | DX: Z47.89 Encounter for other orthopedic aftercare (principal) | CPT/HCPCS: 99024 ==

== ENCOUNTER 2022-02-12 12:36 | Emergency (ER) | payer MEDICARE, OTHER, SELFPAY ==
[2022-02-12 12:45] VITALS: BP 170/90; PULSE 92; RESP 16; TEMP 36.8; O2SAT 96; BMI 20.5
--- NOTE | 2022-02-12 13:21 | USCV_ITS ---
Lisa Barnes Age: 66 Gender: F : 1955 Exam Date: 02/12/2022 13:55 Ordering Phys: Cruz Nicole Technologist: PJ Exam Location: [facility] [place] Indication: RUE PAIN. PICC LINE HISTORY: Upper extremity swelling. Upper extremity pain. PROCEDURES: Venous duplex imaging was performed in only the right upper extremity. The following venous structures were evaluated: internal jugular vein, subclavian vein, axillary vein, and brachial veins. In addition, the basilic vein, cephalic vein, radial vein, and ulnar vein. Serial compression, augmentation maneuvers, and spectral Doppler flow evaluation were performed. FINDINGS: The veins of the right upper extremity are readily compressible with normal venous flow dynamics including spontaneous flow, respiratory phasic variation and augmentation. No evidence of deep vein thrombosis in the right upper extremity. Non compressible Cephalic V seen from Mid Upper Arm-Prox forearm CONCLUSIONS No evidence of Deep venous thrombus of the right upper extremity veins. Superficial thrombus/thrombophlebitis cephalic vein from mid upper arm to proximal forearm below elbow Steve Roberson MD (Electronically Signed) Final Date: 12 February 2022 16:16 S
--- NOTE | 2022-02-12 13:29 | ED_ITS ---
Documented by User: [email or web address] Correa 02/13/22 08:13 HPI - Extremity Problem General: Chief complaint: Extremity Problem,Nontraumatic Stated complaint: right arm pain Time Seen by Provider: 02/12/22 12:57 History of Present Illness: Patient is a 66-year-old female comes to the ED with PICC line complaint. Patient currently has a PICC line in her right arm. She has been treated for MRSA with IV antibiotics. She is having some pain and soreness at PICC line site. Denies any redness, warmth or purulent drainage. Denies any fevers. Associated symptoms: Deny chest pain, fever(s) or rash Review of Systems Const: Denies: fever(s), chills or fatigue Eyes: Denies: change in vision or eye discomfort ENMT: Denies: throat pain, odynophagia, nasal discharge or nasal congestion Card: Denies: chest pain, palpitations, edema, swelling of feet/ankles, dyspnea on exertion or orthopnea Resp: Denies: dyspnea, productive cough or non-productive cough GI: Denies: abdominal pain, nausea, vomiting, diarrhea, constipation or hematochezia : Denies: flank pain, dysuria or hematuria Musc: Reports: extremity pain (Pain around PICC line in right arm); Denies: neck pain, back pain or extremity swelling Skin/Breast: Denies: rash or new lesions Neuro: Denies: headache(s), numbness in extremities or weakness in extremities PFS ED PFSH: Medical History Adenocarcinoma of right lung, stage 1 Arthropathy of cervical facet joint Cellulitis of right anterior lower leg Cervical radiculopathy due to degenerative joint disease of spine COPD (chronic obstructive pulmonary disease) Gout, arthritis High risk medication use Immunization counseling Immunosuppression Inflammatory arthritis Intervertebral disc disorder with radiculopathy of lumbar region Intervertebral disc disorder with radiculopathy of lumbosacral region Low back pain radiating down leg Lumbar stenosis with neurogenic claudication Lung nodule, solitary Mixed stress and urge urinary incontinence Neck pain Osteoporosis Pain and swelling of right knee Primary Sjogren's syndrome Seronegative rheumatoid arthritis Seronegative rheumatoid arthritis Sjogrens syndrome Spondylolisthesis at L4-L5 level Spondylolisthesis at L5-S1 level Spondylolisthesis, cervical region Spondylolisthesis, lumbar region Thoracic disc disease Vaginal atrophy Surgical History History of D&C 4x History of decompression of ulnar nerve Right History of ear surgery (04/17/17) Right History of hysterectomy (10/29/16) with Vaginal Repair, Total S/P insertion of spinal cord stimulator Thoracic spinal cord stimulator implantation via laminotomy ([employer]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), 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, [facility] [place] Family History Mother Hypertension Diabetes Stroke Cancer Uterine Grandmother Diabetes Maternal Heart disease Father Heart disease Grandfather Heart disease Sister Cancer Uterine Social History Smoking and tobacco status: current every day smoker cigarettes Packs smoked per day: 1 Years cigarettes smoked: 41 [ Other cigarette details: Hx of of 1PPD x 41 Years] Quit status (tobacco): considering quitting Second hand smoke exposure: Yes Smoking risk assessment/counseling performed?: Yes Alcohol intake: former Counseling given: No Counseling given: No Lives independently: Yes Household members: spouse Marital status: Current occupational status: disabled History of recent travel: No Current gender identity: Female Physical Exam Const: COMMON NORMALS: no acute distress, patient oriented x3 and alert GENERAL APPEARANCE: cooperative and comfortable HENMT: COMMON NORMALS: normocephalic HEAD & SCALP: normocephalic MOUTH: Normal oral and palatal mucosa present THROAT: posterior oropharynx normal and uvula midline Eye: COMMON NORMALS: Equal, round and reactive pupils present PUPIL: Yes Equal, round and reactive pupils present Neck/C-Spine: COMMON NORMALS: supple GENERAL: Yes normal visual inspection Resp: COMMON NORMALS: normal respiratory effort, No retractions, No use of accessory muscles and clear to auscultation bilaterally AUSCULTATION: clear to auscultation bilaterally Cardio: COMMON NORMALS: regular rate, regular rhythm, S1 normal heart sound present, S2 normal heart sound present, No gallops present (Cardio), No clicks present (Cardio), No murmurs present (Cardio) and Peripheral pulses 2+ throughout RATE: regular rate RHYTHM: regular rhythm HEART SOUNDS: S1 normal heart sound present and S2 normal heart sound present PERIPHERAL PULSES: Peripheral pulses 2+ throughout GI: COMMON NORMALS: Normal to inspection, nondistended, normoactive bowel sounds present, Soft to palpation, non-tender and no masses PALPATION: Yes Soft to palpation : COMMON NORMALS: Yes no CVA tenderness BLADDER/KIDNEY EXAM: Yes no CVA tenderness Back/Pelvis: COMMON NORMALS: no CVA tenderness Extremity: NARRATIVE EXTREMITY EXAM: Right arm PICC line?no erythema, warmth or purulent drainage seen. Patient has some tenderness to palpation around PICC line. No palpable nodule or mass noted. Neuro: COMMON NORMALS: patient oriented x3 SENSORIUM/ORIENTATION: Yes alert GAIT: Yes Normal gait present Skin: GENERAL SKIN EXAM: dry skin Course Vital Signs: Vital signs: Vital Signs Temperature 98.5 F 02/12/22 14:55 Pulse Rate 89 02/12/22 14:55 Respiratory Rate 15 02/12/22 14:55 Blood Pressure 159/82 02/12/22 14:55 Pulse Oximetry 94 02/12/22 14:55 Oxygen Delivery Me thod 02/12/22 12:45 MDM - Extremity (Nontraumatic) Medical Decision Making Patient is a 66-year-old female comes to the ED with pain around PICC line. Right arm PICC line?no erythema, warmth or purulent drainage seen. Patient has some tenderness to palpation around PICC line. No palpable nodule or mass noted. Ultrasound of right arm showed no DVTs but did note a superficial thrombus of cephalic vein. Patient was stable for discharge home and told to use warm compresses to treat superficial thrombus. She was told to follow-up with her PCP to reevaluate and see if superficial thrombus has resolved in 3 days. Strict return ED precautions given. Patient understood and agreed with plan. I discussed case with Dr. Blankenship he agreed with plan. Discharge Plan Discharge Patient Disposition: Home Clinical Impression: Superficial venous thrombosis of right arm Condition: Stable Prescriptions: No Action metoprolol tartrate 25 mg tablet 25 mg PO BID lisinopril-hydrochlorothiazide 20-12.5 mg tablet 1 tab PO DAILY mometasone 50 mcg/actuation spray,non-aerosol 2 spray INTRANASAL DAILY Systane Ultra 0.4-0.3 % drops 1 drop ophthalmic (eye) ONCE PRN (Reason: Dry Eye(S)) Trintellix 20 mg tablet 20 mg PO DAILY lamotrigine [Lamictal] 100 mg tablet 50 mg PO BID albuterol sulfate 90 mcg/actuation HFA aerosol inhaler 1 inh INHALATION BID PRN (Reason: Shortness Of Breath) naproxen 500 mg tablet 500 mg PO BID PRN (Reason: Pain) gabapentin 100 mg capsule 100 mg PO QID tizanidine 4 mg capsule 4 mg PO TID PRN (Reason: Pain) Restasis MultiDose 0.05 % drops 1 drp ophthalmic (eye) Q12H Qty: 16.5 2RF (DME) Bone Growth Stimulator E0748 See Rx Instructions .Route .MEDSUPPLY Qty: 1 0RF Rx Instructions: As directed omeprazole 40 mg capsule,delayed release(DR/EC) 40 mg PO DAILY Qty: 90 1RF allopurinol 100 mg tablet 200 mg PO DAILY Qty: 180 1RF Hold Instructions: elevated LFT's Anoro Ellipta 62.5-25 mcg/actuation blister with device 1 inh INHALATION Q24H 60 Days Qty: 60 6RF prednisone 10 mg tablet 10 mg PO DIRECTED PRN (Reason: Pain) Rx Instructions: take 1 tab daily for 5 days prn flares PO; Belsomra 10 mg Tablet 10 mg PO BEDTIME vancomycin 1.5 gram recon soln 1 g IV Q12H 42 Days Qty: 10 0RF Discharge Orders: Discharge ED (Routine); Ordered 02/12/22 Ordered By: Cruz Nicole Referrals: Dilshad Ng MD [Primary Care Provider] - Discharge Diet: Regular Discharge Activity: Increase activity as tolerated Patient Instructions: Superficial Thrombophlebitis (ED) Activity Restrictions/Additional Instructions: Follow-up with medical provider as directed in the next 2 to 3 days for reevaluation. Warm compresses on sore area of arm to help with symptoms. Continue taking all home medications as previously prescribed. Return to the ER or your medical provider if condition worsens. Please read and understand discharge instructions. Thank you for choosing [facility] for your healthcare needs today. Please realize this is an emergency room and that we are providing you with a medical screening exam and this may not be complete and all inclusive of all the testing and or work up that you may need to determine your ailment or severity of your illness. It is very important that you follow up as instructed or that you return to the Emergency Department should you have concerns or if your condition changes or worsens in any way. Coding Level of Care Code ED Medical Services Manager for Chg Fwd Exam Comprehensive Documented by User: Corey Blankenship DO 02/14/22 07:27 HPI - Extremity Problem General: Chief complaint: Extremity Problem,Nontraumatic Stated complaint: right arm pain Time Seen by Provider: 02/12/22 12:57 PFSH ED PFSH: Medical History Adenocarcinoma of right lung, stage 1 Arthropathy of cervical facet joint Cellulitis of right anterior lower leg Cervical radiculopathy due to degenerative joint disease of spine COPD (chronic obstructive pulmonary disease) Gout, arthritis High risk medication use Immunization counseling Immunosuppression Inflammatory arthritis Intervertebral disc disorder with radiculopathy of lumbar region Intervertebral disc disorder with radiculopathy of lumbosacral region Low back pain radiating down leg Lumbar stenosis with neurogenic claudication Lung nodule, solitary Mixed stress and urge urinary incontinence Neck pain Osteoporosis Pain and swelling of right knee Primary Sjogren's syndrome Seronegative rheumatoid arthritis Seronegative rheumatoid arthritis Sjogrens syndrome Spondylolisthesis at L4-L5 level Spondylolisthesis at L5-S1 level Spondylolisthesis, cervical region Spondylolisthesis, lumbar region Thoracic disc disease Vaginal atrophy Surgical History History of D&C 4x History of decompression of ulnar nerve Right History of ear surgery (04/17/17) Right History of hysterectomy (10/29/16) with Vaginal Repair, Total S/P insertion of spinal cord stimulator Thoracic spinal cord stimulator implantation via laminotomy ([employer]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), 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, [facility] [place] Family History Mother Hypertension Diabetes Stroke Cancer Uterine Grandmother Diabetes Maternal Heart disease Father Heart disease Grandfather Heart disease Sister Cancer Uterine Social History Smoking and tobacco status: current every day smoker cigarettes Packs smoked per day: 1 Years cigarettes smoked: 41 [ Other cigarette details: Hx of of 1PPD x 41 Years] Quit status (tobacco): considering quitting Second hand smoke exposure: Yes Smoking risk assessment/counseling performed?: Yes Alcohol intake: former Counseling given: No Counseling given: No Lives independently: Yes Household members: spouse Marital status: Current occupational status: disabled History of recent travel: No Current gender identity: Female Course Vital Signs: Vital signs: Vital Signs Temperature 98.5 F 02/12/22 14:55 Pulse Rate 89 02/12/22 14:55 Respiratory Rate 15 02/12/22 14:55 Blood Pressure 159/82 02/12/22 14:55 Pulse Oximetry 94 02/12/22 14:55 Oxygen Delivery Me thod 02/12/22 12:45 MDM - Extremity (Nontraumatic) Medical Decision Making Patient is a 66-year-old female comes to the ED with pain around PICC line. Right arm PICC line?no erythema, warmth or purulent drainage seen. Patient has some tenderness to palpation around PICC line. No palpable nodule or mass noted. Ultrasound of right arm showed no DVTs but did note a superficial thrombus of cephalic vein. Patient was stable for discharge home and told to use warm compresses to treat superficial thrombus. She was told to follow-up with her PCP to reevaluate and see if superficial thrombus has resolved in 3 days. Strict return ED precautions given. Patient understood and agreed with plan. I discussed case with Dr. Blankenship he agreed with plan. Chart reviewed and patient discussed with midlevel. Agree with assessment and plan. Discharge Plan Discharge Patient Disposition: Home Clinical Impression: Superficial venous thrombosis of right arm Condition: Stable Prescriptions: No Action metoprolol tartrate 25 mg tablet 25 mg PO BID lisinopril-hydrochlorothiazide 20-12.5 mg tablet 1 tab PO DAILY mometasone 50 mcg/actuation spray,non-aerosol 2 spray INTRANASAL DAILY Systane Ultra 0.4-0.3 % drops 1 drop ophthalmic (eye) ONCE PRN (Reason: Dry Eye(S)) Trintellix 20 mg tablet 20 mg PO DAILY lamotrigine [Lamictal] 100 mg tablet 50 mg PO BID albuterol sulfate 90 mcg/actuation HFA aerosol inhaler 1 inh INHALATION BID PRN (Reason: Shortness Of Breath) naproxen 500 mg tablet 500 mg PO BID PRN (Reason: Pain) gabapentin 100 mg capsule 100 mg PO QID tizanidine 4 mg capsule 4 mg PO TID PRN (Reason: Pain) Restasis MultiDose 0.05 % drops 1 drp ophthalmic (eye) Q12H Qty: 16.5 2RF (DME) Bone Growth Stimulator E0748 See Rx Instructions .Route .MEDSUPPLY Qty: 1 0RF Rx Instructions: As directed omeprazole 40 mg capsule,delayed release(DR/EC) 40 mg PO DAILY Qty: 90 1RF allopurinol 100 mg tablet 200 mg PO DAILY Qty: 180 1RF Hold Instructions: elevated LFT's Anoro Ellipta 62.5-25 mcg/actuation blister with device 1 inh INHALATION Q24H 60 Days Qty: 60 6RF prednisone 10 mg tablet 10 mg PO DIRECTED PRN (Reason: Pain) Rx Instructions: take 1 tab daily for 5 days prn flares PO; Belsomra 10 mg Tablet 10 mg PO BEDTIME vancomycin 1.5 gram recon soln 1 g IV Q12H 42 Days Qty: 10 0RF Discharge Orders: Discharge ED (Routine); Ordered 02/12/22 Ordered By: Cruz Nicole Referrals: Dilshad Ng MD [Primary Care Provider] - Discharge Diet: Regular Discharge Activity: Increase activity as tolerated Patient Instructions: Superficial Thrombophlebitis (ED) Activity Restrictions/Additional Instructions: Follow-up with medical provider as directed in the next 2 to 3 days for reevaluation. Warm compresses on sore area of arm to help with symptoms. Continue taking all home medications as previously prescribed. Return to the ER or your medical provider if condition worsens. Please read and understand discharge instructions. Thank you for choosing [facility] for your healthcare needs today. Please realize this is an emergency room and that we are providing you with a medical screening exam and this may not be complete and all inclusive of all the testing and or work up that you may need to determine your ailment or severity of your illness. It is very important that you follow up as instructed or that you return to the Emergency Department should you have concerns or if your condition changes or worsens in any way. Coding Level of Care Code ED Medical Services Manager for Dimple Fwd Exam Comprehensive
[2022-02-12 14:55] VITALS: BP 159/82; PULSE 89; RESP 15; TEMP 36.9; O2SAT 94
== END 2022-02-12 15:05 | disposition home or self-care (01) ==
PROVIDERS: Emergency Provider Physician Assistant; PCP Family Medicine
DX: I82.611 Acute embolism and thrombosis of superficial veins of right upper extremity (principal); F17.210 Nicotine dependence, cigarettes, uncomplicated; Z85.118 Personal history of other malignant neoplasm of bronchus and lung; J44.9 Chronic obstructive pulmonary disease, unspecified
CPT/HCPCS: 93971; 99283

== ENCOUNTER 2022-02-13 09:30 | Outpatient (CLI) | payer MEDICARE, OTHER, SELFPAY ==
[2022-02-13 10:09] LABS: Alanine Aminotransferase 36 U/L (0-33); Alkaline Phosphatase 91 U/L (35-105); C Reactive Protein 27.7 mg/L (0.0-4.9); Globulin 3.4 g/dL (1.3-4.6); Glomerular Filtration Rate 62.5 mL/min (90-130); Total Bilirubin 0.4 mg/dL (0.15-1.2); Total Protein 7.4 g/dL (6.6-8.7); Vancomycin Trough 17.6 ug/mL (10-15)
[2022-02-13 10:10] LABS: Aspartate Amino Transferase 46 U/L (0-32)
== END 2022-02-13 09:31 | disposition home or self-care (01) ==
LOC: LAB 09:31
PROVIDERS: PCP Family Medicine; Visit Provider Student in an Organized Health Care Education/Training Program
DX: T81.31XA Disruption of external operation (surgical) wound, not elsewhere classified, initial encounter (principal)
CPT/HCPCS: 80076; 80202; 82565; 86140

== ENCOUNTER 2022-02-18 18:49 | Outpatient (CLI) | payer MEDICARE, OTHER, SELFPAY ==
[2022-02-18 19:06] LABS: Basophils % 0.5 %; Eosinophils # 0.1 10^3/uL (0.0-0.8); Eosinophils % 1.1 %; Hematocrit 29.4 % (37.0-47.0); Hemoglobin 9.2 g/dL (11.5-15.3); Lymphocytes # 0.6 10^3/uL (0.8-4.8); Lymphocytes % 7.9 %; Mean Corpuscular HGB Conc 31.3 g/dL (30.0-36.0); Mean Corpuscular Hemoglobin 25.6 pg (28.0-34.0); Mean Corpuscular Volume 81.7 fl (81-99); Mean Platelet Volume 10.6 fL (7.4-10.4); Monocytes # 0.5 10^3/uL (0.2-0.9); Monocytes % 7.1 %; Neutrophils # 6.11 10^3/uL (1.8-7.7); Neutrophils % 82.9 %; Nucleated Red Blood Cells % 0 %; Platelet Count 353 10^3/cmm (130-400); Red Cell Distribution Width 18.7 % (12.1-15.1); White Blood Count 7.4 10^3/uL (4.0-10.0)
[2022-02-18 19:37] LABS: Alanine Aminotransferase 26 U/L (0-33); Alkaline Phosphatase 75 U/L (35-105); Aspartate Amino Transferase 35 U/L (0-32); Blood Urea Nitrogen 14 mg/dL (8-23); C Reactive Protein 88.3 mg/L (0.0-4.9); Globulin 3.7 g/dL (1.3-4.6); Glomerular Filtration Rate 62.5 mL/min (90-130); Total Bilirubin 0.2 mg/dL (0.15-1.2); Total Protein 6.7 g/dL (6.6-8.7)
[2022-02-19 08:40] LABS: Vancomycin Trough 27.3 ug/mL (10-15)
== END 2022-02-18 18:50 | disposition home or self-care (01) ==
PROVIDERS: Absent Provider Student in an Organized Health Care Education/Training Program; PCP Family Medicine; Visit Provider Student in an Organized Health Care Education/Training Program
DX: T81.31XA Disruption of external operation (surgical) wound, not elsewhere classified, initial encounter (principal)
CPT/HCPCS: 80076; 80202; 82565; 84520; 85025; 86140

== ENCOUNTER 2022-02-19 16:33 | Outpatient (CLI) | payer MEDICARE, OTHER, SELFPAY ==
--- NOTE | 2022-02-19 16:00 | USCV_ITS ---
Rileyyuli Lisa Age: 66 Gender: F : 1955 Exam Date: 02/19/2022 16:47 Ordering Phys: Mikaela Miller MD Technologist: PJ Exam Location: [facility] [place]_ Indication: PICC LINE, RUE PAIN HISTORY: Upper extremity pain. PROCEDURES: Venous duplex imaging was performed in only the right upper extremity. The following venous structures were evaluated: internal jugular vein, subclavian vein, axillary vein, and brachial veins. In addition, the radial vein and ulnar vein. Serial compression, augmentation maneuvers, and spectral Doppler flow evaluation were performed. FINDINGS: PICC LINE SEEN IN PLACE FROM BRACHIAL VEIN INTO SUBCLAVIAN V. RIGHT CEPHALIC V NO COMPRESS FROM MID ARM INTO PROX FOREARM ALL OTHER VEINS APPEAR PATENT CONCLUSIONS Picc Line seen in brachial vein into subclavian Superficial thrombus Right cephalic vein from mid upper arm to proximal forearm Remainder RUE veins patent Steve Roberson MD (Electronically Signed) Final Date: 19 February 2022 17:16 S
== END 2022-02-19 16:34 | disposition home or self-care (01) ==
LOC: RAD 16:34
PROVIDERS: PCP Family Medicine; Visit Provider Student in an Organized Health Care Education/Training Program
DX: I82.611 Acute embolism and thrombosis of superficial veins of right upper extremity (principal); T84.7XXA Infection and inflammatory reaction due to other internal orthopedic prosthetic devices, implants and grafts, initial encounter; X58.XXXA Exposure to other specified factors, initial encounter; Z48.89 Encounter for other specified surgical aftercare
CPT/HCPCS: 93971; 99024; 99213; 99215

== ENCOUNTER 2022-02-20 16:00 | Inpatient (IN) | payer MEDICARE, OTHER, SELFPAY ==
[2022-02-19 18:31] VITALS: BMI 20.5
[2022-02-20] VITALS (21 sets, daily range): BP systolic 103–173; BP diastolic 49–110; PULSE 62–96; RESP 16–22; TEMP 36.4–37.5; O2SAT 90–100; BMI 20.5
[2022-02-20] MEDS: sodium chloride 0.9% 1,000 ML 30 ML IV ×2 (11:56→15:34)
[2022-02-20] MEDS: scopolamine 1.5 Patch 1 PATCH TRANSDERMA (12:10)
--- NOTE | 2022-02-20 12:39 | W.PM.OPSUD ---
Surgery/Procedure H&P Update DATE OF PROCEDURE: February 20, 2022 DATE H&P PERFORMED: 02/19/22 H&P UPDATE INFORMATION: I have reviewed H&P completed within last 30 days, I have examined patient prior to procedure and No changes to prior documentation PREOP DIAGNOSIS: Wound dehiscence cervical spine PLANNED PROCEDURE: Operation Date: 02/20/22 15:05 Proposed Procedures p I&D and wound enclosure 73421/T81.30XA(Not Applicable) - DO taurus Marcos Wound Vac Placement [id number](Not Applicable) - Edmond Peacock DO
--- NOTE | 2022-02-20 13:14 | ANES.PREANE2 ---
Pre-Anesthetic Assessment Height/Weight: Height 1.52 m Weight 47.627 kg Temp Pulse Resp BP Pulse Ox O2 Del Method 99.5 F 86 18 166/92 93 02/20/22 11:38 02/20/22 11:38 02/20/22 11:38 02/20/22 11:38 02/20/22 11:38 02/20/22 11:38 Preop Diagnosis: Wound dehiscence cervical spine Operation Date: 02/20/22 15:05 Proposed Procedures p I&D and wound enclosure 54138/T81.30XA(Not Applicable) - DO taurus Marcos Wound Vac Placement [id number] AND [id number](Not Applicable) - Edmond Peacock DO Familial anesthetic complications: none Was Beta Leda taken within 24 hours: Yes Was Clonidine taken within 24 hours: N/A Last intake: Intake Last Liquid Date 02/19/22 Last Liquid Time 23:30 Last Solid Date 02/19/22 Last Solid Time 22:30 Social Tobacco and No alcohol Exam alert, oriented x 3 and regular rate & rhythm Airway Submandibular: within normal limits Cervical ROM: within normal limits Mallampati: Class II Dentition: false Pulmonary Chronic Obstructive Pulmonary Disease CV/HEM Hypertension GI Gastroesophageal Reflux Disease Musc/skel Lower Back Pain and Osteoarthritis/DJD Anesthetic Plan ASA status: 3 Anesthesia: General Medications/Allergies Home Medications Medication Instructions Recorded Confirmed Last Taken Type albuterol sulfate 90 mcg/actuation 1 inh inhalation BID PRN Shortness 04/12/19 02/20/22 02/20/22 History aerosol inhaler Of Breath lamotrigine 100 mg tablet 50 mg PO BID 04/12/19 02/20/22 02/19/22 History (Lamictal) naproxen 500 mg tablet 500 mg PO BID PRN Pain 04/12/19 02/20/22 12/06/21 History vortioxetine 20 mg tablet 20 mg PO DAILY 04/12/19 02/20/22 02/20/22 History (Trintellix) lisinopril 20 1 tab PO DAILY 04/16/19 02/20/22 02/19/22 History mg-hydrochlorothiazide 12.5 mg tablet metoprolol tartrate 25 mg tablet 25 mg PO BID 04/16/19 02/20/22 02/20/22 History mometasone 50 mcg/actuation nasal 2 spray intranasal DAILY 04/16/19 02/20/22 02/19/22 History spray peg 400-propylene glycol 0.4 %-0.3 1 drop ophthalmic (eye) ONCE PRN 04/16/19 02/20/22 02/19/22 History % eye drops (Systane Ultra) Dry Eye(S) tizanidine 4 mg capsule 4 mg PO TID PRN Pain 11/23/19 02/20/22 11/27/21 History gabapentin 100 mg capsule 100 mg PO QID 05/15/20 02/20/22 02/19/22 History cyclosporine 0.05 % eye drops 1 drp ophthalmic (eye) Q12H #16.5 06/05/21 02/20/22 02/19/22 Rx (Restasis MultiDose) mL allopurinol 100 mg tablet 200 mg PO DAILY #180 tabs 07/10/21 02/20/22 02/19/22 Rx omeprazole 40 mg capsule,delayed 40 mg PO DAILY #90 caps 07/10/21 02/20/22 02/19/22 Rx release prednisone 10 mg tablet 10 mg PO DIRECTED PRN Pain 12/11/21 02/20/22 Unknown History Bone Growth Stimulator E0748 #1 ea 12/28/21 02/19/22 Unknown Rx umeclidinium 62.5 mcg-vilanterol 1 inh inhalation Q24H 60 days #60 01/22/22 02/20/22 02/20/22 Rx 25 mcg/actuation powdr for ea inhalation (Anoro Ellipta) suvorexant 10 mg tablet (Belsomra) 10 mg PO BEDTIME 01/26/22 02/20/22 02/19/22 History vancomycin 1.5 gram intravenous 1 g IV Q12H 6 weeks #10 ea 01/31/22 02/20/22 02/19/22 Rx solution Allergies Allergy/AdvReac Type Severity Reaction Status Date / Time No Known Drug Allergies Allergy Unknown Verified 02/20/22 11:34 Current Medications Generic Name Dose Route Start Last Admin Trade Name Freq PRN Reason Stop Dose Admin Sodium Chloride 1,000 mls @ 30 mls/hr 02/20/22 11:45 02/20/22 11:56 Sodium Chloride 0.9% IV 30 mls/hr .Q24H YEHUDA Administration PFSH Anesthesia Medical History Adenocarcinoma of right lung, stage 1 Arthropathy of cervical facet joint Cellulitis of right anterior lower leg Cervical radiculopathy due to degenerative joint disease of spine COPD (chronic obstructive pulmonary disease) Gout, arthritis High risk medication use Immunization counseling Immunosuppression Inflammatory arthritis Intervertebral disc disorder with radiculopathy of lumbar region Intervertebral disc disorder with radiculopathy of lumbosacral region Low back pain radiating down leg Lumbar stenosis with neurogenic claudication Lung nodule, solitary Mixed stress and urge urinary incontinence Neck pain Osteoporosis Pain and swelling of right knee Primary Sjogren's syndrome Seronegative rheumatoid arthritis Seronegative rheumatoid arthritis Sjogrens syndrome Spondylolisthesis at L4-L5 level Spondylolisthesis at L5-S1 level Spondylolisthesis, cervical region Spondylolisthesis, lumbar region Thoracic disc disease Vaginal atrophy Surgical History History of D&C 4x History of decompression of ulnar nerve Right History of ear surgery (04/17/17) Right History of hysterectomy (10/29/16) with Vaginal Repair, Total S/P insertion of spinal cord stimulator Thoracic spinal cord stimulator implantation via laminotomy ([employer]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), 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, [facility] [place] Family History Mother Hypertension Diabetes Stroke Cancer Uterine Grandmother Diabetes Maternal Heart disease Father Heart disease Grandfather Heart disease Sister Cancer Uterine Social History Smoking and tobacco status: current every day smoker cigarettes Packs smoked per day: 1 Years cigarettes smoked: 41 [ Other cigarette details: Hx of of 1PPD x 41 Years] Quit status (tobacco): considering quitting Second hand smoke exposure: Yes Smoking risk assessment/counseling performed?: Yes Alcohol intake: former Counseling given: No Counseling given: No Lives independently: Yes Household members: spouse Marital status: Current occupational status: disabled History of recent travel: No Current gender identity: Female Data Anesthesia Cardiac Studies: No Data to Display
[2022-02-20] MEDS: ceFAZolin 2,000 MG in sodium chloride 0.9% (plus) 50 ML 100 MG IV (13:50)
[2022-02-20 13:51] LABS: Vancomycin Trough 20.6 ug/mL (10-15)
--- NOTE | 2022-02-20 15:01 | P.OP_ITS ---
Operative Report Date of procedure: February 20, 2022 Pre-op diagnosis: Preop Diagnosis Wound dehiscence cervical spine Post-op diagnosis: same Procedure done: 1. I+D of wound down to muscle (8mm x 4 mmx 2mm) 2. Application of wound vac <50cm squared Surgeon: Edmond Peacock Director Of First Impressions: Michael Mccallum Director Of First Impressions: The certified surgical technician, Michael Mccallum, PAC was needed for his expertise with wounds. He was important and necessary throughout the procedure to complete in a safe and timely manner. He assisted with patient positioning prepping and draping tissue retraction suctioning of the operative field protection of the dural sac and tissue closure Estimated blood loss (mL): 5 Procedure: 1. I+D of wound down to muscle (8mm x 4 mmx 2mm) 2. Application of wound vac <50cm squared Patient was brought to the operative suite after adequate esthesia was placed in prone position. All areas appear well-padded. Patient was prepped and draped in a sterile fashion. Sutures were removed. Patient was left with a 4 x 8 mm wound. Went down to the muscle did not go any deeper. At this point the skin edges were debrided with sharp dissection. And then the muscle was divided with rongeur cultures were sent. Wound was irrigated. And then a wound VAC was applied to this wound. Had a good seal and patient was transferred to the PACU in stable condition.
[2022-02-20] MEDS: HYDROmorphone 1 mg/mL INJ 1 mL 0.5 MG IVP ×2 (15:16→15:42)
[2022-02-20] MEDS: HYDROcodone-acetaminophen 5-325 mg Tablet PO (15:17)
[2022-02-20] MEDS: ketorolac 30 mg/mL INJ IVP (15:20)
[2022-02-20] MEDS: ondansetron 2 mg/ML SDV 2 mL 4 MG IVP (15:20)
[2022-02-20] MEDS: lactated ringers 1,000 ML 90 ML IV (15:42)
--- NOTE | 2022-02-20 16:58 | ANE.PACU2 ---
Inpatient post-anesthesia follow up: Airway intact: Yes Vital signs: Temperature 97.9 F Pulse Rate 81 Respiratory Rate 18 Blood Pressure 154/97 Pulse Oximetry 97 Oxygen Delivery Me thod Nasal Cannula Oxygen Flow Rate 2 Fraction of Inspir ed Oxygen Hydration adequate: Yes Nausea and vomiting: No Pain level: 3 Mental status: Baseline
[2022-02-20] MEDS: docusate sodium 100 mg Capsule PO (17:06)
[2022-02-20] MEDS: tizanidine 4 mg Tablet PO (17:06)
[2022-02-20] MEDS: naproxen 500 mg Tablet PO (17:06)
[2022-02-20] MEDS: lamoTRIgine 100 mg Tablet 50 MG PO (17:07)
[2022-02-20] MEDS: metoprolol tartrate 25 mg Tablet PO (17:07)
[2022-02-20] MEDS: gabapentin 100 mg Capsule PO ×2 (17:07→21:14)
[2022-02-20] MEDS: morphine 4 mg/mL SDV 1 mL 2 MG IVP (17:25)
[2022-02-20] MEDS: vancomycin 1,500 MG/300 ML PIGGYBACK 200 MG IV (19:17)
[2022-02-21] VITALS (9 sets, daily range): BP systolic 105–161; BP diastolic 63–84; PULSE 65–77; RESP 16–18; TEMP 36.5–36.7; O2SAT 91–99
[2022-02-21] MEDS: HYDROcodone-acetaminophen 5-325 mg Tablet PO (06:22)
[2022-02-21] MEDS: lactated ringers 1,000 ML 90 ML IV (06:23)
--- NOTE | 2022-02-21 07:28 | P.PN_ITS ---
Subjective Subjective: POD 1 Patient complaining of neck pain. She has been taking hydrocodone in the hospital but she states she has had Oxycodone in the past they have given her better relief. She is also having a lot of spasming pain in her mid back. Vitals/I&O/Wt Last Vital Signs Temp 98.1 F 02/21/22 03:14 Pulse 77 02/21/22 03:14 Resp 17 02/21/22 03:14 BP 109/63 02/21/22 03:14 Pulse Ox 94 02/21/22 03:14 O2 Del Method 02/21/22 03:14 O2 Flow Rate 1.5 02/21/22 03:14 02/20/22 02/21/22 02/21/22 22:59 06:59 14:59 Intake Total 1460 / 1510 79.5 / 1589.5 Output Total 300 / 300 150 / 450 Balance 1160 / 1210 -70.5 / 1139.5 Weight last 48 hrs Weight 105 lb Weight 105 lb Physical Exam Narrative: Patient is alert oriented x3. Emotional this morning very tearful. Complains of spasming pain. She is moving both upper extremities hands warm good cap refill wound VAC is leaking will not hold constant suction. Hands and feet are warm good cap refill. A&P Assessment and plan (1) Wound infection complicating hardware: Discussed with the nursing staff to change the wound VAC to try and gain better integrity of suction. We will place her on Valium 5 mg 1 tablet every 8 hours as needed spasms. Adjust pain medication for better pain control. We will consult infectious disease to help manage antibiotic therapy. Encourage incentive spirometry for pulmonary toilet. (2) Encounter for postoperative care: Attestations Medical Necessity Statement*: Uncontrolled pain to cervical spine. Hopeful discharge tomorrow. Coding Level of Care Code Acute Manager Long Term Care for [facility] Diagnoses Wound infection complicating hardware T84.7XXA Encounter for postoperative care Z48.89
[2022-02-21] MEDS: diazePAM 5 mg Tablet PO (07:48)
[2022-02-21] MEDS: oxyCODONE 5 mg IR Tab/Cap PO ×2 (07:48→12:23)
[2022-02-21] MEDS: ondansetron 2 mg/ML SDV 2 mL 4 MG IVP (07:50)
[2022-02-21] MEDS: ketorolac 30 mg/mL INJ IVP (07:50)
[2022-02-21] MEDS: docusate sodium 100 mg Capsule PO (08:46)
[2022-02-21] MEDS: pantoprazole DR 40 mg Tablet PO (08:46)
[2022-02-21] MEDS: metoprolol tartrate 25 mg Tablet PO (08:46)
[2022-02-21] MEDS: allopurinol 100 mg Tablet 200 MG PO (08:46)
[2022-02-21] MEDS: gabapentin 100 mg Capsule PO ×2 (08:46→12:23)
[2022-02-21] MEDS: lamoTRIgine 100 mg Tablet 50 MG PO (08:47)
[2022-02-21] MEDS: lisinopril 20 mg Tablet PO (08:47)
[2022-02-21] MEDS: morphine 4 mg/mL SDV 1 mL 2 MG IVP ×2 (09:03→11:27)
--- NOTE | 2022-02-21 10:37 | PC.CHAP ---
Pastoral Care Encounter/Spiritual Assessment Type of Contact [] Declined tile layer helper visit [] Patient/Family/Request visit [] Outpatient visit [] Follow-up visit [] Physician referral [] Code/Alert [x] Routine visit [] Staff referral [] Actively dying [] Patient sleeping [] Family support [] [] Out of room [] Palliative care [] [x] Receiving care in room [] Pre-surgical visit [] Trauma [] Long length of stay [] ICU visit [] Other: Relational/Emotional Strength [x] Patient feels connected with others/family/visitors/staff [] Distress [] Loneliness/isolation [] Abandonment Spirituality of Patient [x] Person of Amanda [] Attends Anglican of their Amanda [x] Believes in Prayer [] Reads Bible or Restorationist materials [] There are Spiritual issues to be addressed Scrap Handler Interventions [x] Prayer [x] Active listening [x] Non-anxious presence [x] Spiritual/emotional support [] Crisis/trauma care [x] Spiritual counseling [] Bereavement support [] Provided bereavement packet [] Provided Bible/devotional materials [] Provided toy/stuffed animal, coloring book to patient or family member [] Provided Communion [] Anointing/Snyder [] Salvation [x] Completed spiritual assessment [] Other: Impact on Illness or Injury [] Angry [] Fearful [] Anxious [] Often cries [] Exhaustion [] Unable to work [] Unable to attend adventism [] Unable to walk/stand [] Unable to read [] Unable to drive [] Unable to eat/drink [] Unable to sleep [] Unable to be with family [] Patient intubated [] Other: Summary cleaning up previous wound form surgery has a good attitude well go home Time spent with patient 10 mins
[2022-02-21] MEDS: predniSONE 10 mg Tablet PO (11:26)
--- NOTE | 2022-02-21 15:28 | PC.NURSE ---
Discharge Note Patient discharged to home via private vehicle accompanied by . Discharge instructions reviewed with patient and/or physician relations representative. Mobile pharmacy medications and/or prescriptions provided. Belongings/home medications returned.
--- NOTE | 2022-02-25 06:14 | PM.DCS ---
Discharge Providers Date of Admission: 02/20/22 16:00 Date of Discharge: February 21, 2022 Attending Provider at Admission: Edmond Peacock DO Attending Provider at Discharge: Edmond Peacock DO Primary Care Provider: Dilshad Ng MD Diagnoses at Discharge Discharge Diagnosis (1) Wound infection complicating hardware: Status: Acute (2) Encounter for postoperative care: Status: Acute Reason for Visit Reason for Visit: I&D AND WOUND ENCLOSER 43304 Hospital Course Hospital Course uneventful Discharge Data Studies Completed and Pending Laboratory Results Vancomycin Trough 20.6 ug/mL (10-15) H 02/20/22 11:52 Vitals Last Vital Signs Temp 98.0 F 02/21/22 11:52 Pulse 66 02/21/22 11:52 Resp 17 02/21/22 15:28 BP 161/84 02/21/22 11:52 Pulse Ox 95 02/21/22 11:52 O2 Del Method 02/21/22 11:52 O2 Flow Rate 1.5 02/21/22 03:14 Discharge Plan Discharge Patient Disposition: Home Health Service Condition: Stable Prescriptions: New diazepam 5 mg Tablet 5 mg PO Q8H PRN (Reason: Anxiety) Qty: 30 0RF oxycodone 5 mg tablet 5 - 10 mg PO Q4H PRN (Reason: pain) 7 Days Qty: 40 0RF Continued metoprolol tartrate 25 mg tablet 25 mg PO BID lisinopril-hydrochlorothiazide 20-12.5 mg tablet 1 tab PO DAILY mometasone 50 mcg/actuation spray,non-aerosol 2 spray INTRANASAL DAILY Systane Ultra 0.4-0.3 % drops 1 drop ophthalmic (eye) ONCE PRN (Reason: Dry Eye(S)) Trintellix 20 mg tablet 20 mg PO DAILY lamotrigine [Lamictal] 100 mg tablet 50 mg PO BID albuterol sulfate 90 mcg/actuation HFA aerosol inhaler 1 inh INHALATION BID PRN (Reason: Shortness Of Breath) gabapentin 100 mg capsule 100 mg PO QID Restasis MultiDose 0.05 % drops 1 drp ophthalmic (eye) Q12H Qty: 16.5 2RF (DME) Bone Growth Stimulator E0748 See Rx Instructions .Route .MEDSUPPLY Qty: 1 0RF Rx Instructions: As directed omeprazole 40 mg capsule,delayed release(DR/EC) 40 mg PO DAILY Qty: 90 1RF allopurinol 100 mg tablet 200 mg PO DAILY Qty: 180 1RF Hold Instructions: elevated LFT's Anoro Ellipta 62.5-25 mcg/actuation blister with device 1 inh INHALATION Q24H 60 Days Qty: 60 6RF prednisone 10 mg tablet 10 mg PO DIRECTED PRN (Reason: Pain) Rx Instructions: take 1 tab daily for 5 days prn flares PO; Belsomra 10 mg Tablet 10 mg PO BEDTIME vancomycin 1.5 gram recon soln 1 g IV Q12H 42 Days Qty: 10 0RF Held naproxen 500 mg tablet 500 mg PO BID PRN (Reason: Pain) Hold Instructions: Resume on 03/20/22. tizanidine 4 mg capsule 4 mg PO TID PRN (Reason: Pain) Hold Instructions: DC Discharge Orders: Discharge Order (Routine); Ordered 02/21/22 Ordered By: Michael Mccallum Referrals: Edmond Peacock DO [Physician] - 02/26/22 8:45 am Discharge Diet: Advance as tolerated Discharge Activity: Limit activity as instructed Patient Instructions: Diazepam (By mouth), Negative Pressure Wound Therapy (GEN), Acute Wounds (GEN), Incision and Drainage (ED), Opioid Safety Activity Restrictions/Additional Instructions: Thank you for choosing [facility] for your care! The following is a list of instructions, from your provider, to follow upon your discharge to ensure you have the optimal recovery from your recent injury or surgery. Placement of a wound VAC to the posterior cervical. What to Expect at Home Your Recovery Follow-up care is a bailey part of your treatment and safety. Be sure to make and go to all appointments, and call your doctor if you are having problems. If you do not already have a follow-up appointment made, call office in the next 1-3 days to make follow up appointment for 1 weeks at [phone]. It is also a good idea to know your test results and keep a list of the medicines you take. You can expect your neck to feel stiff or sore after surgery. This should improve in the weeks after surgery. But it may take 4 to 6 months for you to get better completely. You may have trouble sitting or standing in one position for very long and may need pain medicine in the weeks after your surgery. It may take 4 to 6 weeks to get back to your usual activities, but it may depend on what kind of surgery you had. Your throat will feel sore and it may be difficult to swallow for the first 3 days after your surgery. As long as you can get liquids down without difficulty, this should slowly improve, otherwise call our office or seek medical attention if it becomes increasingly difficult to get anything down including liquids. Avoid hot liquids for first 3-5 days. Soothing foods/liquids such as jello, pudding, and luke warm soups are recommended until swallowing improves. Staying elevated will also help, it's advised you keep propped up at while sleeping to help reduce the swelling. You may use an ice pack directly on your incision or around it on the front of your neck, using a cloth to protect your skin; and a heating pad to the back of your neck as needed. Do not use over the counter anti-inflammatory medications (Ibuprofen, Motrin, Aleve, Advil, etc) Taking these meds after having a fusion can delay fusion rates, we recommend you avoid them for the first 3 months after your surgery[address] Dr. Peacock may advise you to work with a physical therapist to strengthen the muscles around your neck and back - this will be discussed at your follow - up appointments. The pain or numbness you were having in your arms before surgery should get better or go away completely. This care sheet gives you a general idea about how long it will take for you to recover. But each person recovers at a different pace. Follow the steps below to get better as quickly as possible. How can you care for yourself at home? Activity ? Rest when you feel tired. Getting enough sleep will help you recover. ? Try to walk each day. Start by walking a little more than you did the day before. Bit by bit, increase the amount you walk. Walking boosts blood flow and helps prevent pneumonia and constipation. Walking may also decrease your muscle soreness after surgery. ? No lifting anything that is more that 5 pounds. This may include heavy grocery bags and milk containers, a heavy briefcase or backpack, cat litter or dog food bags, a child, or a vacuum laboratory equipment cleaner. ? Avoid strenuous activities, such as bicycle riding, jogging, weightlifting, or aerobic exercise, until your doctor says it is okay. ? Do not drive until your follow-up visit after your surgery, or until your doctor says it isokay. ? Avoid taking long car trips for 2 to 4 weeks after surgery. Your neck may become tired and painful from sitting too long in one position. ? You will probably need to take 4 to 6 weeks off from work. It depends on the type of work you do and how you feel. ? You may have sex as soon as you feel able, but avoid positions that put stress on your neck or cause pain. Diet ? You can eat your normal diet. If your stomach is upset, try bland, low-fat foods like plain rice, broiled chicken, toast, and yogurt ? Drink plenty of fluids. If you have kidney, heart, or liver disease and have to limit fluids, talk with your doctor before you increase the amount of fluids you drink. ? You may notice that your bowel movements are not regular right after your surgery. This is common. Try to avoid constipation and straining with bowel movements. You may want to take a fiber supplement every day. If you have not had a bowel movement after a couple of days, ask your doctor about taking a mild laxative. Medicines ? Take pain medicines exactly as directed. 1. If Dr. Peacock gave you a prescription medicine for pain, take lt as prescribed. 2. Do not take two or more pain medicines at the same time unless the doctor told you to. Many pain medicines have acetaminophen, which is Tylenol. Too much acetaminophen {Tylenol) can be harmful. 3. If you think your pain pill is making you sick to your stomach: 4. Take your pills after meals (unless your doctor has told you not to). 5. Ask your Dr. for a different pain pill. Incisioncare ? Remove your dressing 48 hours after your surgery. Ok to shower and get the incision wet. Do not overtly wash your incision. When done, pad dry, leave open to air thereafter. Avoid creams and ointments directly on your incision. ? Your sutures in the incision will dissolve and fall out on their own. ? Keep the area clean and dry. You may cover it with a gauze bandage if it weeps or rubs against clothing; if you choose to do this, change the dressing everyday. Other instructions ? Use a heating pad, hot water bottle, or gentle massage on your back to reduce stiffness. Avoid putting heat on your incision When should you call for help? ? Call 911 anytime you think you may need emergency care. For example, call if: ? You pass out (lose consciousness). ? You have sudden chest pain and shortness of breath, or you cough upblood. ? You cannot swallow. ? You have severe pain in your neck or back. ? Call your Dr. or seek immediate medical care if: ? You have pain that does not get better after you take pain pills. ? You have loose stitches, or your incision comes open. ? You have blood or fluid draining from the incision. ? You have signs of infection, such as: 1. Increased pain, swelling, warmth, or redness. 2. Red streaks leading from the site. 3. Pus draining from the site. 4. Swollen lymph nodes in your neck or armpits. 5. A fever. ? You have severe pain in your arms. ? You have new or increased weakness or numbness in your arms. ? Watch closely for any changes in your health, and be sure to contact your doctor if: ? You do not have a bowel movement after taking a laxative. Discharge Attestations Time Spent in Discharge Care*: less than 30 min Status at Discharge: Cognitive status at discharge: cognitively intact, Behavioral status at discharge: cooperative, Quality Metrics Clinical Quality Measures [ No reported AMI, CVA or VTE this stay] Coding Level of Care Code Acute Chg FW DC note Diagnoses Wound infection complicating hardware T84.7XXA Encounter for postoperative care Z48.89
== END 2022-02-21 15:29 | disposition home health service (06) | DRG 501 ==
LOC: MEDSURG 16:24
PROVIDERS: Student in an Organized Health Care Education/Training Program; Admitting Provider Orthopaedic Surgery; PCP Family Medicine; Visit Provider Orthopaedic Surgery
PROC: 0K9 Muscles, Drainage (ICD-10-PCS; principal; 2022-02-20 14:55)
PROC: 0K9 Muscles, Drainage (ICD-10-PCS; 2022-02-20 14:55)
DX: T84.63XA Infection and inflammatory reaction due to internal fixation device of spine, initial encounter (principal); D84.821 Immunodeficiency due to drugs; T81.31XA Disruption of external operation (surgical) wound, not elsewhere classified, initial encounter; Y79.8 Miscellaneous orthopedic devices associated with adverse incidents, not elsewhere classified; Z85.118 Personal history of other malignant neoplasm of bronchus and lung; J44.9 Chronic obstructive pulmonary disease, unspecified; M81.0 Age-related osteoporosis without current pathological fracture; M06.00 Rheumatoid arthritis without rheumatoid factor, unspecified site; M35.00 Sjogren syndrome, unspecified; Z96.82 Presence of neurostimulator; F17.210 Nicotine dependence, cigarettes, uncomplicated; Z79.51 Long term (current) use of inhaled steroids; Z79.52 Long term (current) use of systemic steroids; M62.830 Muscle spasm of back; M54.12 Radiculopathy, cervical region; M48.062 Spinal stenosis, lumbar region with neurogenic claudication; M48.07 Spinal stenosis, lumbosacral region; M54.17 Radiculopathy, lumbosacral region
CPT/HCPCS: 36415; 80076; 80202; 82565; 84520; 85025; 86140; 87070; 87075; 87077; 87186; 87205; 93971; 99024; 99213; 99215; J0330; J0690; J1100; J1170; J1885; J2250; J2270; J2405; J2704; J3010; J3370; J3490; J7030; J7120; J7512

== ENCOUNTER 2022-02-23 15:58 | Outpatient (CLI) | payer MEDICARE, OTHER, SELFPAY ==
[2022-02-23 16:11] LABS: Basophils # 0.1 10^3/uL (0.0-0.1); Basophils % 0.8 %; Eosinophils # 0.3 10^3/uL (0.0-0.8); Hematocrit 31.2 % (37.0-47.0); Hemoglobin 9.7 g/dL (11.5-15.3); Lymphocytes # 0.8 10^3/uL (0.8-4.8); Lymphocytes % 12.5 %; Mean Corpuscular HGB Conc 31.1 g/dL (30.0-36.0); Mean Corpuscular Hemoglobin 25.5 pg (28.0-34.0); Mean Corpuscular Volume 82.1 fl (81-99); Mean Platelet Volume 10.3 fL (7.4-10.4); Monocytes # 0.8 10^3/uL (0.2-0.9); Neutrophils # 4.31 10^3/uL (1.8-7.7); Neutrophils % 69.4 %; Nucleated Red Blood Cells % 0 %; Platelet Count 553 10^3/cmm (130-400); Red Cell Distribution Width 19.1 % (12.1-15.1); White Blood Count 6.2 10^3/uL (4.0-10.0)
[2022-02-23 16:35] LABS: Alanine Aminotransferase 56 U/L (0-33); Albumin Level 3.2 g/dL (3.5-5.2); Alkaline Phosphatase 90 U/L (35-105); Aspartate Amino Transferase 68 U/L (0-32); Blood Urea Nitrogen 14 mg/dL (8-23); C Reactive Protein 20.8 mg/L (0.0-4.9); Globulin 3.3 g/dL (1.3-4.6); Glomerular Filtration Rate 62.5 mL/min (90-130); Total Bilirubin 0.2 mg/dL (0.15-1.2); Total Protein 6.5 g/dL (6.6-8.7)
== END 2022-02-23 15:59 | disposition home or self-care (01) ==
PROVIDERS: PCP Family Medicine; Visit Provider Student in an Organized Health Care Education/Training Program
DX: T84.7XXA Infection and inflammatory reaction due to other internal orthopedic prosthetic devices, implants and grafts, initial encounter (principal)
CPT/HCPCS: 80076; 82565; 84520; 85025; 86140

== ENCOUNTER 2022-02-25 18:22 | Outpatient (CLI) | payer MEDICARE, OTHER, SELFPAY ==
[2022-02-25 18:46] LABS: Basophils # 0.1 10^3/uL (0.0-0.1); Basophils % 0.6 %; Eosinophils # 0.2 10^3/uL (0.0-0.8); Eosinophils % 1.8 %; Hematocrit 29.6 % (37.0-47.0); Hemoglobin 9.2 g/dL (11.5-15.3); Lymphocytes # 0.9 10^3/uL (0.8-4.8); Lymphocytes % 10.4 %; Mean Corpuscular HGB Conc 31.1 g/dL (30.0-36.0); Mean Corpuscular Hemoglobin 25.5 pg (28.0-34.0); Mean Platelet Volume 10.3 fL (7.4-10.4); Monocytes # 0.9 10^3/uL (0.2-0.9); Monocytes % 9.9 %; Neutrophils # 6.92 10^3/uL (1.8-7.7); Nucleated Red Blood Cells % 0 %; Platelet Count 584 10^3/cmm (130-400); Red Blood Count 3.61 10^6/uL (4.1-5.3)
[2022-02-25 19:09] LABS: Alanine Aminotransferase 40 U/L (0-33); Albumin Level 3.1 g/dL (3.5-5.2); Alkaline Phosphatase 92 U/L (35-105); Anion Gap 10.7 (5-19); Aspartate Amino Transferase 43 U/L (0-32); Blood Urea Nitrogen 10 mg/dL (8-23); Calcium 9.3 mg/dL (8.5-10.5); Carbon Dioxide 33 mmol/L (22-29); Chloride 88 mmol/L (98-107); Globulin 3.5 g/dL (1.3-4.6); Glomerular Filtration Rate 62.5 mL/min (90-130); Glucose 72 mg/dL (65-115); Osmolality Calculated 266 mOsm/kg (285-295); Sodium 129 mmol/L (136-145); Total Bilirubin 0.2 mg/dL (0.15-1.2); Total Protein 6.6 g/dL (6.6-8.7)
[2022-02-25 19:10] LABS: Vancomycin Trough 17.6 ug/mL (10-15)
[2022-02-26 10:28] LABS: Potassium 2.7 mmol/L (3.5-5.1)
== END 2022-02-25 18:23 | disposition home or self-care (01) ==
LOC: LAB 18:24
PROVIDERS: PCP Family Medicine; Visit Provider Student in an Organized Health Care Education/Training Program
DX: T81.31XA Disruption of external operation (surgical) wound, not elsewhere classified, initial encounter (principal)
CPT/HCPCS: 80053; 80202; 82248; 85025; 86140

== ENCOUNTER → 2022-02-26 12:58 | Day surgery (SDC) | payer MEDICARE, OTHER, SELFPAY ==
[2022-02-26 13:00] VITALS: BP 158/88; PULSE 92; RESP 18; TEMP 36.7; O2SAT 94
--- NOTE | 2022-02-26 14:00 | PC.NURSE ---
Pt to GI Infusions for replacement of PICC line. PICC to right upper arm removed by home health due to concerns of infection. Ok to insert midline cath per Dr. Miller. Pt antibiotics to complete 03/12/22. Midline placed to left basilic vein. Good blood return and flushed without difficulty. Pt tolerated well. Pt states she will notify home health agency to come out and change midline dressing tomorrow per protocol.
[2022-02-28 18:34] LABS: Basophils # 0.1 10^3/uL (0.0-0.1); Basophils % 0.8 %; Eosinophils # 0.3 10^3/uL (0.0-0.8); Eosinophils % 3.1 %; Hematocrit 31.2 % (37.0-47.0); Hemoglobin 9.7 g/dL (11.5-15.3); Lymphocytes # 0.9 10^3/uL (0.8-4.8); Lymphocytes % 10.4 %; Mean Corpuscular HGB Conc 31.1 g/dL (30.0-36.0); Mean Corpuscular Hemoglobin 25.3 pg (28.0-34.0); Mean Corpuscular Volume 81.5 fl (81-99); Mean Platelet Volume 9.7 fL (7.4-10.4); Monocytes # 0.8 10^3/uL (0.2-0.9); Neutrophils # 6.28 10^3/uL (1.8-7.7); Neutrophils % 75.1 %; Nucleated Red Blood Cells % 0 %; Platelet Count 676 10^3/cmm (130-400); Red Blood Count 3.83 10^6/uL (4.1-5.3); Red Cell Distribution Width 19.1 % (12.1-15.1); White Blood Count 8.4 10^3/uL (4.0-10.0)
[2022-02-28 19:22] LABS: C Reactive Protein 31.6 mg/L (0.0-4.9); Glomerular Filtration Rate 83.5 mL/min (90-130); Vancomycin Trough 16.4 ug/mL (10-15)
[2022-02-28 19:23] LABS: Alanine Aminotransferase 37 U/L (0-33); Albumin Level 3.5 g/dL (3.5-5.2); Alkaline Phosphatase 95 U/L (35-105); Aspartate Amino Transferase 47 U/L (0-32); Globulin 3.7 g/dL (1.3-4.6); Total Bilirubin 0.2 mg/dL (0.15-1.2); Total Protein 7.2 g/dL (6.6-8.7)
== END ==
PROVIDERS: PCP Family Medicine; Visit Provider Student in an Organized Health Care Education/Training Program
DX: T84.7XXA Infection and inflammatory reaction due to other internal orthopedic prosthetic devices, implants and grafts, initial encounter (principal); Z79.2 Long term (current) use of antibiotics; Z47.89 Encounter for other orthopedic aftercare; F17.210 Nicotine dependence, cigarettes, uncomplicated
CPT/HCPCS: 36569; 80076; 80202; 82565; 85025; 86140; 99024; C1751

== ENCOUNTER 2022-03-04 06:00 | Outpatient (CLI) | payer MEDICARE, OTHER, SELFPAY ==
[2022-03-04 19:17] LABS: Basophils # 0.1 10^3/uL (0.0-0.1); Basophils % 1.1 %; Eosinophils # 0.2 10^3/uL (0.0-0.8); Hematocrit 26.7 % (37.0-47.0); Hemoglobin 8.3 g/dL (11.5-15.3); Lymphocytes # 1.3 10^3/uL (0.8-4.8); Lymphocytes % 14.7 %; Mean Corpuscular HGB Conc 31.1 g/dL (30.0-36.0); Mean Corpuscular Hemoglobin 25.4 pg (28.0-34.0); Mean Corpuscular Volume 81.7 fl (81-99); Mean Platelet Volume 9.9 fL (7.4-10.4); Monocytes % 12.2 %; Neutrophils # 5.96 10^3/uL (1.8-7.7); Neutrophils % 69.6 %; Nucleated Red Blood Cells % 0 %; Platelet Count 697 10^3/cmm (130-400); Red Blood Count 3.27 10^6/uL (4.1-5.3); Red Cell Distribution Width 19.2 % (12.1-15.1); White Blood Count 8.6 10^3/uL (4.0-10.0)
[2022-03-04 19:33] LABS: Alanine Aminotransferase 47 U/L (0-33); Albumin Level 3.7 g/dL (3.5-5.2); Alkaline Phosphatase 100 U/L (35-105); Anion Gap 16.2 (5-19); Aspartate Amino Transferase 55 U/L (0-32); Blood Urea Nitrogen 14 mg/dL (8-23); Calcium 9.5 mg/dL (8.5-10.5); Carbon Dioxide 28 mmol/L (22-29); Chloride 95 mmol/L (98-107); Globulin 3.8 g/dL (1.3-4.6); Glomerular Filtration Rate 83.5 mL/min (90-130); Glucose 86 mg/dL (65-115); Osmolality Calculated 282 mOsm/kg (285-295); Potassium 3.2 mmol/L (3.5-5.1); Sodium 136 mmol/L (136-145); Total Bilirubin 0.2 mg/dL (0.15-1.2); Total Protein 7.5 g/dL (6.6-8.7)
[2022-03-04 19:43] LABS: Vancomycin Trough 15.7 ug/mL (10-15)
== END 2022-03-04 06:01 | disposition home or self-care (01) ==
LOC: LAB 04-04 07:53
PROVIDERS: PCP Family Medicine; Visit Provider Student in an Organized Health Care Education/Training Program
DX: T81.31XA Disruption of external operation (surgical) wound, not elsewhere classified, initial encounter (principal)
CPT/HCPCS: 80053; 80202; 82248; 85025

== ENCOUNTER → 2022-03-05 07:49 | Outpatient (BNVA) | payer MEDICARE, OTHER, SELFPAY | PROVIDERS: PCP Family Medicine; Visit Provider Physician Assistant | DX: Z98.890 Other specified postprocedural states; T81.30XD Disruption of wound, unspecified, subsequent encounter | CPT/HCPCS: 99024 ==

== ENCOUNTER 2022-03-08 06:00 | Outpatient (CLI) | payer MEDICARE, OTHER, SELFPAY ==
[2022-03-08 19:55] LABS: Alanine Aminotransferase 40 U/L (0-33); Albumin Level 3.8 g/dL (3.5-5.2); Alkaline Phosphatase 95 U/L (35-105); Anion Gap 15.2 (5-19); Aspartate Amino Transferase 44 U/L (0-32); Blood Urea Nitrogen 20 mg/dL (8-23); C Reactive Protein 10.8 mg/L (0.0-4.9); Calcium 9.3 mg/dL (8.5-10.5); Carbon Dioxide 27 mmol/L (22-29); Chloride 93 mmol/L (98-107); Globulin 3.5 g/dL (1.3-4.6); Glomerular Filtration Rate 55.3 mL/min (90-130); Glucose 85 mg/dL (65-115); Osmolality Calculated 276 mOsm/kg (285-295); Potassium 3.2 mmol/L (3.5-5.1); Sodium 132 mmol/L (136-145); Total Bilirubin 0.2 mg/dL (0.15-1.2); Total Protein 7.3 g/dL (6.6-8.7)
== END 2022-03-08 06:01 | disposition home or self-care (01) ==
LOC: LAB 03-09 15:26
PROVIDERS: PCP Family Medicine; Visit Provider Student in an Organized Health Care Education/Training Program
DX: T81.31XA Disruption of external operation (surgical) wound, not elsewhere classified, initial encounter (principal)
CPT/HCPCS: 80053; 82248; 86140

== ENCOUNTER 2022-03-09 15:21 | Outpatient (CLI) | payer MEDICARE, OTHER, SELFPAY ==
[2022-03-09 15:30] LABS: Basophils # 0.1 10^3/uL (0.0-0.1); Eosinophils # 0.2 10^3/uL (0.0-0.8); Eosinophils % 2.4 %; Hematocrit 32.6 % (37.0-47.0); Hemoglobin 10.2 g/dL (11.5-15.3); Lymphocytes # 0.9 10^3/uL (0.8-4.8); Lymphocytes % 13.7 %; Mean Corpuscular HGB Conc 31.3 g/dL (30.0-36.0); Mean Corpuscular Hemoglobin 25.3 pg (28.0-34.0); Mean Corpuscular Volume 80.9 fl (81-99); Mean Platelet Volume 9.9 fL (7.4-10.4); Monocytes # 0.7 10^3/uL (0.2-0.9); Monocytes % 11.2 %; Neutrophils # 4.48 10^3/uL (1.8-7.7); Neutrophils % 71.4 %; Nucleated Red Blood Cells % 0 %; Platelet Count 468 10^3/cmm (130-400); Red Blood Count 4.03 10^6/uL (4.1-5.3); Red Cell Distribution Width 18.9 % (12.1-15.1); White Blood Count 6.3 10^3/uL (4.0-10.0)
== END 2022-03-09 15:22 | disposition home or self-care (01) ==
LOC: LAB 15:21
PROVIDERS: PCP Family Medicine; Visit Provider Student in an Organized Health Care Education/Training Program
DX: T84.7XXA Infection and inflammatory reaction due to other internal orthopedic prosthetic devices, implants and grafts, initial encounter (principal)
CPT/HCPCS: 85025

== ENCOUNTER 2022-03-11 01:00 | Outpatient (CLI) | payer MEDICARE, OTHER, SELFPAY ==
[2022-03-11 18:46] LABS: Basophils # 0.1 10^3/uL (0.0-0.1); Basophils % 0.9 %; Eosinophils # 0.1 10^3/uL (0.0-0.8); Hemoglobin 9.9 g/dL (11.5-15.3); Lymphocytes % 14.6 %; Mean Corpuscular HGB Conc 30.9 g/dL (30.0-36.0); Mean Corpuscular Hemoglobin 25.1 pg (28.0-34.0); Mean Corpuscular Volume 81.2 fl (81-99); Mean Platelet Volume 9.8 fL (7.4-10.4); Monocytes # 0.6 10^3/uL (0.2-0.9); Monocytes % 8.9 %; Neutrophils # 4.86 10^3/uL (1.8-7.7); Neutrophils % 73.3 %; Nucleated Red Blood Cells % 0 %; Platelet Count 518 10^3/cmm (130-400); Red Blood Count 3.94 10^6/uL (4.1-5.3); Red Cell Distribution Width 18.6 % (12.1-15.1); White Blood Count 6.6 10^3/uL (4.0-10.0)
[2022-03-11 19:18] LABS: Alanine Aminotransferase 39 U/L (0-33); Albumin Level 3.8 g/dL (3.5-5.2); Alkaline Phosphatase 97 U/L (35-105); Aspartate Amino Transferase 49 U/L (0-32); Blood Urea Nitrogen 14 mg/dL (8-23); Globulin 3.5 g/dL (1.3-4.6); Glomerular Filtration Rate 83.5 mL/min (90-130); Total Bilirubin 0.2 mg/dL (0.15-1.2); Total Protein 7.3 g/dL (6.6-8.7); Vancomycin Trough 15.2 ug/mL (10-15)
== END 2022-03-11 23:00 | disposition home or self-care (01) ==
LOC: LAB 04-15 15:10
PROVIDERS: PCP Family Medicine; Visit Provider Student in an Organized Health Care Education/Training Program
DX: T81.31XA Disruption of external operation (surgical) wound, not elsewhere classified, initial encounter (principal)
CPT/HCPCS: 80076; 80202; 82565; 84520; 85025

== ENCOUNTER → 2022-03-12 08:53 | Outpatient (BNVA) | payer MEDICARE, OTHER, SELFPAY | PROVIDERS: PCP Family Medicine; Visit Provider Physician Assistant | DX: Z47.89 Encounter for other orthopedic aftercare (principal); Z98.1 Arthrodesis status | CPT/HCPCS: 72040; 99024 ==

== ENCOUNTER 2022-03-14 02:00 | Outpatient (CLI) | payer MEDICARE, OTHER, SELFPAY | END 2022-03-14 23:00 | LOC: LAB 04-04 21:13 | PROVIDERS: PCP Family Medicine; Visit Provider Student in an Organized Health Care Education/Training Program | DX: Z47.89 Encounter for other orthopedic aftercare (principal) | CPT/HCPCS: 99212 ==

== ENCOUNTER 2022-03-14 18:02 | Outpatient (CLI) | payer MEDICARE, OTHER, SELFPAY ==
[2022-03-14 18:53] LABS: Basophils # 0.1 10^3/uL (0.0-0.1); Eosinophils # 0.2 10^3/uL (0.0-0.8); Eosinophils % 3.2 %; Hematocrit 33.3 % (37.0-47.0); Hemoglobin 10.4 g/dL (11.5-15.3); Lymphocytes # 1.1 10^3/uL (0.8-4.8); Lymphocytes % 15.6 %; Mean Corpuscular HGB Conc 31.2 g/dL (30.0-36.0); Mean Corpuscular Hemoglobin 25.3 pg (28.0-34.0); Monocytes # 0.6 10^3/uL (0.2-0.9); Neutrophils # 5.03 10^3/uL (1.8-7.7); Neutrophils % 70.9 %; Nucleated Red Blood Cells % 0 %; Platelet Count 521 10^3/cmm (130-400); Red Blood Count 4.11 10^6/uL (4.1-5.3); Red Cell Distribution Width 18.5 % (12.1-15.1); White Blood Count 7.1 10^3/uL (4.0-10.0)
[2022-03-14 19:14] LABS: Vancomycin Trough 15.1 ug/mL (10-15)
[2022-03-14 19:15] LABS: Alanine Aminotransferase 44 U/L (0-33); Albumin Level 3.5 g/dL (3.5-5.2); Alkaline Phosphatase 98 U/L (35-105); Anion Gap 15.5 (5-19); Aspartate Amino Transferase 51 U/L (0-32); Blood Urea Nitrogen 14 mg/dL (8-23); Calcium 9.5 mg/dL (8.5-10.5); Carbon Dioxide 28 mmol/L (22-29); Chloride 95 mmol/L (98-107); Globulin 3.6 g/dL (1.3-4.6); Glomerular Filtration Rate 99.7 mL/min (90-130); Glucose 83 mg/dL (65-115); Osmolality Calculated 282 mOsm/kg (285-295); Sodium 136 mmol/L (136-145); Total Bilirubin 0.2 mg/dL (0.15-1.2); Total Protein 7.1 g/dL (6.6-8.7)
[2022-03-15 08:21] LABS: Potassium 2.5 mmol/L (3.5-5.1)
== END 2022-03-14 18:03 | disposition home or self-care (01) ==
PROVIDERS: PCP Family Medicine; Visit Provider Student in an Organized Health Care Education/Training Program
DX: T81.31XA Disruption of external operation (surgical) wound, not elsewhere classified, initial encounter (principal)
CPT/HCPCS: 80053; 80202; 85025; 86140

== ENCOUNTER 2022-03-18 10:40 | Outpatient (CLI) | payer MEDICARE, OTHER, SELFPAY ==
[2022-03-18 19:37] LABS: Basophils # 0.1 10^3/uL (0.0-0.1); Basophils % 0.9 %; Eosinophils # 0.2 10^3/uL (0.0-0.8); Eosinophils % 2.4 %; Hematocrit 30.5 % (37.0-47.0); Hemoglobin 9.5 g/dL (11.5-15.3); Lymphocytes # 1.2 10^3/uL (0.8-4.8); Lymphocytes % 17.6 %; Mean Corpuscular HGB Conc 31.1 g/dL (30.0-36.0); Mean Corpuscular Hemoglobin 25.2 pg (28.0-34.0); Mean Corpuscular Volume 80.9 fl (81-99); Monocytes # 0.6 10^3/uL (0.2-0.9); Monocytes % 9.3 %; Neutrophils # 4.66 10^3/uL (1.8-7.7); Neutrophils % 69.5 %; Nucleated Red Blood Cells % 0 %; Platelet Count 472 10^3/cmm (130-400); Red Blood Count 3.77 10^6/uL (4.1-5.3); Red Cell Distribution Width 18.8 % (12.1-15.1); White Blood Count 6.7 10^3/uL (4.0-10.0)
[2022-03-18 20:10] LABS: Vancomycin Trough 13.6 ug/mL (10-15)
[2022-03-18 20:11] LABS: Alanine Aminotransferase 33 U/L (0-33); Albumin Level 3.4 g/dL (3.5-5.2); Alkaline Phosphatase 95 U/L (35-105); Aspartate Amino Transferase 45 U/L (0-32); Blood Urea Nitrogen 11 mg/dL (8-23); C Reactive Protein 16.4 mg/L (0.0-4.9); Calcium 8.9 mg/dL (8.5-10.5); Carbon Dioxide 29 mmol/L (22-29); Chloride 95 mmol/L (98-107); Globulin 3.6 g/dL (1.3-4.6); Glomerular Filtration Rate 123.1 mL/min (90-130); Glucose 88 mg/dL (65-115); Osmolality Calculated 277 mOsm/kg (285-295); Sodium 134 mmol/L (136-145); Total Bilirubin 0.2 mg/dL (0.15-1.2)
== END 2022-03-18 10:41 | disposition home or self-care (01) ==
LOC: LAB 03-25 10:40
PROVIDERS: PCP Family Medicine; Visit Provider Student in an Organized Health Care Education/Training Program
DX: T81.31XA Disruption of external operation (surgical) wound, not elsewhere classified, initial encounter (principal)
CPT/HCPCS: 80053; 80202; 85025; 86140

== ENCOUNTER 2022-03-21 15:06 | Outpatient (CLI) | payer MEDICARE, OTHER, SELFPAY ==
[2022-03-21 18:30] LABS: Basophils # 0.1 10^3/uL (0.0-0.1); Basophils % 0.6 %; Eosinophils # 0.1 10^3/uL (0.0-0.8); Eosinophils % 1.7 %; Hematocrit 29.3 % (37.0-47.0); Hemoglobin 9.1 g/dL (11.5-15.3); Mean Corpuscular HGB Conc 31.1 g/dL (30.0-36.0); Mean Corpuscular Hemoglobin 25.1 pg (28.0-34.0); Mean Corpuscular Volume 80.7 fl (81-99); Mean Platelet Volume 9.7 fL (7.4-10.4); Monocytes # 0.8 10^3/uL (0.2-0.9); Monocytes % 9.5 %; Neutrophils # 6.42 10^3/uL (1.8-7.7); Neutrophils % 75.8 %; Nucleated Red Blood Cells % 0 %; Platelet Count 403 10^3/cmm (130-400); Red Blood Count 3.63 10^6/uL (4.1-5.3); Red Cell Distribution Width 18.6 % (12.1-15.1); White Blood Count 8.5 10^3/uL (4.0-10.0)
[2022-03-21 18:59] LABS: Alanine Aminotransferase 32 U/L (0-33); Albumin Level 3.5 g/dL (3.5-5.2); Alkaline Phosphatase 91 U/L (35-105); Anion Gap 13.9 (5-19); Aspartate Amino Transferase 43 U/L (0-32); Blood Urea Nitrogen 9 mg/dL (8-23); C Reactive Protein 13.4 mg/L (0.0-4.9); Carbon Dioxide 29 mmol/L (22-29); Chloride 95 mmol/L (98-107); Globulin 3.2 g/dL (1.3-4.6); Glomerular Filtration Rate 99.7 mL/min (90-130); Glucose 92 mg/dL (65-115); Osmolality Calculated 278 mOsm/kg (285-295); Sodium 135 mmol/L (136-145); Total Bilirubin 0.2 mg/dL (0.15-1.2); Total Protein 6.7 g/dL (6.6-8.7)
[2022-03-21 19:02] LABS: Potassium 2.9 mmol/L (3.5-5.1)
[2022-03-21 19:03] LABS: Vancomycin Trough 17.8 ug/mL (10-15)
== END 2022-03-21 15:07 | disposition home or self-care (01) ==
LOC: LAB 03-25 15:07
PROVIDERS: PCP Family Medicine; Visit Provider Student in an Organized Health Care Education/Training Program
DX: T81.31XA Disruption of external operation (surgical) wound, not elsewhere classified, initial encounter (principal)
CPT/HCPCS: 80053; 80202; 85025; 86140; 99024

== ENCOUNTER 2022-03-26 07:40 | Outpatient (CLI) | payer MEDICARE, OTHER, SELFPAY ==
[2022-03-26 09:05] LABS: Basophils % 0.4 %; Eosinophils # 0.1 10^3/uL (0.0-0.8); Eosinophils % 0.9 %; Hematocrit 32.9 % (37.0-47.0); Hemoglobin 10.1 g/dL (11.5-15.3); Lymphocytes # 0.9 10^3/uL (0.8-4.8); Lymphocytes % 8.5 %; Mean Corpuscular HGB Conc 30.7 g/dL (30.0-36.0); Mean Corpuscular Hemoglobin 25.3 pg (28.0-34.0); Mean Corpuscular Volume 82.3 fl (81-99); Mean Platelet Volume 9.8 fL (7.4-10.4); Monocytes # 1.1 10^3/uL (0.2-0.9); Monocytes % 9.7 %; Neutrophils % 79.9 %; Nucleated Red Blood Cells % 0 %; Platelet Count 454 10^3/cmm (130-400); Red Cell Distribution Width 18.4 % (12.1-15.1); White Blood Count 10.9 10^3/uL (4.0-10.0)
[2022-03-26 09:26] LABS: Vancomycin Trough 11.5 ug/mL (10-15)
[2022-03-26 09:27] LABS: Alanine Aminotransferase 32 U/L (0-33); Albumin Level 3.8 g/dL (3.5-5.2); Alkaline Phosphatase 114 U/L (35-105); Blood Urea Nitrogen 7 mg/dL (8-23); C Reactive Protein 64.2 mg/L (0.0-4.9); Calcium 9.7 mg/dL (8.5-10.5); Carbon Dioxide 28 mmol/L (22-29); Chloride 87 mmol/L (98-107); Globulin 4.1 g/dL (1.3-4.6); Glomerular Filtration Rate 99.7 mL/min (90-130); Glucose 81 mg/dL (65-115); Osmolality Calculated 263 mOsm/kg (285-295); Sodium 128 mmol/L (136-145); Total Bilirubin 0.3 mg/dL (0.15-1.2); Total Protein 7.9 g/dL (6.6-8.7)
[2022-03-26 09:29] LABS: Aspartate Amino Transferase 47 U/L (0-32)
== END 2022-03-26 07:41 | disposition home or self-care (01) ==
LOC: LAB 07:41
PROVIDERS: PCP Family Medicine; Visit Provider Student in an Organized Health Care Education/Training Program
DX: T81.31XA Disruption of external operation (surgical) wound, not elsewhere classified, initial encounter (principal); Y83.8 Other surgical procedures as the cause of abnormal reaction of the patient, or of later complication, without mention of misadventure at the time of the procedure
CPT/HCPCS: 36415; 80053; 80202; 82248; 85025; 86140

== ENCOUNTER 2022-03-28 09:55 | Outpatient (CLI) | payer MEDICARE, OTHER, SELFPAY ==
[2022-03-28 15:24] LABS: Basophils # 0.1 10^3/uL (0.0-0.1); Basophils % 0.4 %; Eosinophils # 0.1 10^3/uL (0.0-0.8); Eosinophils % 0.7 %; Hematocrit 35.5 % (37.0-47.0); Hemoglobin 10.6 g/dL (11.5-15.3); Lymphocytes # 1.3 10^3/uL (0.8-4.8); Lymphocytes % 8.8 %; Mean Corpuscular HGB Conc 29.9 g/dL (30.0-36.0); Mean Corpuscular Hemoglobin 24.9 pg (28.0-34.0); Mean Corpuscular Volume 83.3 fl (81-99); Mean Platelet Volume 10.6 fL (7.4-10.4); Monocytes % 6.7 %; Neutrophils # 11.87 10^3/uL (1.8-7.7); Nucleated Red Blood Cells % 0 %; Platelet Count 573 10^3/cmm (130-400); Red Blood Count 4.26 10^6/uL (4.1-5.3); Red Cell Distribution Width 18.4 % (12.1-15.1); White Blood Count 14.3 10^3/uL (4.0-10.0)
[2022-03-28 15:56] LABS: Alanine Aminotransferase 29 U/L (0-33); Albumin Level 3.9 g/dL (3.5-5.2); Alkaline Phosphatase 127 U/L (35-105); Anion Gap 17.2 (5-19); Aspartate Amino Transferase 40 U/L (0-32); Blood Urea Nitrogen 10 mg/dL (8-23); C Reactive Protein 135.9 mg/L (0.0-4.9); Calcium 9.9 mg/dL (8.5-10.5); Carbon Dioxide 28 mmol/L (22-29); Chloride 95 mmol/L (98-107); Globulin 4.4 g/dL (1.3-4.6); Glomerular Filtration Rate 71.5 mL/min (90-130); Glucose 68 mg/dL (65-115); Osmolality Calculated 279 mOsm/kg (285-295); Potassium 4.2 mmol/L (3.5-5.1); Sodium 136 mmol/L (136-145); Total Bilirubin 0.2 mg/dL (0.15-1.2); Total Protein 8.3 g/dL (6.6-8.7); Vancomycin Trough 6.3 ug/mL (10-15)
[2022-03-28 19:58] LABS: Adenovirus Not Detected (NOT DETECT); Chlamydia Pneumoniae Not Detected (NOT DETECT); Coronavirus 229E,HKU1,NL63,OC4 Not Detected (NOT DETECT); Human Metapneumovirus Not Detected (NOT DETECT); Human Rhinovirus/Enterovirus Not Detected (NOT DETECT); Influenza A Not Detected (NOT DETECT); Influenza A H1 Not Detected (NOT DETECT); Influenza A H1-2009 Not Detected (NOT DETECT); Influenza A H3 Not Detected (NOT DETECT); Influenza B Not Detected (NOT DETECT); Mycoplasma Pneumoniae Not Detected (NOT DETECT); Parainfluenza Virus Type 1 Not Detected (NOT DETECT); Parainfluenza Virus Type 2 Not Detected (NOT DETECT); Parainfluenza Virus Type 3 Not Detected (NOT DETECT); Parainfluenza Virus Type 4 Not Detected (NOT DETECT); Respiratory Syncytial Virus A Not Detected (NOT DETECT); Respiratory Syncytial Virus B Not Detected (NOT DETECT); SARS-COV-2 Not Detected (NOT DETECT)
== END 2022-03-28 09:56 | disposition home or self-care (01) ==
LOC: LAB 03-29 09:57
PROVIDERS: PCP Family Medicine; Visit Provider Student in an Organized Health Care Education/Training Program
DX: T81.31XA Disruption of external operation (surgical) wound, not elsewhere classified, initial encounter (principal); Y83.8 Other surgical procedures as the cause of abnormal reaction of the patient, or of later complication, without mention of misadventure at the time of the procedure; Z48.89 Encounter for other specified surgical aftercare; L03.115 Cellulitis of right lower limb; Z79.899 Other long term (current) drug therapy; R50.9 Fever, unspecified; R05.9 Cough, unspecified; R91.1 Solitary pulmonary nodule; C34.91 Malignant neoplasm of unspecified part of right bronchus or lung; J44.9 Chronic obstructive pulmonary disease, unspecified
CPT/HCPCS: 80053; 80202; 82248; 85025; 86140; 87486; 87581; 87633; 99024

== ENCOUNTER 2022-04-01 07:43 | Outpatient (CLI) | payer MEDICARE, OTHER, SELFPAY ==
--- NOTE | 2022-04-01 08:00 | CT_ITS ---
WS: [id number] CT CHEST WITH INTRAVENOUS CONTRAST HISTORY: Follow-up lung cancer, restaging. TECHNIQUE: Contiguous 5 mm axial imaging performed on the thorax. Coronal and sagittal reformats are submitted. All CT scans at [facility] use at least one of these dose optimization techniques: automated exposure control; mA and/or kV adjustment per patient size (includes targeted exams where dose is matched to clinical indication); or iterative reconstruction. CONTRAST: Omnipaque 350; 85 mL IV. DLP: 520.42 mGy.cm COMPARISON: 10/19/2021, 06/20/2021 Lungs and central airway: Hyperinflated lungs with changes of emphysema. Partial lobectomy RIGHT uppe r lobe. No change in the pleural-based nodule measuring 4 mm RIGHT lower lobe. Seen best on the sagit michael reformats is increasing opacification along the major fissure and a small 4 mm nodule. The pleura l thickening seen along the mid RIGHT thorax is stable. No new mass. Pleura: No pleural effusions. Heart and pericardium: Normal size heart with no pericardial effusion. Mediastinum and aruna: No mediastinum or hilar adenopathy. Vessels: Atherosclerosis aorta. No aneurysm. Normal size pulmonary artery. Chest wall and lower neck: No soft tissue masses. Upper abdomen: Small hiatal hernia. No adrenal mass. Visualized liver is negative. Osseous structures: Postsurgical fusion hardware cervical thoracic junction. Dorsal column stimulator over the mid thoracic region. Postsurgical changes along the RIGHT lateral thoracic wall. Partial ri b resection. CT/CT chest w con* [id number] IMPRESSION: 1. New very small 4 mm nodular opacification and mild interstitial thickening in the RIGHT middle lobe at the site of prior surgery possible prior radiation. Recommend 3 month follow-up. 2. The 4 mm nodule RIGHT lower lobe is unchanged. 3. Partial RIGHT upper lobectomy.
[2022-04-01] MEDS: iohexol 350 mg/mL 500 mL Btl (per mL) IV (08:12)
== END 2022-04-01 07:44 | disposition home or self-care (01) ==
LOC: RAD 07:43
PROVIDERS: PCP Family Medicine; Visit Provider Nurse Practitioner Family
DX: C34.91 Malignant neoplasm of unspecified part of right bronchus or lung (principal)
CPT/HCPCS: 71260; Q9967

== ENCOUNTER → 2022-04-04 09:32 | Outpatient (BNVA) | payer MEDICARE, OTHER, SELFPAY | PROVIDERS: PCP Family Medicine; Visit Provider Student in an Organized Health Care Education/Training Program | DX: T84.63XA Infection and inflammatory reaction due to internal fixation device of spine, initial encounter (principal); Y79.1 Therapeutic (nonsurgical) and rehabilitative orthopedic devices associated with adverse incidents; B95.62 Methicillin resistant Staphylococcus aureus infection as the cause of diseases classified elsewhere; E87.1 Hypo-osmolality and hyponatremia; R74.01 Elevation of levels of liver transaminase levels; Z79.2 Long term (current) use of antibiotics; X58.XXXA Exposure to other specified factors, initial encounter | CPT/HCPCS: 36415; 80053; 85025; 85651; 86140; 99214 ==

== ENCOUNTER → 2022-04-16 07:48 | Outpatient (BNVA) | payer MEDICARE, OTHER, SELFPAY | PROVIDERS: PCP Family Medicine; Visit Provider Physician Assistant | DX: T81.30XA Disruption of wound, unspecified, initial encounter (principal); Z98.1 Arthrodesis status; Y83.8 Other surgical procedures as the cause of abnormal reaction of the patient, or of later complication, without mention of misadventure at the time of the procedure | CPT/HCPCS: 99024; 99212 ==

== ENCOUNTER 2022-04-26 09:20 | Oncology outpatient (recurring) (ONCR) | payer MEDICARE, OTHER, SELFPAY ==
[2022-04-26 10:22] LABS: Basophils % 0.6 %; Eosinophils # 0.1 10^3/uL (0.0-0.8); Eosinophils % 2.8 %; Hematocrit 39.9 % (37.0-47.0); Hemoglobin 12.6 g/dL (11.5-15.3); Lymphocytes # 1.4 10^3/uL (0.8-4.8); Lymphocytes % 29.4 %; Mean Corpuscular HGB Conc 31.6 g/dL (30.0-36.0); Mean Corpuscular Hemoglobin 26.5 pg (28.0-34.0); Mean Corpuscular Volume 83.8 fl (81-99); Monocytes # 0.4 10^3/uL (0.2-0.9); Monocytes % 9.1 %; Neutrophils % 57.5 %; Nucleated Red Blood Cells % 0 %; Platelet Count 373 10^3/cmm (130-400); Red Blood Count 4.76 10^6/uL (4.1-5.3); Red Cell Distribution Width 21.8 % (12.1-15.1); White Blood Count 4.7 10^3/uL (4.0-10.0)
[2022-04-26 10:40] LABS: Alanine Aminotransferase 139 U/L (0-33); Albumin Level 4.5 g/dL (3.5-5.2); Alkaline Phosphatase 93 U/L (35-105); Aspartate Amino Transferase 146 U/L (0-32); Blood Urea Nitrogen 13 mg/dL (8-23); Calcium 9.3 mg/dL (8.5-10.5); Carbon Dioxide 26 mmol/L (22-29); Chloride 94 mmol/L (98-107); Globulin 3.6 g/dL (1.3-4.6); Glomerular Filtration Rate 158.7 mL/min (90-130); Glucose 65 mg/dL (65-115); Osmolality Calculated 270 mOsm/kg (285-295); Sodium 131 mmol/L (136-145); Total Bilirubin 0.2 mg/dL (0.15-1.2); Total Protein 8.1 g/dL (6.6-8.7)
== END 2022-05-14 23:59 | disposition home or self-care (01) ==
PROVIDERS: PCP Family Medicine; Visit Provider Internal Medicine Hematology & Oncology
DX: F17.210 Nicotine dependence, cigarettes, uncomplicated; Z08 Encounter for follow-up examination after completed treatment for malignant neoplasm; Z85.118 Personal history of other malignant neoplasm of bronchus and lung; R91.1 Solitary pulmonary nodule; Z90.2 Acquired absence of lung [part of]; R74.01 Elevation of levels of liver transaminase levels; E87.1 Hypo-osmolality and hyponatremia
CPT/HCPCS: 36415; 80053; 85025; 99214

== ENCOUNTER → 2022-04-30 08:40 | Outpatient (BNVA) | payer MEDICARE, OTHER, SELFPAY | PROVIDERS: PCP Family Medicine; Visit Provider Physician Assistant | DX: Z98.1 Arthrodesis status (principal); Z48.89 Encounter for other specified surgical aftercare | CPT/HCPCS: 72040; 99024 ==

== ENCOUNTER → 2022-05-16 09:10 | Outpatient (BNVA) | payer MEDICARE, OTHER, SELFPAY | PROVIDERS: PCP Family Medicine; Visit Provider Student in an Organized Health Care Education/Training Program | DX: R74.01 Elevation of levels of liver transaminase levels (principal); T84.7XXA Infection and inflammatory reaction due to other internal orthopedic prosthetic devices, implants and grafts, initial encounter; E87.1 Hypo-osmolality and hyponatremia; X58.XXXA Exposure to other specified factors, initial encounter | CPT/HCPCS: 36415; 80053; 86705; 86706; 86709; 86803; 87340; 99213 ==

== ENCOUNTER → 2022-05-21 07:57 | Outpatient (BNVA) | payer MEDICARE, OTHER, SELFPAY | PROVIDERS: PCP Family Medicine; Visit Provider Physician Assistant | DX: T84.7XXA Infection and inflammatory reaction due to other internal orthopedic prosthetic devices, implants and grafts, initial encounter (principal); Z98.1 Arthrodesis status; X58.XXXA Exposure to other specified factors, initial encounter | CPT/HCPCS: 72040; 99213 ==

== ENCOUNTER 2022-06-06 15:08 | Outpatient (CLI) | payer MEDICARE, OTHER, SELFPAY ==
--- NOTE | 2022-06-06 15:45 | US_ITS ---
WS: [id number] RIGHT UPPER QUADRANT ULTRASOUND HISTORY: evalute for hepatitis COMPARISON: 08/07/2021 Liver: 14.2 cm in length. Liver is normal size. Mild coarse echotexture throughout the liver. There a re no echogenic foci which can be seen with acute hepatitis. There is no ascites. Surface of the live r is very irregular suggesting cirrhosis. Portal Vein: Normal hepatopetal flow with monophasic waveform. Gallbladder: Normally distended gallbladder with no stones or wall thickening. CBD: 0.3 cm Pancreas: Normal size and echogenicity. Right kidney: 10.8 cm in length. Normal size and echogenicity. No hydronephrosis or mass. Aorta and IVC: Unremarkable abdominal aorta and IVC. No ascites. US/US liver [id number] IMPRESSION: 1. Coarse echotexture throughout the liver. Consider hepatic steatosis. Surfac e irregularity is suggestive of cirrhosis. 2. Normal gallbladder.
== END 2022-06-06 15:09 | disposition home or self-care (01) ==
LOC: RAD 15:11
PROVIDERS: PCP Family Medicine; Visit Provider Student in an Organized Health Care Education/Training Program
DX: R74.01 Elevation of levels of liver transaminase levels (principal)
CPT/HCPCS: 76705; 99213

== ENCOUNTER → 2022-07-01 09:58 | Outpatient (BNVA) | payer MEDICARE, OTHER, SELFPAY | PROVIDERS: PCP Family Medicine; Visit Provider Internal Medicine Pulmonary Disease | DX: J44.9 Chronic obstructive pulmonary disease, unspecified (principal); F17.210 Nicotine dependence, cigarettes, uncomplicated; Z90.2 Acquired absence of lung [part of]; Z85.118 Personal history of other malignant neoplasm of bronchus and lung | CPT/HCPCS: 99214 ==

== ENCOUNTER 2022-07-26 07:16 | Outpatient (CLI) | payer MEDICARE, OTHER, SELFPAY ==
[2022-07-26] MEDS: iohexol 350 mg/mL 500 mL Btl (per mL) IV (07:25)
--- NOTE | 2022-07-26 07:30 | CTR_ITS ---
PROCEDURE INFORMATION: Exam: CT Chest With Contrast; Diagnostic Exam date and time: 07/26/2022 7:42 AM Age: 67 years old Clinical indication: Abnormal findings; Abnormal radiologic exam of lung or chest; Prior surgery; Surgery type: RT lung; Patient HX: HX of lung cancer; Additional info: Follow up, to be completed just prior to next onc visit TECHNIQUE: Imaging protocol: Diagnostic computed tomography of the chest with contrast. Radiation optimization: All CT scans at this facility use at least one of these dose optimization techniques: automated exposure control; mA and/or kV adjustment per patient size (includes targeted exams where dose is matched to clinical indication); or iterative reconstruction. Contrast material: OMNI 350; Contrast volume: 100 ml; Contrast route: INTRAVENOUS (IV); REPORTING DATA: Count of CT and Cardiac NM exams in prior 12 months: This patient has received 3 known CTs and 0 known cardiac nuclear medicine studies in the 12 months prior to the current study. COMPARISON: 1. CT chest w con* [id number] 04/01/2022 8:[address] chest w con* [id number] 10/19/2021 1:[address] chest w con* [id number] 12/05/2020 11:06 AM RADIATION DOSE METRICS: Total DLP (mGy-cm): 168.01 FINDINGS: Tubes, catheters and devices: There is neurostimulator electrode within the thoracic spine not significantly changed. Lungs: Postsurgical findings in the right lung are stable. Pleural spaces: Pleural and parenchymal scarring in the periphery of the superior segment right lower lobe as well as along the lateral aspect of the major fissure within the middle lobe is again identified. This is slightly more prominent in the middle lobe adjacent to the major fissure such as on axial image number 43 of series 4. The significance of this increase in scarring and fibrosis at this location is not certain. This measures a approximately 5 x 8 mm. Short-term follow-up suggested, alternatively this could be done as a PET-CT scan. The nodular area of scarring question periphery of the right lower lobe is not significantly changed. The focal scarring in the right upper lobe presumably at the resection site of the patient's tumor unchanged. Heart: Unremarkable. No cardiomegaly. No pericardial effusion. Lymph nodes: Small paratracheal lymph nodes are unchanged.There is no evidence of lymphadenopathy. Vasculature: There is some atherosclerotic calcification of the descending thoracic aorta. There is no thoracic aortic aneurysm or dissection. There is no gross evidence of pulmonary embolism. Adrenal glands: Adrenal glands partly imaged, not enlarged.There is moderate atherosclerotic calcification of the coronary arteries. Bones/joints: There are postsurgical changes of spinal fusion, anterior and posterior and laminectomy in the lower cervical spine not completely evaluated on this examination but not changed from previous. There is widening of the posterior right 5th interspace due to prior pulmonary surgery in there is ununited fractures of the right 4th, 5th, and 6th ribs not significantly changed. Soft tissues: Unremarkable. CT/CT chest w con* [id number] IMPRESSION: Increasing nodular like scarring in the periphery of the right middle lobe of uncertain significance. Follow-up suggested. Consider further evaluation with PET-CT scan.
== END 2022-07-26 07:17 | disposition home or self-care (01) ==
LOC: RAD 07:20
PROVIDERS: PCP Family Medicine; Visit Provider Internal Medicine Hematology & Oncology
DX: C34.91 Malignant neoplasm of unspecified part of right bronchus or lung (principal)
CPT/HCPCS: 71260; Q9967

== ENCOUNTER 2022-07-30 08:37 | Oncology outpatient (recurring) (ONCR) | payer MEDICARE, OTHER, SELFPAY ==
[2022-05-16 11:25] LABS: Alanine Aminotransferase 187 U/L (0-33); Albumin Level 4.6 g/dL (3.5-5.2); Alkaline Phosphatase 80 U/L (35-105); Blood Urea Nitrogen 15 mg/dL (8-23); Calcium 9.9 mg/dL (8.5-10.5); Carbon Dioxide 25 mmol/L (22-29); Chloride 93 mmol/L (98-107); Globulin 2.8 g/dL (1.3-4.6); Glomerular Filtration Rate 122.7 mL/min (90-130); Glucose 80 mg/dL (65-115); Osmolality Calculated 276 mOsm/kg (285-295); Sodium 133 mmol/L (136-145); Total Bilirubin 0.3 mg/dL (0.15-1.2); Total Protein 7.4 g/dL (6.6-8.7)
[2022-05-16 11:27] LABS: Anion Gap 19.6 (5-19); Aspartate Amino Transferase 169 U/L (0-32); Potassium 4.6 mmol/L (3.5-5.1)
[2022-05-16 11:39] LABS: Hepatitis A Antibody IgM Non-Reactive (Nonreactive); Hepatitis B Core AB, Total Non-Reactive (Nonreactive); Hepatitis B Surface AB 3.5 (11.5-1000); Hepatitis B Surface Antigen Non-Reactive (Nonreactive); Hepatitis C Virus Antibody Non-Reactive (Nonreactive)
[2022-07-30 09:51] LABS: Basophils # 0.1 10^3/uL (0.0-0.1); Basophils % 1.3 %; Eosinophils # 0.1 10^3/uL (0.0-0.8); Eosinophils % 2.6 %; Hematocrit 40.7 % (37.0-47.0); Hemoglobin 13.3 g/dL (11.5-15.3); Lymphocytes # 1.1 10^3/uL (0.8-4.8); Lymphocytes % 28.2 %; Mean Corpuscular HGB Conc 32.7 g/dL (30.0-36.0); Mean Corpuscular Volume 91.9 fl (81-99); Mean Platelet Volume 9.6 fL (7.4-10.4); Monocytes # 0.4 10^3/uL (0.2-0.9); Monocytes % 10.8 %; Neutrophils % 56.3 %; Nucleated Red Blood Cells % 0 %; Platelet Count 250 10^3/cmm (130-400); Red Blood Count 4.43 10^6/uL (4.1-5.3); Red Cell Distribution Width 16.4 % (12.1-15.1); White Blood Count 3.9 10^3/uL (4.0-10.0)
[2022-07-30 10:22] LABS: Alanine Aminotransferase 148 U/L (0-33); Albumin Level 3.9 g/dL (3.5-5.2); Alkaline Phosphatase 77 U/L (35-105); Anion Gap 15.8 (5-19); Aspartate Amino Transferase 242 U/L (0-32); Blood Urea Nitrogen 10 mg/dL (8-23); Calcium 8.8 mg/dL (8.5-10.5); Carbon Dioxide 23 mmol/L (22-29); Chloride 97 mmol/L (98-107); Globulin 2.9 g/dL (1.3-4.6); Glomerular Filtration Rate 158.7 mL/min (90-130); Glucose 70 mg/dL (65-115); Osmolality Calculated 271 mOsm/kg (285-295); Potassium 3.8 mmol/L (3.5-5.1); Sodium 132 mmol/L (136-145); Total Bilirubin 0.2 mg/dL (0.15-1.2); Total Protein 6.8 g/dL (6.6-8.7)
== END 2022-08-11 23:59 | disposition home or self-care (01) ==
PROVIDERS: Student in an Organized Health Care Education/Training Program; PCP Family Medicine; Visit Provider Internal Medicine Hematology & Oncology
DX: Z08 Encounter for follow-up examination after completed treatment for malignant neoplasm (principal); Z85.118 Personal history of other malignant neoplasm of bronchus and lung; F17.210 Nicotine dependence, cigarettes, uncomplicated; Z90.2 Acquired absence of lung [part of]; R74.01 Elevation of levels of liver transaminase levels; F10.20 Alcohol dependence, uncomplicated; K76.89 Other specified diseases of liver; E87.1 Hypo-osmolality and hyponatremia; F41.9 Anxiety disorder, unspecified; F32.9 Major depressive disorder, single episode, unspecified; Z79.899 Other long term (current) drug therapy
CPT/HCPCS: 36415; 80053; 85025; 99214

== ENCOUNTER → 2022-08-08 15:47 | Outpatient (BNVA) | payer MEDICARE, OTHER, SELFPAY | PROVIDERS: PCP Family Medicine; Visit Provider Student in an Organized Health Care Education/Training Program | DX: R74.01 Elevation of levels of liver transaminase levels (principal); T84.7XXA Infection and inflammatory reaction due to other internal orthopedic prosthetic devices, implants and grafts, initial encounter; X58.XXXA Exposure to other specified factors, initial encounter | CPT/HCPCS: 99024; 99214 ==

== ENCOUNTER 2022-08-17 05:39 | Outpatient (CLI) | payer MEDICARE, OTHER, SELFPAY ==
--- NOTE | 2022-08-17 07:30 | PETR_ITS ---
PROCEDURE INFORMATION: Exam: PET/CT Skull Base to Mid-thigh Exam date and time: 08/17/2022 7:45 AM Age: 67 years old Clinical indication: Abnormal findings; Changes in right lung on CT scan, refer to CT scan from 07/26/22; Prior surgery; Surgery type: RT lung cervical; Patient HX: HX lung cancer. LABS AND CLINICAL REPORTS: Glucose: 81 mg/dl Treatment strategy for malignancy (PET staging): Initial Staging (PI) TECHNIQUE: Imaging protocol: Following at least four-hour fasting and following the injection of radiopharmaceutical, low dose CT images were obtained. Then, PET images were obtained. Attenuation corrected images were constructed using the CT scan. Fused images of PET and CT were reviewed. The standardized uptake values (SUV) reported below are maximum values within a region of interest, expressed in gm/ml. Exam includes orbital meatal line to mid-thigh. Radiopharmaceutical: 13.36 mCi F-18 FDG (Fluorodeoxyglucose), IV. Time of imaging post radiopharmaceutical administration: 54.5 minutes. Injection site: Right forearm. COMPARISON: PT PET Scan 03/13/2019 8:15 AM FINDINGS: Tubes, catheters and devices: A spinal cord stimulator is positioned with the tip mid T7 level. Brain: Visualized brain has normal physiologic uptake. Pharynx: No abnormal uptake. Larynx: No abnormal uptake. Thyroid: The thyroid gland is normal. Lungs, pleura and trachea: Status post wedge resection of the malignant tumor from the apical segment of the upper right upper lobe. In the right middle lobe, at the posterolateral aspect of the lateral segment, mild ground-glass opacity has an SUV max of only 1.8 (image 58). It is consistent with scarring. In the right lower lobe, at the lateral aspect of the superior segment, ground-glass opacity has an SUV max of 1.7 (image 48). It is consistent with scarring. The left lung is clear. Heart: No cardiomegaly. Coronary arteries: Moderate atherosclerotic calcification of the coronary arteries. Mediastinal space: No abnormal uptake. Liver: No abnormal uptake. Mild steatosis. No hepatic mass. Gallbladder and bile ducts: No abnormal uptake. Pancreas: No abnormal uptake. Spleen: No abnormal uptake. Adrenal glands: No abnormal uptake. Kidneys and ureters: Normal physiologic uptake. Stomach and bowel: In the ascending colon, diffuse FDG avidity has an SUV max of 8.1 (image 96). On the comparison PET/CT on 03/13/2019, there was similar FDG avidity in this area. Its SUV max was 7.8. It is nonspecific and statistically most likely benign/physiologic. Reproductive: Post hysterectomy. Vasculature: No abnormal uptake. Lymph nodes: No abnormal uptake. No lymphadenopathy in the head, neck, chest, abdomen, pelvis or extremities. Bones/joints: Status post right thoracotomy between the lateral aspects of the right 5th and 6th ribs, which is new since the last PET/CT on 03/13/2019. 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 In the right upper lobe, stable focal minimal scarring at the lateral aspect of the posterior segment, adjacent to the thoracotomy, is not FDG avid. Anterior and posterior cervical spine fusion is not FDG avid. Worsening right temporomandibular joint osteoarthritis is FDG avid (images 10 and 11). Its SUV max is 4.9 (previously 2.3). Soft tissues: No metabolically active areas. PET/PET skulltothi SUBSEQ [id number] IMPRESSION: 1. No evidence of recurrent, residual or metastatic cancer. 2. Status post right upper lobe wedge resection. 3. Status post right thoracotomy. 4. Mild peripheral pulmonary scarring adjacent to the thoracotomy. 5. Worsening right temporomandibular joint osteoarthritis is FDG avid.
== END 2022-08-17 05:40 | disposition home or self-care (01) ==
LOC: RAD 08-19 05:39
PROVIDERS: PCP Family Medicine; Visit Provider Nurse Practitioner Family
DX: R91.8 Other nonspecific abnormal finding of lung field (principal)
CPT/HCPCS: 78815; A9552

== ENCOUNTER → 2022-09-17 08:55 | Outpatient (BNVA) | payer MEDICARE, OTHER, SELFPAY | PROVIDERS: PCP Family Medicine; Visit Provider Physician Assistant | DX: Z98.1 Arthrodesis status (principal); M54.2 Cervicalgia | CPT/HCPCS: 99213 ==

== ENCOUNTER 2022-09-24 08:19 | Outpatient (CLI) | payer MEDICARE, OTHER, SELFPAY ==
--- NOTE | 2022-09-24 08:27 | MM_ITS ---
WS: [id number] BILATERAL 3D TOMOSYNTHESIS DIGITAL SCREENING MAMMOGRAPHY WITH CAD CLINICAL INFORMATION: SCREENING HISTORY: Screening mammogram. No current complaints. COMPARISON: September 21, 2021 TECHNIQUE: Bilateral CC and MLO views. FINDINGS: Scattered fibroglandular densities bilaterally. No suspicious focal mass, asymmetry, calcifications, or architectural distortion. No evidence of malignancy. A few incidental punctate calcifications. MM/[place] [id number] IMPRESSION: BI-RADS: 2-Benign FOLLOW UP: 1 Year Follow-up Recommend return to annual screening mammography.
== END 2022-09-24 08:20 | disposition home or self-care (01) ==
LOC: RAD 08:21
PROVIDERS: PCP Family Medicine; Visit Provider Family Medicine
DX: Z12.31 Encounter for screening mammogram for malignant neoplasm of breast (principal)
CPT/HCPCS: 77063; 77067

== ENCOUNTER 2022-10-28 07:58 | Oncology outpatient (recurring) (ONCR) | payer MEDICARE, OTHER, SELFPAY ==
[2022-10-28 08:03] VITALS: BP 151/85; PULSE 75; RESP 18; TEMP 36.7; O2SAT 98
[2022-10-28 08:24] LABS: Basophils # 0.1 10^3/uL (0.0-0.1); Basophils % 1.1 %; Eosinophils # 0.2 10^3/uL (0.0-0.8); Hematocrit 41.1 % (37.0-47.0); Lymphocytes # 1.1 10^3/uL (0.8-4.8); Mean Corpuscular HGB Conc 34.1 g/dL (30.0-36.0); Mean Corpuscular Volume 93.8 fl (81-99); Mean Platelet Volume 9.5 fL (7.4-10.4); Monocytes # 0.7 10^3/uL (0.2-0.9); Monocytes % 12.9 %; Neutrophils # 3.33 10^3/uL (1.8-7.7); Neutrophils % 62.4 %; Nucleated Red Blood Cells % 0 %; Platelet Count 281 10^3/cmm (130-400); Red Blood Count 4.38 10^6/uL (4.1-5.3); Red Cell Distribution Width 14.6 % (12.1-15.1); White Blood Count 5.3 10^3/uL (4.0-10.0)
[2022-10-28 08:38] LABS: Alanine Aminotransferase 180 U/L (0-33); Albumin Level 4.1 g/dL (3.5-5.2); Alkaline Phosphatase 86 U/L (35-105); Anion Gap 14.8 (5-19); Aspartate Amino Transferase 240 U/L (0-32); Blood Urea Nitrogen 13 mg/dL (8-23); Calcium 9.1 mg/dL (8.5-10.5); Carbon Dioxide 24 mmol/L (22-29); Chloride 94 mmol/L (98-107); Glomerular Filtration Rate 122.7 mL/min (90-130); Glucose 87 mg/dL (65-115); Osmolality Calculated 267 mOsm/kg (285-295); Potassium 3.8 mmol/L (3.5-5.1); Sodium 129 mmol/L (136-145); Total Bilirubin 0.3 mg/dL (0.15-1.2); Total Protein 7.1 g/dL (6.6-8.7)
== END 2022-11-11 23:59 | disposition home or self-care (01) ==
PROVIDERS: Nurse Practitioner Family; PCP Family Medicine; Visit Provider Internal Medicine Hematology & Oncology
DX: F17.210 Nicotine dependence, cigarettes, uncomplicated; Z90.2 Acquired absence of lung [part of]; C34.91 Malignant neoplasm of unspecified part of right bronchus or lung
CPT/HCPCS: 36415; 80053; 85025; 99214

== ENCOUNTER → 2022-11-25 09:52 | Outpatient (BNVA) | payer MEDICARE, OTHER, SELFPAY | PROVIDERS: PCP Family Medicine; Visit Provider Otolaryngology | DX: H61.21 Impacted cerumen, right ear (principal) | CPT/HCPCS: 69210; 99202 ==

== ENCOUNTER → 2023-01-02 08:27 | Outpatient (BNVA) | payer MEDICARE, OTHER, SELFPAY | PROVIDERS: PCP Family Medicine; Visit Provider Internal Medicine Pulmonary Disease | DX: J44.9 Chronic obstructive pulmonary disease, unspecified (principal); Z85.110 Personal history of malignant carcinoid tumor of bronchus and lung; F17.210 Nicotine dependence, cigarettes, uncomplicated; Z90.2 Acquired absence of lung [part of] | CPT/HCPCS: 99214 ==

== ENCOUNTER → 2023-02-20 13:50 | Outpatient (BNVA) | payer MEDICARE, OTHER, SELFPAY | PROVIDERS: PCP Family Medicine; Visit Provider Student in an Organized Health Care Education/Training Program | DX: T84.7XXA Infection and inflammatory reaction due to other internal orthopedic prosthetic devices, implants and grafts, initial encounter (principal); X58.XXXA Exposure to other specified factors, initial encounter | CPT/HCPCS: 99213 ==

== ENCOUNTER → 2023-03-11 08:36 | Outpatient (BNVA) | payer MEDICARE, OTHER, SELFPAY | PROVIDERS: PCP Family Medicine; Visit Provider Nurse Practitioner Family | DX: T81.31XD Disruption of external operation (surgical) wound, not elsewhere classified, subsequent encounter (principal); Y83.8 Other surgical procedures as the cause of abnormal reaction of the patient, or of later complication, without mention of misadventure at the time of the procedure | CPT/HCPCS: 97597; 99213; A6212 ==

== ENCOUNTER 2023-03-17 07:04 | Outpatient (CLI) | payer MEDICARE, OTHER, SELFPAY ==
--- NOTE | 2023-03-17 07:09 | CT_ITS ---
WS: [id number] CT chest w con* [id number] HISTORY: Follow-up adenocarcinoma RIGHT lung. TECHNIQUE: Axial imaging performed through the thorax. Coronal and sagittal reformats are submitted. All CT scans at [facility] [place] use at least one of these dose optimization techniques: automated exposure control; mA and/or kV adjustment per patient size (includes targeted exams where dose is mat ched to clinical indication); or iterative reconstruction. CONTRAST: Omnipaque 350; 75 mL IV. DLP: 214.90 mGy.cm COMPARISON: 08/17/2022 PET/CT and CT 07/26/2022 Lungs and central airway: Partial lobectomy RIGHT upper lobe and prior thoracotomy. Previously descri bed groundglass and hazy attenuation in the RIGHT middle lobe was negative on PET/CT. The wedge-shape d opacification is decreasing in size as compared to 07/26/2022. This scarring is adjacent to the surg ical site. Additional scarring at the RIGHT apex. Mild pleural thickening superior LEFT fissure. Stab le. There are no new areas of nodularity. There are a few very tiny peripheral nodules which are less than 3 mm and may be vessels on end. Pleura: No effusion. Mild pleural thickening RIGHT thorax at the site of the thoracotomy. Heart and pericardium: Normal size heart. No pericardial or pleural effusion. Mediastinum and aruna: No mediastinum or hilar adenopathy. Vessels: Moderate atherosclerosis thoracic aorta with mild ectasia. Pulmonary artery size is normal. Coronary artery calcifications. Chest wall and lower neck: No soft tissue masses. Upper abdomen: Mild hepatic steatosis. No adrenal mass. The entire adrenal glands are not completely visualized. Osseous structures: Postsurgical changes noted in the cervical and upper thoracic spine. Spinal stimu lator electrodes in the midthoracic region. IMPRESSION: 1. Continued improvement hazy opacification consistent with scarring in the RIGHT middle lobe. This i s adjacent to the thoracotomy site. Also negative on PET/CT imaging. 2. No new pulmonary mass, nodule or adenopathy. 3. Moderate atherosclerosis aorta. 4. Partial RIGHT upper lobectomy and RIGHT thoracotomy. No adverse changes.
[2023-03-17] MEDS: iohexol 350 mg/mL 500 mL Btl (per mL) IV (07:52)
[2023-03-17 07:54] LABS: Blood Urea Nitrogen 14 mg/dL (8-23); Glomerular Filtration Rate 83.2 mL/min (90-130)
== END 2023-03-17 07:05 | disposition home or self-care (01) ==
LOC: RAD 07:04
PROVIDERS: PCP Family Medicine; Visit Provider Internal Medicine Hematology & Oncology
DX: C34.11 Malignant neoplasm of upper lobe, right bronchus or lung (principal); Z90.2 Acquired absence of lung [part of]
CPT/HCPCS: 71260; 82565; 84520; Q9967

== ENCOUNTER → 2023-03-18 07:56 | Outpatient (BNVA) | payer MEDICARE, OTHER, SELFPAY | PROVIDERS: PCP Family Medicine; Visit Provider Nurse Practitioner Family | DX: Z09 Encounter for follow-up examination after completed treatment for conditions other than malignant neoplasm (principal); Z87.2 Personal history of diseases of the skin and subcutaneous tissue | CPT/HCPCS: 99212 ==

== ENCOUNTER 2023-04-30 08:58 | Oncology outpatient (recurring) (ONCR) | payer MEDICARE, OTHER, SELFPAY ==
[2023-04-30 09:10] VITALS: BP 170/80; PULSE 66; RESP 16; TEMP 36.8; O2SAT 93
[2023-04-30 09:19] LABS: Hematocrit 43.4 % (36-47); Lymphocytes # 0.5 10^3/uL (0.8-4.8); Lymphocytes % 11.2 %; Mean Corpuscular HGB Conc 35.3 g/dL (30-55); Mean Corpuscular Hemoglobin 33.8 pg (27-33); Mean Platelet Volume 9.4 fL (7.4-10.4); Monocytes # 0.4 10^3/uL (0.2-0.9); Monocytes % 8.3 %; Neutrophils # 3.88 10^3/uL (1.8-7.7); Neutrophils % 80.3 %; Nucleated Red Blood Cells % 0 %; Platelet Count 294 10^3/cmm (157-399); Red Blood Count 4.52 10^6/uL (3.85-5.65); Red Cell Distribution Width 12.4 % (12.1-15.1); White Blood Count 4.83 10^3/uL (3.29-11.43)
[2023-04-30 09:36] LABS: Alanine Aminotransferase 87 U/L (0-33); Albumin Level 4.5 g/dL (3.5-5.2); Alkaline Phosphatase 87 U/L (35-105); Anion Gap 16.2 (5-19); Aspartate Amino Transferase 110 U/L (0-32); Blood Urea Nitrogen 16 mg/dL (8-23); Calcium 9.9 mg/dL (8.5-10.5); Carbon Dioxide 28 mmol/L (22-29); Chloride 88 mmol/L (98-107); Globulin 3.4 g/dL (1.3-4.6); Glomerular Filtration Rate 158.3 mL/min (90-130); Glucose 110 mg/dL (65-115); Osmolality Calculated 268 mOsm/kg (285-295); Potassium 4.2 mmol/L (3.5-5.1); Sodium 128 mmol/L (136-145); Total Bilirubin 0.4 mg/dL (0.15-1.2); Total Protein 7.9 g/dL (6.6-8.7)
== END 2023-05-14 23:59 | disposition home or self-care (01) ==
PROVIDERS: Nurse Practitioner Family; PCP Family Medicine; Visit Provider Internal Medicine Hematology & Oncology
DX: Z08 Encounter for follow-up examination after completed treatment for malignant neoplasm (principal); Z85.118 Personal history of other malignant neoplasm of bronchus and lung; F17.210 Nicotine dependence, cigarettes, uncomplicated; R91.1 Solitary pulmonary nodule; Z90.2 Acquired absence of lung [part of]; E87.1 Hypo-osmolality and hyponatremia; R74.01 Elevation of levels of liver transaminase levels
CPT/HCPCS: 36415; 80053; 85025; 99214

== ENCOUNTER → 2023-05-09 11:14 | Outpatient (BNVA) | payer MEDICARE, OTHER, SELFPAY | PROVIDERS: PCP Family Medicine; Visit Provider Internal Medicine Pulmonary Disease | DX: Z90.2 Acquired absence of lung [part of] (principal); J44.9 Chronic obstructive pulmonary disease, unspecified; F17.210 Nicotine dependence, cigarettes, uncomplicated; R07.89 Other chest pain | CPT/HCPCS: 99204 ==

== ENCOUNTER 2023-05-21 06:31 | Outpatient (CLI) | payer MEDICARE, OTHER, SELFPAY ==
--- NOTE | 2023-05-21 | ECG_ITS ---
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 Interpretive Statements NAME OF STUDY: LEXISCAN SESTAMIBI STRESS TEST INDICATION: [SOB ON EXERTION, ] Procedure: At the baseline, the blood pressure was 153/78 mmHg with a heart rate of 49 bpm. The electrocardiogram showed sinus bradycardia, normal axis with normal ST and T's. The Lexiscan was infused over a period of 20 seconds. A total of 0.4 mg of Lexiscan was infused. The stress phase was continued for a total of 5 minutes. Heart rate was at the end of stress phase was 72 bpm and a blood pressure of 142/75 mmHg. The EKG at the peak infusion revealed normal sinus rhythm with no significant ST-T wave changes. Sestamibi was injected 20 seconds after the Lexiscan infusion. Blood pressure at the end of recovery phase was 144/71 mmHg with a heart rate of 73 bpm. Conclusion: 1. Normal EKG response to Lexiscan infusion 2. No Lexiscan induced chest pain or cardiac arrhythmia. 3. Normal blood pressure and heart rate response. 4. Sestamibi/sestamibi perfusion scan pending; see separate report. Electronically Signed On 06-06-2023 11:46:54 VEHICLE PAINTER by Donald Redd M.D. [id number]
--- NOTE | 2023-05-21 07:00 | NMCV_ITS ---
NM lina perf SPECT r/s* [id number] Lisa Barnes Age: 68 Gender: F : 1955 Exam Date: 05/21/2023 07:00 Ordering Phys: Willi Lebron MD Technologist: ZOHREH Thompson Exam Location: [facility] Indications: SHORTNESS OF BREATH STRESS TEST Please see separate stress test report in [facility] for full findings IMAGE PROTOCOL Rest/Stress 1 Lexiscan Day Radiopharmaceutical Dose (mCi) Administration Site Administered by Rest: Tc-99m 10.4 IV ZOHREH Mercado Sestamibi Stress:Tc-99m 32.3 IV ZOHREH Mercado Sestamibi Rest: 21-May-2023 60 Discovery 630 Stress: 21-May-2023 30 Discovery 630 0.4mg Lexiscan. Supine position only as patient was unable to lay prone. SPECT RESULTS Technical Quality: Excellent Raw Data Analysis: Normal Image Corrections: No attenuation or motion correction applied Summed Stress Score: 1 Summed Rest Score: 3 Summed Difference Score: 0 PERFUSION FINDINGS There is small sized, fixed perfusion defect noted in inferolateral wall. 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 No significant ischemia. FUNCTIONAL RESULTS (calculated via Gated SPECT) Stress Image LV EF (%): 80 Stress EDV (mL):66 TID: 1.04 Stress ESV (mL):13 FUNCTIONAL FINDINGS: There is normal left ventricular systolic function. IMPRESSIONS 1. 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 No evidence of ischemia 2. LV systolic function is normal Donald Redd MD (Electronically Signed) Final Date: 21 May 2023 14:28 S
[2023-05-21 07:03] VITALS: BMI 20.1
[2023-05-21] MEDS: regadenoson 0.4 Mg/5 ml Syringe IVP (08:45)
[2023-05-21 09:22] VITALS: BP 144/71; PULSE 73
== END 2023-05-21 06:32 | disposition home or self-care (01) ==
LOC: CDL 06:32
PROVIDERS: PCP Family Medicine; Visit Provider Internal Medicine Pulmonary Disease
DX: R06.02 Shortness of breath (principal)
CPT/HCPCS: 36415; 78452; 93017; 96374; A9500; J2785

== ENCOUNTER → 2023-05-22 10:10 | Outpatient (BNVA) | payer MEDICARE, OTHER, SELFPAY | PROVIDERS: PCP Family Medicine; Visit Provider Otolaryngology | DX: H61.21 Impacted cerumen, right ear (principal); H90.6 Mixed conductive and sensorineural hearing loss, bilateral; H72.91 Unspecified perforation of tympanic membrane, right ear; F17.210 Nicotine dependence, cigarettes, uncomplicated | CPT/HCPCS: 69210; 99213 ==

== ENCOUNTER 2023-05-29 06:51 | Outpatient (CLI) | payer MEDICARE, OTHER, SELFPAY ==
[2023-05-29 07:33] VITALS: PULSE 56; RESP 20; O2SAT 98
[2023-05-29] MEDS: albuterol 2.5 mg/3 mL Neb INHALATION (07:33)
[2023-05-29 07:37] VITALS: PULSE 59
== END 2023-05-29 06:52 | disposition home or self-care (01) ==
LOC: RT 06:53
PROVIDERS: PCP Family Medicine; Visit Provider Internal Medicine Pulmonary Disease
DX: R06.02 Shortness of breath (principal); F17.210 Nicotine dependence, cigarettes, uncomplicated; R94.2 Abnormal results of pulmonary function studies
CPT/HCPCS: 94060; 94618; 94726; 94729; J7613

== ENCOUNTER → 2023-07-11 11:20 | Outpatient (BNVA) | payer MEDICARE, OTHER, SELFPAY | PROVIDERS: PCP Family Medicine; Visit Provider Internal Medicine Pulmonary Disease | DX: C34.91 Malignant neoplasm of unspecified part of right bronchus or lung (principal); J44.9 Chronic obstructive pulmonary disease, unspecified; F17.200 Nicotine dependence, unspecified, uncomplicated; R07.9 Chest pain, unspecified | CPT/HCPCS: 99214 ==

== ENCOUNTER → 2023-08-26 09:21 | Outpatient (BNVA) | payer MEDICARE, OTHER, SELFPAY | PROVIDERS: PCP Family Medicine; Visit Provider Otolaryngology | DX: H61.21 Impacted cerumen, right ear (principal); H90.6 Mixed conductive and sensorineural hearing loss, bilateral | CPT/HCPCS: 69210; 99212 ==

== ENCOUNTER 2023-09-16 09:34 | Outpatient (CLI) | payer MEDICARE, OTHER, SELFPAY ==
--- NOTE | 2023-09-16 10:00 | CT_ITS ---
WS: [id number] CT chest w con* [id number] HISTORY: surveillance, lung cancer TECHNIQUE: Axial imaging performed through the thorax. Coronal and sagittal reformats are submitted. All CT scans at [facility] use at least one of these dose optimization techniques: automated exposure control; mA and/or kV adjustment per patient size (includes targeted exams where dose is mat ched to clinical indication); or iterative reconstruction. CONTRAST: Omnipaque 350; 100 mL IV. DLP: 213.59 mGy.cm COMPARISON: 03/17/2023, 07/26/2022 Lungs and central airway: Partial RIGHT upper lobectomy and prior thoracotomy. Volume loss in the RIG HT thorax from the prior thoracotomy. No recurrent mass. Continued improvement in the RIGHT middle lo be groundglass opacification. Pleura: Normal. No pleural effusion. Heart and pericardium: Normal size heart with no pericardial effusion. Mediastinum and aruna: No mediastinum or hilar adenopathy. Vessels: Mild atherosclerosis aorta. No aneurysm. Normal size pulmonary artery. Chest wall and lower neck: No soft tissue masses. Upper abdomen: Hepatic steatosis. No adrenal mass. Osseous structures: No destructive process. Dorsal column stimulator electrodes are in the mid thorac ic spine. Remote cervical thoracic fusion incompletely visualized. CT/CT chest w con* [id number] IMPRESSION: 1. Status post partial RIGHT upper lobectomy and thoracotomy. 2. No recurrent mass identified. 3. No mediastinal or hilar adenopathy. 4. Mild atherosclerosis thoracic aorta.
[2023-09-16] MEDS: iohexol 350 mg/mL 500 mL Btl (per mL) IV (10:01)
== END 2023-09-16 09:35 | disposition home or self-care (01) ==
LOC: RAD 09:35
PROVIDERS: PCP Family Medicine; Visit Provider Nurse Practitioner Family
DX: C34.91 Malignant neoplasm of unspecified part of right bronchus or lung (principal); I70.0 Atherosclerosis of aorta; Z90.2 Acquired absence of lung [part of]
CPT/HCPCS: 71260; Q9967

== ENCOUNTER 2023-10-30 14:22 | Oncology outpatient (recurring) (ONCR) | payer MEDICARE, OTHER, SELFPAY ==
[2023-10-29 13:29] LABS: Eosinophils # 0.1 10^3/uL (0.0-0.8); Eosinophils % 1.7 %; Hematocrit 37.4 % (36-47); Lymphocytes # 1.1 10^3/uL (0.8-4.8); Lymphocytes % 27.2 %; Mean Corpuscular HGB Conc 35.6 g/dL (30-55); Mean Corpuscular Hemoglobin 35.1 pg (27-33); Mean Corpuscular Volume 98.7 fl (85-98); Mean Platelet Volume 8.9 fL (7.4-10.4); Monocytes # 0.7 10^3/uL (0.2-0.9); Neutrophils # 2.13 10^3/uL (1.8-7.7); Neutrophils % 52.6 %; Nucleated Red Blood Cells % 0 %; Platelet Count 256 10^3/cmm (157-399); Red Blood Count 3.79 10^6/uL (3.85-5.65); Red Cell Distribution Width 11.8 % (12.1-15.1); White Blood Count 4.05 10^3/uL (3.29-11.43)
[2023-10-29 13:48] LABS: Alanine Aminotransferase 101 U/L (0-33); Albumin Level 3.9 g/dL (3.5-5.2); Alkaline Phosphatase 78 U/L (35-105); Anion Gap 19.8 (5-19); Aspartate Amino Transferase 164 U/L (0-32); Blood Urea Nitrogen 11 mg/dL (8-23); Calcium 8.9 mg/dL (8.5-10.5); Carbon Dioxide 22 mmol/L (22-29); Chloride 94 mmol/L (98-107); Globulin 2.8 g/dL (1.3-4.6); Glomerular Filtration Rate 122.3 mL/min (90-130); Glucose 162 mg/dL (65-115); Osmolality Calculated 277 mOsm/kg (285-295); Potassium 3.8 mmol/L (3.5-5.1); Sodium 132 mmol/L (136-145); Total Bilirubin 0.2 mg/dL (0.15-1.2); Total Protein 6.7 g/dL (6.6-8.7)
== END 2023-11-12 23:59 | disposition home or self-care (01) ==
PROVIDERS: PCP Family Medicine; Visit Provider Internal Medicine Medical Oncology
DX: Z08 Encounter for follow-up examination after completed treatment for malignant neoplasm; Z85.110 Personal history of malignant carcinoid tumor of bronchus and lung; Z90.2 Acquired absence of lung [part of]; Z72.0 Tobacco use
CPT/HCPCS: 36415; 80053; 85025; 99213

== ENCOUNTER → 2023-12-17 07:57 | Outpatient (BNVA) | payer MEDICARE, OTHER, SELFPAY | PROVIDERS: PCP Family Medicine; Visit Provider Internal Medicine Critical Care Medicine | DX: R06.09 Other forms of dyspnea (principal); J44.9 Chronic obstructive pulmonary disease, unspecified; J43.2 Centrilobular emphysema; C34.11 Malignant neoplasm of upper lobe, right bronchus or lung; F17.219 Nicotine dependence, cigarettes, with unspecified nicotine-induced disorders; R63.6 Underweight; R53.81 Other malaise; Z71.6 Tobacco abuse counseling; Z68.1 Body mass index [BMI] 19.9 or less, adult | CPT/HCPCS: 99214 ==

== ENCOUNTER → 2024-01-19 11:39 | Outpatient (BNVA) | payer MEDICARE, OTHER, SELFPAY | PROVIDERS: PCP Family Medicine; Visit Provider Podiatrist Foot & Ankle Surgery | DX: M35.0B Sjogren syndrome with vasculitis; L84 Corns and callosities; L60.3 Nail dystrophy; M06.00 Rheumatoid arthritis without rheumatoid factor, unspecified site; M20.21 Hallux rigidus, right foot; M20.22 Hallux rigidus, left foot | CPT/HCPCS: 11721; 73630; 99204 ==

== ENCOUNTER → 2024-02-17 12:50 | Outpatient (BNVA) | payer MEDICARE, OTHER, SELFPAY | PROVIDERS: PCP Family Medicine; Visit Provider Student in an Organized Health Care Education/Training Program | DX: T84.7XXA Infection and inflammatory reaction due to other internal orthopedic prosthetic devices, implants and grafts, initial encounter (principal); X58.XXXA Exposure to other specified factors, initial encounter | CPT/HCPCS: 99215 ==

== ENCOUNTER → 2024-02-24 09:18 | Outpatient (BNVA) | payer MEDICARE, OTHER, SELFPAY | PROVIDERS: PCP Family Medicine; Visit Provider Thoracic Surgery (Cardiothoracic Vascular Surgery) | DX: T81.31XD Disruption of external operation (surgical) wound, not elsewhere classified, subsequent encounter (principal); Y83.8 Other surgical procedures as the cause of abnormal reaction of the patient, or of later complication, without mention of misadventure at the time of the procedure | CPT/HCPCS: 97597; 99213; A6212 ==

== ENCOUNTER → 2024-03-02 10:43 | Outpatient (BNVA) | payer MEDICARE, OTHER, SELFPAY | PROVIDERS: PCP Family Medicine; Visit Provider Thoracic Surgery (Cardiothoracic Vascular Surgery) | DX: I96 Gangrene, not elsewhere classified (principal); T81.31XD Disruption of external operation (surgical) wound, not elsewhere classified, subsequent encounter; Y83.8 Other surgical procedures as the cause of abnormal reaction of the patient, or of later complication, without mention of misadventure at the time of the procedure | CPT/HCPCS: 99212 ==

== ENCOUNTER → 2024-03-16 08:30 | Outpatient (BNVA) | payer MEDICARE, OTHER, SELFPAY | PROVIDERS: PCP Family Medicine; Visit Provider Thoracic Surgery (Cardiothoracic Vascular Surgery) | DX: Z09 Encounter for follow-up examination after completed treatment for conditions other than malignant neoplasm (principal); Z87.2 Personal history of diseases of the skin and subcutaneous tissue | CPT/HCPCS: 99212 ==

== ENCOUNTER → 2024-03-22 07:59 | Outpatient (BNVA) | payer MEDICARE, OTHER, SELFPAY | PROVIDERS: PCP Family Medicine; Visit Provider Podiatrist Foot & Ankle Surgery | DX: M06.00 Rheumatoid arthritis without rheumatoid factor, unspecified site; M35.00 Sjogren syndrome, unspecified; L84 Corns and callosities; M20.41 Other hammer toe(s) (acquired), right foot; M20.42 Other hammer toe(s) (acquired), left foot | CPT/HCPCS: 99213 ==

== ENCOUNTER 2024-04-13 14:25 | Emergency (ER) | payer MEDICARE, OTHER, SELFPAY ==
[2024-04-13 14:35] VITALS: BP 110/70; PULSE 74; TEMP 36.7; O2SAT 94; BMI 20.2
--- NOTE | 2024-04-13 15:01 | CTR_ITS ---
PROCEDURE INFORMATION: Exam: CT Head Without Contrast Exam date and time: 04/13/2024 3:34 PM Age: 68 years old Clinical indication: Injury or trauma; Fall; Blunt trauma (contusions or hematomas) TECHNIQUE: Imaging protocol: Computed tomography of the head without contrast. Radiation optimization: All CT scans at this facility use at least one of these dose optimization techniques: automated exposure control; mA and/or kV adjustment per patient size (includes targeted exams where dose is matched to clinical indication); or iterative reconstruction. COMPARISON: No relevant prior studies available. RADIATION DOSE METRICS: Total DLP (mGy-cm): 1907.12 FINDINGS: Brain: No acute intracranial hemorrhage. No edema. No mass effect. There are ill-defined patchy hypodense areas in the bilateral periventricular white matter suggestive of chronic small vessel ischemic changes. Cerebral ventricles: No ventriculomegaly. Paranasal sinuses: Visualized sinuses are unremarkable. No fluid levels. Mastoid air cells: Status post right mastoidectomy. No left mastoid effusion. Bones: Unremarkable. No acute fracture. Soft tissues: There is acute hematoma in the right parietal scalp with maximal thickness of [address]/CT head wo con* [id number] IMPRESSION: No CT evidence of acute intracranial hemorrhage, mass or acute infarction. No acute skull fracture. Hematoma in the right parietal scalp.
--- NOTE | 2024-04-13 15:01 | CTR_ITS ---
PROCEDURE INFORMATION: Exam: CT Cervical Spine Without Contrast Exam date and time: 04/13/2024 3:34 PM Age: 68 years old Clinical indication: Injury or trauma; Fall; Blunt trauma; Additional info: Trauma/fall TECHNIQUE: Imaging protocol: Computed tomography of the cervical spine without contrast. Radiation optimization: All CT scans at this facility use at least one of these dose optimization techniques: automated exposure control; mA and/or kV adjustment per patient size (includes targeted exams where dose is matched to clinical indication); or iterative reconstruction. COMPARISON: PT PET skull to thigh SUBS [id number] 08/17/2022 7:45 AM RADIATION DOSE METRICS: Total DLP (mGy-cm): 104.91 FINDINGS: Bones: No acute fracture. Normal alignment. Stable postsurgical findings after C3-C6 posterior laminectomy, C4-C6 fusion with anterior internal fixation, C2-T2 bilateral trans facet/transpedicular internal fixation. Limited evaluation of the central spinal canal due to artifacts from metallic hardware with no obvious narrowing of the bony spinal canal. No significant neural foraminal narrowing. Lungs: No acute opacity. Stable small pleural calcifications anteriorly in the apex of the right lung. Soft tissues: Unremarkable. CT/CT cervical spin wo con* [id number] IMPRESSION: No acute fracture. Stable postsurgical changes.
--- NOTE | 2024-04-13 15:45 | ED_ITS ---
HPI - Head Injury 2 General: Chief complaint: Head Injury Stated complaint: gash in head,fall Time Seen by Provider: 04/13/24 14:40 Source: patient Mode of arrival: ambulatory Limitations: no limitations History of Present Illness: Patient is a 68-year-old female presents to ED today for evaluation of a frontal laceration/head injury. Patient states just prior to arrival, she was baking in the kitchen and states she spilled sugar and cinnamon on the floor and believes she slept on it. Patient states she normally ambulates with the help of a cane and was not using this either. She states when she fell she struck her frontal region on the edge of the fireplace. No LOC. Denies any other injuries at this time. Patient states she just had a tetanus shot approximately a month ago. MD Complaint: head injury Onset (ago): hour(s) Mechanism of Injury: fall Place: home Loss of Consciousness: no Location of injury: frontal Severity: mild Radiation: none Other Injuries: none Associated symptoms: Reports no associated symptoms, nausea (states she has not ate all day) and neck pain; Deny confusion, syncope or vomiting Related Data Home Medications Medication Instructions Recorded Confirmed albuterol sulfate 90 mcg/actuation 1 inh inhalation BID PRN Shortness 04/12/19 04/13/24 aerosol inhaler Of Breath lamotrigine 100 mg tablet 50 mg PO BID 04/12/19 04/13/24 (Lamictal) naproxen 500 mg tablet 500 mg PO BID PRN Pain 04/12/19 04/13/24 vortioxetine 20 mg tablet 20 mg PO DAILY 04/12/19 03/22/24 (Trintellix) lisinopril 20 1 tab PO DAILY 04/16/19 04/13/24 mg-hydrochlorothiazide 12.5 mg tablet mometasone 50 mcg/actuation nasal 2 spray intranasal DAILY 04/16/19 04/13/24 spray peg 400-propylene glycol 0.4 %-0.3 1 drop ophthalmic (eye) DAILY PRN 04/16/19 04/13/24 % eye drops (Systane Ultra) Dry Eye(S) tizanidine 4 mg capsule 4 mg PO TID PRN Pain 11/23/19 03/22/24 prednisone 10 mg tablet 10 mg PO DIRECTED PRN Pain 12/11/21 03/22/24 suvorexant 10 mg tablet (Belsomra) 10 mg PO BEDTIME 01/26/22 04/13/24 paroxetine HCl 20 mg tablet 20 mg PO DAILY 05/16/22 04/13/24 pregabalin 25 mg capsule (Lyrica) See Rx Instructions PO BID 07/30/22 03/22/24 metoprolol tartrate 25 mg tablet 50 mg PO BID 07/11/23 04/13/24 Previous Rx's Medication Instructions Recorded cyclosporine 0.05 % eye drops 1 drp ophthalmic (eye) Q12H #16.5 06/05/21 (Restasis MultiDose) mL allopurinol 100 mg tablet 200 mg (2 x 100 mg) PO DAILY #180 07/10/21 tabs omeprazole 40 mg capsule,delayed 40 mg PO DAILY #90 caps 07/10/21 release Bone Growth Stimulator E0748 #1 ea 12/28/21 umeclidinium 62.5 mcg-vilanterol 1 inh inhalation DAILY #60 ea 12/17/23 25 mcg/actuation powdr for inhalation (Anoro Ellipta) Custom arch supports with #1 ea 01/19/24 orthopedic shoes Allergies Allergy/AdvReac Type Severity Reaction Status Date / Time No Known Drug Allergies Allergy Unknown Verified 04/13/24 14:44 Review of Systems 2 Eyes: Denies: change in vision, blurry vision, photophobia, floaters or seeing flashes Card: Denies: palpitations, lightheadedness, syncope or pre-syncope GI: Reports: nausea (states she has not ate all day); Denies: vomiting Musc: Reports: neck pain; Denies: back pain, extremity pain, extremity swelling, joint pain or joint swelling Skin/Breast: Reports: other (frontal laceration) Neuro: Reports: headache(s); Denies: numbness in extremities, weakness in extremities, sensory changes, lack of coordination, difficulty walking or confusion PFSH ED 2 PFSH: Medical History Seronegative rheumatoid arthritis High risk medication use Immunization counseling Immunosuppression Sjogrens syndrome Adenocarcinoma of right lung, stage 1 Spondylolisthesis at L5-S1 level Spondylolisthesis at L4-L5 level Intervertebral disc disorder with radiculopathy of lumbar region COPD (chronic obstructive pulmonary disease) Lung nodule, solitary Lumbar stenosis with neurogenic claudication Gout, arthritis Thoracic disc disease Intervertebral disc disorder with radiculopathy of lumbosacral region Low back pain radiating down leg Primary Sjogren's syndrome Cellulitis of right anterior lower leg Neck pain Arthropathy of cervical facet joint Inflammatory arthritis Pain and swelling of right knee Osteoporosis Spondylolisthesis, cervical region Mixed stress and urge urinary incontinence Vaginal atrophy Cervical radiculopathy due to degenerative joint disease of spine Seronegative rheumatoid arthritis Spondylolisthesis, lumbar region Surgical History History of lung surgery (03/28/20) Right upper lobe wedge resection History of neck surgery 2021 History of cochlear implant Hx of removal of cyst from right ear History of tympanoplasty of right ear History of hysterectomy (10/29/16) with Vaginal Repair, Total History of D&C 4x History of ear surgery (04/17/17) Right S/P insertion of spinal cord stimulator Thoracic spinal cord stimulator implantation via laminotomy ([employer]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/[email or web address] pulse generator[place] [facility] [place] of decompression of ulnar nerve Right Family History Mother Hypertension Diabetes Stroke Cancer Uterine Grandmother Diabetes Maternal Heart disease Father Heart disease Grandfather Heart disease Sister Cancer Uterine Social History Smoking and tobacco/nicotine status: never used tobacco/nicotine Quit status (tobacco/nicotine): considering quitting Second hand smoke exposure: Yes Alcohol intake: former Substance/Drug Use: never Lives independently: Yes Household members: spouse Marital status: Current occupational status: disabled Do you think of yourself as: Straight/Heterosexual Current gender identity: Female Physical Exam 2 Const: COMMON NORMALS: no acute distress, average body habitus, patient oriented x3, no limitations, healthy appearing, alert and well nourished G ENERAL APPEARANCE: cooperative ORIENTATION/CONSCIOUSNESS: Yes awake, Yes oriented to person, Yes oriented to place and Yes oriented to time HENMT: COMMON NORMALS: Normal external nose present HEAD & SCALP: l aceration (frontal); no Gomez's sign HEAD IMAGES: 1. 1 in laceration FACE & SINUS: normal facial exam (apart from forehead laceration) NOSE: N ormal external nose present Eye: COMMON NORMALS: Equal, round and reactive pupils present and EOMs intact bilaterally GENERAL EYE: appearance normal, both eyes and all related structures and normal light reflex ALIGNMENT: Yes alignment normal P ERIORBITAL: periorbital findings normal PUPIL: Yes Equal, round and reactive pupils present DIRECT OPHTHALMOSCOPY: Yes normal light reflex Neck/C-Spine: COMMON NORMALS: full ROM, no lymphadenopathy, supple and no meningeal signs Chest: COMMONS NORMALS: normal inspection of the chest Resp: COMMON NORMALS: normal respiratory effort and clear to auscultation bilaterally AUSCULTATION: clear to auscultation bilaterally Cardio: COMMON NORMALS: regular rate and regular rhythm RATE: regular rate RHYTHM: regular rhythm GI: COMMON NORMALS: Normal to inspection, nondistended, normoactive bowel sounds present, Soft to palpation, non-tender, No hepatosplenomegaly present and no masses PALPATION: Yes Soft to palpation and Yes No hepatosplenomegaly present : COMMON NORMALS: Yes no CVA tenderness BLADDER/KIDNEY EXAM: Yes no CVA tenderness Back/Pelvis: COMMON NORMALS: no CVA tenderness and thoracic and lumbar spine normal to inspection Extremity: COMMON NORMALS: normal to inspection GENERAL: Yes normal exam except as noted Neuro: LUIS COMA SCALE: document GCS findings [place] coma scale eye opening: Spontaneous [place] coma scale verbal response: Orientated [place] coma scale motor response: Obey commands [place] coma scale total score: 15 COMMON NORMALS: patient oriented x3, CN's II-XII intact bilaterally, moves all extremities, no focal motor deficits, no sensory deficits noted and gait normal SENSORIUM/ORIENTATION: Yes alert, Yes oriented to person, Yes oriented to place and Yes oriented to time MENINGEAL SIGNS: Yes no meningeal signs Skin: COMMON NORMALS: no rashes or lesions noted GENERAL SKIN EXAM: no rashes or lesions noted TRAUMA: laceration Procedures Laceration Laceration 1: Site: face Side (If applicable): right Size (cm): 2.5 Description: linear Depth: simple, single layer Local Anesthetic: lidocaine 1% and with epi Amount of anesthesia used (mL): 2.0 Pre-repair: wound explored and irrigated extensively Skin layer closed with: nylon Size (cm): 5-0 Number of sutures: 6 Technique: running Course 2 Vital Signs: Vital signs: Vital Signs Temperature 98.1 F 04/13/24 14:35 Pulse Rate 69 04/13/24 16:00 Blood Pressure 122/76 04/13/24 16:00 Pulse Oximetry 95 04/13/24 16:00 Oxygen Delivery Me thod Room Air 04/13/24 16:00 MDM - Head Injury Medcial Decision Making CT head and cervical spine are unremarkable. Laceration was copiously irrigated and repaired as documented. Her tetanus is up-to-date. Patient will be allowed discharge with return precautions. Medical Records I reviewed the patient's medical records. Lab Data Radiology Impressions Cervical Spine CT 04/13/24 15:01 IMPRESSION: No acute fracture. Stable postsurgical changes. Head CT 04/13/24 15:01 IMPRESSION: No CT evidence of acute intracranial hemorrhage, mass or acute infarction. No acute skull fracture. Hematoma in the right parietal scalp. All radiology interpretation(s) finalized by discharge Discharge Plan Discharge Patient Disposition: Home Clinical Impression: Fall from slipping Qualifiers: Encounter type: initial encounter Qualified Code(s): W01.0XXA - Fall on same level from slipping, tripping and stumbling without subsequent striking against object, initial encounter Forehead laceration Qualifiers: Encounter type: initial encounter Qualified Code(s): S01.81XA - Laceration without foreign body of other part of head, initial encounter Condition: Stable Prescriptions: No Action lisinopril-hydrochlorothiazide 20-12.5 mg tablet 1 tab PO DAILY mometasone 50 mcg/actuation spray,non-aerosol 2 spray INTRANASAL DAILY Systane Ultra 0.4-0.3 % drops 1 drop ophthalmic (eye) ONCE PRN (Reason: Dry Eye(S)) metoprolol tartrate 25 mg tablet 50 mg PO BID Trintellix 20 mg tablet 20 mg PO DAILY lamotrigine [Lamictal] 100 mg tablet 50 mg PO BID albuterol sulfate 90 mcg/actuation HFA aerosol inhaler 1 inh INHALATION BID PRN (Reason: Shortness Of Breath) naproxen 500 mg tablet 500 mg PO BID PRN (Reason: Pain) Hold Instructions: Resume on 03/20/22. tizanidine 4 mg capsule 4 mg PO TID PRN (Reason: Pain) Hold Instructions: DC Restasis MultiDose 0.05 % drops 1 drp ophthalmic (eye) Q12H Qty: 16.5 2RF paroxetine HCl 20 mg tablet 20 mg PO DAILY pregabalin [Lyrica] 25 mg capsule See Rx Instructions PO BID Rx Instructions: unsure dose orally twice a day; (DME) Bone Growth Stimulator E0748 See Rx Instructions .Route .MEDSUPPLY Qty: 1 0RF Rx Instructions: As directed Anoro Ellipta 62.5-25 mcg/actuation blister with device 1 inh inhalation DAILY Qty: 60 6RF doxycycline hyclate 100 mg capsule 100 mg PO DAILY 270 Days Qty: 270 1RF (DME) Custom arch supports with orthopedic shoes See Rx Instructions .Route .MEDSUPPLY Qty: 1 0RF Rx Instructions: As directed by [facility] omeprazole 40 mg capsule,delayed release(DR/EC) 40 mg PO DAILY Qty: 90 1RF allopurinol 100 mg tablet 200 mg PO DAILY Qty: 180 1RF Hold Instructions: elevated LFT's prednisone 10 mg tablet 10 mg PO DIRECTED PRN (Reason: Pain) Rx Instructions: take 1 tab daily for 5 days prn flares PO; Belsomra 10 mg Tablet 10 mg PO BEDTIME Discharge Orders: Discharge ED (Routine); Ordered 04/13/24 Ordered By: Ally Salgado Referrals: Dilshad Ng MD [Primary Care Provider] - Patient Instructions: Concussion/Head Injury - Adult, Head Injury (DC), Facial Laceration (ED) Activity Restrictions/Additional Instructions: Keep wound/laceration clean with warm soap and water twice daily. Monitor for signs of infection such as redness, swelling, increased pain, or drainage. Please seek medical re-evaluation if these occur. If you received sutures today these will need to be removed (unless you were told by the provider that they are absorbable). The provider should have discussed with you the length of time until removal-7 DAYS. Coding Level of Care Code ED Educational Recruiter for Dimple Mcgrath
[2024-04-13 16:00] VITALS: BP 122/76; PULSE 69; O2SAT 95
[2024-04-13] MEDS: ondansetron 2 mg/ML SDV 2 mL 4 MG IM (16:33)
[2024-04-13 16:40] VITALS: BP 122/92; PULSE 73; O2SAT 91
== END 2024-04-13 16:41 | disposition home or self-care (01) ==
PROVIDERS: Emergency Provider Physician Assistant; PCP Family Medicine
DX: S01.81XA Laceration without foreign body of other part of head, initial encounter (principal); W01.0XXA Fall on same level from slipping, tripping and stumbling without subsequent striking against object, initial encounter; J44.9 Chronic obstructive pulmonary disease, unspecified
CPT/HCPCS: 12011; 70450; 72125; 96372; 99284; J2405

== ENCOUNTER 2024-05-03 09:47 | Outpatient (CLI) | payer MEDICARE, OTHER, SELFPAY ==
--- NOTE | 2024-05-03 10:00 | CT_ITS ---
WS: [id number] CT chest w con* [id number] HISTORY: lung cancer TECHNIQUE: Axial imaging performed through the thorax. Coronal and sagittal reformats are submitted. All CT scans at [facility] use at least one of these dose optimization techniques: automated exposure control; mA and/or kV adjustment per patient size (includes targeted exams where dose is mat ched to clinical indication); or iterative reconstruction. CONTRAST: Omnipaque 350; 100 mL IV. DLP: 207.02 mGy.cm COMPARISON: 09/16/2023, 05/18/2022 Lungs and central airway: Status post partial RIGHT upper lobectomy with thoracotomy. Stable postoper ative partial lobectomy changes. No recurrent mass is identified. Mild chronic emphysema. Stable scar along the superior LEFT major fissure. No pulmonary mass or pneumonia. Pleura: Normal. No pleural effusion. Heart and pericardium: Normal size heart with no pericardial effusion. Mediastinum and aruna: No mediastinum or hilar adenopathy. Vessels: Mild atherosclerosis aorta. No aneurysm. Normal size pulmonary artery. Chest wall and lower neck: No soft tissue masses. Upper abdomen: Mild hepatic steatosis. No adrenal mass. Moderate suprarenal aortic calcifications. Osseous structures: No destructive process. Dorsal column stimulator electrodes mid thoracic spine. CT/CT chest w con* [id number] IMPRESSION: 1. Status post partial RIGHT upper lobectomy and thoracotomy. 2. No recurrent mass. No new pulmonary nodules or masses. 3. No mediastinal or hilar adenopathy. 4. No adrenal mass.
[2024-05-03 10:27] LABS: Basophils % 0.5 %; Eosinophils % 0.3 %; Hematocrit 38.4 % (36-47); Lymphocytes # 0.8 10^3/uL (0.8-4.8); Lymphocytes % 20.8 %; Mean Corpuscular HGB Conc 33.9 g/dL (30-55); Mean Corpuscular Hemoglobin 34.9 pg (27-33); Mean Corpuscular Volume 102.9 fl (85-98); Monocytes # 0.6 10^3/uL (0.2-0.9); Monocytes % 15.9 %; Neutrophils # 2.38 10^3/uL (1.8-7.7); Nucleated Red Blood Cells % 0 %; Platelet Count 202 10^3/cmm (157-399); Red Blood Count 3.73 10^6/uL (3.85-5.65); White Blood Count 3.84 10^3/uL (3.29-11.43)
[2024-05-03 10:43] LABS: Alanine Aminotransferase 210 U/L (0-33); Albumin Level 4.5 g/dL (3.5-5.2); Alkaline Phosphatase 78 U/L (35-105); Anion Gap 19.7 (5-19); Aspartate Amino Transferase 324 U/L (0-32); Blood Urea Nitrogen 25 mg/dL (8-23); Calcium 10.1 mg/dL (8.5-10.5); Carbon Dioxide 29 mmol/L (22-29); Chloride 90 mmol/L (98-107); Globulin 2.9 g/dL (1.3-4.6); Glomerular Filtration Rate 98.8 mL/min (90-130); Glucose 90 mg/dL (65-115); Osmolality Calculated 282 mOsm/kg (285-295); Potassium 4.7 mmol/L (3.5-5.1); Sodium 134 mmol/L (136-145); Total Bilirubin 0.4 mg/dL (0.15-1.2); Total Protein 7.4 g/dL (6.6-8.7)
[2024-05-03] MEDS: iohexol 350 mg/mL 500 mL Btl (per mL) IV (10:43)
== END 2024-05-03 09:48 | disposition home or self-care (01) ==
LOC: RAD 09:50
PROVIDERS: PCP Family Medicine; Visit Provider Internal Medicine Medical Oncology
DX: C34.91 Malignant neoplasm of unspecified part of right bronchus or lung (principal); Z98.890 Other specified postprocedural states; J43.9 Emphysema, unspecified; R91.8 Other nonspecific abnormal finding of lung field; I70.0 Atherosclerosis of aorta; K76.0 Fatty (change of) liver, not elsewhere classified; Z96.89 Presence of other specified functional implants
CPT/HCPCS: 36415; 71260; 80053; 85025

== ENCOUNTER 2024-05-05 10:39 | Oncology outpatient (recurring) (ONCR) | payer MEDICARE, OTHER, SELFPAY | END 2024-05-14 23:59 | disposition home or self-care (01) | PROVIDERS: PCP Family Medicine; Visit Provider Internal Medicine Medical Oncology | DX: Z08 Encounter for follow-up examination after completed treatment for malignant neoplasm (principal); Z85.118 Personal history of other malignant neoplasm of bronchus and lung; F17.210 Nicotine dependence, cigarettes, uncomplicated; F10.90 Alcohol use, unspecified, uncomplicated; R74.01 Elevation of levels of liver transaminase levels; Z90.2 Acquired absence of lung [part of]; Z71.6 Tobacco abuse counseling | CPT/HCPCS: 99213 ==

== ENCOUNTER → 2024-05-18 10:49 | Outpatient (BNVA) | payer MEDICARE, OTHER, SELFPAY | PROVIDERS: PCP Family Medicine; Visit Provider Internal Medicine Rheumatology | DX: M06.00 Rheumatoid arthritis without rheumatoid factor, unspecified site (principal); M35.00 Sjogren syndrome, unspecified; Z79.899 Other long term (current) drug therapy; M10.9 Gout, unspecified; Z71.89 Other specified counseling; K70.9 Alcoholic liver disease, unspecified | CPT/HCPCS: 99215 ==

== ENCOUNTER 2024-06-15 08:13 | Outpatient (CLI) | payer MEDICARE, OTHER, SELFPAY ==
[2024-06-15 08:29] LABS: Basophils % 0.7 %; Eosinophils % 0.9 %; Hematocrit 41.9 % (36-47); Lymphocytes % 43.3 %; Mean Corpuscular HGB Conc 34.8 g/dL (30-55); Mean Corpuscular Hemoglobin 36.1 pg (27-33); Mean Corpuscular Volume 103.7 fl (85-98); Monocytes # 0.6 10^3/uL (0.2-0.9); Monocytes % 13.8 %; Neutrophils # 1.84 10^3/uL (1.8-7.7); Neutrophils % 40.4 %; Nucleated Red Blood Cells % 0 %; Platelet Count 245 10^3/cmm (157-399); Red Blood Count 4.04 10^6/uL (3.85-5.65); Red Cell Distribution Width 14.5 % (12.1-15.1); White Blood Count 4.55 10^3/uL (3.29-11.43)
[2024-06-15 08:44] LABS: Erythrocyte Sedimentation Rate 2 mm/hr (0-15)
[2024-06-15 08:46] LABS: Alanine Aminotransferase 162 U/L (0-33); Albumin Level 4.7 g/dL (3.5-5.2); Alkaline Phosphatase 69 U/L (35-105); Aspartate Amino Transferase 253 U/L (0-32); Glomerular Filtration Rate 157.8 mL/min (90-130); Total Bilirubin 0.3 mg/dL (0.15-1.2); Total Protein 7.7 g/dL (6.6-8.7)
== END 2024-06-15 08:14 | disposition home or self-care (01) ==
LOC: LAB 08:15
PROVIDERS: PCP Family Medicine; Visit Provider Internal Medicine Rheumatology
DX: Z79.899 Other long term (current) drug therapy (principal); M06.00 Rheumatoid arthritis without rheumatoid factor, unspecified site
CPT/HCPCS: 36415; 80076; 82565; 85025; 85651; 86140

== ENCOUNTER → 2024-08-17 13:38 | Outpatient (BNVA) | payer MEDICARE, OTHER, SELFPAY | PROVIDERS: PCP Family Medicine; Visit Provider Student in an Organized Health Care Education/Training Program | DX: T84.7XXA Infection and inflammatory reaction due to other internal orthopedic prosthetic devices, implants and grafts, initial encounter (principal); S00.03XA Contusion of scalp, initial encounter; X58.XXXA Exposure to other specified factors, initial encounter | CPT/HCPCS: 99214 ==

== ENCOUNTER → 2024-10-12 13:08 | Outpatient (BNVA) | payer MEDICARE, OTHER, SELFPAY | PROVIDERS: PCP Family Medicine; Visit Provider Internal Medicine Rheumatology | DX: M06.00 Rheumatoid arthritis without rheumatoid factor, unspecified site (principal); M35.00 Sjogren syndrome, unspecified; Z79.899 Other long term (current) drug therapy; M10.9 Gout, unspecified; Z71.89 Other specified counseling; K70.9 Alcoholic liver disease, unspecified | CPT/HCPCS: 36415; 80076; 82306; 82565; 85025; 85651; 86140; 86480; 86704; 86803; 87340; 99214 ==

== ENCOUNTER 2024-11-03 12:30 | Oncology outpatient (recurring) (ONCR) | payer MEDICARE, OTHER, SELFPAY ==
--- NOTE | 2024-10-29 12:30 | CT_ITS ---
WS: [id number] CT chest wo con [id number] REASON FOR EXAM: lung cancer IV CONTRAST ADMINISTERED: None. TECHNIQUE: Multiple axial images without intravenous contrast enhancement. Sagittal and coronal reconstructions. TOTAL EXAM DLP: 227.[address] scans at [facility] use at least one of these dose optimization techniques: automated exposure control; mA and/or kV adjustment per patient size (includes targeted exams where dose is matched to clinical indication); or iterative reconstruction. FINDINGS: Compared to the previous examination of 05/03/2024. No significant interval change is noted. There has been previous thoracotomy with resection of a portion of the right lower lobe. There are the expected postsurgical changes. There is no mediastinal or hilar adenopathy. No lung mass or lung nodule. There is a small area of fibrotic appearing presumed pulmonary parenchymal scarring in the superior aspect of the left lower lobe. Unchanged. Normal adrenals. The bony thorax is intact without focal lesion. CT/CT chest wo con [id number] IMPRESSION: The chest is unchanged compared to the previous examination of 05/03/2024 with n o evidence of metastatic disease or recurrence.
[2024-11-03 12:35] LABS: Hematocrit 35.9 % (36-47); Hemoglobin 13.00 g/dL (11.27-16.99); Mean Corpuscular HGB Conc 36.2 g/dL (30-55); Mean Corpuscular Hemoglobin 35.6 pg (27-33); Mean Corpuscular Volume 98.4 fl (85-98); Nucleated Red Blood Cells % 0 %; Platelet Count 157 10^3/cmm (157-399); Red Blood Count 3.65 10^6/uL (3.85-5.65); White Blood Count 4.67 10^3/uL (3.29-11.43)
[2024-11-03 12:51] LABS: Alanine Aminotransferase 103 U/L (0-33); Albumin Level 4.2 g/dL (3.5-5.2); Alkaline Phosphatase 69 U/L (35-105); Anion Gap 22.8 (5-19); Aspartate Amino Transferase 150 U/L (0-32); Blood Urea Nitrogen 25 mg/dL (8-23); Calcium 9.4 mg/dL (8.5-10.5); Carbon Dioxide 24 mmol/L (22-29); Chloride 81 mmol/L (98-107); Creatinine Clr Calc Pharmacy 37.5541; Globulin 3.0 g/dL (1.3-4.6); Glucose 81 mg/dL (65-115); Osmolality Calculated 259 mOsm/kg (285-295); Potassium 4.8 mmol/L (3.5-5.1); Sodium 123 mmol/L (136-145); Total Protein 7.2 g/dL (6.6-8.7)
[2024-11-03 16:40] LABS: Estmated Average Glucose 103; Hemoglobin A1C 5.2 % (4.0-6.0)
[2024-11-03 16:57] LABS: Thyroid Stimulating Hormone 2.28 uIU/mL (0.27-4.20)
== END 2024-11-11 23:59 | disposition home or self-care (01) ==
PROVIDERS: Internal Medicine; Nurse Practitioner; PCP Family Medicine; Visit Provider Internal Medicine Medical Oncology
DX: Z53.9 Procedure and treatment not carried out, unspecified reason; Z08 Encounter for follow-up examination after completed treatment for malignant neoplasm; Z85.118 Personal history of other malignant neoplasm of bronchus and lung; E87.1 Hypo-osmolality and hyponatremia; R63.6 Underweight; R74.01 Elevation of levels of liver transaminase levels; M35.00 Sjogren syndrome, unspecified; D89.9 Disorder involving the immune mechanism, unspecified; M10.9 Gout, unspecified; Z79.899 Other long term (current) drug therapy; F17.210 Nicotine dependence, cigarettes, uncomplicated; Z79.52 Long term (current) use of systemic steroids; F10.90 Alcohol use, unspecified, uncomplicated; Z90.2 Acquired absence of lung [part of]
CPT/HCPCS: 36415; 71250; 80053; 83036; 83615; 84443; 85025; 99214

== ENCOUNTER → 2025-02-25 09:42 | Outpatient (BNVA) | payer MEDICARE, OTHER, SELFPAY | PROVIDERS: PCP Family Medicine; Referring Provider Family Medicine; Visit Provider Internal Medicine | DX: J44.89 Other specified chronic obstructive pulmonary disease (principal); C34.91 Malignant neoplasm of unspecified part of right bronchus or lung; Z71.6 Tobacco abuse counseling; F17.210 Nicotine dependence, cigarettes, uncomplicated; J44.1 Chronic obstructive pulmonary disease with (acute) exacerbation; J44.9 Chronic obstructive pulmonary disease, unspecified | CPT/HCPCS: 99214; 99406; Q3014 ==

== ENCOUNTER → 2025-03-07 12:50 | Outpatient (BNVA) | payer MEDICARE, OTHER, SELFPAY | PROVIDERS: PCP Family Medicine; Visit Provider Internal Medicine Rheumatology | DX: M06.00 Rheumatoid arthritis without rheumatoid factor, unspecified site (principal); M35.00 Sjogren syndrome, unspecified; Z79.899 Other long term (current) drug therapy; M10.9 Gout, unspecified; Z71.85 Encounter for immunization safety counseling; K70.9 Alcoholic liver disease, unspecified; M47.812 Spondylosis without myelopathy or radiculopathy, cervical region; M17.11 Unilateral primary osteoarthritis, right knee; Z98.1 Arthrodesis status; Z98.890 Other specified postprocedural states; Z87.39 Personal history of other diseases of the musculoskeletal system and connective tissue | CPT/HCPCS: 36415; 80076; 82565; 85025; 85651; 86140; 99214 ==